=== PATIENT | female | born 1950 | race Caucasian/White ===

== ENCOUNTER → 2016-08-05 | Outpatient (CLI) | payer MEDICARE, OTHER ==
[~2016-08-05] MED LIST: AMLO5TAB2 PO; AMT10T; ASP81TEC; ASPI-586 PO; CLC600T; CTRZ10T; DPH25C; ESCI10TA55 PO; ESTROGCO.3; FAMO-119 PO; FAMO20TA13; METO-270 PO; METO-272 PO; MTP25TSR; MULT1TAB63; NF-VITD400; PRAM0.5T9 PO; PRD20T PO; PRD50T PO; [UNRECOGNIZED DRUG - OTHER]
--- OUTSIDE RECORDS SUMMARY | 2016-08-05 15:51 | XMS REPORT | Continuity of Care Document ---
Author Author [facility] Organization [facility] Address Unknown Phone Unavailable Care Team Providers Care Service Promoter Salesperson Name Role Phone WELLINGTON WU MD PCP Insurance Providers Payer Name Policy Number Subscriber Name Relationship [employer] Medicare [id number] Robin Ward 18 Self / Same As Patient Enter Insurance Name [id number] Robin Ward 16 Self / Same As Patient Advance Directives Directive Response Recorded Date/Time Advance Directives No 05/25/16 4:00am Organ Donor No 05/25/16 4:00am Resuscitation Status Full Code 05/25/16 4:00am Chief Complaint and Reason for Visit Chief Complaint Allergic Reaction Reason for Visit ANGIOEDEMA OF TONGUE OF UNKNOWN ETIOLOGY Problems Active Problems Medical Problem Onset Date Status Glossal swelling Unknown Acute Medications Current Home Medications Medication Dose Units Route Directions Days/Qty Instructions Start Date Metoprolol Succinate 25 Mg 25 Mg Oral Daily 04/29/16 Amlodipine Besylate 5 Mg 5 Mg Oral Daily 04/29/16 Escitalopram Oxalate 10 Mg 1 Tab Oral Daily 30 05/25/16 Aspirin 81 Mg 81 Mg Oral Daily 05/25/16 Prednisone 50 Mg 50 Mg Oral Daily 10 05/25/16 Past Home Medications Medication Directions Ordered Status Estrogens Conjugated 0.3 Mg Tab, 04/18/08 Discontinued [Maxzine] , 04/18/08 Discontinued Amitriptyline Hcl 10 Mg Tab, 04/18/08 Discontinued Amitriptyline Hcl 10 Mg Tab, 04/18/08 Discontinued Metoprolol Succinate (Metoprolol Er 25MG) 25 Mg Tab, 04/18/08 Discontinued Diphenhydramine Hcl 25 Mg Capsule, 04/18/08 Discontinued Aspirin 81 Mg Tabec, 04/18/08 Discontinued Calcium Carbonate 600 Mg Tab, 04/18/08 Discontinued Multivitamins 1 Ea Tablet, 04/18/08 Discontinued Cetirizine Hcl 10 Mg Tablet, 04/18/08 Discontinued Famotidine 20 Mg Tablet, 04/18/08 Discontinued Vitamin D 400 Iu Tab, 04/18/08 Discontinued Metoprolol Succinate 50 Mg Tab.er.24h, 50 Mg Oral Daily 10/03/15 Discontinued Pramipexole Di-Hcl 0.5 Mg Tablet, 0.5 Mg Oral Three Times A Day 10/03/15 Discontinued Prednisone 20 Mg Tab, 20 Mg Oral Daily 10/04/15 Discontinued Prednisone 20 Mg Tab, 20 Mg Oral Three Times A Day 03/22/16 Discontinued Prednisone 20 Mg Tab, 30 Mg Oral Twice A Day 04/29/16 Discontinued Famotidine 20 Mg Tablet, 20 Mg Oral Twice A Day 04/29/16 Discontinued Social History Social History Problem Response Recorded Date/Time Alcohol Use Denies Use 10/03/2015 10:38pm Recreational Drug Use No 10/03/2015 10:11pm Recent Foreign Travel No 05/25/2016 4:00am Recent Infectious Disease Exposure No 05/25/2016 4:00am Hospitalization with Isolation Denies 05/25/2016 4:00am Sexually Transmitted Disease No 05/25/2016 4:00am Smoking Status Never a Smoker 05/25/2016 4:00am Recent Hopitalizations No 05/25/2016 4:00am Sexually Transmitted Disease No 05/25/2016 4:00am Hospitalization with Isolation Denies 05/25/2016 4:00am Hx Sexually Transmitted Disorders No 01/12/2009 7:10pm Query Response Start Date Stop Date Smoking Status Never a Smoker Hospital Discharge Instructions No hospital discharge instructions. Plan of Care Discharge Date 05/25/16 7:11am Disposition 01 HOME, SELF-CARE Condition at Discharge Improved Instructions/Education Provided NO INSTRUCTIONS GIVEN Prescriptions See Medication Section Referrals WELLINGTON WU MD - Primary Care Physician Additional Instructions/Education Use your medications at home and add Prednisone 50 mg daily for 3 days. Close follow up with Dr. Wu Friday. Come back if any problems. All discharge instructions reviewed with patient and/or family. Voiced understanding. Functional Status No functional status results. Allergies, Adverse Reactions, Alerts No known allergies. Immunizations No immunization records. Vital Signs Acute Vital Signs Vital Response Date/Time Temperature (Fahrenheit) 97.0 degrees F (97.6 - 99.5) 05/25/2016 4:00am Temperature (Calculated Celsius) 36.71368 degrees C (36.4 - 37.5) 05/25/2016 4:00am Temperature Source Temporal 05/25/2016 4:00am Pulse Rate (adult) 59 bpm (60 - 90) 05/25/2016 5:40am Respiratory Rate 16 bpm (12 - 24) 05/25/2016 5:40am O2 Sat by Pulse Oximetry 96 % (88 - 100) 05/25/2016 5:40am Blood Pressure 150/82 mm Hg 05/25/2016 5:40am Blood Pressure Mean 104 mm Hg 05/25/2016 5:40am Pain Numeric Pain Scale 0-No Pain 05/25/2016 5:40am Height (Feet) 5 feet 05/25/2016 4:00am Height (Inches) 0 inches 05/25/2016 4:00am Height (Calculated Centimeters) 152.079373 cm 05/25/2016 4:00am Weight (Pounds) 125 pounds 05/25/2016 4:00am Weight (Calculated Kilograms) 56.629053 kilograms 05/25/2016 4:00am Capillary Refill Capillary Refill Less Than 3 Seconds 05/25/2016 5:40am Height 5 ft 0 in Weight 125 lb Body Mass Index 24.4 kg/m^2 Results No known relevant diagnostic tests, laboratory data and/or discharge summary. Procedures No known history of procedures. Encounters Encounter Location Arrival/Admit Date Discharge/Depart Date Attending Provider Departed Emergency Room [facility] 05/25/16 3:51am 05/25 7:11am ROBERT AMES MD Registered Clinic [facility] 05/23/16 8:23am LIBERTY FELICIANO Departed Emergency Room [facility] 04/29/16 8:47am 10/10 /16 12:11pm RADHA ADAMS DO Recent Diagnosis
--- NOTE | 2016-08-05 16:11 | Diagnostic Imaging Report ---
INDICATION: Cough for 2 months. COMPARISON STUDIES: Chest from 09/11/09. FINDINGS: Frontal and lateral views of the chest again demonstrate multiple surgical clips overlying the left side of the chest. The heart size and vascularity are normal. The lungs are clear. There are no pleural effusions. IMPRESSION: There are no acute findings. Dictated by: Dictated on workstation # [id number]
== END ==
LOC: RAD 15:47
PROVIDERS: ATTEND Nurse Practitioner Family
DX: R05 Cough (principal); R06.02 Shortness of breath
CPT/HCPCS: 71020

== ENCOUNTER → 2016-08-19 | Outpatient (CLI) | payer MEDICARE, OTHER ==
--- OUTSIDE RECORDS SUMMARY | 2016-08-19 09:28 | XMS REPORT | Continuity of Care Document ---
Author Author [facility] Organization [facility] Address Unknown Phone Unavailable Care Team Providers Care Strategic Client Executive Name Role Phone WELLINGTON WU MD PCP Insurance Providers Payer Name Policy Number Subscriber Name Relationship [employer] [id number] Robin Ward 16 Self / Same As Patient Enter Insurance Name [id number] Robin Ward 16 Self / Same As [...] - 99.5) 05/25/2016 4:00am Temperature (Calculated Celsius) 36.08678 degrees C (36.4 - 37.5) 05/25/2016 4:00am [...] 0 inches 05/25/2016 4:00am Height (Calculated Centimeters) 152.572424 cm 05/25/2016 4:00am Weight (Pounds) 125 pounds 05/25/2016 4:00am Weight (Calculated Kilograms) 56.247687 kilograms 05/25/2016 4:00am Capillary Refill Capillary Refill Less Than 3 Seconds 05/25/2016 5:40am Height 5 ft 0 in Weight 125 lb Body Mass Index 24.4 kg/m^2 Results No known relevant diagnostic tests, laboratory data and/or discharge summary. Procedures No known history of procedures. Encounters Encounter Location Arrival/Admit Date Discharge/Depart Date Attending Provider Departed Emergency Room [facility] 05/25/16 3:51am 05/25 7:11am ROBERT AMES MD Registered Clinic [facility] 05/23/16 8:23am LIBERTY FELICIANO Departed Emergency Room [facility] 04/29/16 8:47am 10/10 /16 12:11pm RADHA ADAMS DO Recent Diagnosis
--- NOTE | 2016-08-19 09:57 | Diagnostic Imaging Report ---
INDICATION: Right sided rib pain Three views of the right ribs do not show any displaced fractures. There are no effusions or pneumothoraces. IMPRESSION: Negative right ribs Dictated by: Dictated on workstation # [id number]
== END ==
LOC: RAD 09:24
PROVIDERS: ATTEND Nurse Practitioner Family
DX: R07.81 Pleurodynia (principal)
CPT/HCPCS: 71100

== ENCOUNTER → 2016-08-23 | Outpatient (CLI) | payer MEDICARE, OTHER ==
[~2016-08-23] MED LIST changes: +CATHETER FLUSH 10 ML SYR IV PRN; +IOHEXOL 350 MG/ML 100 ML (OMNIPAQUE 350) VIAL IV ONE; +NS 100 ML (IVPB) BAG IV ONE
--- OUTSIDE RECORDS SUMMARY | 2016-08-23 15:16 | XMS REPORT | Continuity of Care Document ---
Author Author [facility] Organization [facility] Address Unknown Phone Unavailable Care Team Providers Care Shear Scrapman Name Role Phone WELLINGTON WU MD PCP Insurance Providers Payer Name Policy Number Subscriber Name Relationship [employer] [id number] Robin Ward 16 Self / Same As Patient Enter Insurance Name [id number] Robin Ward 16 Self / Same As [...] - 99.5) 05/25/2016 4:00am Temperature (Calculated Celsius) 36.07436 degrees C (36.4 - 37.5) 05/25/2016 4:00am [...] 0 inches 05/25/2016 4:00am Height (Calculated Centimeters) 152.625479 cm 05/25/2016 4:00am Weight (Pounds) 125 pounds 05/25/2016 4:00am Weight (Calculated Kilograms) 56.200752 kilograms 05/25/2016 4:00am Capillary Refill Capillary Refill Less Than 3 Seconds 05/25/2016 5:40am Height 5 ft 0 in Weight 125 lb Body Mass Index 24.4 kg/m^2 Results No known relevant diagnostic tests, laboratory data and/or discharge summary. Procedures No known history of procedures. Encounters Encounter Location Arrival/Admit Date Discharge/Depart Date Attending Provider Departed Emergency Room [facility] 05/25/16 3:51am 05/25 7:11am ROBERT AMES MD Registered Clinic [facility] 05/23/16 8:23am LIBERTY FELICIANO Departed Emergency Room [facility] 04/29/16 8:47am 10/10 /16 12:11pm RADHA ADAMS DO Recent Diagnosis
--- NOTE | 2016-08-23 16:24 | Diagnostic Imaging Report ---
PROCEDURE: CT chest with contrast only. TECHNIQUE: Multiple contiguous axial images were obtained through the chest after administration of intravenous contrast. INDICATION: Right lower rib pain. No history of trauma. FINDINGS: The lungs are well aerated. There are no infiltrates or masses present. No pneumothorax or pleural effusion. No mediastinal or hilar adenopathy. The aorta is well opacified and appears normal with the aortic root measuring 3.4 cm. Pulmonary arteries opacify and appear normal. There are surgical clips along the anterior upper chest wall on the left anterior to the pectoralis muscle. There is no axillary adenopathy. Bone windows show no evidence of lytic or blastic bone lesions. No rib fractures demonstrated. IMPRESSION: 1. Surgical changes along the superior anterior left chest wall. 2. No parenchymal lesions. 3. No rib fractures or destructive bony lesions demonstrated. Dictated by: Dictated on workstation # [id number]
== END ==
LOC: RAD 15:12
PROVIDERS: ATTEND Nurse Practitioner Family
DX: R07.81 Pleurodynia (principal)
CPT/HCPCS: 71260

== ENCOUNTER → 2016-08-26 | Outpatient (CLI) | payer MEDICARE, OTHER ==
[~2016-08-26] MED LIST changes: -CATHETER FLUSH 10 ML SYR IV PRN; -IOHEXOL 350 MG/ML 100 ML (OMNIPAQUE 350) VIAL IV ONE; -NS 100 ML (IVPB) BAG IV ONE
--- OUTSIDE RECORDS SUMMARY | 2016-08-26 13:20 | XMS REPORT | Continuity of Care Document ---
Author Author [facility] Organization [facility] Address Unknown Phone Unavailable Care Team Providers Care Certified Pedorthotist Name Role Phone WELLINGTON WU MD PCP Insurance Providers Payer Name Policy Number Subscriber Name Relationship W[employer] Medicare [id number] Robin Ward 16 Self / Same As Patient Enter Insurance Name [id number] Robin Ward 16 Self / Same As [...] - 99.5) 05/25/2016 4:00am Temperature (Calculated Celsius) 36.14490 degrees C (36.4 - 37.5) 05/25/2016 4:00am [...] 0 inches 05/25/2016 4:00am Height (Calculated Centimeters) 152.957190 cm 05/25/2016 4:00am Weight (Pounds) 125 pounds 05/25/2016 4:00am Weight (Calculated Kilograms) 56.719878 kilograms 05/25/2016 4:00am Capillary Refill Capillary Refill Less Than 3 Seconds 05/25/2016 5:40am Height 5 ft 0 in Weight 125 lb Body Mass Index 24.4 kg/m^2 Results No known relevant diagnostic tests, laboratory data and/or discharge summary. Procedures No known history of procedures. Encounters Encounter Location Arrival/Admit Date Discharge/Depart Date Attending Provider Departed Emergency Room [facility] 05/25/16 3:51am 05/25 7:11am ROBERT AMES MD Registered Clinic [facility] 05/23/16 8:23am LIBERTY FELICIANO Departed Emergency Room [facility] 04/29/16 8:47am 10/10 /16 12:11pm RADHA ADAMS DO Recent Diagnosis
[2016-08-26 13:40] LABS: BASOPHILS # (AUTO) 0.1 10^3/uL (0.0-0.1); BASOPHILS % (AUTO) 1 % (0-10); EOSINOPHILS # (AUTO) 0.1 10^3/uL (0.0-0.3); EOSINOPHILS % (AUTO) 2 % (0-10); LYMPHOCYTES % (AUTO) 19 % (12-44); MEAN CORPUSCULAR HEMOGLOBIN 28 PG (25-34); MEAN CORPUSCULAR HGB CONC 33 G/DL (32-36); MEAN CORPUSCULAR VOLUME 87 FL (80-99); MEAN PLATELET VOLUME 10.8 FL (7.4-10.4); MONOCYTES # (AUTO) 0.3 X 10^3 (0.0-1.0); MONOCYTES % (AUTO) 6 % (0-12); NEUTROPHILS # (AUTO) 3.8 X 10^3 (1.8-7.8); NEUTROPHILS % (AUTO) 72 % (42-75); PLATELET COUNT 159 10^3/uL (130-400); RED BLOOD COUNT 4.54 10^6/uL (4.35-5.85); RED CELL DISTRIBUTION WIDTH 14.4 % (10.0-14.5); WHITE BLOOD COUNT 5.4 10^3/uL (4.3-11.0)
[2016-08-26 14:49] LABS: ALBUMIN 4.3 G/DL (3.2-4.5); BILIRUBIN,TOTAL 0.5 MG/DL (0.1-1.0); CALCIUM 9.9 MG/DL (8.5-10.1); CREATININE SERUM 1.32 MG/DL (0.60-1.30); POTASSIUM 3.5 MMOL/L (3.6-5.0)
== END ==
LOC: ONC 13:17
PROVIDERS: ATTEND Internal Medicine Hematology & Oncology
DX: M85.9 Disorder of bone density and structure, unspecified (principal); Z09 Encounter for follow-up examination after completed treatment for conditions other than malignant neoplasm; Z85.3 Personal history of malignant neoplasm of breast; I12.9 Hypertensive chronic kidney disease with stage 1 through stage 4 chronic kidney disease, or unspecified chronic kidney disease; N18.3 Chronic kidney disease, stage 3 (moderate); G35 Multiple sclerosis; G20 Parkinson's disease
CPT/HCPCS: 36415; 80053; 82306; 85025; 99213

== ENCOUNTER → 2016-08-27 | Outpatient (CLI) | payer MEDICARE, OTHER ==
--- OUTSIDE RECORDS SUMMARY | 2016-08-27 10:43 | XMS REPORT | Continuity of Care Document ---
Author Author [facility] Organization [facility] Address Unknown Phone Unavailable Care Team Providers Care Blocker Heated Metal Forms Name Role Phone WELLINGTON WU MD PCP Insurance Providers Payer Name Policy Number Subscriber Name Relationship [employer] [id number] Robin Ward 16 Self / Same As Patient Enter Insurance Name [id number] Robin Ward 16 Self / Same As [...] - 99.5) 05/25/2016 4:00am Temperature (Calculated Celsius) 36.96636 degrees C (36.4 - 37.5) 05/25/2016 4:00am [...] 0 inches 05/25/2016 4:00am Height (Calculated Centimeters) 152.621548 cm 05/25/2016 4:00am Weight (Pounds) 125 pounds 05/25/2016 4:00am Weight (Calculated Kilograms) 56.440624 kilograms 05/25/2016 4:00am Capillary Refill Capillary Refill Less Than 3 Seconds 05/25/2016 5:40am Height 5 ft 0 in Weight 125 lb Body Mass Index 24.4 kg/m^2 Results No known relevant diagnostic tests, laboratory data and/or discharge summary. Procedures No known history of procedures. Encounters Encounter Location Arrival/Admit Date Discharge/Depart Date Attending Provider Departed Emergency Room [facility] 05/25/16 3:51am 05/25 7:11am ROBERT AMES MD Registered Clinic [facility] 05/23/16 8:23am LIBERTY FELICIANO Departed Emergency Room [facility] 04/29/16 8:47am 10/10 /16 12:11pm RADHA ADAMS DO Recent Diagnosis
--- NOTE | 2016-08-27 15:41 | Diagnostic Imaging Report ---
EXAMINATION: Whole body bone scan. TECHNIQUE: After the intravenous administration of 27 mCi of Technetium 99m MDP, whole body delayed phase bone scan images were obtained with lateral views of the head and neck and the chest regions. INDICATION: History of breast cancer, has right lower rib pain. FINDINGS: There is a moderate focus of increased radiotracer uptake seen in the posterolateral aspect of the right 8th rib. No other focus of significant increased radiotracer uptake is seen. When correlated with the recent CT scan from 08/23/2016, no definitive correlating lesion is identified. No other significant focus of increased uptake is seen in the skeleton with minimal foci of increased uptake around the spine and joints, likely degenerative in nature. Urinary tract activity and excretion are seen. IMPRESSION: There is a moderate focus of increased uptake along the lateral aspect of the right 8th rib. No definite correlate is seen on the recent CT scan of the chest. This could be related to a stress or occult nondisplaced fracture rather than a solitary rib metastasis. A followup bone scan in 2-3 months to observe this lesion is recommended. Dictated by: Dictated on workstation # [id number]
== END ==
LOC: CARD 10:40
PROVIDERS: ATTEND Internal Medicine Hematology & Oncology
DX: R07.81 Pleurodynia (principal); Z85.3 Personal history of malignant neoplasm of breast
CPT/HCPCS: 76705; 78306

== ENCOUNTER → 2016-08-27 | Outpatient (CLI) | payer MEDICARE, OTHER ==
--- OUTSIDE RECORDS SUMMARY | 2016-08-27 06:50 | XMS REPORT | Continuity of Care Document ---
Author Author [facility] Organization [facility] Address Unknown Phone Unavailable Care Team Providers Care Camp Advisor Name Role Phone WELLINGTON WU MD PCP Insurance Providers Payer Name Policy Number Subscriber Name Relationship [employer] [id number] Robin Ward 16 Self / Same As Patient Enter Insurance Name [id number] Robin Ward 16 Self / Same As [...] 3 days. Close follow up with Dr. uW Friday. Come back if any problems. All discharge instructions reviewed with patient and/or family. Voiced understanding. Functional Status No functional status results. Allergies, Adverse Reactions, Alerts No known allergies. Immunizations No immunization records. Vital Signs Acute Vital Signs Vital Response Date/Time Temperature (Fahrenheit) 97.0 degrees F (97.6 - 99.5) 05/25/2016 4:00am Temperature (Calculated Celsius) 36.02297 degrees C (36.4 - 37.5) 05/25/2016 4:00am [...] 0 inches 05/25/2016 4:00am Height (Calculated Centimeters) 152.954549 cm 05/25/2016 4:00am Weight (Pounds) 125 pounds 05/25/2016 4:00am Weight (Calculated Kilograms) 56.061963 kilograms 05/25/2016 4:00am Capillary Refill Capillary Refill Less Than 3 Seconds 05/25/2016 5:40am Height 5 ft 0 in Weight 125 lb Body Mass Index 24.4 kg/m^2 Results No known relevant diagnostic tests, laboratory data and/or discharge summary. Procedures No known history of procedures. Encounters Encounter Location Arrival/Admit Date Discharge/Depart Date Attending Provider Departed Emergency Room [facility] 05/25/16 3:51am 05/25 7:11am ROBERT AMES MD Registered Clinic [facility] 05/23/16 8:23am LIBERTY FELICIANO Departed Emergency Room [facility] 04/29/16 8:47am 10/10 /16 12:11pm RADHA ADAMS DO Recent Diagnosis
--- NOTE | 2016-08-27 09:14 | Diagnostic Imaging Report ---
PROCEDURE: US Gallbladder. TECHNIQUE: Multiple real-time grayscale images were obtained over the right upper quadrant in various projections. INDICATION: Right upper quadrant pain. FINDINGS: The pancreas appears unremarkable. The liver demonstrates no focal mass. There is hepatopetal flow in the portal vein. There is no intrahepatic biliary dilatation. The CBD is 5 mm in caliber. No gallstone or gallbladder wall thickening is seen. The right kidney is 8.9 cm in length with no hydronephrosis or focal lesion. No fluid collection in the upper right abdomen is seen. The sonographic Laughlin sign is reportedly negative. IMPRESSION: Unremarkable exam. Dictated by: Dictated on workstation # [id number]
== END ==
LOC: RAD 06:46
PROVIDERS: ATTEND Nurse Practitioner Family
DX: R10.11 Right upper quadrant pain (principal)
CPT/HCPCS: 76705

== ENCOUNTER → 2016-12-23 | Outpatient (CLI) | payer MEDICARE, OTHER ==
--- NOTE | 2016-12-23 15:55 | Diagnostic Imaging Report ---
EXAMINATION: Whole body bone scan. TECHNIQUE: After the intravenous administration of 27 mCi of Technetium 99m MDP, whole body delayed phase bone scan images were obtained with lateral views of the head and neck and the chest regions. INDICATION: Breast cancer. COMPARISON: 08/27/2016. FINDINGS: The previously seen lesion along the lateral aspect of the right eighth rib is associated with [id number] increased uptake slightly less than 08/27/2016 exam. There is no other rib or axial skeleton suspicious lesion identified. Mild degenerative joint activity is seen in the shoulders, knees, and ankles. Kidney and urinary bladder activity is noted. IMPRESSION: There is slight decrease in intensity of uptake in the lateral right eighth rib with no new lesion seen. Etiology is favored to be posttraumatic with no definite evidence of metastasis. Dictated by: Dictated on workstation # [id number]
== END ==
LOC: CARD 11:14
PROVIDERS: ATTEND Internal Medicine Hematology & Oncology
DX: M85.80 Other specified disorders of bone density and structure, unspecified site (principal); Z85.3 Personal history of malignant neoplasm of breast
CPT/HCPCS: 78306

== ENCOUNTER 2016-12-25 13:21 | Outpatient (RCR) | payer MEDICARE, OTHER | END 2017-02-02 | disposition still patient (30) | LOC: ONC 13:21 | PROVIDERS: ATTEND Internal Medicine Hematology & Oncology | DX: C50.912 Malignant neoplasm of unspecified site of left female breast (principal); M85.88 Other specified disorders of bone density and structure, other site; N18.3 Chronic kidney disease, stage 3 (moderate) | CPT/HCPCS: 99213 ==

== ENCOUNTER → 2017-04-22 | Outpatient (CLI) | payer MEDICARE, OTHER | LOC: RAD 12:07 | PROVIDERS: ATTEND Family Medicine | DX: M25.562 Pain in left knee (principal) | CPT/HCPCS: 73562; 73590 ==

== ENCOUNTER → 2017-04-24 | Outpatient (CLI) | payer MEDICARE, OTHER ==
[2017-04-24 14:27] LABS: MEAN PLATELET VOLUME 10.7 FL (7.4-10.4); RED BLOOD COUNT 4.87 10^6/uL (4.35-5.85); RED CELL DISTRIBUTION WIDTH 13.6 % (10.0-14.5); WHITE BLOOD COUNT 5.2 10^3/uL (4.3-11.0)
[2017-04-24 14:49] LABS: CALCIUM 9.8 MG/DL (8.5-10.1); CREATININE SERUM 1.21 MG/DL (0.60-1.30); POTASSIUM 3.8 MMOL/L (3.6-5.0)
[2017-04-24 15:11] LABS: THYROID STIMULATING HORMONE 1.49 UIU/ML (0.35-4.94)
== END ==
LOC: LAB 14:07
PROVIDERS: ATTEND Physician Assistant Medical
DX: R00.1 Bradycardia, unspecified (principal)
CPT/HCPCS: 36415; 80048; 84436; 84443; 84480; 85027

== ENCOUNTER 2017-06-19 23:42 | Emergency (ER) | payer MEDICARE, OTHER ==
[~2017-06-19] VITALS: Ht 152.4 cm; Wt 56.7 kg
[~2017-06-19 23:42] MED LIST changes: +EPINEPHrine INJECTION 1 MG/ML AMP ONE; -METO-270 PO; -METO-272 PO; +METO-370 PO; +METO-387 PO
[2017-06-19] MEDS ORDERED: FAMOTIDINE 20MG/2ML IV (PEPCID) ONE (23:43)
--- OUTSIDE RECORDS SUMMARY | 2017-06-19 23:52 | XMS REPORT | Continuity of Care Document ---
Author Author [facility] Organization [facility] Address Unknown Phone Unavailable Allergies Active Description Code Type Severity Reaction Onset Reported/Identified Relationship to Patient Clinical Status Yes No Known Drug Allergies [id number] Drug Allergy Unknown N/ A 04/20/2008 Medications Problems Date Dx Coded Attending Type Code Diagnosis Diagnosed By 05/30/2013 ASHLIE BEAR Ot 174.9 MALIGN NEOPL BREAST NOS 05/30/2013 ASHLIE BEAR Ot 585.3 CHRONIC KIDNEY DISEASE, STAGE III (MODER 05/30/2013 ASHLIE BEAR Ot 733.90 BONE CARTILAGE DIS NOS 05/30/2013 ASHLIE BEAR Ot V15.3 HX OF IRRADIATION 05/30/2013 ASHLIE BEAR Ot V58.66 LONG-TERM (CURRENT) USE OF ASPIRIN 05/30/2013 ASHLIE BEAR Ot V58.69 OTH MED,LT,CURRENT USE 05/30/2013 ASHLIE BEAR Ot V86.0 ESTROGEN RECEPTOR POSITIVE STATUS [ER+] 05/30/2013 ASHLIE BEAR Ot V87.41 PERSONAL HISTORY OF ANTINEOPLASTIC CHEMO 08/31/2013 ROBERT PRYOR MD Ot 569.0 ANAL RECTAL POLYP 08/31/2013 ROBERT PRYOR MD Ot V76.51 SCREEN MAL NEOP-COLON 06/15/2014 LIBERTY FELICIANO HSPT TUTOR Ot 733.90 06/15/2014 LIBERTY FELICIANO HSPT TUTOR Ot V76.12 07/13/2014 YAW ACOSTA DOUBLE REAMER OPERATOR-C Ot 263.9 07/13/2014 YAW ACOSTA DOUBLE REAMER OPERATOR-C Ot 272.2 07/13/2014 YAW ACOSTA DOUBLE REAMER OPERATOR-C Ot 275.42 07/13/2014 YAW ACOSTA DOUBLE REAMER OPERATOR-C Ot 285.21 07/13/2014 YAW ACOSTA DOUBLE REAMER OPERATOR-C Ot 404.10 07/13/2014 YAW ACOSTA DOUBLE REAMER OPERATOR-C Ot 585.3 07/13/2014 YAW ACOSTA DOUBLE REAMER OPERATOR-C Ot 791.0 07/20/2014 Ot 272.2 07/20/2014 Ot 275.42 07/20/2014 Ot 285.21 07/20/2014 Ot 404.10 07/20/2014 Ot 585.3 07/20/2014 Ot 791.0 08/22/2014 CHEMA, AZEEMAN N Ot 174.9 08/22/2014 CHEMA, BOBAN N Ot 585.3 08/22/2014 CHEMA, BOBAN N Ot 733.90 08/22/2014 CHEMA, BOBAN N Ot V15.3 08/22/2014 CHEMA, BOBAN N Ot V58.66 08/22/2014 CHEMA, BOBAN N Ot V58.69 08/22/2014 CHEMA, BOBAN N Ot V86.0 08/22/2014 CHEMA, BOBAN N Ot V87.41 08/29/2014 CHEMA, BOBAN N Ot 174.9 08/29/2014 CHEMA, BOBAN N Ot 585.3 08/29/2014 CHEMA, BOBAN N Ot 733.90 08/29/2014 CHEMA, BOBAN N Ot V15.3 08/29/2014 CHEMA, BOBAN N Ot V58.66 08/29/2014 CHEMA, BOBAN N Ot V58.69 08/29/2014 CHEMA, BOBAN N Ot V86.0 08/29/2014 CHEMA, BOBAN N Ot V87.41 08/30/2014 CHEMA, BOBAN N Ot 174.9 08/30/2014 CHEMA, BOBAN N Ot 585.3 08/30/2014 CHEMA, BOBAN N Ot 733.90 08/30/2014 CHEMA, BOBAN N Ot V15.3 08/30/2014 CHEMA, BOBAN N Ot V58.66 08/30/2014 CHEMA, BOBAN N Ot V58.69 08/30/2014 CHEMA, BOBAN N Ot V86.0 08/30/2014 CHEMA, BOBAN N Ot V87.41 10/10/2014 YAW ACOSTA DOUBLE REAMER OPERATOR-C Ot 263.9 PROTEIN-ERLINDA MALNUTR NOS 10/10/2014 YAW ACOSTA DOUBLE REAMER OPERATOR-C Ot 272.2 MIXED HYPERLIPIDEMIA 10/10/2014 YAW ACOSTA DOUBLE REAMER OPERATOR-C Ot 275.42 HYPERCALCEMIA 10/10/2014 YAW ACOSTA DOUBLE REAMER OPERATOR-C Ot 285.21 ANEMIA IN CHRONIC KIDNEY DISEASE 10/10/2014 YAW ACOSTA 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 10/10/2014 YAW ACOSTA NP-C Ot 585.3 CHRONIC KIDNEY DISEASE, STAGE III (MODER 10/10/2014 YAW ACOSTA DOUBLE REAMER OPERATOR-C Ot 791.0 PROTEINURIA 10/13/2014 CHEMA, BOBAN N Ot 174.9 10/13/2014 CHEMA, BOBAN N Ot 585.3 10/13/2014 CHEMA, BOBAN N Ot 733.90 10/13/2014 CHEMA, BOBAN N Ot V15.3 10/13/2014 CHEMA, BOBAN N Ot V58.66 10/13/2014 CHEMA, BOBAN N Ot V58.69 10/13/2014 CHEMA BOBAN N Ot V86.0 10/13/2014 CHEMA, BOBAN N Ot V87.41 11/27/2014 CHEMA, BOBAN N Ot 174.9 MALIGN NEOPL BREAST NOS 11/27/2014 CHEMA BOBAN N Ot 585.3 CHRONIC KIDNEY DISEASE, STAGE III (MODER 11/27/2014 CHEMA, BOBAN N Ot 733.90 BONE CARTILAGE DIS NOS 11/27/2014 AZEEM BEARAN N Ot V15.3 HX OF IRRADIATION 11/27/2014 CHEMA BOBAN N Ot V58.66 LONG-TERM (CURRENT) USE OF ASPIRIN 11/27/2014 CHEMA BOBAN N Ot V58.69 OTH MED,LT,CURRENT USE 11/27/2014 CHEMA BOBAN N Ot V86.0 ESTROGEN RECEPTOR POSITIVE STATUS [ER+] 11/27/2014 CHEMA BOBBRITTNEY N Ot V87.41 PERSONAL HISTORY OF ANTINEOPLASTIC CHEMO 12/29/2014 YAW ACOSTA DOUBLE REAMER OPERATOR-C Ot 263.9 12/29/2014 YAW ACOSTA DOUBLE REAMER OPERATOR-C Ot 272.4 12/29/2014 YAW ACOSTA DOUBLE REAMER OPERATOR-C Ot 275.42 12/29/2014 YAW ACOSTA DOUBLE REAMER OPERATOR-C Ot 285.21 12/29/2014 NEW, YAW Pederson DOUBLE REAMER OPERATOR-C Ot 404.10 12/29/2014 NEW, YAW Pederson DOUBLE REAMER OPERATOR-C Ot 585.3 12/29/2014 NEW, YAW Pederson DOUBLE REAMER OPERATOR-C Ot 791.0 01/16/2015 NEW, YAW Pederson DOUBLE REAMER OPERATOR-C Ot 263.9 01/16/2015 NEW, YAW Pederson DOUBLE REAMER OPERATOR-C Ot 268.9 01/16/2015 NEW, YAW Pederson DOUBLE REAMER OPERATOR-C Ot 272.2 01/16/2015 NEW, YAW Pederson DOUBLE REAMER OPERATOR-C Ot 275.42 01/16/2015 NEW, YAW Pederson DOUBLE REAMER OPERATOR-C Ot 285.21 01/16/2015 NEW, YAW Pederson DOUBLE REAMER OPERATOR-C Ot 404.10 01/16/2015 NEW, YAW Pederson DOUBLE REAMER OPERATOR-C Ot 585.3 01/16/2015 NEW, YAW Pederson NP-C Ot 788.1 01/16/2015 NEW, YAW Pederson NP-C Ot 791.0 01/27/2015 DUNG PERALTA, WELLINGTON Feliciano Ot 401.9 01/27/2015 DUNG PERALTA, WELLINGTON Feliciano Ot V58.69 01/27/2015 DUNG PERALTA, WELLINGTON Feliciano Ot V72.62 01/27/2015 DUNG PERALTA, WELLINGTON Feliciano Ot V87.41 05/03/2015 DONNY RIVAS HSPT TUTOR Ot 287.5 06/19/2015 ASHLIE BEAR Ot C50.919 06/19/2015 ASHLIE BEAR Ot Z12.31 09/15/2015 Ot M54.2 09/20/2015 LIBERTY FELICIANO HSPT TUTOR Ot C50.912 10/04/2015 ARI PERALTA, NADINE Hamlin Ot T78.3XXA ANGIONEUROTIC EDEMA, INITIAL ENCOUNTER 10/04/2015 Ot 174.9 10/04/2015 Ot V10.3 10/04/2015 Ot V76.11 10/04/2015 Ot 396.3 10/04/2015 Ot 397.0 10/04/2015 Ot 746.4 10/04/2015 Ot 272.4 10/04/2015 Ot 585.3 10/04/2015 Ot 272.2 10/04/2015 Ot 275.42 10/04/2015 Ot 404.10 10/04/2015 Ot 585.3 10/04/2015 Ot 791.0 10/04/2015 Ot 174.9 10/04/2015 Ot 585.3 10/04/2015 Ot 733.90 10/04/2015 Ot V15.3 10/04/2015 Ot V58.66 10/04/2015 Ot V58.69 10/04/2015 Ot V86.0 10/04/2015 Ot V87.41 10/04/2015 Ot 272.2 10/04/2015 Ot 275.42 10/04/2015 Ot 404.10 10/04/2015 Ot 585.3 10/04/2015 Ot 791.0 10/04/2015 CUCO PERALTA, SANTY Norton Ot 272.0 10/04/2015 CUCO PERALTA, SANTY Norton Ot 287.5 10/04/2015 FELICIANO, LIBERTY S HSPT TUTOR Ot 174.9 10/04/2015 FELICIANO, BHUMIKAAH S HSPT TUTOR Ot 585.3 10/04/2015 FELICIANO BHUMIKAAH S HSPT TUTOR Ot 733.90 10/04/2015 FELICIANO BHUIMKAAH S HSPT TUTOR Ot V15.3 10/04/2015 FELICIANO BHUMIKAAH S HSPT TUTOR Ot V58.66 10/04/2015 FELICIANO BHUMIKAAH S HSPT TUTOR Ot V58.69 10/04/2015 FELICIANO BHUMIKAAH S HSPT TUTOR Ot V86.0 10/04/2015 FELICIANO BHUMIKAAH S HSPT TUTOR Ot V87.41 10/04/2015 FELICIANO, LIBERTY S HSPT TUTOR Ot 174.9 10/04/2015 FELICIANO, LIBERTY S HSPT TUTOR Ot 733.90 10/04/2015 NEW, YAW HartmanSaul DOUBLE REAMER OPERATOR-C Ot 272.2 10/04/2015 NEW, YAW HartmanSaul DOUBLE REAMER OPERATOR-C Ot 275.42 10/04/2015 NEW, YAW Pederson DOUBLE REAMER OPERATOR-C Ot 285.21 10/04/2015 NEW, YAW Pederson DOUBLE REAMER OPERATOR-C Ot 404.10 10/04/2015 NEW, YAW Pederson DOUBLE REAMER OPERATOR-C Ot 585.3 10/04/2015 NEW, YAW Pederson DOUBLE REAMER OPERATOR-C Ot 791.0 10/04/2015 ROYA PERALTA, ROBERT Hamlin Ot V72.84 10/04/2015 LIBERTY FELICIANO S HSPT TUTOR Ot 174.9 10/04/2015 LIBERTY FELICIANO HSPT TUTOR Ot 585.3 10/04/2015 LIBERTY FELICIANO HSPT TUTOR Ot 733.90 10/04/2015 LIBERTY FELICIANO HSPT TUTOR Ot V15.3 10/04/2015 LIBERTY FELICIANO HSPT TUTOR Ot V58.66 10/04/2015 LIBERTY FELICIANO HSPT TUTOR Ot V58.69 10/04/2015 LIBERTY FELICIANO HSPT TUTOR Ot V86.0 10/04/2015 LIBERTY FELICIANO HSPT TUTOR Ot V87.41 10/04/2015 LIBERTY FELICIANO HSPT TUTOR Ot 733.90 10/04/2015 LIBERTY FELICIANO HSPT TUTOR Ot V76.12 10/04/2015 YAW ACOSTA DOUBLE REAMER OPERATOR-C Ot 272.2 10/04/2015 YAW ACOSTA DOUBLE REAMER OPERATOR-C Ot 275.42 10/04/2015 YAW ACOSTA DOUBLE REAMER OPERATOR-C Ot 285.21 10/04/2015 YAW ACOSTA DOUBLE REAMER OPERATOR-C Ot 404.10 10/04/2015 YAW ACOSTA DOUBLE REAMER OPERATOR-C Ot 585.3 10/04/2015 YAW ACOSTA DOUBLE REAMER OPERATOR-C Ot 791.0 10/04/2015 CUCO PERALTA, SANTY M Ot 397.0 10/04/2015 CUCO PERALTA, SANTY M Ot 424.0 10/04/2015 CUCO PERALTA, SANTY M Ot 746.4 10/04/2015 CUCO PERALTA, SANTY M Ot 244.8 10/04/2015 CUCO PERALTA, SANTY M Ot 241.0 10/04/2015 CUCO PERALTA, SANTY M Ot 388.30 10/04/2015 CUCO PERALTA, SANTY M Ot 721.0 10/04/2015 Ot 272.2 10/04/2015 Ot 275.42 10/04/2015 Ot 285.21 10/04/2015 Ot 404.10 10/04/2015 Ot 585.3 10/04/2015 Ot 791.0 10/04/2015 ASHLIE BEAR Ot C50.919 10/04/2015 ASHLIE BEAR Ot Z12.31 10/04/2015 NEW, YAW G. DOUBLE REAMER OPERATOR-C Ot 263.9 10/04/2015 NEW, YAW Hartman. DOUBLE REAMER OPERATOR-C Ot 272.2 10/04/2015 NEW, YAW G. DOUBLE REAMER OPERATOR-C Ot 275.42 10/04/2015 NEW, YAW G. DOUBLE REAMER OPERATOR-C Ot 285.21 10/04/2015 NEW, YAW G. DOUBLE REAMER OPERATOR-C Ot 404.10 10/04/2015 NEW, YAW G. DOUBLE REAMER OPERATOR-C Ot 585.3 10/04/2015 NEW, YAW Hartman. DOUBLE REAMER OPERATOR-C Ot 791.0 10/04/2015 CHEMA, BOBAN N Ot 174.9 10/04/2015 CHEMA, BOBAN N Ot 585.3 10/04/2015 CHEMA, BOBAN N Ot 733.90 10/04/2015 CHEMA, BOBAN N Ot V15.3 10/04/2015 CHEMA, BOBAN N Ot V58.66 10/04/2015 CHEMA, BOBAN N Ot V58.69 10/04/2015 CHEMA, BOBAN N Ot V86.0 10/04/2015 CHEMA, BOBAN N Ot V87.41 10/04/2015 NEW, YAW Hartman. DOUBLE REAMER OPERATOR-C Ot 263.9 10/04/2015 NEW, YAW G. DOUBLE REAMER OPERATOR-C Ot 272.4 10/04/2015 NEW, YAW G. DOUBLE REAMER OPERATOR-C Ot 275.42 10/04/2015 NEW, YAW G. DOUBLE REAMER OPERATOR-C Ot 285.21 10/04/2015 NEW, YAW Devan. DOUBLE REAMER OPERATOR-C Ot 404.10 10/04/2015 NEW, YAW G. DOUBLE REAMER OPERATOR-C Ot 585.3 10/04/2015 NEW, YAW G. DOUBLE REAMER OPERATOR-C Ot 791.0 10/04/2015 NEW, YAW G. DOUBLE REAMER OPERATOR-C Ot 263.9 10/04/2015 NEW, YAW G. DOUBLE REAMER OPERATOR-C Ot 268.9 10/04/2015 NEW, YAW G. DOUBLE REAMER OPERATOR-C Ot 272.2 10/04/2015 NEW, YAW G. DOUBLE REAMER OPERATOR-C Ot 275.42 10/04/2015 NEW, YAW G. DOUBLE REAMER OPERATOR-C Ot 285.21 10/04/2015 NEW, YAW G. DOUBLE REAMER OPERATOR-C Ot 404.10 10/04/2015 NEW, YAW G. DOUBLE REAMER OPERATOR-C Ot 585.3 10/04/2015 NEW, YAWBraden Pederson NP-C Ot 788.1 10/04/2015 YAW ACOSTA DOUBLE REAMER OPERATOR-C Ot 791.0 10/04/2015 DUNG PERALTA, WELLINGTON Feliciano Ot 401.9 10/04/2015 DUNG PERALTA, WELLINGTON A Ot V58.69 10/04/2015 DUNG PERALTA, WELLINGTON A Ot V72.62 10/04/2015 DUNG PERALTA, WELLINGTON Feliciano Ot V87.41 10/04/2015 DONNY RIVAS HSPT TUTOR Ot 287.5 10/04/2015 BRADEN LIBERTY Astudillo HSPT TUTOR Ot C50.912 10/04/2015 Ot M54.2 10/04/2015 ARI PERALTA, NADINE Hamlin Ot T78.3XXA 02/23/2016 MICHELLE CINTRON R Ot I20.9 ANGINA PECTORIS, UNSPECIFIED 02/23/2016 MICHELLE CINTRON R Ot R53.82 CHRONIC FATIGUE, UNSPECIFIED 02/23/2016 MICHELLE CINTRON R Ot R55 SYNCOPE AND COLLAPSE 03/15/2016 MICHELLE CINTRON R Ot I20.9 ANGINA PECTORIS, UNSPECIFIED 03/15/2016 MICHELLE CINTRON R Ot R53.82 CHRONIC FATIGUE, UNSPECIFIED 03/15/2016 MICHELLE CINTRON R Ot R55 SYNCOPE AND COLLAPSE 03/20/2016 Ot V10.3 HX OF BREAST MALIGNANCY 03/20/2016 Ot V76.11 SCRN MAMMO-HIGH RISK PT, MALIGNANT NEOPL 03/20/2016 Ot 396.3 MITRAL/AORTIC KAMARI INSUFF 03/20/2016 Ot 397.0 TRICUSPID VALVE DISEASE 03/20/2016 Ot 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 03/20/2016 Ot 272.4 HYPERLIPIDEMIA NEC/NOS 03/20/2016 Ot 585.3 CHRONIC KIDNEY DISEASE, STAGE III (MODER 03/20/2016 Ot 272.2 MIXED HYPERLIPIDEMIA 03/20/2016 Ot 275.42 HYPERCALCEMIA 03/20/2016 Ot 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, BENIGN, 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 03/20/2016 Ot 585.3 CHRONIC KIDNEY DISEASE, STAGE III (MODER 03/20/2016 Ot 791.0 PROTEINURIA 03/20/2016 Ot 174.9 MALIGN NEOPL BREAST NOS 03/20/2016 Ot 585.3 CHRONIC KIDNEY DISEASE, STAGE III (MODER 03/20/2016 Ot 733.90 BONE CARTILAGE DIS NOS 03/20/2016 Ot V15.3 HX OF IRRADIATION 03/20/2016 Ot V58.66 LONG-TERM (CURRENT) USE OF ASPIRIN 03/20/2016 Ot V58.69 OTH MED,LT,CURRENT USE 03/20/2016 Ot V86.0 ESTROGEN RECEPTOR POSITIVE STATUS [ER+] 03/20/2016 Ot V87.41 PERSONAL HISTORY OF ANTINEOPLASTIC CHEMO 03/20/2016 Ot 272.2 MIXED HYPERLIPIDEMIA 03/20/2016 Ot 275.42 HYPERCALCEMIA 03/20/2016 Ot 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, BENIGN, 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 03/20/2016 Ot 585.3 CHRONIC KIDNEY DISEASE, STAGE III (MODER 03/20/2016 Ot 791.0 PROTEINURIA 03/20/2016 CUCO PERALTA, SANTY Norton Ot 272.0 PURE HYPERCHOLESTEROLEM 03/20/2016 CUCO PERALTA, SANTY Norton Ot 287.5 THROMBOCYTOPENIA NOS 03/20/2016 LIBERTY FELICIANO HSPT TUTOR Ot 174.9 MALIGN NEOPL BREAST NOS 03/20/2016 LIBERTY FELICIANO S HSPT TUTOR Ot 585.3 CHRONIC KIDNEY DISEASE, STAGE III ( MODER 03/20/2016 LIBERTY FELICIANO HSPT TUTOR Ot 733.90 BONE CARTILAGE DIS NOS 03/20/2016 LIBERTY FELICIANO HSPT TUTOR Ot V15.3 HX OF IRRADIATION 03/20/2016 LIBERTY FELICIANO S HSPT TUTOR Ot V58.66 LONG-TERM (CURRENT) USE OF ASPIRIN 03/20/2016 LIBERTY FELICIANO HSPT TUTOR Ot V58.69 OTH MED,LT,CURRENT USE 03/20/2016 LIBERTY FELICIANO HSPT TUTOR Ot V86.0 ESTROGEN RECEPTOR POSITIVE STATUS [ER+] 03/20/2016 LIBERTY FELICIANO HSPT TUTOR Ot V87.41 PERSONAL HISTORY OF ANTINEOPLASTIC CHEMO 03/20/2016 LIBERTY FELICIANO HSPT TUTOR Ot 174.9 MALIGN NEOPL BREAST NOS 03/20/2016 LIBERTY FELICIANO S HSPT TUTOR Ot 733.90 BONE CARTILAGE DIS NOS 03/20/2016 YAW ACOSTA DOUBLE REAMER OPERATOR-C Ot 272.2 MIXED HYPERLIPIDEMIA 03/20/2016 YAW ACOSTA DOUBLE REAMER OPERATOR-C Ot 275.42 HYPERCALCEMIA 03/20/2016 YAW ACOSTA NP-C Ot 285.21 ANEMIA IN CHRONIC KIDNEY DISEASE 03/20/2016 YAW ACOSTA 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 03/20/2016 YAW ACOSTA DOUBLE REAMER OPERATOR-C Ot 585.3 CHRONIC KIDNEY DISEASE, STAGE III (MODER 03/20/2016 YAW ACOSTA NP-C Ot 791.0 PROTEINURIA 03/20/2016 ROYA PERALTA, ROBERT Hamlin Ot V72.84 EXAM PRE-OPERATIVE NOS 03/20/2016 LIBERTY FELICIANO HSPT TUTOR Ot 174.9 MALIGN NEOPL BREAST NOS 03/20/2016 LIBERTY FELICIANO HSPT TUTOR Ot 585.3 CHRONIC KIDNEY DISEASE, STAGE III ( MODER 03/20/2016 LIBERTY FELICIANO HSPT TUTOR Ot 733.90 BONE CARTILAGE DIS NOS 03/20/2016 LIBERTY FELICIANO HSPT TUTOR Ot V15.3 HX OF IRRADIATION 03/20/2016 LIBERTY FELICIANO HSPT TUTOR Ot V58.66 LONG-TERM (CURRENT) USE OF ASPIRIN 03/20/2016 LIBERTY FELICIANO HSPT TUTOR Ot V58.69 OTH MED,LT,CURRENT USE 03/20/2016 LIBERTY FELICIANO HSPT TUTOR Ot V86.0 ESTROGEN RECEPTOR POSITIVE STATUS [ER+] 03/20/2016 LIBERTY FELICIANO HSPT TUTOR Ot V87.41 PERSONAL HISTORY OF ANTINEOPLASTIC CHEMO 03/20/2016 LIBERTY FELICIANO HSPT TUTOR Ot 733.90 BONE CARTILAGE DIS NOS 03/20/2016 LIBERTY FELICIANO HSPT TUTOR Ot V76.12 OTH SCREEN MAMMO-MALIGN NEOPLASM OF HUSSAIN 03/20/2016 YAW ACOSTA NP-C Ot 272.2 MIXED HYPERLIPIDEMIA 03/20/2016 YAW ACOSTA NP-C Ot 275.42 HYPERCALCEMIA 03/20/2016 YAW ACOSTA DOUBLE REAMER OPERATOR-C Ot 285.21 ANEMIA IN CHRONIC KIDNEY DISEASE 03/20/2016 YAW ACOSTA 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 03/20/2016 YAW ACOSTA DOUBLE REAMER OPERATOR-C Ot 585.3 CHRONIC KIDNEY DISEASE, STAGE III (MODER 03/20/2016 YAW ACOSTA DOUBLE REAMER OPERATOR-C Ot 791.0 PROTEINURIA 03/20/2016 CUCO PERALTA, SANTY Norton Ot 397.0 TRICUSPID VALVE DISEASE 03/20/2016 SANTY NORWOOD MD Ot 424.0 MITRAL VALVE DISORDER 03/20/2016 SANTY NORWOOD MD Ot 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 03/20/2016 SANTY NORWOOD MD Ot 244.8 ACQUIRED HYPOTHYROID NEC 03/20/2016 SANTY NORWOOD MD Ot 241.0 NONTOX UNINODULAR GOITER 03/20/2016 SANTY NORWOOD MD Ot 388.30 TINNITUS NOS 03/20/2016 SANTY NORWOOD MD Ot 721.0 CERVICAL SPONDYLOSIS 03/20/2016 Ot 272.2 MIXED HYPERLIPIDEMIA 03/20/2016 Ot 275.42 HYPERCALCEMIA 03/20/2016 Ot 285.21 ANEMIA IN CHRONIC KIDNEY DISEASE 03/20/2016 Ot 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, BENIGN, 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 03/20/2016 Ot 585.3 CHRONIC KIDNEY DISEASE, STAGE III (MODER 03/20/2016 Ot 791.0 PROTEINURIA 03/20/2016 ASHLIE BEAR Ot C50.919 MALIGNANT NEOPLASM OF UNSP SITE OF UNSPE 03/20/2016 ASHLIE BEAR Ot Z12.31 ENCNTR SCREEN MAMMOGRAM FOR MALIGNANT NE 03/20/2016 YAW ACOSTA DOUBLE REAMER OPERATOR-C Ot 263.9 PROTEIN-ERLINDA MALNUTR NOS 03/20/2016 YAW ACOSTA DOUBLE REAMER OPERATOR-C Ot 272.2 MIXED HYPERLIPIDEMIA 03/20/2016 YAW ACOSTA DOUBLE REAMER OPERATOR-C Ot 275.42 HYPERCALCEMIA 03/20/2016 YAW ACOSTA DOUBLE REAMER OPERATOR-C Ot 285.21 ANEMIA IN CHRONIC KIDNEY DISEASE 03/20/2016 YAW ACOSTA 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 03/20/2016 YAW ACOSTA DOUBLE REAMER OPERATOR-C Ot 585.3 CHRONIC KIDNEY DISEASE, STAGE III (MODER 03/20/2016 YAW ACOSTA DOUBLE REAMER OPERATOR-C Ot 791.0 PROTEINURIA 03/20/2016 ASHLIE BEAR Ot 174.9 MALIGN NEOPL BREAST NOS 03/20/2016 ASHLIE BEAR Ot 585.3 CHRONIC KIDNEY DISEASE, STAGE III (MODER 03/20/2016 ASHLIE BEAR Ot 733.90 BONE CARTILAGE DIS NOS 03/20/2016 ASHLIE BEAR Ot V15.3 HX OF IRRADIATION 03/20/2016 ASHLIE BEAR Ot V58.66 LONG-TERM (CURRENT) USE OF ASPIRIN 03/20/2016 ASHLIE BEAR Ot V58.69 OTH MED,LT,CURRENT USE 03/20/2016 ASHLIE BEAR Ot V86.0 ESTROGEN RECEPTOR POSITIVE STATUS [ER+] 03/20/2016 ASHLIE BEAR Ot V87.41 PERSONAL HISTORY OF ANTINEOPLASTIC CHEMO 03/20/2016 YAW ACOSTA DOUBLE REAMER OPERATOR-C Ot 263.9 PROTEIN-ERLINDA MALNUTR NOS 03/20/2016 DAVE YAW GSaul DOUBLE REAMER OPERATOR-C Ot 272.4 HYPERLIPIDEMIA NEC/NOS 03/20/2016 DAVE YAW GSaul DOUBLE REAMER OPERATOR-C Ot 275.42 HYPERCALCEMIA 03/20/2016 YAW ACOSTA GSaul DOUBLE REAMER OPERATOR-C Ot 285.21 ANEMIA IN CHRONIC KIDNEY DISEASE 03/20/2016 YAW ACOSTA G. 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 DOUBLE REAMER OPERATOR-C Ot 272.2 MIXED HYPERLIPIDEMIA 03/20/2016 NEW YAW G. DOUBLE REAMER OPERATOR-C Ot 275.42 HYPERCALCEMIA 03/20/2016 NEW YAW G. DOUBLE REAMER OPERATOR-C Ot 285.21 ANEMIA IN CHRONIC KIDNEY DISEASE 03/20/2016 DAVE YAW G. 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 03/20/2016 YAW ACOSTA GaSul DOUBLE REAMER OPERATOR-C Ot 585.3 CHRONIC KIDNEY DISEASE, STAGE III (MODER 03/20/2016 YAW ACOSTA Bg DOUBLE REAMER OPERATOR-C Ot 788.1 DYSURIA 03/20/2016 DAVE YAW HartmanSaul DOUBLE REAMER OPERATOR-C Ot 791.0 PROTEINURIA 03/20/2016 WELLINGTON RAZO MD Ot 401.9 HYPERTENSION NOS 03/20/2016 WELLINGTON RAZO MD Ot V58.69 OT MED,LT,CURRENT USE 03/20/2016 WELLINGTON RAZO MD Ot V72.62 LAB EXAM ORDERED PART OF A ROUTINE GE 03/20/2016 WELLINGTON RAZO MD Ot V87.41 PERSONAL HISTORY OF ANTINEOPLASTIC CHEMO 03/20/2016 DONNY RIVAS HSPT TUTOR Ot 287.5 THROMBOCYTOPENIA NOS 03/20/2016 LIBERTY FELICIAON HSPT TUTOR Ot C50.912 MALIGNANT NEOPLASM OF UNSPECIFIED SITE O 03/20/2016 Ot M54.2 CERVICALGIA 03/20/2016 MICHELLE CINTRON Ot I20.9 ANGINA PECTORIS, UNSPECIFIED 03/20/2016 MICHELLE CINTRON Ot R53.82 CHRONIC FATIGUE, UNSPECIFIED 03/20/2016 MICHELLE CINTRON Ot R55 SYNCOPE AND COLLAPSE 03/21/2016 MICHELLE CINTRON Ot I20.9 ANGINA PECTORIS, UNSPECIFIED 03/21/2016 MICHELLE CINTRON Ot R55 SYNCOPE AND COLLAPSE 03/22/2016 RADHA ADAMS DO Ot R22.0 LOCALIZED SWELLING, MASS AND LUMP, HEAD 03/22/2016 Ot V10.3 HX OF BREAST MALIGNANCY 03/22/2016 Ot V76.11 SCRN MAMMO-HIGH RISK PT, MALIGNANT NEOPL 03/22/2016 Ot 396.3 MITRAL/AORTIC KAMARI INSUFF 03/22/2016 Ot 397.0 TRICUSPID VALVE DISEASE 03/22/2016 Ot 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 03/22/2016 Ot 272.4 HYPERLIPIDEMIA NEC/NOS 03/22/2016 Ot 585.3 CHRONIC KIDNEY DISEASE, STAGE III (MODER 03/22/2016 Ot 272.2 MIXED HYPERLIPIDEMIA 03/22/2016 Ot 275.42 HYPERCALCEMIA 03/22/2016 Ot 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, BENIGN, 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 03/22/2016 Ot 585.3 CHRONIC KIDNEY DISEASE, STAGE III (MODER 03/22/2016 Ot 791.0 PROTEINURIA 03/22/2016 Ot 174.9 MALIGN NEOPL BREAST NOS 03/22/2016 Ot 585.3 CHRONIC KIDNEY DISEASE, STAGE III (MODER 03/22/2016 Ot 733.90 BONE CARTILAGE DIS NOS 03/22/2016 Ot V15.3 HX OF IRRADIATION 03/22/2016 Ot V58.66 LONG-TERM (CURRENT) USE OF ASPIRIN 03/22/2016 Ot V58.69 OTH MED,LT,CURRENT USE 03/22/2016 Ot V86.0 ESTROGEN RECEPTOR POSITIVE STATUS [ER+] 03/22/2016 Ot V87.41 PERSONAL HISTORY OF ANTINEOPLASTIC CHEMO 03/22/2016 Ot 272.2 MIXED HYPERLIPIDEMIA 03/22/2016 Ot 275.42 HYPERCALCEMIA 03/22/2016 Ot 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, BENIGN, W/O HRT FA 03/22/2016 Ot 585.3 CHRONIC KIDNEY DISEASE, STAGE III (MODER 03/22/2016 Ot 791.0 PROTEINURIA 03/22/2016 SANTY NORWOOD MD Ot 272.0 PURE HYPERCHOLESTEROLEM 03/22/2016 SANTY NORWOOD MD Ot 287.5 THROMBOCYTOPENIA NOS 03/22/2016 LIBERTY FELICIANO S HSPT TUTOR Ot 174.9 MALIGN NEOPL BREAST NOS 03/22/2016 LIBERTY FELICIANO HSPT TUTOR Ot 585.3 CHRONIC KIDNEY DISEASE, STAGE III ( MODER 03/22/2016 LIBERTY FELICIANO HSPT TUTOR Ot 733.90 BONE CARTILAGE DIS NOS 03/22/2016 LIBERTY FELICIANO HSPT TUTOR Ot V15.3 HX OF IRRADIATION 03/22/2016 LIBERTY FELICIANO HSPT TUTOR Ot V58.66 LONG-TERM (CURRENT) USE OF ASPIRIN 03/22/2016 LIBERTY FELICIANO HSPT TUTOR Ot V58.69 OT MED,LT,CURRENT USE 03/22/2016 LIBERTY FELICIANO HSPT TUTOR Ot V86.0 ESTROGEN RECEPTOR POSITIVE STATUS [ER+] 03/22/2016 LIBERTY FELICIANO HSPT TUTOR Ot V87.41 PERSONAL HISTORY OF ANTINEOPLASTIC CHEMO 03/22/2016 LIBERTY FELICIANO S HSPT TUTOR Ot 174.9 MALIGN NEOPL BREAST NOS 03/22/2016 LIBERTY FELICIANO S HSPT TUTOR Ot 733.90 BONE CARTILAGE DIS NOS 03/22/2016 YAW ACOSTA NP-C Ot 272.2 MIXED HYPERLIPIDEMIA 03/22/2016 YAW ACOSTA NP-C Ot 275.42 HYPERCALCEMIA 03/22/2016 YAW ACOSTA NP-C Ot 285.21 ANEMIA IN CHRONIC KIDNEY DISEASE 03/22/2016 YAW ACOSTA NP-C Ot 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, BENIGN, 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 03/22/2016 YAW ACOSTA DOUBLE REAMER OPERATOR-C Ot 585.3 CHRONIC KIDNEY DISEASE, STAGE III (MODER 03/22/2016 YAW ACOSTA NP-C Ot 791.0 PROTEINURIA 03/22/2016 ROYA PERALTA, ROBERT Hamlin Ot V72.84 EXAM PRE-OPERATIVE NOS 03/22/2016 LIBERTY FELICIANO HSPT TUTOR Ot 174.9 MALIGN NEOPL BREAST NOS 03/22/2016 LIBERTY FELICIANO HSPT TUTOR Ot 585.3 CHRONIC KIDNEY DISEASE, STAGE III ( MODER 03/22/2016 LIBERTY FELICIANO HSPT TUTOR Ot 733.90 BONE CARTILAGE DIS NOS 03/22/2016 LIBERTY FELICIANO HSPT TUTOR Ot V15.3 HX OF IRRADIATION 03/22/2016 LIBERTY FELICIANO HSPT TUTOR Ot V58.66 LONG-TERM (CURRENT) USE OF ASPIRIN 03/22/2016 LIBERTY FELICIANO HSPT TUTOR Ot V58.69 OTH MED,LT,CURRENT USE 03/22/2016 LIBERTY FELICIANO HSPT TUTOR Ot V86.0 ESTROGEN RECEPTOR POSITIVE STATUS [ER+] 03/22/2016 LIBERTY FELICIANO HSPT TUTOR Ot V87.41 PERSONAL HISTORY OF ANTINEOPLASTIC CHEMO 03/22/2016 LIBERTY FELICIANO HSPT TUTOR Ot 733.90 BONE CARTILAGE DIS NOS 03/22/2016 LIBERTY FELICIANO HSPT TUTOR Ot V76.12 OTH SCREEN MAMMO-MALIGN NEOPLASM OF [place]IN 03/22/2016 YAW ACOSTA NP-C Ot 272.2 MIXED HYPERLIPIDEMIA 03/22/2016 YAW ACOSTA NP-C Ot 275.42 HYPERCALCEMIA 03/22/2016 YAW ACOSTA DOUBLE REAMER OPERATOR-C Ot 285.21 ANEMIA IN CHRONIC KIDNEY DISEASE 03/22/2016 YAW ACOSTA NP-C Ot 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, BENIGN, 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 03/22/2016 YAW ACOSTA DOUBLE REAMER OPERATOR-C Ot 585.3 CHRONIC KIDNEY DISEASE, STAGE III (MODER 03/22/2016 YAW ACOSTA DOUBLE REAMER OPERATOR-C Ot 791.0 PROTEINURIA 03/22/2016 CUCO PERALTA, SANTY Norton Ot 397.0 TRICUSPID VALVE DISEASE 03/22/2016 CUCO PERALTA, SANTY Norton Ot 424.0 MITRAL VALVE DISORDER 03/22/2016 CUCO PERALTA, SANTY Norton Ot 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 03/22/2016 CUCO PERALTA, SANTY Norton Ot 244.8 ACQUIRED HYPOTHYROID NEC 03/22/2016 CUCO PERALTA, SANTY Norton Ot 241.0 NONTOX UNINODULAR GOITER 03/22/2016 CUOC PERALTA, SANTY Norton Ot 388.30 TINNITUS NOS 03/22/2016 CUCO PERALTA, SANTY Norton Ot 721.0 CERVICAL SPONDYLOSIS 03/22/2016 Ot 272.2 MIXED HYPERLIPIDEMIA 03/22/2016 Ot 275.42 HYPERCALCEMIA 03/22/2016 Ot 285.21 ANEMIA IN CHRONIC KIDNEY DISEASE 03/22/2016 Ot 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, BENIGN, 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 03/22/2016 Ot 585.3 CHRONIC KIDNEY DISEASE, STAGE III (MODER 03/22/2016 Ot 791.0 PROTEINURIA 03/22/2016 ASHLIE BEAR Ot C50.919 MALIGNANT [facility]LASM [facility] 03/22/2016 ASHLIE BEAR Ot Z12.31 ENCNTR SCREEN MAMMOGRAM FOR MALIGNANT NE 03/22/2016 YAW ACOSTA DOUBLE REAMER OPERATOR-C Ot 263.9 PROTEIN-ERLINDA MALNUTR NOS 03/22/2016 YAW ACOSTA DOUBLE REAMER OPERATOR-C Ot 272.2 MIXED HYPERLIPIDEMIA 03/22/2016 YAW ACOSTA DOUBLE REAMER OPERATOR-C Ot 275.42 HYPERCALCEMIA 03/22/2016 YAW ACOSTA DOUBLE REAMER OPERATOR-C Ot 285.21 ANEMIA IN CHRONIC KIDNEY DISEASE 03/22/2016 YAW ACOSTA 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 03/22/2016 YAW ACOSTA DOUBLE REAMER OPERATOR-C Ot 585.3 CHRONIC KIDNEY DISEASE, STAGE III (MODER 03/22/2016 YAW ACOSTA DOUBLE REAMER OPERATOR-C Ot 791.0 PROTEINURIA 03/22/2016 CHEMA, BOBAN N Ot 174.9 MALIGN NEOPL BREAST NOS 03/22/2016 ASHLIE BEAR Ot 585.3 CHRONIC KIDNEY DISEASE, STAGE III (MODER 03/22/2016 ASHLIE BEAR Ot 733.90 BONE CARTILAGE DIS NOS 03/22/2016 ASHLIE BEAR Ot V15.3 HX OF IRRADIATION 03/22/2016 ASHLIE BEAR Ot V58.66 LONG-TERM (CURRENT) USE OF ASPIRIN 03/22/2016 ASHLEI BEAR Ot V58.69 OTH MED,LT,CURRENT USE 03/22/2016 ASHLIE BEAR Ot V86.0 ESTROGEN RECEPTOR POSITIVE STATUS [ER+] 03/22/2016 ASHLIE BEAR Ot V87.41 PERSONAL HISTORY OF ANTINEOPLASTIC CHEMO 03/22/2016 YAW ACOSTA DOUBLE REAMER OPERATOR-C Ot 263.9 PROTEIN-ERLINDA MALNUTR NOS 03/22/2016 YAW ACOSTA DOUBLE REAMER OPERATOR-C Ot 272.4 HYPERLIPIDEMIA NEC/NOS 03/22/2016 YAW ACOSTA DOUBLE REAMER OPERATOR-C Ot 275.42 HYPERCALCEMIA 03/22/2016 YAW ACOSTA DOUBLE REAMER OPERATOR-C Ot 285.21 ANEMIA IN CHRONIC KIDNEY DISEASE 03/22/2016 YAW ACOSTA 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 03/22/2016 YAW ACOSTA DOUBLE REAMER OPERATOR-C Ot 585.3 CHRONIC KIDNEY DISEASE, STAGE III (MODER 03/22/2016 YAW ACOSTA NP-C Ot 791.0 PROTEINURIA 03/22/2016 YAW ACOSTA NP-C Ot 263.9 PROTEIN-ERLINDA MALNUTR NOS 03/22/2016 YAW ACOSTA DOUBLE REAMER OPERATOR-C Ot 268.9 VITAMIN D DEFICIENCY NOS 03/22/2016 YAW ACOSTA DOUBLE REAMER OPERATOR-C Ot 272.2 MIXED HYPERLIPIDEMIA 03/22/2016 YAW ACOSTA DOUBLE REAMER OPERATOR-C Ot 275.42 HYPERCALCEMIA 03/22/2016 YAW ACOSTA DOUBLE REAMER OPERATOR-C Ot 285.21 ANEMIA IN CHRONIC KIDNEY DISEASE 03/22/2016 YAW ACOSTA 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 03/22/2016 YAW ACOSTA DOUBLE REAMER OPERATOR-C Ot 585.3 CHRONIC KIDNEY DISEASE, STAGE III (MODER 03/22/2016 YAW ACOSTA NP-C Ot 788.1 DYSURIA 03/22/2016 YAW ACOSTA NP-C Ot 791.0 PROTEINURIA 03/22/2016 WELLINGTON RAZO MD Ot 401.9 HYPERTENSION NOS 03/22/2016 WELLINGTON RAZO MD Ot V58.69 OTH MED,LT,CURRENT USE 03/22/2016 WELLINGTON RAZO MD Ot V72.62 LAB EXAM ORDERED PART OF A ROUTINE GE 03/22/2016 WELLINGTON RAZO MD Ot V87.41 PERSONAL HISTORY OF ANTINEOPLASTIC CHEMO 03/22/2016 DONNY RIVAS HSPT TUTOR Ot 287.5 THROMBOCYTOPENIA NOS 03/22/2016 LIBERTY FELICIANO HSPT TUTOR Ot C50.912 MALIGNANT NEOPLASM OF UNSPECIFIED SITE O 03/22/2016 Ot M54.2 CERVICALGIA 03/22/2016 MICHELLE CINTRON Ot I20.9 ANGINA PECTORIS, UNSPECIFIED 03/22/2016 MICHELLE CINTRON Ot R53.82 CHRONIC FATIGUE, UNSPECIFIED 03/22/2016 MICHELLE CINTRON Ot R55 SYNCOPE AND COLLAPSE 03/22/2016 MICHELLE CINTRON Ot I20.9 ANGINA PECTORIS, UNSPECIFIED 03/22/2016 MICHELLE CINTRON Ot R55 SYNCOPE AND COLLAPSE 03/22/2016 MICHELLE CINTRON Ot I20.9 ANGINA PECTORIS, UNSPECIFIED 03/22/2016 MICHELLE CINTRON Ot R55 SYNCOPE AND COLLAPSE 03/26/2016 MICHELLE CINTRON Ot I20.9 ANGINA PECTORIS, UNSPECIFIED 03/26/2016 MICHELLE CINTRON Ot R55 SYNCOPE AND COLLAPSE 03/26/2016 RADHA ADAMS DO Ot R22.0 LOCALIZED SWELLING, MASS AND LUMP, HEAD 04/10/2016 MICHELLE CINTRON Ot I20.9 ANGINA PECTORIS, UNSPECIFIED 04/10/2016 MICHELLE CINTRON Ot R55 SYNCOPE AND COLLAPSE 04/29/2016 RADHA ADAMS DO Ot R22.0 LOCALIZED SWELLING, MASS AND LUMP, HEAD 04/30/2016 RADHA ADAMS DO Ot R22.0 LOCALIZED SWELLING, MASS AND LUMP, HEAD 05/05/2016 RADHA ADAMS DO Ot R22.0 LOCALIZED SWELLING, MASS AND LUMP, HEAD 05/23/2016 Ot V10.3 HX OF BREAST MALIGNANCY 05/23/2016 Ot V76.11 SCRN MAMMO-HIGH RISK PT, MALIGNANT NEOPL 05/23/2016 Ot 396.3 MITRAL/AORTIC KAMARI INSUFF 05/23/2016 Ot 397.0 TRICUSPID VALVE DISEASE 05/23/2016 Ot 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 05/23/2016 Ot 272.4 HYPERLIPIDEMIA NEC/NOS 05/23/2016 Ot 585.3 CHRONIC KIDNEY DISEASE, STAGE III (MODER 05/23/2016 Ot 272.2 MIXED HYPERLIPIDEMIA 05/23/2016 Ot 275.42 HYPERCALCEMIA 05/23/2016 Ot 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, BENIGN, 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 05/23/2016 Ot 585.3 CHRONIC KIDNEY DISEASE, STAGE III (MODER 05/23/2016 Ot 791.0 PROTEINURIA 05/23/2016 Ot 174.9 MALIGN NEOPL BREAST NOS 05/23/2016 Ot 585.3 CHRONIC KIDNEY DISEASE, STAGE III (MODER 05/23/2016 Ot 733.90 BONE CARTILAGE DIS NOS 05/23/2016 Ot V15.3 HX OF IRRADIATION 05/23/2016 Ot V58.66 LONG-TERM (CURRENT) USE OF ASPIRIN 05/23/2016 Ot V58.69 OTH MED,LT,CURRENT USE 05/23/2016 Ot V86.0 ESTROGEN RECEPTOR POSITIVE STATUS [ER+] 05/23/2016 Ot V87.41 PERSONAL HISTORY OF ANTINEOPLASTIC CHEMO 05/23/2016 Ot 272.2 MIXED HYPERLIPIDEMIA 05/23/2016 Ot 275.42 HYPERCALCEMIA 05/23/2016 Ot 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, BENIGN, 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 05/23/2016 Ot 585.3 CHRONIC KIDNEY DISEASE, STAGE III (MODER 05/23/2016 Ot 791.0 PROTEINURIA 05/23/2016 CUCO PERALTA, SANTY Norton Ot 272.0 PURE HYPERCHOLESTEROLEM 05/23/2016 SANTY NORWOOD MD Ot 287.5 THROMBOCYTOPENIA NOS 05/23/2016 LIBERTY FELICIANO HSPT TUTOR Ot 174.9 MALIGN NEOPL BREAST NOS 05/23/2016 LIBERTY FELICIANO HSPT TUTOR Ot 585.3 CHRONIC KIDNEY DISEASE, STAGE III ( MODER 05/23/2016 LIBERTY FELICIANO HSPT TUTOR Ot 733.90 BONE CARTILAGE DIS NOS 05/23/2016 LIBERTY FELICIANO HSPT TUTOR Ot V15.3 HX OF IRRADIATION 05/23/2016 LIBERTY FELICIANO HSPT TUTOR Ot V58.66 LONG-TERM (CURRENT) USE OF ASPIRIN 05/23/2016 LIBERTY FELICIANO Ot V58.69 OTH MED,LT,CURRENT USE 05/23/2016 LIBERTY FELICIANO HSPT TUTOR Ot V86.0 ESTROGEN RECEPTOR POSITIVE STATUS [ER+] 05/23/2016 LIBERTY FELICIANO HSPT TUTOR Ot V87.41 PERSONAL HISTORY OF ANTINEOPLASTIC CHEMO 05/23/2016 LIBERTY FELICIANO HSPT TUTOR Ot 174.9 MALIGN NEOPL BREAST NOS 05/23/2016 LIBERTY FELICIANO HSPT TUTOR Ot 733.90 BONE CARTILAGE DIS NOS 05/23/2016 YAW ACOSTA DOUBLE REAMER OPERATOR-C Ot 272.2 MIXED HYPERLIPIDEMIA 05/23/2016 YAW ACOSTA DOUBLE REAMER OPERATOR-C Ot 275.42 HYPERCALCEMIA 05/23/2016 YAW ACOSTA DOUBLE REAMER OPERATOR-C Ot 285.21 ANEMIA IN CHRONIC KIDNEY DISEASE 05/23/2016 YAW ACOSTA 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 05/23/2016 YAW ACOSTA DOUBLE REAMER OPERATOR-C Ot 585.3 CHRONIC KIDNEY DISEASE, STAGE III (MODER 05/23/2016 YAW ACOSTA DOUBLE REAMER OPERATOR-C Ot 791.0 PROTEINURIA 05/23/2016 ROYA PERALTA, ROBERT Hamlin Ot V72.84 EXAM PRE-OPERATIVE NOS 05/23/2016 LIBERTY FELICIANOP Ot 174.9 MALIGN NEOPL BREAST NOS 05/23/2016 LIBERTY FELICIANO HSPT TUTOR Ot 585.3 CHRONIC KIDNEY DISEASE, STAGE III ( MODER 05/23/2016 LIBERTY FELICIANO HSPT TUTOR Ot 733.90 BONE CARTILAGE DIS NOS 05/23/2016 LIBERTY FELICIANO Ot V15.3 HX OF IRRADIATION 05/23/2016 LIBERTY FELICIANO HSPT TUTOR Ot V58.66 LONG-TERM (CURRENT) USE OF ASPIRIN 05/23/2016 LIBERTY FELICIANO HSPT TUTOR Ot V58.69 OTH MED,LT,CURRENT USE 05/23/2016 LIBERTY FELICIANO [facility] Ot V86.0 ESTROGEN RECEPTOR POSITIVE STATUS [ER+] 05/23/2016 LIBERTY FELICIANO HSPT TUTOR Ot V87.41 PERSONAL HISTORY OF ANTINEOPLASTIC CHEMO 05/23/2016 LIBERTY FELICIANO HSPT TUTOR Ot 733.90 BONE CARTILAGE DIS NOS 05/23/2016 LIBERTY FELICIANO [facility] Ot V76.12 OTH SCREEN MAMMO-MALIGN NEOPLASM OF HUSSAIN 05/23/2016 YAW ACOSTA DOUBLE REAMER OPERATOR-C Ot 272.2 MIXED HYPERLIPIDEMIA 05/23/2016 YAW ACOSTA DOUBLE REAMER OPERATOR-C Ot 275.42 HYPERCALCEMIA 05/23/2016 YAW ACOSTA DOUBLE REAMER OPERATOR-C Ot 285.21 ANEMIA IN CHRONIC KIDNEY DISEASE 05/23/2016 YAW ACOSTA 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 05/23/2016 YAW ACOSTA DOUBLE REAMER OPERATOR-C Ot 585.3 CHRONIC KIDNEY DISEASE, STAGE III (MODER 05/23/2016 YAW ACOSTA DOUBLE REAMER OPERATOR-C Ot 791.0 PROTEINURIA 05/23/2016 SANTY NORWOOD MD Ot 397.0 TRICUSPID VALVE DISEASE 05/23/2016 SANTY NORWOOD MD Ot 424.0 MITRAL VALVE DISORDER 05/23/2016 SANTY NORWOOD MD Ot 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 05/23/2016 SANTY NORWOOD MD Ot 244.8 ACQUIRED HYPOTHYROID NEC 05/23/2016 SANTY NORWOOD MD Ot 241.0 NONTOX UNINODULAR GOITER 05/23/2016 SANTY NORWOOD MD Ot 388.30 TINNITUS NOS 05/23/2016 SANTY NORWOOD MD Ot 721.0 CERVICAL SPONDYLOSIS 05/23/2016 Ot 272.2 MIXED HYPERLIPIDEMIA 05/23/2016 Ot 275.42 HYPERCALCEMIA 05/23/2016 Ot 285.21 ANEMIA IN CHRONIC KIDNEY DISEASE 05/23/2016 Ot 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, BENIGN, 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 05/23/2016 Ot 585.3 CHRONIC KIDNEY DISEASE, STAGE III (MODER 05/23/2016 Ot 791.0 PROTEINURIA 05/23/2016 ASHLIE BEAR Ot C50.919 MALIGNANT NEOPLASM OF UNSP SITE OF UNSPE 05/23/2016 ASHLIE BEAR Ot Z12.31 ENCNTR SCREEN MAMMOGRAM FOR MALIGNANT NE 05/23/2016 YAW ACOSTA DOUBLE REAMER OPERATOR-C Ot 263.9 PROTEIN-ERLINDA MALNUTR NOS 05/23/2016 YAW ACOSTA DOUBLE REAMER OPERATOR-C Ot 272.2 MIXED HYPERLIPIDEMIA 05/23/2016 YAW ACOSTA DOUBLE REAMER OPERATOR-C Ot 275.42 HYPERCALCEMIA 05/23/2016 YAW ACOSTA DOUBLE REAMER OPERATOR-C Ot 285.21 ANEMIA IN CHRONIC KIDNEY DISEASE 05/23/2016 YAW ACOSTA 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 05/23/2016 YAW ACOSTA DOUBLE REAMER OPERATOR-C Ot 585.3 CHRONIC KIDNEY DISEASE, STAGE III (MODER 05/23/2016 YAW ACOSTA NP-C Ot 791.0 PROTEINURIA 05/23/2016 ASHLIE BEAR Ot 174.9 MALIGN NEOPL BREAST NOS 05/23/2016 ASHLIE BEAR Ot 585.3 CHRONIC KIDNEY DISEASE, STAGE III (MODER 05/23/2016 ASHLIE BEAR Ot 733.90 BONE CARTILAGE DIS NOS 05/23/2016 ASHLIE BEAR Ot V15.3 HX OF IRRADIATION 05/23/2016 ASHLIE BEAR Ot V58.66 LONG-TERM (CURRENT) USE OF ASPIRIN 05/23/2016 ASHLIE BEAR Ot V58.69 OTH MED,LT,CURRENT USE 05/23/2016 ASHLIE BEAR Ot V86.0 ESTROGEN RECEPTOR POSITIVE STATUS [ER+] 05/23/2016 ASHLIE BEAR Ot V87.41 PERSONAL HISTORY OF ANTINEOPLASTIC CHEMO 05/23/2016 YAW ACOSTA DOUBLE REAMER OPERATOR-C Ot 263.9 PROTEIN-ERLINDA MALNUTR NOS 05/23/2016 YAW ACOSTA DOUBLE REAMER OPERATOR-C Ot 272.4 HYPERLIPIDEMIA NEC/NOS 05/23/2016 YAW ACOSTA DOUBLE REAMER OPERATOR-C Ot 275.42 HYPERCALCEMIA 05/23/2016 YAW ACOSTA DOUBLE REAMER OPERATOR-C Ot 285.21 ANEMIA IN CHRONIC KIDNEY DISEASE 05/23/2016 YAW ACOSTA 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 05/23/2016 YAW ACOSTA DOUBLE REAMER OPERATOR-C Ot 585.3 CHRONIC KIDNEY DISEASE, STAGE III (MODER 05/23/2016 YAW ACOSTA DOUBLE REAMER OPERATOR-C Ot 791.0 PROTEINURIA 05/23/2016 YAW ACOSTA DOUBLE REAMER OPERATOR-C Ot 263.9 PROTEIN-ERLINDA MALNUTR NOS 05/23/2016 YAW ACOSTA DOUBLE REAMER OPERATOR-C Ot 268.9 VITAMIN D DEFICIENCY NOS 05/23/2016 DAVE YAW Pederson DOUBLE REAMER OPERATOR-C Ot 272.2 MIXED HYPERLIPIDEMIA 05/23/2016 NEW YAW Pederson DOUBLE REAMER OPERATOR-C Ot 275.42 HYPERCALCEMIA 05/23/2016 NEW YAW Pederson DOUBLE REAMER OPERATOR-C Ot 285.21 ANEMIA IN CHRONIC KIDNEY DISEASE 05/23/2016 DAVE YAW Pederson 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 05/23/2016 DAVE YAW Pederson DOUBLE REAMER OPERATOR-C Ot 585.3 CHRONIC KIDNEY DISEASE, STAGE III (MODER 05/23/2016 DAVE YAW Pederson DOUBLE REAMER OPERATOR-C Ot 788.1 DYSURIA 05/23/2016 DAVE YAW Pederson DOUBLE REAMER OPERATOR-C Ot 791.0 PROTEINURIA 05/23/2016 WELLINGTON RAZO MD Ot 401.9 HYPERTENSION NOS 05/23/2016 DUNG PERALTA, WELLINGTON Feliciano Ot V58.69 OTH MED,LT,CURRENT USE 05/23/2016 DUNG PERALTA, WELLINGTON Feliciano Ot V72.62 LAB EXAM ORDERED PART OF A ROUTINE GE 05/23/2016 WELLINGTON RAZO MD Ot V87.41 PERSONAL HISTORY OF ANTINEOPLASTIC CHEMO 05/23/2016 DONNY RIVAS HSPT TUTOR Ot 287.5 THROMBOCYTOPENIA NOS 05/23/2016 LIBERTY FELICIANO HSPT TUTOR Ot C50.912 MALIGNANT NEOPLASM OF UNSPECIFIED SITE O 05/23/2016 Ot M54.2 CERVICALGIA 05/23/2016 MICHELLE CINTRON Ot I20.9 ANGINA PECTORIS, UNSPECIFIED 05/23/2016 MICHELLE CINTRON Ot R53.82 CHRONIC FATIGUE, UNSPECIFIED 05/23/2016 MICHELLE CINTRON Ot R55 SYNCOPE AND COLLAPSE 05/23/2016 MICHELLE CINTRON Ot I20.9 ANGINA PECTORIS, UNSPECIFIED 05/23/2016 MICHELLE CINTRON Ot R55 SYNCOPE AND COLLAPSE 05/24/2016 Ot V10.3 HX OF BREAST MALIGNANCY 05/24/2016 Ot V76.11 SCRN MAMMO-HIGH RISK PT, MALIGNANT NEOPL 05/24/2016 Ot 396.3 MITRAL/AORTIC KAMARI INSUFF 05/24/2016 Ot 397.0 TRICUSPID VALVE DISEASE 05/24/2016 Ot 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 05/24/2016 Ot 272.4 HYPERLIPIDEMIA NEC/NOS 05/24/2016 Ot 585.3 CHRONIC KIDNEY DISEASE, STAGE III (MODER 05/24/2016 Ot 272.2 MIXED HYPERLIPIDEMIA 05/24/2016 Ot 275.42 HYPERCALCEMIA 05/24/2016 Ot 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, BENIGN, 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 05/24/2016 Ot 585.3 CHRONIC KIDNEY DISEASE, STAGE III (MODER 05/24/2016 Ot 791.0 PROTEINURIA 05/24/2016 Ot 174.9 MALIGN NEOPL BREAST NOS 05/24/2016 Ot 585.3 CHRONIC KIDNEY DISEASE, STAGE III (MODER 05/24/2016 Ot 733.90 BONE CARTILAGE DIS NOS 05/24/2016 Ot V15.3 HX OF IRRADIATION 05/24/2016 Ot V58.66 LONG-TERM (CURRENT) USE OF ASPIRIN 05/24/2016 Ot V58.69 OTH MED,LT,CURRENT USE 05/24/2016 Ot V86.0 ESTROGEN RECEPTOR POSITIVE STATUS [ER+] 05/24/2016 Ot V87.41 PERSONAL HISTORY OF ANTINEOPLASTIC CHEMO 05/24/2016 Ot 272.2 MIXED HYPERLIPIDEMIA 05/24/2016 Ot 275.42 HYPERCALCEMIA 05/24/2016 Ot 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, BENIGN, 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 05/24/2016 Ot 585.3 CHRONIC KIDNEY DISEASE, STAGE III (MODER 05/24/2016 Ot 791.0 PROTEINURIA 05/24/2016 SANTY NORWOOD MD Ot 272.0 PURE HYPERCHOLESTEROLEM 05/24/2016 SANTY NORWOOD MD Ot 287.5 THROMBOCYTOPENIA NOS 05/24/2016 LIBERTY FELICIANO HSPT TUTOR Ot 174.9 MALIGN NEOPL BREAST NOS 05/24/2016 LIBERTY FELICIANO HSPT TUTOR Ot 585.3 CHRONIC KIDNEY DISEASE, STAGE III ( MODER 05/24/2016 LIBERTY FELICIANO HSPT TUTOR Ot 733.90 BONE CARTILAGE DIS NOS 05/24/2016 LIBERTY FELICIANO HSPT TUTOR Ot V15.3 HX OF IRRADIATION 05/24/2016 LIBERTY FELICIANO HSPT TUTOR Ot V58.66 LONG-TERM (CURRENT) USE OF ASPIRIN 05/24/2016 LIBERTY FELICIANOP Ot V58.69 OTH MED,LT,CURRENT USE 05/24/2016 LIBERTY FELICIANO HSPT TUTOR Ot V86.0 ESTROGEN RECEPTOR POSITIVE STATUS [ER+] 05/24/2016 LIBERTY FELICIANO HSPT TUTOR Ot V87.41 PERSONAL HISTORY OF ANTINEOPLASTIC CHEMO 05/24/2016 LIBERTY FELICIANO HSPT TUTOR Ot 174.9 MALIGN NEOPL BREAST NOS 05/24/2016 LIBERTY FELICIANO HSPT TUTOR Ot 733.90 BONE CARTILAGE DIS NOS 05/24/2016 YAW ACOSTA DOUBLE REAMER OPERATOR-C Ot 272.2 MIXED HYPERLIPIDEMIA 05/24/2016 YAW ACOSTA DOUBLE REAMER OPERATOR-C Ot 275.42 HYPERCALCEMIA 05/24/2016 YAW ACOSTA DOUBLE REAMER OPERATOR-C Ot 285.21 ANEMIA IN CHRONIC KIDNEY DISEASE 05/24/2016 YAW ACOSTA 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 05/24/2016 YAW ACOSTA DOUBLE REAMER OPERATOR-C Ot 585.3 CHRONIC KIDNEY DISEASE, STAGE III (MODER 05/24/2016 YAW ACOSTA DOUBLE REAMER OPERATOR-C Ot 791.0 PROTEINURIA 05/24/2016 ROYA PERALTA, ROBERT Hamlin Ot V72.84 EXAM PRE-OPERATIVE NOS 05/24/2016 LIBERTY FELICIANO HSPT TUTOR Ot 174.9 MALIGN NEOPL BREAST NOS 05/24/2016 LIBERTY FELICIANO HSPT TUTOR Ot 585.3 CHRONIC KIDNEY DISEASE, STAGE III ( MODER 05/24/2016 LIBERTY FELICIANO HSPT TUTOR Ot 733.90 BONE CARTILAGE DIS NOS 05/24/2016 LIBERTY FELICIANO HSPT TUTOR Ot V15.3 HX OF IRRADIATION 05/24/2016 LIBERTY FELICIANO HSPT TUTOR Ot V58.66 LONG-TERM (CURRENT) USE OF ASPIRIN 05/24/2016 LIBERTY FELICIANO HSPT TUTOR Ot V58.69 OTH MED,LT,CURRENT USE 05/24/2016 LIBERTY FELICIANO HSPT TUTOR Ot V86.0 ESTROGEN RECEPTOR POSITIVE STATUS [ER+] 05/24/2016 LIBERTY FELICIANO HSPT TUTOR Ot V87.41 PERSONAL HISTORY OF ANTINEOPLASTIC CHEMO 05/24/2016 LIBERTY FELICIANO HSPT TUTOR Ot 733.90 BONE CARTILAGE DIS NOS 05/24/2016 LIBERTY FELICIANO HSPT TUTOR Ot V76.12 OTH SCREEN MAMMO-MALIGN NEOPLASM OF HUSSAIN 05/24/2016 YAW ACOSTA DOUBLE REAMER OPERATOR-C Ot 272.2 MIXED HYPERLIPIDEMIA 05/24/2016 YAW ACOSTA DOUBLE REAMER OPERATOR-C Ot 275.42 HYPERCALCEMIA 05/24/2016 YAW ACOSTA DOUBLE REAMER OPERATOR-C Ot 285.21 ANEMIA IN CHRONIC KIDNEY DISEASE 05/24/2016 YAW ACOSTA 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 05/24/2016 YAW ACOSTA DOUBLE REAMER OPERATOR-C Ot 585.3 CHRONIC KIDNEY DISEASE, STAGE III (MODER 05/24/2016 YAW ACSOTA NP-C Ot 791.0 PROTEINURIA 05/24/2016 CUCO PERALTA, SANTY Norton Ot 397.0 TRICUSPID VALVE DISEASE 05/24/2016 CUCO PERALTA, SANTY Norton Ot 424.0 MITRAL VALVE DISORDER 05/24/2016 CUCO PERALTA, SANTY Norton Ot 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 05/24/2016 CUCO PERALTA, SANTY Norton Ot 244.8 ACQUIRED HYPOTHYROID NEC 05/24/2016 CUCO PERALTA, SANTY Norton Ot 241.0 NONTOX UNINODULAR GOITER 05/24/2016 CUCO PERALTA, SANTY Norton Ot 388.30 TINNITUS NOS 05/24/2016 CUCO PERALTA, SANTY Norton Ot 721.0 CERVICAL SPONDYLOSIS 05/24/2016 Ot 272.2 MIXED HYPERLIPIDEMIA 05/24/2016 Ot 275.42 HYPERCALCEMIA 05/24/2016 Ot 285.21 ANEMIA IN CHRONIC KIDNEY DISEASE 05/24/2016 Ot 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, BENIGN, 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 05/24/2016 Ot 585.3 CHRONIC KIDNEY DISEASE, STAGE III (MODER 05/24/2016 Ot 791.0 PROTEINURIA 05/24/2016 ASHLIE BEAR Ot C50.919 MALIGNANT NEOPLASM OF UNSP SITE OF UNSPE 05/24/2016 ASHLIE BEAR Ot Z12.31 ENCNTR SCREEN MAMMOGRAM FOR MALIGNANT NE 05/24/2016 YAW ACOSTA DOUBLE REAMER OPERATOR-C Ot 263.9 PROTEIN-ERLINDA MALNUTR NOS 05/24/2016 YAW ACOSTA DOUBLE REAMER OPERATOR-C Ot 272.2 MIXED HYPERLIPIDEMIA 05/24/2016 YAW ACOSTA DOUBLE REAMER OPERATOR-C Ot 275.42 HYPERCALCEMIA 05/24/2016 YAW ACOSTA DOUBLE REAMER OPERATOR-C Ot 285.21 ANEMIA IN CHRONIC KIDNEY DISEASE 05/24/2016 YAW ACOSTA 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 05/24/2016 YAW ACOSTA DOUBLE REAMER OPERATOR-C Ot 585.3 CHRONIC KIDNEY DISEASE, STAGE III (MODER 05/24/2016 YAW ACOSTA NP-C Ot 791.0 PROTEINURIA 05/24/2016 ASHLIE BEAR Ot 174.9 MALIGN NEOPL BREAST NOS 05/24/2016 ASHLIE BEAR Ot 585.3 CHRONIC KIDNEY DISEASE, STAGE III (MODER 05/24/2016 ASHLIE BEAR Ot 733.90 BONE CARTILAGE DIS NOS 05/24/2016 ASHLIE BEAR Ot V15.3 HX OF IRRADIATION 05/24/2016 ASHLIE BEAR Ot V58.66 LONG-TERM (CURRENT) USE OF ASPIRIN 05/24/2016 ASHLIE BEAR Ot V58.69 OTH MED,LT,CURRENT USE 05/24/2016 ASHLIE BEAR Ot V86.0 ESTROGEN RECEPTOR POSITIVE STATUS [ER+] 05/24/2016 ASHLIE BEAR Ot V87.41 PERSONAL HISTORY OF ANTINEOPLASTIC CHEMO 05/24/2016 YAW ACOSTA DOUBLE REAMER OPERATOR-C Ot 263.9 PROTEIN-ERLINDA MALNUTR NOS 05/24/2016 YAW ACOSTA DOUBLE REAMER OPERATOR-C Ot 272.4 HYPERLIPIDEMIA NEC/NOS 05/24/2016 YAW ACOSTA DOUBLE REAMER OPERATOR-C Ot 275.42 HYPERCALCEMIA 05/24/2016 YAW ACOSTA DOUBLE REAMER OPERATOR-C Ot 285.21 ANEMIA IN CHRONIC KIDNEY DISEASE 05/24/2016 YAW ACOSTA 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 05/24/2016 YAW ACOSTA DOUBLE REAMER OPERATOR-C Ot 585.3 CHRONIC KIDNEY DISEASE, STAGE III (MODER 05/24/2016 NEW YAW Pederson DOUBLE REAMER OPERATOR-C Ot 791.0 PROTEINURIA 05/24/2016 DAVE YAW Pederson DOUBLE REAMER OPERATOR-C Ot 263.9 PROTEIN-ERLINDA MALNUTR NOS 05/24/2016 NEW YAW Pederson DOUBLE REAMER OPERATOR-C Ot 268.9 VITAMIN D DEFICIENCY NOS 05/24/2016 DAVE YAW Pederson DOUBLE REAMER OPERATOR-C Ot 272.2 MIXED HYPERLIPIDEMIA 05/24/2016 NEW YAW Pederson DOUBLE REAMER OPERATOR-C Ot 275.42 HYPERCALCEMIA 05/24/2016 NEW YAW Pederson DOUBLE REAMER OPERATOR-C Ot 285.21 ANEMIA IN CHRONIC KIDNEY DISEASE 05/24/2016 DAVE YAW Pederson 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 05/24/2016 DAVE YAW Pederson DOUBLE REAMER OPERATOR-C Ot 585.3 CHRONIC KIDNEY DISEASE, STAGE III (MODER 05/24/2016 DAVE YAW Pederson DOUBLE REAMER OPERATOR-C Ot 788.1 DYSURIA 05/24/2016 DAVE YAW Pederson DOUBLE REAMER OPERATOR-C Ot 791.0 PROTEINURIA 05/24/2016 WELLINGTON RAZO MD Ot 401.9 HYPERTENSION NOS 05/24/2016 WELLINGTON RAZO MD Ot V58.69 OTH MED,LT,CURRENT USE 05/24/2016 WELLINGTON RAZO MD Ot V72.62 LAB EXAM ORDERED PART OF A ROUTINE GE 05/24/2016 WELLINGTON RAZO MD Ot V87.41 PERSONAL HISTORY OF ANTINEOPLASTIC CHEMO 05/24/2016 DONNY RIVAS HSPT TUTOR Ot 287.5 THROMBOCYTOPENIA NOS 05/24/2016 LIBERTY FELICIANO HSPT TUTOR Ot C50.912 MALIGNANT NEOPLASM OF UNSPECIFIED SITE O 05/24/2016 Ot M54.2 CERVICALGIA 05/24/2016 LIBERTY FELICIANOP Ot M89.9 DISORDER OF BONE, UNSPECIFIED 05/24/2016 LIBERTY FELICIANOP Ot N64.9 DISORDER OF BREAST, UNSPECIFIED 05/24/2016 MICHELLE CINTRON Ot I20.9 ANGINA PECTORIS, UNSPECIFIED 05/24/2016 MICHELLE CINTRON Ot R53.82 CHRONIC FATIGUE, UNSPECIFIED 05/24/2016 LEE PA, MICHELLE R Ot R55 SYNCOPE AND COLLAPSE 05/24/2016 MICHELLE CINTRON R Ot I20.9 ANGINA PECTORIS, UNSPECIFIED 05/24/2016 MICHELLE CINTRON R Ot R55 SYNCOPE AND COLLAPSE 05/24/2016 LIBERTY FELICIANO Ot C50.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 OF UPPER-OUTER QUADRANT O 05/24/2016 LIBERTY FELICIANOP Ot M85.80 OTH DISRD OF BONE DENSITY AND STRUCTURE , 05/24/2016 LIBERTY FELICIANO Ot N64.4 MASTODYNIA 05/25/2016 ROBERT AMES MD Ot G20 PARKINSON'S DISEASE 05/25/2016 ROBERT AMES MD Ot G35 MULTIPLE SCLEROSIS 05/25/2016 ROBERT AMES MD Ot I10 ESSENTIAL (PRIMARY) HYPERTENSION 05/25/2016 ROBERT AMES MD Ot T78.3XXA ANGIONEUROTIC EDEMA, INITIAL ENCOUNTER 05/25/2016 ROBERT AMES MD Ot Z79.82 FEATURE WRITER (CURRENT) USE OF ASPIRIN 05/25/2016 ROBERT AMES MD Ot Z79.899 OTHER MCC (CURRENT) DRUG THERAPY 05/27/2016 ROBERT AMES MD Ot G20 PARKINSON'S DISEASE 05/27/2016 ROBERT AMES MD Ot G35 MULTIPLE SCLEROSIS 05/27/2016 ROBERT AMES MD Ot I10 ESSENTIAL (PRIMARY) HYPERTENSION 05/27/2016 ROBERT AMES MD Ot T78.3XXA ANGIONEUROTIC EDEMA, INITIAL ENCOUNTER 05/27/2016 ROBERT AMES MD Ot Z79.82 FEATURE WRITER (CURRENT) USE OF ASPIRIN 05/27/2016 ROBERT AMES MD Ot Z79.899 OTHER FEATURE WRITER (CURRENT) DRUG THERAPY 06/01/2016 ROBERT AMES MD Ot G20 PARKINSON'S DISEASE 06/01/2016 ROBERT AMES MD Ot G35 MULTIPLE SCLEROSIS 06/01/2016 ROBERT AMES MD Ot I10 ESSENTIAL (PRIMARY) HYPERTENSION 06/01/2016 ROBERT AMES MD Ot T78.3XXA ANGIONEUROTIC EDEMA, INITIAL ENCOUNTER 06/01/2016 ROBERT AMES MD Ot Z79.82 MCC (CURRENT) USE OF ASPIRIN 06/01/2016 ROBERT AMES MD Ot Z79.899 OTHER MCC (CURRENT) DRUG THERAPY 06/03/2016 LIBERTY FELICIANO HSPT TUTOR Ot C50.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 OF UPPER-OUTER QUADRANT O 06/03/2016 LIBERTY FELICIANO HSPT TUTOR Ot M85.80 OTH DISRD OF BONE DENSITY AND STRUCTURE , 06/03/2016 LIBERTY FELICIANO HSPT TUTOR Ot N64.4 MASTODYNIA 08/08/2016 MARK CHEN OINTMENT MILL TENDER Ot R05 COUGH 08/08/2016 MARK CHEN OINTMENT MILL TENDER Ot R06.02 SHORTNESS OF BREATH 08/20/2016 MARK CHEN OINTMENT MILL TENDER Ot R07.81 PLEURODYNIA 08/27/2016 MARK CHEN OINTMENT MILL TENDER Ot R05 COUGH 08/27/2016 MARK CHEN OINTMENT MILL TENDER Ot R06.02 SHORTNESS OF BREATH 08/28/2016 MARK CHEN OINTMENT MILL TENDER Ot R10.11 RIGHT UPPER QUADRANT PAIN 08/28/2016 ASHLIE BEAR N Ot G20 PARKINSON'S DISEASE 08/28/2016 ASHLIE BEAR N Ot G35 MULTIPLE SCLEROSIS 08/28/2016 ASHLIE BEAR N Ot I12.9 HYPERTENSIVE CHRONIC KIDNEY DISEASE W ST 08/28/2016 ASHLIE BEAR N Ot M85.9 DISORDER OF BONE DENSITY AND STRUCTURE, 08/28/2016 ASHLIE BEAR N Ot N18.3 CHRONIC KIDNEY DISEASE, STAGE 3 (MODERAT 08/28/2016 ASHLIE BEAR N Ot Z09 ENCNTR FOR F/U EXAM AFT TRTMT FOR COND O 08/28/2016 ASHLIE BEAR N Ot Z85.3 PERSONAL HISTORY OF MALIGNANT NEOPLASM O 09/11/2016 MARK CHEN OINTMENT MILL TENDER Ot R07.81 PLEURODYNIA 09/16/2016 MARK CHEN OINTMENT MILL TENDER Ot R07.81 PLEURODYNIA 09/17/2016 ASHLIE BEAR N Ot G20 PARKINSON'S DISEASE 09/17/2016 CHEMAASHLIE HUERTA N Ot G35 MULTIPLE SCLEROSIS 09/17/2016 CHEMAASHLIE HUERTA N Ot I12.9 HYPERTENSIVE CHRONIC KIDNEY DISEASE W ST 09/17/2016 ASHLIE BEAR N Ot M85.9 DISORDER OF BONE DENSITY AND STRUCTURE, 09/17/2016 ASHLIE BEAR N Ot N18.3 CHRONIC KIDNEY DISEASE, STAGE 3 (MODERAT 09/17/2016 ASHLIE BEAR N Ot Z09 ENCNTR FOR F/U EXAM AFT TRTMT FOR COND O 09/17/2016 ASHLIE BEAR N Ot Z85.3 PERSONAL HISTORY OF MALIGNANT NEOPLASM O 10/12/2016 MARK CHEN APRN Ot R10.11 RIGHT UPPER QUADRANT PAIN 10/19/2016 ASHLIE BEAR N Ot R07.81 PLEURODYNIA 10/19/2016 ASHLIE BEAR N Ot Z85.3 PERSONAL HISTORY OF MALIGNANT NEOPLASM O 10/23/2016 CHEMAASHLIE HUERTA N Ot R07.81 PLEURODYNIA 10/23/2016 CHEMAASHLIE HUERTA N Ot Z85.3 PERSONAL HISTORY OF MALIGNANT NEOPLASM O 10/23/2016 MARK CHEN APRN Ot R10.11 RIGHT UPPER QUADRANT PAIN 11/05/2016 ASHLIE BEAR N Ot C50.912 MALIGNANT NEOPLASM OF UNSPECIFIED SITE O 11/05/2016 CHEMAASHLIE HUERTA N Ot M85.88 OTH DISRD OF BONE DENSITY AND STRUCTURE, 11/05/2016 ASHLIE BEAR N Ot N18.3 CHRONIC KIDNEY DISEASE, STAGE 3 (MODERAT 12/11/2016 CHEMAASHLIE HUERTA N Ot C50.912 MALIGNANT NEOPLASM OF UNSPECIFIED SITE O 12/11/2016 CHEMAASHLIE HUERTA N Ot M85.88 OTH DISRD OF BONE DENSITY AND STRUCTURE, 12/11/2016 ASHLIE BEAR N Ot N18.3 CHRONIC KIDNEY DISEASE, STAGE 3 (MODERAT 12/24/2016 CHEMAASHLIE HUERTA N Ot M85.80 OTH DISRD OF BONE DENSITY AND STRUCTURE, 12/24/2016 ASHLIE BEAR N Ot Z85.3 PERSONAL HISTORY OF MALIGNANT NEOPLASM O 01/14/2017 CHEMAASHLIE HUERTA N Ot M85.80 OTH DISRD OF BONE DENSITY AND STRUCTURE, 01/14/2017 CHEMA BOBBRITTNEY N Ot Z85.3 PERSONAL HISTORY OF MALIGNANT NEOPLASM O 04/23/2017 WELLINGTON RAZO MD Ot M25.562 PAIN IN LEFT KNEE 04/30/2017 DHARA POWER PA-C Ot R00.1 BRADYCARDIA, UNSPECIFIED 05/15/2017 WELLINGTON RAZO MD Ot M25.562 PAIN IN LEFT KNEE 05/16/2017 DHARA POWER PA-C Ot R00.1 BRADYCARDIA, UNSPECIFIED 06/17/2017 CHEMAASHLIE HUERTA Saw Ot Z12.31 ENCNTR SCREEN MAMMOGRAM FOR MALIGNANT NE Procedures Results Test Result Range Automated blood complete blood count (hemogram) panel - 02/22/16 10:57 Blood leukocytes automated count (number/volume) 5.6 10*3/ uL 4.3-11.0 Blood erythrocytes automated count (number/volume) 4.91 10*6 /uL 4.35-5.85 Venous blood hemoglobin measurement (mass/volume) 14.3 g/dL 11.5-16.0 Blood hematocrit (volume fraction) 42 % 35-52 Automated erythrocyte mean corpuscular volume 86 [foz_us] 80-99 Automated erythrocyte mean corpuscular hemoglobin (mass per erythrocyte) 29 pg 25-34 Automated erythrocyte mean corpuscular hemoglobin concentration measurement ( mass/volume) 34 g/dL 32-36 Automated erythrocyte distribution width ratio 13.1 % 10.0-14.5 Automated blood platelet count (count/volume) 161 10*3/uL 130-400 Automated blood platelet mean volume measurement 11.5 [foz_ us] 7.4-10.4 Comprehensive metabolic panel - 02/22/16 10:57 Serum or plasma sodium measurement (moles/volume) 139 mmol/ L 135-145 Serum or plasma potassium measurement (moles/volume) 3.8 mmol/L 3.6-5.0 Serum or plasma chloride measurement (moles/volume) 104 mmol /L 98-107 Carbon dioxide 24 mmol/L 21-32 Serum or plasma anion gap determination (moles/volume) 11 mmol/L 5-14 Serum or plasma urea nitrogen measurement (mass/volume) 22 mg/dL 7-18 Serum or plasma creatinine measurement (mass/volume) 1.13 mg /dL 0.60-1.30 Serum or plasma urea nitrogen/creatinine mass ratio 19 NRG Serum or plasma creatinine measurement with calculation of estimated glomerular filtration rate 48 NRG Serum or plasma glucose measurement (mass/volume) 111 mg/dL 70-105 Serum or plasma calcium measurement (mass/volume) 9.8 mg/dL 8.5-10.1 Serum or plasma total bilirubin measurement (mass/volume) 0.8 mg/dL 0.1-1.0 Serum or plasma alkaline phosphatase measurement (enzymatic activity/volume) 68 U/L 40-136 Serum or plasma aspartate aminotransferase measurement (enzymatic activity/ volume) 17 U/L 5-34 Serum or plasma alanine aminotransferase measurement (enzymatic activity/volume ) 15 U/L 0-55 Serum or plasma protein measurement (mass/volume) 7.7 g/dL 6.4-8.2 Serum or plasma albumin measurement (mass/volume) 4.8 g/dL 3.2-4.5 Magnesium - 02/22/16 10:57 Magnesium 2.1 mg/dL 1.8-2.4 THYROID STIMULATING HORMONE - 02/22/16 10:57 THYROID STIMULATING HORMONE 1.15 u[iU]/mL 0.35-4.94 Serum or plasma thyroxine (T4) free measurement (mass/volume) - 02/22/16 10:57 Serum or plasma thyroxine (T4) free measurement (mass/volume) 1.60 ng/dL 0.70-1.48 Serum iron and total iron binding capacity panel - 02/22/16 10:57 Serum or plasma iron measurement (mass/volume) 125 % 35-180 Total iron binding capacity and transferrin saturation measurement 34 % 15-50 Iron binding capacity [mass/volume] in serum or plasma 365 % 280-380 UIBC (unsaturated iron binding capacity) 240 % 55-450 Serum or plasma ferritin measurement (mass/volume) 64 % 15-150 Free triiodothyronine (T3) measurement - 02/22/16 10:57 T3 free 3.1 pg/mL 2.4-4.5 Automated blood complete blood count (hemogram) panel - 04/24/17 14:20 Blood leukocytes automated count (number/volume) 5.2 10*3/ uL 4.3-11.0 Blood erythrocytes automated count (number/volume) 4.87 10*6 /uL 4.35-5.85 Venous blood hemoglobin measurement (mass/volume) 13.9 g/dL 11.5-16.0 Blood hematocrit (volume fraction) 43 % 35-52 Automated erythrocyte mean corpuscular volume 88 [foz_us] 80-99 Automated erythrocyte mean corpuscular hemoglobin (mass per erythrocyte) 29 pg 25-34 Automated erythrocyte mean corpuscular hemoglobin concentration measurement ( mass/volume) 33 g/dL 32-36 Automated erythrocyte distribution width ratio 13.6 % 10.0-14.5 Automated blood platelet count (count/volume) 175 10*3/uL 130-400 Automated blood platelet mean volume measurement 10.7 [foz_ us] 7.4-10.4 Whole blood basic metabolic panel - 04/24/17 14:20 Serum or plasma sodium measurement (moles/volume) 143 mmol/ L 135-145 Serum or plasma potassium measurement (moles/volume) 3.8 mmol/L 3.6-5.0 Serum or plasma chloride measurement (moles/volume) 105 mmol /L 98-107 Carbon dioxide 31 mmol/L 21-32 Serum or plasma anion gap determination (moles/volume) 7 mmol/L 5-14 Serum or plasma urea nitrogen measurement (mass/volume) 25 mg/dL 7-18 Serum or plasma creatinine measurement (mass/volume) 1.21 mg /dL 0.60-1.30 Serum or plasma urea nitrogen/creatinine mass ratio 21 NRG Serum or plasma creatinine measurement with calculation of estimated glomerular filtration rate 44 NRG Serum or plasma glucose measurement (mass/volume) 81 mg/dL 70-105 Serum or plasma calcium measurement (mass/volume) 9.8 mg/dL 8.5-10.1 THYROID STIMULATING HORMONE - 04/24/17 14:20 THYROID STIMULATING HORMONE 1.49 u[iU]/mL 0.35-4.94 Total triiodothyronine (T3) measurement - 04/24/17 14:20 Total triiodothyronine (T3) measurement 0.8 % 0.6-1.8 Thyroxine (T4) measurement - 04/24/17 14:20 T4 (thyroxine) 6.6 % 5.5-12.0 Encounters ACCT No. Visit Date/Time Discharge Status Pt. Type Provider Facility Loc./Unit Complaint [id number] 05/26/2017 10:00:00 2016 23:59:59 CLS Outpatient ASHLIE BEAR [facility] RAD SCREENING Z12.31 [id number] 04/24/2017 14:07:00 2016 23:59:59 CLS Outpatient DHARA POWER PA-C [facility] LAB FATIGUE,BRADYCARDIA [id number] 04/22/2017 12:07:00 2016 23:59:59 CLS Outpatient DUNG PERALTA, WELLINGTON Feliciano [facility] RAD L KNEE PAIN [id number] 02/03/2017 00:13:00 2016 23:59:59 CLS Preadmit AZEEM BEARBRITTNEY Spring [facility] ONC [id number] 12/25/2016 13:21:00 2016 00:01:00 DIS Outpatient ASHLIE BEAR [facility] ONC [id number] 12/23/2016 11:14:00 2016 23:59:59 CLS Outpatient ASHLIE BEAR [facility] CARD OSTEOPENIA,HX BREAST CA [id number] 08/27/2016 10:40:00 2016 23:59:59 CLS Outpatient ASHLIE BEAR [facility] CARD RIB PAIN, HX OF BREAST CA [id number] 08/27/2016 06:46:00 2016 23:59:59 CLS Outpatient MARK CHEN APRN [facility] RAD RUQ PAIN [id number] 08/26/2016 13:17:00 2016 23:59:59 CLS Outpatient ASHLIE BEAR [facility] ONC [id number] 08/23/2016 15:12:00 2016 23:59:59 CLS Outpatient MARK CHEN APRN [facility] RAD CHEST/RIB PAIN RT,PERSISTENT COUGH [id number] 08/19/2016 09:24:00 2016 23:59:59 CLS Outpatient MARK CHEN 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 MILL TENDER [facility] RAD RIGHT SIDE PAIN [id number] 08/05/2016 15:47:00 2016 23:59:59 CLS Outpatient MARK CHEN APRN [facility] RAD ONGOING COUGH,SHORTNESS OF BREATH [id number] 05/25/2016 03:51:00 2015 07:11:00 DIS Emergency KWAKU PERALTA, ROBERT Astudillo [facility] ER TONGUE SWOLLEN [id number] 05/23/2016 08:23:00 2015 23:59:59 CLS Outpatient LIBERTY FELICIANO [facility] RAD OSTEOPENIA,BREAST CA [id number] 04/29/2016 08:47:00 2015 12:11:00 DIS Emergency ANGIE CAMPBELL RADHA Yakelin [facility] ER TONGUE SWELLING [id number] 03/22/2016 02:03:00 2015 05:38:00 DIS Emergency RADHA ADAMS DO Yakelin [facility] ER TONGUE SWELLING [id number] 03/20/2016 11:48:00 2015 23:59:59 CLS Outpatient MICHELLE CINTRON [facility] CARD ANTINA,FATIGUE,PRE SYNCOPE [id number] 02/22/2016 10:54:00 2015 23:59:59 CLS Outpatient MICHELLE CINTRON [facility] LAB ANGINA, FATIGUE, PRESYNCOPE [id number] 10/03/2015 22:05:00 2015 01:18:00 DIS Emergency NADINE CHAPMAN MD [facility] ER TONGUE SWELLING [id number] 08/28/2015 14:16:00 2015 23:59:59 CLS Outpatient LIBERTY FELICIANO [facility] ONC [id number] 05/22/2015 10:25:00 2014 23:59:59 CLS Outpatient ASHLIE BEAR [facility] RAD SCREENING [id number] 04/10/2015 10:02:00 2014 23:59:59 CLS Outpatient DONNY RIVAS [facility] LAB LOW PLATELETS [id number] 01/05/2015 12:22:00 2014 23:59:59 CLS Outpatient WELLINGTON RAZO MD [facility] LAB HTN,ROUTINE EXAM,FEATURE WRITER MED USE, HX CHEMOTHERAP [id number] 12/27/2014 09:48:00 2014 23:59:59 CLS Outpatient YAW ACOSTA [facility] LAB VITAMIN D DEFICIENCY [id number] 12/07/2014 09:46:00 2014 23:59:59 CLS Outpatient YAW ACOSTA DOUBLE REAMER OPERATOR-C [facility] LAB ANEMIA,CKD,HYPERCALMEIA [id number] 11/28/2014 00:09:00 2014 23:59:59 CLS Preadmit ASHLIE BEAR [facility] ONC [id number] 08/29/2014 10:56:00 2014 00:01:00 DIS Outpatient ASHLIE BEAR [facility] ONC [id number] 10/11/2014 00:12:00 2014 23:59:59 CLS Preadmit YAW ACOSTA DOUBLE REAMER OPERATOR-C [facility] LAB ANEMIA,CKD,HYPERCALCEMIA,HYPERLPADEMA [id number] 07/12/2014 14:52:00 2014 00:01:00 DIS Outpatient YAW ACOSTA DOUBLE REAMER OPERATOR-C [facility] LAB ANEMIA,CKD,HYPERCALCEMIA,HYPERLPADEMA [id number] 05/19/2014 08:58:00 2013 23:59:59 CLS Outpatient LIBERTY FELICIANO HSPT TUTOR [facility] RAD SCREENING,OSTEOPORSIS [id number] 04/27/2014 14:10:00 2013 23:59:59 CLS Outpatient SANTY NORWOOD MD [facility] RAD SDFS [id number] 03/02/2014 12:54:00 2013 23:59:59 CLS Outpatient SANTY NORWOOD MD [facility] CARD BICUSPID AORTIC VALVE AORTIC ROOT DILATION [id number] 02/17/2014 09:47:00 2013 23:59:59 CLS Outpatient SANTY NORWOOD MD [facility] LAB HYPOTHYROIDISM [id number] 11/29/2013 09:48:00 2013 23:59:59 CLS Outpatient YAW ACOSTA DOUBLE REAMER OPERATOR-C [facility] LAB ANEMIA,CKD III,ANH HTN,HLP, HYPERCALCEMIA ,PROTENUR [id number] 08/31/2013 08:22:00 2013 12:15:00 DIS Outpatient ROBERT PRYOR MD [facility] SDC SCREENING [id number] 08/30/2013 10:24:00 2013 23:59:59 CLS Outpatient LIBERTY FELICIANO HSPT TUTOR [facility] ONC [id number] 08/26/2013 12:30:00 2013 23:59:59 CLS Outpatient ROBERT PRYOR MD [facility] PREOP SCREENING [id number] 06/07/2013 10:26:00 2012 23:59:59 CLS Outpatient YAW ACOSTA [facility] LAB ANEMIA,CHRONIC KIDNEY DISEASE, HYPERLIPIDEMIA, [id number] 03/01/2013 13:56:00 2012 00:01:00 DIS Outpatient ASHLIE BEAR [facility] ONC [id number] 05/14/2013 09:53:00 2012 23:59:59 CLS Outpatient LIBERTY FELICIANO HSPT TUTOR [facility] RAD SCREENING,OSTEOPENIA [id number] 03/01/2013 12:53:00 2012 23:59:59 CLS Outpatient LIBERTY FELICIANO HSPT TUTOR [facility] ONC [id number] 11/17/2012 11:15:00 2012 23:59:59 CLS Outpatient SANTY NORWOOD MD [facility] LAB LOW PLATELETS COUNT [id number] 06/19/2017 23:44:00 ACT Emergency BELLE CANTU MD [facility] ER TONGUE SWELLING,ALLERGIC RXN [id number] 08/22/2015 13:52:00 Document Registration [id number] 06/28/2014 09:54:00 Document Registration [id number] 10/19/2012 10:39:00 Document Registration [id number] 08/31/2012 09:58:00 Document Registration [id number] 06/16/2012 09:52:00 Document Registration [id number] 05/27/2012 00:00:00 Document Registration [id number] 05/15/2012 09:51:00 Document Registration [id number] 05/01/2012 09:56:00 Document Registration [id number] 04/23/2010 12:25:00 Document Registration
[2017-06-20] MEDS ORDERED: methylPREDNISolone 125 MG (Solu-MEDROL) VIAL IVP ONE
[2017-06-20] MEDS ORDERED: diphenhydrAMINE 50 MG/ML INJ (BENADRYL) IV ONE
--- NOTE | 2017-06-20 00:37 | ED EENT ---
History of Present Illness General Chief Complaint: Allergic Reaction Stated Complaint: TONGUE SWELLING,ALLERGIC RXN Nursing Triage Note: PATIENT C/O OF SWOLLEN TONGUE. STATES THAT THIS HAS HAPPENED MANY TIMES OVER THE COURSE OF 30 YRS AND THEY HAVE NEVER BEEN ABLE TO EST. THE CAUSE OF THE REACTION. Source: patient, spouse Exam Limitations: clinical condition History of Present Illness Time seen by provider: 23:56 Initial Comments Patient has ER by private conveyance with her with approximately 30 minute prior to arrival she started experiencing swelling of her tongue. She has a history of angioedema for the past 30 years elevated never isolated why this happens. She ate a protein shake for dinner tonight. At lunch she ate [place] food but had no seafood. She's had no changes in her medications or pets or other exposures. In the past she's had to be treated with medications in the ER. The patient is a history of Parkinson's and blood pressure and takes metoprolol 12.5 mg twice a day as well as amlodipine 5 mg. She's had no fevers, chills, nausea, shortness of breath, chest pain, abdominal pain, dysuria. She cannot talk at this time however she is clearly moving air, not panicking and answering questions and cooperative with commands. Allergies and Home Medications Allergies Coded Allergies: No Known Drug Allergies (Verified , 04/20/08) Home Medications Amlodipine Besylate 5 Mg Tablet, 5 MG PO DAILY, (Reported) Aspirin 81 Mg Tablet.dr, 81 MG PO DAILY, (Reported) Escitalopram Oxalate 10 Mg Tablet, 1 TAB PO DAILY, #30 (Reported) Metoprolol Succinate 25 Mg Tab.er.24h, 25 MG PO DAILY, (Reported) Prednisone 50 Mg Tab, 50 MG PO DAILY, #10 Prescribed by: ROBERT AMES MD on 05/25/16 0659 Review of Systems Constitutional: No chills, No diaphoresis, No fever, No malaise Eyes: Denies Blindness, Denies Blurred Vision Ears: Denies Dizziness, Denies Pain Nose: denies clots, denies congestion Mouth: denies clots, denies loose teeth, denies pain, swelling Throat: denies pain, denies swelling Respiratory: No cough, No short of breath Cardiovascular: No chest pain, No palpitations Gastrointestinal: No abdominal pain, No constipation Past Diinqaz-Jatvpt-Qnqnfz Hx Patient Social History Recent Foreign Travel: No Contact w/Someone Who Travel: No Recent Infectious Disease Expo: No Recent Hopitalizations: No Immunizations Up To Date Tetanus Booster (TDap): Unknown Date of Pneumonia Vaccine: May 01, 2009 Seasonal Allergies Seasonal Allergies: No Surgeries Surgeries: Breast, Lumpectomy Cardiovascular Cardiac Disorders: Hypertension, Irregular Heartbeat Neurological Neurological Disorders: Multiple Sclerosis, Parkinson's Disease 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 System Hx 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 Disorders: No Sexually Transmitted Disease: No 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: Menopausal Cancer Cancer: Breast Blood Transfusions Adverse Reaction to a Blood Tr: No Family Medical History Significant Family History: No Pertinent Family Hx Physical Exam Vital Signs Vital Sign - Last 12Hours 06/20/17 00:07 Temp 97.3 Pulse 65 Resp 22 B/P (MAP) 111/94 (100) O2 Delivery Room Air General Appearance: WD/WN, moderate distress Eyes: bilateral eye normal inspection, bilateral eye PERRL, bilateral eye EOMI Ears: bilateral ear auricle normal, bilateral ear canal normal Nose: normal inspection, No active bleeding Mouth/Throat: pharynx swelling, tongue swollen Neck: non-tender, supple Cardiovascular: normal peripheral pulses, regular rate, rhythm, no edema Respiratory: chest non-tender, lungs clear Gastrointestinal: non tender, soft Neurologic/Psychiatric: alert, oriented x 3 Progress/Results/Core Measures Results/Orders My Orders Orders - BELLE CANTU Epinephrine 1 Mg Injection (Adrenalin I (06/19/17 23:39) Epinephrine 1 Mg Injection (Adrenalin I (06/20/17 00:00) Diphenhydramine Injection (Benadryl Inje (06/20/17 00:00) Methylprednisolone Sod Succ (Solu-Medrol (06/20/17 00:00) Saline Lock/Iv-Start (06/19/17 23:48) Famotidine Injection (Pepcid Injection) (06/19/17 23:43) Epinephrine 1 Mg Injection (Adrenalin I (06/20/17 01:00) Diphenhydramine Injection (Benadryl Inje (06/20/17 01:00) Famotidine Injection (Pepcid Injection) (06/20/17 01:00) Medications Given in ED Current Medications Medications Dose Ordered Sig/Dane Route Start Time Stop Time Status Last Admin Dose Admin Diphenhydramine HCl 50 mg ONCE ONCE IV 06/20/17 00:00 06/20/17 00:46 DC 06/20/17 00:01 50 MG Epinephrine HCl 0.3 mg ONCE ONCE IM 06/20/17 00:00 06/20/17 00:46 DC 06/19/17 23:51 0.3 MG Famotidine 20 mg STK-MED ONCE .ROUTE 06/19/17 23:43 06/19/17 23:54 DC 06/20/17 00:01 20 MG Methylprednisolone Sodium Succinate 125 mg ONCE ONCE IVP 06/20/17 00:00 06/20/17 00:01 DC 06/20/17 00:00 125 MG Vital Signs/I&O Vital Sign - Last 12Hours 06/20/17 00:07 Temp 97.3 Pulse 65 Resp 22 B/P (MAP) 111/94 (100) O2 Delivery Room Air Blood Pressure Mean: 100 Progress Note #1: Time: 00:37 Progress Note We'll treat with epinephrine, Solu-Medrol, H2 antagonist, Benadryl. Gave a second dose of epinephrine and she was not making any improvement in 20 minutes. Progress Note #2: Time: 02:07 Progress Note Patient's symptoms have improved considerably since time of admission to the ER. She has not ever had any problems with difficulty breathing area she is able to talk now clearly. She has never in the last 30 years had to be intubated or had airway problems. She says she lives 1 mile from the ER and would really like to go home. She says she's never had to stay overnight for observation so after discussing risk benefits and alternatives to staying overnight in the hospital for observation for airway management we will allow her to go home and follow up with her primary care physician. Return precautions given. Departure Impression Impression: Primary Impression: Glossal swelling Additional Impression: Angioedema Qualified Codes: T78.3XXA - Angioneurotic edema, initial encounter Disposition: 01 HOME, SELF-CARE Condition: Improved Departure-Patient Inst. Decision time for Depature: 02:08 Referrals: WELLINGTON RAZO MD (PCP/Family) Primary Care Physician Patient Instructions: Anaphylaxis (DC) Add. Discharge Instructions: Follow-up through primary care physician as needed. If you begin to have difficulty breathing, increased swelling in your tongue you should return to the ER. Take Zyrtec, Kaitlin or Claritin daily for the next day or to decrease swelling in the tongue. Take 2 tablets of prednisone daily for the next 3 days. All discharge instructions reviewed with patient and/or family. Voiced understanding. Scripts Prednisone (Prednisone) 20 Mg Tab 40 MG PO DAILY for 3 Days, #6 TAB 0 Refills Prov: BELLE CANTU 06/20/17 Copy Copies To 1: WELLINGTON RAZO MD, TITUS J Jun 20, 2017 00:37
[2017-06-20] MEDS ORDERED: diphenhydrAMINE 50 MG/ML INJ (BENADRYL) IM ONE (01:00)
[2017-06-20] MEDS ORDERED: FAMOTIDINE 20MG/2ML IV (PEPCID) IVP ONE (01:00)
[2017-06-20] MEDS ORDERED: EPINEPHrine INJECTION 1 MG/ML AMP IM ONE ×2 (01:00)
[2017-06-20] MEDS ORDERED: PRD20T PO (02:10)
[2017-06-20 02:17] VITALS: BP 140/71
== END 2017-06-20 02:17 | disposition home or self-care (01) ==
LOC: EDUNIT# 23:42 → ER 23:44
DX: T78.3XXA Angioneurotic edema, initial encounter (principal); K14.8 Other diseases of tongue; I10 Essential (primary) hypertension; G20 Parkinson's disease; Z79.82 Long term (current) use of aspirin

== ENCOUNTER → 2017-09-02 | Outpatient (CLI) | payer MEDICARE, OTHER ==
[~2017-09-02] MED LIST changes: -EPINEPHrine INJECTION 1 MG/ML AMP ONE
[2017-09-02 14:39] LABS: BASOPHILS % (AUTO) 1 % (0-10); EOSINOPHILS # (AUTO) 0.1 10^3/uL (0.0-0.3); EOSINOPHILS % (AUTO) 2 % (0-10); HEMATOCRIT 41 % (35-52); HEMOGLOBIN 13.9 G/DL (11.5-16.0); LYMPHOCYTES # (AUTO) 0.9 X 10^3 (1.0-4.0); LYMPHOCYTES % (AUTO) 16 % (12-44); MEAN CORPUSCULAR HEMOGLOBIN 29 PG (25-34); MEAN CORPUSCULAR HGB CONC 34 G/DL (32-36); MEAN CORPUSCULAR VOLUME 87 FL (80-99); MEAN PLATELET VOLUME 11.2 FL (7.4-10.4); MONOCYTES # (AUTO) 0.4 X 10^3 (0.0-1.0); MONOCYTES % (AUTO) 7 % (0-12); NEUTROPHILS # (AUTO) 3.9 X 10^3 (1.8-7.8); NEUTROPHILS % (AUTO) 74 % (42-75); PLATELET COUNT 161 10^3/uL (130-400); RED BLOOD COUNT 4.74 10^6/uL (4.35-5.85); RED CELL DISTRIBUTION WIDTH 13.3 % (10.0-14.5); WHITE BLOOD COUNT 5.2 10^3/uL (4.3-11.0)
[2017-09-02 14:56] LABS: CALCIUM 9.9 MG/DL (8.5-10.1); CREATININE SERUM 1.19 MG/DL (0.60-1.30); POTASSIUM 3.2 MMOL/L (3.6-5.0)
[2017-09-02 14:57] LABS: ALBUMIN 4.5 GM/DL (3.2-4.5); BILIRUBIN,TOTAL 0.6 MG/DL (0.1-1.0); TOTAL PROTEIN 7.7 GM/DL (6.4-8.2)
== END ==
LOC: EDSTATUS 02-03 14:14 → ONC 14:16
PROVIDERS: ATTEND Internal Medicine Hematology & Oncology
DX: Z08 Encounter for follow-up examination after completed treatment for malignant neoplasm (principal); Z85.3 Personal history of malignant neoplasm of breast; M85.88 Other specified disorders of bone density and structure, other site; N18.3 Chronic kidney disease, stage 3 (moderate); I12.9 Hypertensive chronic kidney disease with stage 1 through stage 4 chronic kidney disease, or unspecified chronic kidney disease; G35 Multiple sclerosis; G20 Parkinson's disease; I45.6 Pre-excitation syndrome; R07.81 Pleurodynia; Z79.82 Long term (current) use of aspirin; Z79.899 Other long term (current) drug therapy; Z92.21 Personal history of antineoplastic chemotherapy; Z92.3 Personal history of irradiation
CPT/HCPCS: 36415; 80053; 85025; 99213

== ENCOUNTER 2017-10-20 21:45 | Emergency (ER) | payer MEDICARE, OTHER ==
[~2017-10-20] VITALS: Ht 152.4 cm; Wt 54.4 kg
[2017-10-20] MEDS ORDERED: diphenhydrAMINE 50 MG/ML INJ (BENADRYL) ONE (21:48)
[2017-10-20] MEDS ORDERED: methylPREDNISolone 125 MG (Solu-MEDROL) VIAL ONE (21:48)
[2017-10-20] MEDS ORDERED: FAMOTIDINE 20MG/2ML IV (PEPCID) ONE (21:48)
[2017-10-20] MEDS ORDERED: ONDANSETRON 4 MG/2 ML (SDV) Z0FRAN ONE (21:52)
[2017-10-20] MEDS ORDERED: EPINEPHrine INJECTION 1 MG/ML AMP ONE (21:52)
[2017-10-20] MEDS ORDERED: NS IV 1000 ML 1,000 ML IV SCH (21:54)
--- OUTSIDE RECORDS SUMMARY | 2017-10-20 21:56 | XMS REPORT | Continuity of Care Document ---
Author Author [facility] Organization [facility] Address Unknown Phone Unavailable Allergies Active Description Code Type Severity Reaction Onset Reported/Identified Relationship to Patient Clinical Status Yes No Known Drug Allergies [id number] Drug Allergy Unknown N/A 04/20/2008 Medications There is no data. Problems Date Dx Coded Attending Type Code [...] V76.51 SCREEN MAL NEOP-COLON 06/15/2014 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Ot 733.90 06/15/2014 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Ot V76.12 07/13/2014 YAW ACOSTA EDITOR & CO FOUNDER-C Ot 263.9 07/13/2014 YAW ACOSTA NP-C Ot 272.2 07/13/2014 YAW ACOSTA NP-C Ot 275.42 07/13/2014 YAW ACOSTA EDITOR & CO FOUNDER-C Ot 285.21 07/13/2014 YAW ACOSTA EDITOR & CO FOUNDER-C Ot 404.10 07/13/2014 YAW ACOSTA NP-C Ot 585.3 07/13/2014 YAW ACOSTA NP-C Ot 791.0 07/20/2014 Ot 272.2 07/20/2014 Ot 275.42 07/20/2014 Ot 285.21 07/20/2014 Ot 404.10 07/20/2014 Ot 585.3 07/20/2014 Ot 791.0 08/22/2014 CHEMA, ASHLIE N Ot 174.9 08/22/2014 CHEMA, BOBAN N [...] BOBAN N Ot V87.41 10/10/2014 YAW ACOSTA NP-C Ot 263.9 PROTEIN-ERLINDA MALNUTR NOS 10/10/2014 NEW, YAW G. 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 10/10/2014 YAW ACOSTA EDITOR [employer] CO FOUNDER-C Ot 585.3 CHRONIC KIDNEY DISEASE, STAGE III (MODER 10/10/2014 YAW ACOSTA EDITOR & CO FOUNDER-C Ot 791.0 PROTEINURIA 10/13/2014 AZEEM BEARAN N Ot 174.9 10/13/2014 CHEMA BOBBRITTNEY N Ot 585.3 10/13/2014 CHEMA BOBBRITTNEY N Ot 733.90 10/13/2014 ASHLIE BEAR N Ot V15.3 10/13/2014 ASHLIE BEAR N Ot V58.66 10/13/2014 ASHLIE BEAR N Ot V58.69 10/13/2014 ASHLIE BEAR N Ot V86.0 10/13/2014 CHEMA BOBBRITTNEY N Ot V87.41 11/27/2014 CHEMA BOBAN N Ot 174.9 MALIGN NEOPL BREAST NOS 11/27/2014 CHEMA BOBAN N Ot 585.3 CHRONIC KIDNEY DISEASE, STAGE III (MODER 11/27/2014 CHEMA BOBAN N Ot 733.90 BONE CARTILAGE DIS NOS 11/27/2014 ASHLIE BEAR N Ot V15.3 HX OF IRRADIATION 11/27/2014 ASHLIE BEAR N Ot V58.66 LONG-TERM (CURRENT) USE OF ASPIRIN 11/27/2014 CHEMA BOBAN N Ot V58.69 OTH MED,LT,CURRENT USE 11/27/2014 CHEMA BOBAN N Ot V86.0 ESTROGEN RECEPTOR POSITIVE STATUS [ER+] 11/27/2014 ASHLIE BEAR N Ot V87.41 PERSONAL HISTORY OF ANTINEOPLASTIC CHEMO 12/29/2014 YAW ACOSTA NP-C Ot 263.9 12/29/2014 YAW ACOSTA EDITOR [employer] CO FOUNDER-C Ot 272.4 12/29/2014 YAW ACOSTA EDITOR [employer] CO FOUNDER-C Ot 275.42 12/29/2014 YAW ACOSTA EDITOR [employer] CO FOUNDER-C Ot 285.21 12/29/2014 NEW, YAW Pederson EDITOR & CO FOUNDER-C Ot 404.10 12/29/2014 NEW, YAW Pederson EDITOR [employer] FOUNDER-C Ot 585.3 12/29/2014 NEW, YAW Pederson EDITOR [employer] CO FOUNDER-C Ot 791.0 01/16/2015 NEW, YAW Pederson EDITOR [employer] FOUNDER-C Ot 263.9 01/16/2015 NEW, YAW Pederson EDITOR [employer] CO FOUNDER-C Ot 268.9 01/16/2015 NEW, YAW Pederson EDITOR & CO FOUNDER-C Ot 272.2 01/16/2015 NEW, YAW Pederson EDITOR & CO FOUNDER-C Ot 275.42 01/16/2015 NEW, YAW Pederson EDITOR & CO FOUNDER-C Ot 285.21 01/16/2015 NEW, YAW Pederson EDITOR & [employer] FOUNDER-C Ot 404.10 01/16/2015 NEW, YAW Pederson EDITOR [employer] CO FOUNDER-C Ot 585.3 01/16/2015 NEW, YAW Pederson EDITOR [employer] CO FOUNDER-C Ot 788.1 01/16/2015 NEW, YAW Pederson EDITOR & CO FOUNDER-C Ot 791.0 01/27/2015 DUNG PERALTA, WELLINGTON Feliciano Ot 401.9 01/27/2015 DUNG PERALTA, WELLINGTON Feliciano Ot V58.69 01/27/2015 DUNG PERALTA, WELLINGTON Feliciano Ot V72.62 01/27/2015 DUNG PERALTA, WELLINGTON Feliciano Ot V87.41 05/03/2015 DONNY RIVAS CHEMISTRY PROFESSOR Ot 287.5 06/19/2015 ASHLIE BEAR Ot C50.919 06/19/2015 ASHLIE BEAR Ot Z12.31 09/15/2015 Ot M54.2 09/20/2015 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Ot C50.912 10/04/2015 ARI PERALTA, NADINE Hamlin [...] CUCO PERALTA, SANTY Norton Ot 287.5 10/04/2015 BRADEN LIBERTY S CHEMISTRY PROFESSOR Ot 174.9 10/04/2015 BRADEN BHUMIKAKRYSTAL S CHEMISTRY PROFESSOR Ot 585.3 10/04/2015 FELICIANO, BHUMIKAAH S CHEMISTRY PROFESSOR Ot 733.90 10/04/2015 FELICIANO BHUMIKAAH S CHEMISTRY PROFESSOR Ot V15.3 10/04/2015 FELICIANO HILAH S CHEMISTRY PROFESSOR Ot V58.66 10/04/2015 FELICIANO HILAH S CHEMISTRY PROFESSOR Ot V58.69 10/04/2015 FELICIANO, BHUMIKAAH S CHEMISTRY PROFESSOR Ot V86.0 10/04/2015 FELICIANO, BHUMIKAAH S CHEMISTRY PROFESSOR Ot V87.41 10/04/2015 FELICIANO, BHUMIKAAH S CHEMISTRY PROFESSOR Ot 174.9 10/04/2015 BRDAEN LIBERTY S CHEMISTRY PROFESSOR Ot 733.90 10/04/2015 YAW ACOSTA EDITOR [employer] CO FOUNDER-C Ot 272.2 10/04/2015 NEW, YAW Pederson EDITOR & CO FOUNDER-C Ot 275.42 10/04/2015 DAVE, YAW Pederson EDITOR & CO FOUNDER-C Ot 285.21 10/04/2015 YAW ACOSTA EDITOR [employer] CO FOUNDER-C Ot 404.10 10/04/2015 YAW ACOSTA EDITOR [employer] CO FOUNDER-C Ot 585.3 10/04/2015 YAW ACOSTA EDITOR & CO FOUNDER-C Ot 791.0 10/04/2015 ROYA PERALTA, ROBERT Hamlin Ot V72.84 10/04/2015 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Ot 174.9 10/04/2015 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Ot 585.3 10/04/2015 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Ot 733.90 10/04/2015 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Ot V15.3 10/04/2015 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Ot V58.66 10/04/2015 LIBERTY FELICIANO S CHEMISTRY PROFESSOR Ot V58.69 10/04/2015 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Ot V86.0 10/04/2015 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Ot V87.41 10/04/2015 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Ot 733.90 10/04/2015 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Ot V76.12 10/04/2015 YAW ACOSTA EDITOR [employer] CO FOUNDER-C Ot 272.2 10/04/2015 YAW ACOSTA EDITOR & CO FOUNDER-C Ot 275.42 10/04/2015 YAW ACOSTA EDITOR & CO FOUNDER-C Ot 285.21 10/04/2015 YAW ACOSTA EDITOR & CO FOUNDER-C Ot 404.10 10/04/2015 YAW ACOSTA NP-C Ot 585.3 10/04/2015 YAW ACOSTA EDITOR & CO FOUNDER-C Ot 791.0 10/04/2015 CUCO PERALTA, SANTY M [...] BEAR Ot Z12.31 10/04/2015 NEW, YAW G. EDITOR & CO FOUNDER-C Ot 263.9 10/04/2015 NEW, YAW Hartman. EDITOR & CO FOUNDER-C Ot 272.2 10/04/2015 NEW, YAW G. EDITOR & CO FOUNDER-C Ot 275.42 10/04/2015 NEW, YAW Hartman. EDITOR & CO FOUNDER-C Ot 285.21 10/04/2015 NEW, YAW Hartman. EDITOR & CO FOUNDER-C Ot 404.10 10/04/2015 NEW, YAW Hartman. EDITOR & CO FOUNDER-C Ot 585.3 10/04/2015 NEW, YAW Hartman. EDITOR & CO FOUNDER-C Ot 791.0 10/04/2015 CHEMA, BOBAN N Ot 174.9 10/04/2015 CHEMA, BOBAN N Ot 585.3 10/04/2015 CHEMA, BOBAN N Ot 733.90 10/04/2015 CHEMA, BOBAN N Ot V15.3 10/04/2015 CHEMA, BOBAN N Ot V58.66 10/04/2015 CHEMA, BOBAN N Ot V58.69 10/04/2015 CHEMA, BOBAN N Ot V86.0 10/04/2015 CHEMA, BOBAN N Ot V87.41 10/04/2015 NEW, YAW Hartman. EDITOR & CO FOUNDER-C Ot 263.9 10/04/2015 NEW, YAW Hartman. EDITOR & CO FOUNDER-C Ot 272.4 10/04/2015 NEW, YAW G. EDITOR & CO FOUNDER-C Ot 275.42 10/04/2015 NEW, YAW Hartman. EDITOR & CO FOUNDER-C Ot 285.21 10/04/2015 NEW, YAW G. EDITOR & CO FOUNDER-C Ot 404.10 10/04/2015 NEW, YAW G. EDITOR & CO FOUNDER-C Ot 585.3 10/04/2015 NEW, YAW G. EDITOR & CO FOUNDER-C Ot 791.0 10/04/2015 NEW, YAW Devan. EDITOR & CO FOUNDER-C Ot 263.9 10/04/2015 NEW, YAW G. EDITOR & CO FOUNDER-C Ot 268.9 10/04/2015 NEW, YAW G. EDITOR & CO FOUNDER-C Ot 272.2 10/04/2015 NEW, YAW G. EDITOR & CO FOUNDER-C Ot 275.42 10/04/2015 NEW, YAW Devan. EDITOR & CO FOUNDER-C Ot 285.21 10/04/2015 NEW, YAW G. EDITOR & CO FOUNDER-C Ot 404.10 10/04/2015 NEW, YAW G. EDITOR & CO FOUNDER-C Ot 585.3 10/04/2015 DAVE YAW G. EDITOR & CO FOUNDER-C Ot 788.1 10/04/2015 YAW ACOSTA EDITOR & CO FOUNDER-C Ot 791.0 10/04/2015 DUNG PERALTA, WELLINGTON Feliciano Ot 401.9 10/04/2015 DUNG PERALTA, WELLINGTON Feliciano Ot V58.69 10/04/2015 DUNG PERALTA, WELLINGTON A Ot V72.62 10/04/2015 DUNG PERALTA, WELLINGTON Feliciano Ot V87.41 10/04/2015 DONNY RIVAS CHEMISTRY PROFESSOR Ot 287.5 10/04/2015 BRADEN LIBERTY Wilda CHEMISTRY PROFESSOR Ot C50.912 10/04/2015 Ot M54.2 10/04/2015 ARI [...] OF BREAST MALIGNANCY 03/20/2016 Ot V76.11 SCRN MAMMO- HIGH RISK PT, MALIGNANT NEOPL 03/20/2016 Ot 396.3 MITRAL/ AORTIC KAMARI INSUFF 03/20/2016 Ot 397.0 TRICUSPID VALVE [...] HX OF IRRADIATION 03/20/2016 Ot V58.66 LONG-TERM ( CURRENT) USE OF ASPIRIN 03/20/2016 Ot V58.69 OTH MED,LT, CURRENT USE 03/20/2016 Ot V86.0 ESTROGEN RECEPTOR POSITIVE [...] Ot 287.5 THROMBOCYTOPENIA NOS 03/20/2016 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Ot 174.9 MALIGN NEOPL BREAST NOS 03/20/2016 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Ot 585.3 CHRONIC KIDNEY DISEASE, STAGE III (MODER 03/20/2016 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Ot 733.90 BONE CARTILAGE DIS NOS 03/20/2016 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Ot V15.3 HX OF IRRADIATION 03/20/2016 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Ot V58.66 LONG-TERM (CURRENT) USE OF ASPIRIN 03/20/2016 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Ot V58.69 OTH MED,LT,CURRENT USE 03/20/2016 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Ot V86.0 ESTROGEN RECEPTOR POSITIVE STATUS [ER+] 03/20/2016 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Ot V87.41 PERSONAL HISTORY OF ANTINEOPLASTIC CHEMO 03/20/2016 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Ot 174.9 MALIGN NEOPL BREAST NOS 03/20/2016 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Ot 733.90 BONE CARTILAGE DIS NOS 03/20/2016 YAW ACOSTA EDITOR & CO FOUNDER-C Ot 272.2 MIXED HYPERLIPIDEMIA 03/20/2016 YAW ACOSTA EDITOR & CO FOUNDER-C Ot 275.42 HYPERCALCEMIA 03/20/2016 YAW ACOSTA EDITOR & CO FOUNDER-C Ot 285.21 ANEMIA IN CHRONIC KIDNEY DISEASE 03/20/2016 YAW ACOSTA 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 03/20/2016 YAW ACOSTA EDITOR & CO FOUNDER-C Ot 585.3 CHRONIC KIDNEY DISEASE, STAGE III (MODER 03/20/2016 YAW ACOSTA EDITOR & CO FOUNDER-C Ot 791.0 PROTEINURIA 03/20/2016 ROYA PERALTA, ROBERT Hamlin Ot V72.84 EXAM PRE-OPERATIVE NOS 03/20/2016 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Ot 174.9 MALIGN NEOPL BREAST NOS 03/20/2016 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Ot 585.3 CHRONIC KIDNEY DISEASE, STAGE III (MODER 03/20/2016 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Ot 733.90 BONE CARTILAGE DIS NOS 03/20/2016 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Ot V15.3 HX OF IRRADIATION 03/20/2016 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Ot V58.66 LONG-TERM (CURRENT) USE OF ASPIRIN 03/20/2016 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Ot V58.69 OTH MED,LT,CURRENT USE 03/20/2016 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Ot V86.0 ESTROGEN RECEPTOR POSITIVE STATUS [ER+] 03/20/2016 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Ot V87.41 PERSONAL HISTORY OF ANTINEOPLASTIC CHEMO 03/20/2016 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Ot 733.90 BONE CARTILAGE DIS NOS 03/20/2016 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Ot V76.12 OTH SCREEN MAMMO-MALIGN NEOPLASM OF HUSSAIN 03/20/2016 YAW ACOSTA EDITOR & CO FOUNDER-C Ot 272.2 MIXED HYPERLIPIDEMIA 03/20/2016 YAW ACOSTA NP-C Ot 275.42 HYPERCALCEMIA 03/20/2016 YAW ACOSTA EDITOR & CO FOUNDER-C Ot 285.21 ANEMIA IN CHRONIC KIDNEY DISEASE 03/20/2016 YAW ACOSTA 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 03/20/2016 YAW ACOSTA EDITOR & CO FOUNDER-C Ot 585.3 CHRONIC KIDNEY DISEASE, STAGE III (MODER 03/20/2016 YAW ACOSTA EDITOR & CO FOUNDER-C Ot 791.0 PROTEINURIA 03/20/2016 CUCO PERALTA, SANTY Norton Ot 397.0 TRICUSPID VALVE DISEASE 03/20/2016 CUCO PERALTA, SANTY Norton Ot 424.0 MITRAL VALVE DISORDER 03/20/2016 CUCO PERALTA, SANTY Norton Ot 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 03/20/2016 CUCO PERALTA, SANTY Norton Ot 244.8 ACQUIRED HYPOTHYROID NEC 03/20/2016 CUCO PERALTA, SANTY Norton Ot 241.0 NONTOX UNINODULAR GOITER 03/20/2016 CUCO PERALTA, SANTY Norton Ot 388.30 TINNITUS NOS 03/20/2016 CUCO PERALTA, SANTY Norton Ot 721.0 CERVICAL SPONDYLOSIS 03/20/2016 Ot 272.2 [...] MAMMOGRAM FOR MALIGNANT NE 03/20/2016 YAW ACOSTA EDITOR & CO FOUNDER-C Ot 263.9 PROTEIN-ERLINDA MALNUTR NOS 03/20/2016 YAW ACOSTA EDITOR & CO FOUNDER-C Ot 272.2 MIXED HYPERLIPIDEMIA 03/20/2016 YAW ACOSTA EDITOR & CO FOUNDER-C Ot 275.42 HYPERCALCEMIA 03/20/2016 YAW ACOSTA EDITOR & CO FOUNDER-C Ot 285.21 ANEMIA IN CHRONIC KIDNEY DISEASE 03/20/2016 YAW ACOSTA 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 03/20/2016 YAW ACOSTA EDITOR & CO FOUNDER-C Ot 585.3 CHRONIC KIDNEY DISEASE, STAGE III (MODER 03/20/2016 YAW ACOSTA EDITOR & CO FOUNDER-C Ot 791.0 PROTEINURIA 03/20/2016 ASHLIE BEAR Ot 174.9 MALIGN NEOPL BREAST NOS 03/20/2016 ASHLIE BEAR Saw Ot 585.3 CHRONIC KIDNEY DISEASE, STAGE III (MODER 03/20/2016 ASHLIE BEAR Saw Ot 733.90 BONE CARTILAGE DIS NOS 03/20/2016 ASHLIE BEAR Ot V15.3 HX OF IRRADIATION 03/20/2016 ASHLIE BEAR Ot V58.66 LONG-TERM (CURRENT) USE OF ASPIRIN 03/20/2016 ASHLIE BEAR Saw Ot V58.69 OTH MED,LT,CURRENT USE 03/20/2016 ASHLIE BEAR Ot V86.0 ESTROGEN RECEPTOR POSITIVE STATUS [ER+] 03/20/2016 ASHLIE BEAR Saw Ot V87.41 PERSONAL HISTORY OF ANTINEOPLASTIC CHEMO 03/20/2016 YAW ACOSTA EDITOR & CO FOUNDER-C Ot 263.9 PROTEIN-ERLINDA MALNUTR NOS 03/20/2016 YAW ACOSTA EDITOR & CO FOUNDER-C Ot 272.4 HYPERLIPIDEMIA NEC/NOS 03/20/2016 YAW ACOSTA EDITOR & CO FOUNDER-C Ot 275.42 HYPERCALCEMIA 03/20/2016 YAW ACOSTA EDITOR & CO FOUNDER-C Ot 285.21 ANEMIA IN CHRONIC KIDNEY DISEASE 03/20/2016 YAW ACOSTA 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 EDITOR & CO FOUNDER-C Ot 275.42 HYPERCALCEMIA 03/20/2016 DAVE YAW G. EDITOR & CO FOUNDER-C Ot 285.21 ANEMIA IN CHRONIC KIDNEY DISEASE 03/20/2016 DAVE YAW G. 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 03/20/2016 YAW ACOSTA EDITOR & CO FOUNDER-C Ot 585.3 CHRONIC KIDNEY DISEASE, STAGE III (MODER 03/20/2016 YAW ACOSTA NP-C Ot 788.1 DYSURIA 03/20/2016 YAW ACOSTA EDITOR & CO FOUNDER-C Ot 791.0 PROTEINURIA 03/20/2016 WELLINGTON RAZO MD Ot 401.9 HYPERTENSION NOS 03/20/2016 WELLINGTON RAZO MD Ot V58.69 OTH MED,LT,CURRENT USE 03/20/2016 WELLINGTON RAZO MD Ot V72.62 LAB EXAM ORDERED PART OF A ROUTINE GE 03/20/2016 WELLINGTON RAZO MD Ot V87.41 PERSONAL HISTORY OF ANTINEOPLASTIC CHEMO 03/20/2016 DONNY RIVAS CHEMISTRY PROFESSOR Ot 287.5 THROMBOCYTOPENIA NOS 03/20/2016 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Ot C50.912 MALIGNANT NEOPLASM OF UNSPECIFIED SITE [...] OF BREAST MALIGNANCY 03/22/2016 Ot V76.11 SCRN MAMMO- HIGH RISK PT, MALIGNANT NEOPL 03/22/2016 Ot 396.3 MITRAL/ AORTIC KAMARI INSUFF 03/22/2016 Ot 397.0 TRICUSPID VALVE [...] HX OF IRRADIATION 03/22/2016 Ot V58.66 LONG-TERM ( CURRENT) USE OF ASPIRIN 03/22/2016 Ot V58.69 OTH MED,LT, CURRENT USE 03/22/2016 Ot V86.0 ESTROGEN RECEPTOR POSITIVE [...] 287.5 THROMBOCYTOPENIA NOS 03/22/2016 LIBERTY FELICIANO S CHEMISTRY PROFESSOR Ot 174.9 MALIGN NEOPL BREAST NOS 03/22/2016 LIBERTY FELICIANO S CHEMISTRY PROFESSOR Ot 585.3 CHRONIC KIDNEY DISEASE, STAGE III (MODER 03/22/2016 LIBERTY FELICIANO S CHEMISTRY PROFESSOR Ot 733.90 BONE CARTILAGE DIS NOS 03/22/2016 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Ot V15.3 HX OF IRRADIATION 03/22/2016 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Ot V58.66 LONG-TERM (CURRENT) USE OF ASPIRIN 03/22/2016 LIBERTY FELICIANO S CHEMISTRY PROFESSOR Ot V58.69 OTH MED,LT,CURRENT USE 03/22/2016 FELICIANOLIBERTY Astudillo S CHEMISTRY PROFESSOR Ot V86.0 ESTROGEN RECEPTOR POSITIVE STATUS [ER+] 03/22/2016 FELICIANOLIBERTY Astudillo CHEMISTRY PROFESSOR Ot V87.41 PERSONAL HISTORY OF ANTINEOPLASTIC CHEMO 03/22/2016 FELICIANOLIBERTY Astudillo S CHEMISTRY PROFESSOR Ot 174.9 MALIGN NEOPL BREAST NOS 03/22/2016 FELICIANOLIBERTY Astudillo S CHEMISTRY PROFESSOR Ot 733.90 BONE CARTILAGE DIS NOS 03/22/2016 YAW ACOSTA Ot 272.2 MIXED HYPERLIPIDEMIA 03/22/2016 YAW ACOSTA EDITOR [employer] CO FOUNDER-C Ot 275.42 HYPERCALCEMIA 03/22/2016 YAW ACOSTA EDITOR & CO FOUNDER-C Ot 285.21 ANEMIA IN CHRONIC KIDNEY DISEASE 03/22/2016 YAW ACOSTA 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 03/22/2016 YAW ACOSTA EDITOR & CO FOUNDER-C Ot 585.3 CHRONIC KIDNEY DISEASE, STAGE III (MODER 03/22/2016 YAW ACOSTA EDITOR & CO FOUNDER-C Ot 791.0 PROTEINURIA 03/22/2016 ROYA PERALTA, ROBERT Hamlin Ot V72.84 EXAM PRE-OPERATIVE NOS 03/22/2016 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Ot 174.9 MALIGN NEOPL BREAST NOS 03/22/2016 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Ot 585.3 CHRONIC KIDNEY DISEASE, STAGE III (MODER 03/22/2016 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Ot 733.90 BONE CARTILAGE DIS NOS 03/22/2016 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Ot V15.3 HX OF IRRADIATION 03/22/2016 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Ot V58.66 LONG-TERM (CURRENT) USE OF ASPIRIN 03/22/2016 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Ot V58.69 OTH MED,LT,CURRENT USE 03/22/2016 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Ot V86.0 ESTROGEN RECEPTOR POSITIVE STATUS [ER+] 03/22/2016 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Ot V87.41 PERSONAL HISTORY OF ANTINEOPLASTIC CHEMO 03/22/2016 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Ot 733.90 BONE CARTILAGE DIS NOS 03/22/2016 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Ot V76.12 OTH SCREEN MAMMO-MALIGN NEOPLASM OF HUSSAIN 03/22/2016 YAW ACOSTA NP-C Ot 272.2 MIXED HYPERLIPIDEMIA 03/22/2016 YAW ACOSTA EDITOR & CO FOUNDER-C Ot 275.42 HYPERCALCEMIA 03/22/2016 YAW ACOSTA EDITOR & CO FOUNDER-C Ot 285.21 ANEMIA IN CHRONIC KIDNEY DISEASE 03/22/2016 YAW ACOSTA 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 03/22/2016 YAW ACOSTA EDITOR & CO FOUNDER-C Ot 585.3 CHRONIC KIDNEY DISEASE, STAGE III (MODER 03/22/2016 YAW ACOSTA EDITOR & CO FOUNDER-C Ot 791.0 PROTEINURIA 03/22/2016 SANTY NORWOOD MD Ot 397.0 TRICUSPID VALVE DISEASE 03/22/2016 SANTY NORWOOD MD Ot 424.0 MITRAL VALVE DISORDER 03/22/2016 SANTY NORWOOD MD Ot 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 03/22/2016 CUCO PERALTA, SANTY Norton Ot 244.8 ACQUIRED HYPOTHYROID NEC 03/22/2016 CUCO PERALTA, SANTY Norton Ot 241.0 NONTOX UNINODULAR GOITER 03/22/2016 SANTY NORWOOD MD Ot 388.30 TINNITUS NOS 03/22/2016 SANTY NORWOOD MD Ot 721.0 CERVICAL SPONDYLOSIS 03/22/2016 Ot 272.2 MIXED HYPERLIPIDEMIA 03/22/2016 Ot 275.42 HYPERCALCEMIA 03/22/2016 Ot 285.21 ANEMIA IN CHRONIC KIDNEY DISEASE 03/22/2016 Ot 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, BENIGN, 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 03/22/2016 Ot 585.3 CHRONIC KIDNEY DISEASE, STAGE III (MODER 03/22/2016 Ot 791.0 PROTEINURIA 03/22/2016 ASHLIE BEAR Ot C50.919 MALIGNANT NEOPLASM OF [facility] SITE OF UNSPE 03/22/2016 ASHLIE BEAR Ot Z12.31 ENCNTR SCREEN MAMMOGRAM FOR MALIGNANT NE 03/22/2016 YAW ACOSTA EDITOR & CO FOUNDER-C Ot 263.9 PROTEIN-ERLINDA MALNUTR NOS 03/22/2016 YAW ACOSTA EDITOR & CO FOUNDER-C Ot 272.2 MIXED HYPERLIPIDEMIA 03/22/2016 YAW ACOSTA EDITOR & CO FOUNDER-C Ot 275.42 HYPERCALCEMIA 03/22/2016 YAW ACOSTA EDITOR & CO FOUNDER-C Ot 285.21 ANEMIA IN CHRONIC KIDNEY DISEASE 03/22/2016 YAW ACOSTA 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 03/22/2016 YAW ACOSTA EDITOR & CO FOUNDER-C Ot 585.3 CHRONIC KIDNEY DISEASE, STAGE III (MODER 03/22/2016 YAW ACOSTA EDITOR & CO FOUNDER-C Ot 791.0 PROTEINURIA 03/22/2016 ASHLIE BEAR Ot 174.9 MALIGN NEOPL BREAST NOS 03/22/2016 ASHLIE BEAR Ot 585.3 CHRONIC KIDNEY DISEASE, STAGE III (MODER 03/22/2016 ASHLIE BEAR Ot 733.90 BONE CARTILAGE DIS NOS 03/22/2016 ASHLIE BEAR Ot V15.3 HX OF IRRADIATION 03/22/2016 ASHLIE BEAR Ot V58.66 LONG-TERM (CURRENT) USE OF ASPIRIN 03/22/2016 ASHLIE BEAR Saw Ot V58.69 OTH MED,LT,CURRENT USE 03/22/2016 ASHLIE BEAR Ot V86.0 ESTROGEN RECEPTOR POSITIVE STATUS [ER+] 03/22/2016 ASHLIE BEAR Ot V87.41 PERSONAL HISTORY OF ANTINEOPLASTIC CHEMO 03/22/2016 YAW ACOSTA EDITOR & [employer] FOUNDER-C Ot 263.9 PROTEIN-ERLINDA MALNUTR NOS 03/22/2016 YAW ACOSTA EDITOR & [employer] FOUNDER-C Ot 272.4 HYPERLIPIDEMIA NEC/NOS 03/22/2016 YAW ACOSTA EDITOR & [employer] FOUNDER-C Ot 275.42 HYPERCALCEMIA 03/22/2016 YAW ACOSTA EDITOR & [employer] FOUNDER-C Ot 285.21 ANEMIA IN CHRONIC KIDNEY DISEASE 03/22/2016 YAW ACOSTA 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 03/22/2016 YAW ACOSTA EDIT[employer] FOUNDER-C Ot 585.3 CHRONIC KIDNEY DISEASE, STAGE III (MODER 03/22/2016 YAW ACOSTA EDITOR & [employer] FOUNDER-C Ot 791.0 PROTEINURIA 03/22/2016 YAW ACOSTA EDIT[employer] & [employer] FOUNDER-C Ot 263.9 PROTEIN-ERLINDA MALNUTR NOS 03/22/2016 YAW ACOSTA EDIT[employer] FOUNDER-C Ot 268.9 VITAMIN D DEFICIENCY NOS 03/22/2016 YAW ACOSTA EDIT[employer] FOUNDER[employer]C Ot 272.2 MIXED HYPERLIPIDEMIA 03/22/2016 YAW ACOSTA EDIT[employer] FOUNDER-C Ot 275.42 HYPERCALCEMIA 03/22/2016 YAW ACOSTA EDITOR & [employer] FOUNDER-C Ot 285.21 ANEMIA IN CHRONIC KIDNEY DISEASE 03/22/2016 YAW ACOSTA 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 03/22/2016 YAW ACOSTA EDIT[employer] FOUNDER-C Ot 585.3 CHRONIC KIDNEY DISEASE, STAGE III [...] HISTORY OF ANTINEOPLASTIC CHEMO 03/22/2016 DONNY RIVAS CHEMISTRY PROFESSOR Ot 287.5 THROMBOCYTOPENIA NOS 03/22/2016 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Ot C50.912 MALIGNANT NEOPLASM OF UNSPECIFIED SITE O 03/22/2016 Ot M54.2 CERVICALGIA 03/22/2016 MICHELLE CINTRON Ot I20.9 ANGINA PECTORIS, UNSPECIFIED 03/22/2016 MICHELLE CINTRON R Ot R53.82 CHRONIC FATIGUE, UNSPECIFIED 03/22/2016 MICHELLE CINTRON Ot R55 SYNCOPE AND COLLAPSE 03/22/2016 MICHELLE CINTRON Ot I20.9 ANGINA PECTORIS, UNSPECIFIED 03/22/2016 MICHELLE CINTRON R Ot R55 SYNCOPE AND COLLAPSE 03/22/2016 MICHELLE CINTRON Ot I20.9 ANGINA PECTORIS, UNSPECIFIED 03/22/2016 MICHELLE CINTRON Ot R55 SYNCOPE AND COLLAPSE 03/26/2016 MICHELLE CINTRON R Ot I20.9 ANGINA PECTORIS, UNSPECIFIED 03/26/2016 MICHELLE CINTRON R Ot R55 SYNCOPE AND COLLAPSE 03/26/2016 RADHA ADAMS DO Ot R22.0 LOCALIZED SWELLING, MASS AND LUMP, HEAD 04/10/2016 MICHELLE CINTRON Ot I20.9 ANGINA PECTORIS, UNSPECIFIED 04/10/2016 MICHELLE CINTRON R Ot R55 SYNCOPE AND COLLAPSE 04/29/2016 RDAHA ADAMS DO Ot R22.0 LOCALIZED SWELLING, MASS AND LUMP, HEAD 04/30/2016 RADHA ADAMS DO Ot R22.0 LOCALIZED SWELLING, MASS AND LUMP, HEAD 05/05/2016 RADHA ADAMS DO Ot R22.0 LOCALIZED SWELLING, MASS AND LUMP, HEAD 05/23/2016 Ot V10.3 HX OF BREAST MALIGNANCY 05/23/2016 Ot V76.11 SCRN MAMMO- HIGH RISK PT, MALIGNANT NEOPL 05/23/2016 Ot 396.3 MITRAL/ AORTIC KAMARI INSUFF 05/23/2016 Ot 397.0 TRICUSPID VALVE [...] HX OF IRRADIATION 05/23/2016 Ot V58.66 LONG-TERM ( CURRENT) USE OF ASPIRIN 05/23/2016 Ot V58.69 OTH MED,LT, CURRENT USE 05/23/2016 Ot V86.0 ESTROGEN RECEPTOR POSITIVE STATUS [ER+] 05/23/2016 Ot V87.41 PERSONAL HISTORY OF ANTINEOPLASTIC CHEMO 05/23/2016 Ot 272.2 MIXED HYPERLIPIDEMIA 05/23/2016 Ot 275.42 HYPERCALCEMIA 05/23/2016 Ot 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, BENIGN, 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 05/23/2016 Ot 585.3 CHRONIC KIDNEY DISEASE, STAGE III (MODER 05/23/2016 Ot 791.0 PROTEINURIA 05/23/2016 SANTY NORWOOD MD Ot 272.0 PURE HYPERCHOLESTEROLEM 05/23/2016 SANTY NORWOOD MD Ot 287.5 THROMBOCYTOPENIA NOS 05/23/2016 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Ot 174.9 MALIGN NEOPL BREAST NOS 05/23/2016 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Ot 585.3 CHRONIC KIDNEY DISEASE, STAGE III (MODER 05/23/2016 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Ot 733.90 BONE CARTILAGE DIS NOS 05/23/2016 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Ot V15.3 HX OF IRRADIATION 05/23/2016 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Ot V58.66 LONG-TERM (CURRENT) USE OF ASPIRIN 05/23/2016 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Ot V58.69 OTH MED,LT,CURRENT USE 05/23/2016 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Ot V86.0 ESTROGEN RECEPTOR POSITIVE STATUS [ER+] 05/23/2016 LIBERTY FELCIIANO CHEMISTRY PROFESSOR Ot V87.41 PERSONAL HISTORY OF ANTINEOPLASTIC CHEMO 05/23/2016 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Ot 174.9 MALIGN NEOPL BREAST NOS 05/23/2016 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Ot 733.90 BONE CARTILAGE DIS NOS 05/23/2016 YAW ACOSTA EDITOR [employer] FOUNDER-C Ot 272.2 MIXED HYPERLIPIDEMIA 05/23/2016 YAW ACOSTA EDIT[employer] FOUNDER-C Ot 275.42 HYPERCALCEMIA 05/23/2016 YAW ACOSTA EDITOR & CO FOUNDER-C Ot 285.21 ANEMIA IN CHRONIC KIDNEY DISEASE 05/23/2016 YAW ACOSTA 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 05/23/2016 YAW ACOSTA EDITOR [employer] CO FOUNDER-C Ot 585.3 CHRONIC KIDNEY DISEASE, STAGE III (MODER 05/23/2016 YAW ACOSTA EDITOR & CO FOUNDER-C Ot 791.0 PROTEINURIA 05/23/2016 ROYA PERALTA, ROBERT Hamlin Ot V72.84 EXAM PRE-OPERATIVE NOS 05/23/2016 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Ot 174.9 MALIGN NEOPL BREAST NOS 05/23/2016 LIBERTY FELIICANO CHEMISTRY PROFESSOR Ot 585.3 CHRONIC KIDNEY DISEASE, STAGE III (MODER 05/23/2016 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Ot 733.90 BONE CARTILAGE DIS NOS 05/23/2016 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Ot V15.3 HX OF IRRADIATION 05/23/2016 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Ot V58.66 LONG-TERM (CURRENT) USE OF ASPIRIN 05/23/2016 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Ot V58.69 OTH MED,LT,CURRENT USE 05/23/2016 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Ot V86.0 ESTROGEN RECEPTOR POSITIVE STATUS [ER+] 05/23/2016 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Ot V87.41 PERSONAL HISTORY OF ANTINEOPLASTIC CHEMO 05/23/2016 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Ot 733.90 BONE CARTILAGE DIS NOS 05/23/2016 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Ot V76.12 OTH SCREEN MAMMO-MALIGN NEOPLASM OF [place]USSAIN 05/23/2016 YAW ACOSTA EDITOR & CO FOUNDER-C Ot 272.2 MIXED HYPERLIPIDEMIA 05/23/2016 YAW ACOSTA EDITOR & CO FOUNDER-C Ot 275.42 HYPERCALCEMIA 05/23/2016 YAW ACOSTA EDITOR & CO FOUNDER-C Ot 285.21 ANEMIA IN CHRONIC KIDNEY DISEASE 05/23/2016 YAW ACOSTA 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 05/23/2016 YAW ACOSTA EDITOR & CO FOUNDER-C Ot 585.3 CHRONIC KIDNEY DISEASE, STAGE III (MODER 05/23/2016 YAW ACOSTA EDITOR & CO FOUNDER-C Ot 791.0 PROTEINURIA 05/23/2016 CUCO PERALTA, SANTY Norton Ot 397.0 TRICUSPID VALVE DISEASE 05/23/2016 SANTY NORWOOD MD Ot 424.0 MITRAL VALVE DISORDER 05/23/2016 SANTY NORWOOD MD Ot 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 05/23/2016 SANTY NORWOOD MD Ot 244.8 ACQUIRED HYPOTHYROID NEC 05/23/2016 SANTY NORWOOD MD Ot 241.0 NONTOX UNINODULAR GOITER 05/23/2016 CUCO PERALTA, SANTY Norton Ot 388.30 TINNITUS NOS 05/23/2016 SANTY NORWOOD MD Ot 721.0 CERVICAL SPONDYLOSIS 05/23/2016 Ot 272.2 MIXED HYPERLIPIDEMIA 05/23/2016 Ot 275.42 HYPERCALCEMIA 05/23/2016 Ot 285.21 ANEMIA IN CHRONIC KIDNEY DISEASE 05/23/2016 Ot 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, BENIGN, 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 05/23/2016 Ot 585.3 CHRONIC KIDNEY DISEASE, STAGE III (MODER 05/23/2016 Ot 791.0 PROTEINURIA 05/23/2016 ASHLIE BEAR Ot C50.919 MALIGNANT NEOPLASM OF [facility] SITE OF UNSPE 05/23/2016 ASHLIE BEAR Ot Z12.31 ENCNTR SCREEN MAMMOGRAM FOR MALIGNANT NE 05/23/2016 YAW ACOSTA EDITOR & CO FOUNDER-C Ot 263.9 PROTEIN-ERLINDA MALNUTR NOS 05/23/2016 YAW ACOSTA EDITOR & CO FOUNDER-C Ot 272.2 MIXED HYPERLIPIDEMIA 05/23/2016 YAW ACOSTA EDITOR & CO FOUNDER-C Ot 275.42 HYPERCALCEMIA 05/23/2016 YAW ACOSTA EDITOR & CO FOUNDER-C Ot 285.21 ANEMIA IN CHRONIC KIDNEY DISEASE 05/23/2016 YAW ACOSTA 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 EDITOR & CO FOUNDER-C Ot 585.3 CHRONIC KIDNEY DISEASE, STAGE III (MODER 05/23/2016 NEWYAW. EDITOR & CO FOUNDER-C Ot 791.0 PROTEINURIA 05/23/2016 NEW, YAW G. EDITOR & CO FOUNDER-C Ot 263.9 PROTEIN-ERLINDA MALNUTR NOS 05/23/2016 NEW, YAW G. EDITOR & CO FOUNDER-C Ot 268.9 VITAMIN D DEFICIENCY NOS 05/23/2016 NEW, YAW G. EDITOR & CO FOUNDER-C Ot 272.2 MIXED HYPERLIPIDEMIA 05/23/2016 NEW, YAW G. EDITOR & CO FOUNDER-C Ot 275.42 HYPERCALCEMIA 05/23/2016 NEW, YAW G. EDITOR & CO FOUNDER-C Ot 285.21 ANEMIA IN CHRONIC KIDNEY DISEASE 05/23/2016 NEW YAW G. 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 EDITOR & CO FOUNDER-C Ot 585.3 CHRONIC KIDNEY DISEASE, STAGE III (MODER 05/23/2016 DAVE YAW Hartman. EDITOR & CO FOUNDER-C Ot 788.1 DYSURIA 05/23/2016 NEWYAW. EDITOR & CO FOUNDER-C Ot 791.0 PROTEINURIA 05/23/2016 WELLINGTON RAZO MD Ot 401.9 HYPERTENSION NOS 05/23/2016 WELLINGTON RAZO MD Ot V58.69 OTH MED,LT,CURRENT USE 05/23/2016 WELLINGTON RAZO MD Ot V72.62 LAB EXAM ORDERED PART OF A ROUTINE GE 05/23/2016 WELLINGTON RAZO MD Ot V87.41 PERSONAL HISTORY OF ANTINEOPLASTIC CHEMO 05/23/2016 DONNY RIVAS CHEMISTRY PROFESSOR Ot 287.5 THROMBOCYTOPENIA NOS 05/23/2016 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Ot C50.912 MALIGNANT NEOPLASM OF UNSPECIFIED SITE O 05/23/2016 Ot M54.2 CERVICALGIA 05/23/2016 MICHELLE CINTRON Ot I20.9 ANGINA PECTORIS, UNSPECIFIED 05/23/2016 MICHELLE CINTRON Ot R53.82 CHRONIC FATIGUE, UNSPECIFIED 05/23/2016 MICHELLE CINTRON Ot R55 SYNCOPE AND COLLAPSE 05/23/2016 MICHELLE CINTRON Ot I20.9 ANGINA PECTORIS, UNSPECIFIED 05/23/2016 MICHELLE CINTRON Ot R55 SYNCOPE AND COLLAPSE 05/24/2016 Ot V10.3 HX OF BREAST MALIGNANCY 05/24/2016 Ot V76.11 SCRN MAMMO- HIGH RISK PT, MALIGNANT NEOPL 05/24/2016 Ot 396.3 MITRAL/ AORTIC KAMARI INSUFF 05/24/2016 Ot 397.0 TRICUSPID VALVE [...] HX OF IRRADIATION 05/24/2016 Ot V58.66 LONG-TERM ( CURRENT) USE OF ASPIRIN 05/24/2016 Ot V58.69 OTH MED,LT, CURRENT USE 05/24/2016 Ot V86.0 ESTROGEN RECEPTOR POSITIVE [...] Ot 287.5 THROMBOCYTOPENIA NOS 05/24/2016 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Ot 174.9 MALIGN NEOPL BREAST NOS 05/24/2016 LIBERTY FELICIANOP Ot 585.3 CHRONIC KIDNEY DISEASE, STAGE III (MODER 05/24/2016 FELICIANO, HILAH S CHEMISTRY PROFESSOR Ot 733.90 BONE CARTILAGE DIS NOS 05/24/2016 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Ot V15.3 HX OF IRRADIATION 05/24/2016 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Ot V58.66 LONG-TERM (CURRENT) USE OF ASPIRIN 05/24/2016 LIBERTY FELICIANO Ot V58.69 OTH MED,LT,CURRENT USE 05/24/2016 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Ot V86.0 ESTROGEN RECEPTOR POSITIVE STATUS [ER+] 05/24/2016 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Ot V87.41 PERSONAL HISTORY OF ANTINEOPLASTIC CHEMO 05/24/2016 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Ot 174.9 MALIGN NEOPL BREAST NOS 05/24/2016 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Ot 733.90 BONE CARTILAGE DIS NOS 05/24/2016 YAW ACOSTA EDITOR & CO FOUNDER-C Ot 272.2 MIXED HYPERLIPIDEMIA 05/24/2016 YAW ACOSTA EDITOR & CO FOUNDER-C Ot 275.42 HYPERCALCEMIA 05/24/2016 YAW ACOSTA EDITOR & CO FOUNDER-C Ot 285.21 ANEMIA IN CHRONIC KIDNEY DISEASE 05/24/2016 YAW ACOSTA 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 05/24/2016 YAW ACOSTA EDITOR & CO FOUNDER-C Ot 585.3 CHRONIC KIDNEY DISEASE, STAGE III (MODER 05/24/2016 YAW ACOSTA EDITOR & CO FOUNDER-C Ot 791.0 PROTEINURIA 05/24/2016 ROYA PERALTA, ROBERT Hamlin Ot V72.84 EXAM PRE-OPERATIVE NOS 05/24/2016 LIBERTY FELICIANOP Ot 174.9 MALIGN NEOPL BREAST NOS 05/24/2016 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Ot 585.3 CHRONIC KIDNEY DISEASE, STAGE III (MODER 05/24/2016 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Ot 733.90 BONE CARTILAGE DIS NOS 05/24/2016 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Ot V15.3 HX OF IRRADIATION 05/24/2016 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Ot V58.66 LONG-TERM (CURRENT) USE OF ASPIRIN 05/24/2016 LIBERTY FELICIANOP Ot V58.69 OTH MED,LT,CURRENT USE 05/24/2016 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Ot V86.0 ESTROGEN RECEPTOR POSITIVE STATUS [ER+] 05/24/[address] [facility] Ot V87.41 PERSONAL HISTORY OF ANTINEOPLASTIC CHEMO 05/24/[address] [facility] Ot 733.90 BONE CARTILAGE DIS NOS 05/24/[address] 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 05/24/2016 YAW ACOSTA NP-C Ot 585.3 CHRONIC KIDNEY DISEASE, STAGE III (MODER 05/24/2016 YAW ACOSTA NP-C Ot 791.0 PROTEINURIA 05/24/2016 SANTY NORWOOD MD Ot 397.0 TRICUSPID VALVE DISEASE 05/24/2016 SANTY NORWOOD MD Ot 424.0 MITRAL VALVE DISORDER 05/24/2016 SANTY NORWOOD MD Ot 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 05/24/2016 SANTY NORWOOD MD Ot 244.8 ACQUIRED HYPOTHYROID NEC 05/24/2016 SANTY NORWOOD MD Ot 241.0 NONTOX UNINODULAR GOITER 05/24/2016 SANTY NORWOOD MD Ot 388.30 TINNITUS NOS 05/24/2016 SANTY NORWOOD MD Ot 721.0 CERVICAL SPONDYLOSIS 05/24/2016 Ot 272.2 [...] MAMMOGRAM FOR MALIGNANT NE 05/24/2016 YAW ACOSTA EDITOR & CO FOUNDER-C Ot 263.9 PROTEIN-ERLINDA MALNUTR NOS 05/24/2016 YAW ACOSTA EDITOR & CO FOUNDER-C Ot 272.2 MIXED HYPERLIPIDEMIA 05/24/2016 YAW ACOSTA EDITOR & CO FOUNDER-C Ot 275.42 HYPERCALCEMIA 05/24/2016 YAW ACOSTA EDITOR & CO FOUNDER-C Ot 285.21 ANEMIA IN CHRONIC KIDNEY DISEASE 05/24/2016 YAW ACOSTA 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 05/24/2016 YAW ACOSTA EDITOR & CO FOUNDER-C Ot 585.3 CHRONIC KIDNEY DISEASE, STAGE III (MODER 05/24/2016 YAW ACOSTA EDITOR & CO FOUNDER-C Ot 791.0 PROTEINURIA 05/24/2016 ASHLIE BEAR Ot [...] HISTORY OF ANTINEOPLASTIC CHEMO 05/24/2016 YAW ACOSTA NP-C Ot 263.9 PROTEIN-ERLINDA MALNUTR NOS 05/24/2016 YAW ACOSTA EDITOR & CO FOUNDER-C Ot 272.4 HYPERLIPIDEMIA NEC/NOS 05/24/2016 YAW ACOSTA EDITOR & CO FOUNDER-C Ot 275.42 HYPERCALCEMIA 05/24/2016 YAW ACOSTA EDITOR & CO FOUNDER-C Ot 285.21 ANEMIA IN CHRONIC KIDNEY DISEASE 05/24/2016 YAW ACOSTA 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 05/24/2016 YAW ACOSTA EDITOR & CO FOUNDER-C Ot 585.3 CHRONIC KIDNEY DISEASE, STAGE III (MODER 05/24/2016 YAW ACOSTA EDITOR & CO FOUNDER-C Ot 791.0 PROTEINURIA 05/24/2016 YAW ACOSTA EDITOR & CO FOUNDER-C Ot 263.9 PROTEIN-ERLINDA MALNUTR NOS 05/24/2016 YAW ACOSTA EDITOR & CO FOUNDER-C Ot 268.9 VITAMIN D DEFICIENCY NOS 05/24/2016 DAVE YAW Pederson EDITOR & CO FOUNDER-C Ot 272.2 MIXED HYPERLIPIDEMIA 05/24/2016 DAVE YAW Pederson EDITOR & CO FOUNDER-C Ot 275.42 HYPERCALCEMIA 05/24/2016 DAVE YAW Pederson EDITOR & CO FOUNDER-C Ot 285.21 ANEMIA IN CHRONIC KIDNEY DISEASE 05/24/2016 DAVE YAW Pederson 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 05/24/2016 DAVE YAW Pederson EDITOR & CO FOUNDER-C Ot 585.3 CHRONIC KIDNEY DISEASE, STAGE III (MODER 05/24/2016 DAVE YAW Pederson EDITOR & CO FOUNDER-C Ot 788.1 DYSURIA 05/24/2016 DAVE YAW Pederson EDITOR & CO FOUNDER-C Ot 791.0 PROTEINURIA 05/24/2016 DUNG PERALTA, WELLINGTON Feliciano Ot 401.9 HYPERTENSION NOS 05/24/2016 DUNG PERALTA, WELLINGTON Feliciano Ot V58.69 OT MED,LT,CURRENT USE 05/24/2016 DUNG PERALTA, WELLINGTON Feliciano Ot V72.62 LAB EXAM ORDERED PART OF A ROUTINE GE 05/24/2016 DUNG PERALTA, WELLINGTON Feliciano Ot V87.41 PERSONAL HISTORY OF ANTINEOPLASTIC CHEMO 05/24/2016 DONNY RIVAS CHEMISTRY PROFESSOR Ot 287.5 THROMBOCYTOPENIA NOS 05/24/2016 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Ot C50.912 MALIGNANT NEOPLASM OF UNSPECIFIED SITE O 05/24/2016 Ot M54.2 CERVICALGIA 05/24/2016 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Ot M89.9 DISORDER OF BONE, UNSPECIFIED 05/24/2016 [...] OTH DISRD OF BONE DENSITY AND STRUCTURE, 05/24/2016 LIBERTY FELICIANO Ot N64.4 MASTODYNIA 05/25/2016 ROBERT AMES MD Ot G20 PARKINSON'S DISEASE 05/25/2016 ROBERT AMES MD Ot G35 MULTIPLE SCLEROSIS 05/25/2016 ROBERT AMES MD Ot I10 ESSENTIAL (PRIMARY) HYPERTENSION 05/25/2016 ROBERT AMES MD Ot T78.3XXA ANGIONEUROTIC EDEMA, INITIAL ENCOUNTER 05/25/2016 ROBERT AMES MD Ot Z79.82 FDC (CURRENT) USE OF ASPIRIN 05/25/2016 ROBERT AMES MD Ot Z79.899 OTHER [employer] UNIFIED COMMUNICATIONS ENGINEER (CURRENT) DRUG THERAPY 05/27/2016 ROBERT AMES MD Ot G20 PARKINSON'S DISEASE 05/27/2016 ROBERT AMES MD Ot G35 MULTIPLE SCLEROSIS 05/27/2016 ROBERT AMES MD Ot I10 ESSENTIAL (PRIMARY) HYPERTENSION 05/27/2016 ROBERT AMES MD Ot T78.3XXA ANGIONEUROTIC EDEMA, INITIAL ENCOUNTER 05/27/2016 ROBERT AMES MD Ot Z79.82 CISCO UNIFIED COMMUNICATIONS ENGINEER (CURRENT) USE OF ASPIRIN 05/27/2016 ROBERT AMES MD Ot Z79.899 OTHER [employer] UNIFIED COMMUNICATIONS ENGINEER (CURRENT) DRUG THERAPY 06/01/2016 ROBERT AMES MD Ot G20 PARKINSON'S DISEASE 06/01/2016 ROBERT AMES MD Ot G35 MULTIPLE SCLEROSIS 06/01/2016 ROBERT AMES MD Ot I10 ESSENTIAL (PRIMARY) HYPERTENSION 06/01/2016 ROBERT AMES MD Ot T78.3XXA ANGIONEUROTIC EDEMA, INITIAL ENCOUNTER 06/01/2016 ROBERT AMES MD Ot Z79.82 CISCO UNIFIED COMMUNICATIONS ENGINEER (CURRENT) USE OF ASPIRIN 06/01/2016 KWAKU PERALTA, ROBERT Astudillo Ot Z79.899 OTHER FDC (CURRENT) DRUG THERAPY 06/03/2016 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Ot C50.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 OF UPPER-OUTER QUADRANT O 06/03/2016 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Ot M85.80 OTH DISRD OF BONE DENSITY AND STRUCTURE, 06/03/2016 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Ot N64.4 MASTODYNIA 08/08/2016 MARK CHEN MERCHANDISE PLANNING MANAGER Ot R05 COUGH 08/08/2016 MARK CHEN MERCHANDISE PLANNING MANAGER Ot R06.02 SHORTNESS OF BREATH 08/20/2016 MARK CHEN MERCHANDISE PLANNING MANAGER Ot R07.81 PLEURODYNIA 08/27/2016 MARK CHEN MERCHANDISE PLANNING MANAGER Ot R05 COUGH 08/27/2016 MARK CHEN MERCHANDISE PLANNING MANAGER Ot R06.02 SHORTNESS OF BREATH 08/28/2016 MARK CHEN MERCHANDISE PLANNING MANAGER Ot R10.11 RIGHT UPPER QUADRANT PAIN 08/28/2016 ASHLIE BEAR N Ot G20 PARKINSON'S DISEASE 08/28/2016 AHSLIE BEAR N Ot G35 MULTIPLE SCLEROSIS 08/28/2016 [...] OF MALIGNANT NEOPLASM O 09/11/2016 MARK CHEN APRN Ot R07.81 PLEURODYNIA 09/16/2016 MARK CHEN APRN Ot R07.81 PLEURODYNIA 09/17/2016 ASHLIE BEAR N Ot G20 PARKINSON'S DISEASE 09/17/2016 ASHLIE BEAR N Ot G35 MULTIPLE SCLEROSIS 09/17/2016 ASHLIE BEAR N Ot I12.9 HYPERTENSIVE CHRONIC [...] OF MALIGNANT NEOPLASM O 10/12/2016 MARK CHEN MERCHANDISE PLANNING MANAGER Ot R10.11 RIGHT UPPER QUADRANT PAIN 10/19/2016 ASHLIE BEAR N Ot R07.81 PLEURODYNIA 10/19/2016 ASHLIE BEAR N Ot Z85.3 PERSONAL HISTORY OF MALIGNANT NEOPLASM O 10/23/2016 CHEMAASHLIE HUERTA N Ot R07.81 PLEURODYNIA 10/23/2016 ASHLIE BEAR N Ot Z85.3 PERSONAL HISTORY OF MALIGNANT NEOPLASM O 10/23/2016 MARK CHEN MERCHANDISE PLANNING MANAGER Ot R10.11 RIGHT UPPER QUADRANT PAIN 11/05/2016 ASHLIE BEAR N Ot C50.912 MALIGNANT NEOPLASM OF UNSPECIFIED SITE O 11/05/2016 ASHLIE BEAR N Ot M85.88 OTH DISRD OF BONE DENSITY AND STRUCTURE, 11/05/2016 ASHLIE BEAR N Ot N18.3 CHRONIC KIDNEY DISEASE, STAGE 3 (MODERAT 12/11/2016 CHEMAASHLIE HUERTA N Ot C50.912 MALIGNANT NEOPLASM OF UNSPECIFIED SITE O 12/11/2016 CHEMAASHLIE HUERTA N Ot M85.88 OTH DISRD OF BONE DENSITY AND STRUCTURE, 12/11/2016 ASHLIE BEAR N Ot N18.3 CHRONIC KIDNEY DISEASE, STAGE 3 (MODERAT 12/24/2016 ASHLIE BEAR N Ot M85.80 OTH DISRD OF BONE DENSITY AND STRUCTURE, 12/24/2016 ASHLIE BEAR N Ot Z85.3 PERSONAL HISTORY OF MALIGNANT NEOPLASM O 01/14/2017 CHEMAASHLIE HUERTA N Ot M85.80 OTH DISRD OF BONE DENSITY AND STRUCTURE, 01/14/2017 CHEMAASHLIE HUERTA N Ot Z85.3 PERSONAL HISTORY OF MALIGNANT NEOPLASM O 04/23/2017 WELLINGTON RAZO MD Ot M25.562 PAIN IN LEFT KNEE 04/30/2017 DHARA POWER PA-C Ot R00.1 BRADYCARDIA, UNSPECIFIED 05/15/2017 WELLINGTON RAZO MD Ot M25.562 PAIN IN LEFT KNEE 05/16/2017 DHARA POWER PA-C Ot R00.1 BRADYCARDIA, UNSPECIFIED 06/17/2017 ASHLIE BEAR Ot Z12.31 ENCNTR SCREEN MAMMOGRAM FOR MALIGNANT NE 06/20/2017 BELLE CANTU MD, Ot G20 PARKINSON'S DISEASE 06/20/2017 BELLE CANTU MD Ot I10 ESSENTIAL (PRIMARY) HYPERTENSION 06/20/2017 BELLE CANTU MD Ot K14.8 OTHER DISEASES OF TONGUE 06/20/2017 BELLE CANTU MD Ot T78.3XXA ANGIONEUROTIC EDEMA, INITIAL ENCOUNTER 06/20/2017 BELLE CANTU MD Ot Z79.82 [employer]IS[employer] UNIFIED COMMUNICATIONS ENGINEER (CURRENT) USE OF ASPIRIN 06/27/2017 BELLE CANTU MD Ot G20 PARKINSON'S DISEASE 06/27/2017 BELLE CANTU MD Ot I10 ESSENTIAL (PRIMARY) HYPERTENSION 06/27/2017 BELLE CANTU MD Ot K14.8 OTHER DISEASES OF TONGUE 06/27/2017 BELLE CANTU MD Ot T78.3XXA ANGIONEUROTIC EDEMA, INITIAL ENCOUNTER 06/27/2017 BELLE CANTU MD Ot Z79.82 FDC (CURRENT) USE OF ASPIRIN 09/02/2017 ASHLIE BEAR Ot C50.912 MALIGNANT NEOPLASM OF UNSPECIFIED SITE O 09/02/2017 ASHLIE BEAR Ot M85.88 OTH DISRD OF BONE DENSITY AND STRUCTURE, 09/02/2017 ASHLIE BEAR Ot N18.3 CHRONIC KIDNEY DISEASE, STAGE 3 (MODERAT 09/03/2017 LIBERTY FELICIANO Ot Z12.31 ENCNTR SCREEN MAMMOGRAM FOR MALIGNANT NE 09/03/2017 LIBERTY FELICIANO Ot Z12.31 ENCNTR SCREEN MAMMOGRAM FOR MALIGNANT NE 09/04/2017 ASHLIE BEAR Ot G20 PARKINSON'S DISEASE 09/04/2017 ASHLIE BEAR Ot G35 MULTIPLE SCLEROSIS 09/04/2017 ASHLIE BEAR Ot I12.9 HYPERTENSIVE CHRONIC KIDNEY DISEASE W ST 09/04/2017 ASHLIE BEAR Ot I45.6 PRE-EXCITATION SYNDROME 09/04/2017 ASHLIE BEAR Ot M85.88 OTH DISRD OF BONE DENSITY AND STRUCTURE, 09/04/2017 ASHLIE BEAR N Ot N18.3 CHRONIC KIDNEY DISEASE, STAGE 3 (MODERAT 09/04/2017 CHEAM, ASHLIE N Ot R07.81 PLEURODYNIA 09/04/2017 CHEMA ASHLIE N Ot Z08 ENCNTR FOR FOLLOW-UP EXAM AFTER TRTMT FO 09/04/2017 CHEMA ASHLIE N Ot Z79.82 CISCO UNIFIED COMMUNICATIONS ENGINEER (CURRENT) USE OF ASPIRIN 09/04/2017 CHEMAASHLIE N Ot Z79.899 OTHER [employer] UNIFIED COMMUNICATIONS ENGINEER (CURRENT) DRUG THERAPY 09/04/2017 CHEMAASHLIE N Ot Z85.3 PERSONAL HISTORY OF MALIGNANT NEOPLASM O 09/04/2017 CHEMAASHLIE N Ot Z92.21 PERSONAL HISTORY OF ANTINEOPLASTIC CHEMO 09/04/2017 CHEMAASHLIE N Ot Z92.3 PERSONAL HISTORY OF IRRADIATION 09/08/2017 ASHLIE BEAR N Ot G20 PARKINSON'S DISEASE 09/08/2017 ASHLIE BEAR N Ot G35 MULTIPLE SCLEROSIS 09/08/2017 ASHLIE BEAR N Ot I12.9 HYPERTENSIVE CHRONIC KIDNEY DISEASE W ST 09/08/2017 CHEMAASHLIE N Ot I45.6 PRE-EXCITATION SYNDROME 09/08/2017 CHEMAASHLIE N Ot M85.88 OT DISRD OF BONE DENSITY AND STRUCTURE, 09/08/2017 CHEMA AZEEMBRITTNEY N Ot N18.3 CHRONIC KIDNEY DISEASE, STAGE 3 (MODERAT 09/08/2017 CHEMA, ASHLIE N Ot R07.81 PLEURODYNIA 09/08/2017 CHEMAASHLIE N Ot Z08 ENCNTR FOR FOLLOW-UP EXAM AFTER TRTMT FO 09/08/2017 CHEMAASHLIE N Ot Z79.82 FDC (CURRENT) USE OF ASPIRIN 09/08/2017 CHEMAASHLIE N Ot Z79.899 OTHER FDC (CURRENT) DRUG THERAPY 09/08/2017 ASHLIE BEAR N Ot Z85.3 PERSONAL HISTORY OF MALIGNANT NEOPLASM O 09/08/2017 ASHLIE BEAR N Ot Z92.21 PERSONAL HISTORY OF ANTINEOPLASTIC CHEMO 09/08/2017 CHEMAASHLIE N Ot Z92.3 PERSONAL HISTORY OF IRRADIATION 09/23/2017 ASHLIE BEAR N Ot G20 PARKINSON'S DISEASE 09/23/2017 ASHLIE BEAR Ot G35 MULTIPLE SCLEROSIS 09/23/2017 ASHLIE BEAR Ot I12.9 HYPERTENSIVE CHRONIC KIDNEY DISEASE W ST 09/23/2017 ASHLIE BEAR Ot I45.6 PRE-EXCITATION SYNDROME 09/23/2017 ASHLIE BEAR Ot M85.88 OTH DISRD OF BONE DENSITY AND STRUCTURE, 09/23/2017 ASHLIE BEAR Ot N18.3 CHRONIC KIDNEY DISEASE, STAGE 3 (MODERAT 09/23/2017 ASHLIE BEAR Ot R07.81 PLEURODYNIA 09/23/2017 ASHLIE BEAR Ot Z08 ENCNTR FOR FOLLOW-UP EXAM AFTER TRTMT FO 09/23/2017 ASHLIE BEAR Ot Z79.82 FDC (CURRENT) USE OF ASPIRIN 09/23/2017 ASHLIE BEAR Saw Ot Z79.899 OTHER [employer] UNIFIED COMMUNICATIONS ENGINEER (CURRENT) DRUG THERAPY 09/23/2017 ASHLIE BEAR Saw Ot Z85.3 PERSONAL HISTORY OF MALIGNANT NEOPLASM O 09/23/2017 ASHLIE BEAR Ot Z92.21 PERSONAL HISTORY OF ANTINEOPLASTIC CHEMO 09/23/2017 ASHLIE BEAR Ot Z92.3 PERSONAL HISTORY OF IRRADIATION Procedures There is no data. Results Test Result Range Automated blood complete blood count (hemogram) panel - 02/22/16 10:57 Blood leukocytes automated count (number/volume) 5.6 10*3/uL 4.3-11.0 Blood erythrocytes automated count (number/volume) 4.91 10*6/uL 4.35-5.85 Venous blood hemoglobin measurement (mass/volume) 14.3 [...] Automated blood platelet mean volume measurement 11.5 [foz_[id number]] 7.4-10.4 Comprehensive metabolic panel - 02/22/16 10:57 Serum or plasma sodium measurement (moles/volume) 139 mmol/L 135-145 Serum or plasma potassium measurement (moles/volume) 3.8 mmol/L 3.6-5.0 Serum or plasma chloride measurement (moles/volume) 104 mmol/L 98-107 Carbon dioxide 24 mmol/L 21-32 Serum or plasma anion gap determination (moles/volume) 11 mmol/L 5-14 Serum or plasma urea nitrogen measurement (mass/volume) 22 mg/dL 7-18 Serum or plasma creatinine measurement (mass/volume) 1.13 mg/dL 0.60-1.30 Serum or plasma urea nitrogen/creatinine mass [...] or plasma iron measurement (mass/volume) 125 % 35- 180 Total iron binding capacity and transferrin saturation [...] 14:20 Blood leukocytes automated count (number/volume) 5.2 10*3/uL 4.3-11.0 Blood erythrocytes automated count (number/volume) 4.87 10*6/uL 4.35-5.85 Venous blood hemoglobin measurement (mass/volume) 13.9 [...] Automated blood platelet mean volume measurement 10.7 [foz_us] 7.4-10.4 Whole blood basic metabolic panel - 04/24/17 14:20 Serum or plasma sodium measurement (moles/volume) 143 mmol/L 135-145 Serum or plasma potassium measurement (moles/volume) 3.8 mmol/L 3.6-5.0 Serum or plasma chloride measurement (moles/volume) 105 mmol/L 98-107 Carbon dioxide 31 mmol/L 21-32 Serum or plasma anion gap determination (moles/volume) 7 mmol/L 5-14 Serum or plasma urea nitrogen measurement (mass/volume) 25 mg/dL 7-18 Serum or plasma creatinine measurement (mass/volume) 1.21 mg/dL 0.60-1.30 Serum or plasma urea nitrogen/creatinine mass [...] Status Pt. 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[facility] RAD SCREENING [id number] 09/02/2017 14:16:00 09/02/2017 23:59:59 CLS Outpatient ASHLIE BEAR [facility] ONC [id number] 06/19/2017 23:44:00 06/20/2017 02:17:00 DIS Emergency ALONDRA PERALTA, BELLE [place]and [facility] ER TONGUE SWELLING,ALLERGIC RXN [id number] 05/26/2017 10:00:00 05/26/2017 23:59:59 CLS Outpatient ASHLIE BEAR [facility] RAD SCREENING Z12.31 [id number] 04/24/2017 14:07:00 04/24/2017 23:59:59 CLS Outpatient DHARA POWER PA-C [facility] LAB FATIGUE, BRADYCARDIA [id number] 04/22/2017 12:07:00 04/22/2017 23:59:59 CLS Outpatient WELLINGTON RAZO MD [facility] RAD L KNEE PAIN [id number] 12/25/2016 13:21:00 02/02/2017 00:01:00 DIS Outpatient ASHLIE BEAR [facility] ONC [id number] 12/23/2016 11:14:00 12/23/2016 23:59:59 CLS Outpatient ASHLIE BEAR [facility] CARD OSTEOPENIA,HX BREAST [place] [id number] 08/27/2016 10:40:00 08/27/2016 23:59:59 CLS Outpatient CHEMA AZEEMBRITTNEY Saw [facility] CARD RIB PAIN, HX OF BREAST CA [id number] 08/27/2016 06:46:00 08/27/2016 23:59:59 CLS Outpatient MARK CHEN APRN [facility] RAD RUQ PAIN [id number] 08/26/2016 13:17:00 08/26/2016 23:59:59 CLS Outpatient CHEMA ASHLIE [place] [facility] ONC [id number] 08/23/2016 15:12:00 08/23/2016 23:59:59 CLS Outpatient MARK CHEN APRN [facility] RAD CHEST/RIB PAIN RT, PERSISTENT COUGH [id number] 08/19/2016 09:24:00 08/19/2016 23:59:59 CLS Outpatient MARK CHEN APRN [facility] RAD RIGHT SIDE PAIN [id number] 08/05/2016 15:47:00 08/05/2016 23:59:59 CLS Outpatient MARK CHEN APRN [facility] RAD ONGOING COUGH, SHORTNESS OF BREATH [id number] 05/25/2016 03:51:00 05/25/2016 07:11:00 DIS Emergency ROBERT AMES MD [facility] ER TONGUE SWOLLEN [id number] 05/23/2016 08:23:00 05/23/2016 23:59:59 CLS Outpatient LIBERTY FELICIANO [facility] RAD OSTEOPENIA,BREAST CA [id number] 04/29/2016 08:47:00 04/29/2016 12:11:00 DIS Emergency RADHA ADAMS DO [facility] ER TONGUE SWELLING [id number] 03/22/2016 02:03:00 03/22/2016 05:38:00 DIS Emergency RADHA ADAMS DO [facility] ER TONGUE SWELLING [id number] 03/20/2016 11:48:00 03/20/2016 23:59:59 CLS Outpatient MICHELLE CINTRON [facility] CARD ANTINA,FATIGUE,PRE SYNCOPE [id number] 02/22/2016 10:54:00 02/22/2016 23:59:59 CLS Outpatient MICHELLE CINTRON [facility] LAB ANGINA, FATIGUE, PRESYNCOPE [id number] 10/03/2015 22:05:00 10/04/2015 01:18:00 DIS Emergency ARI PERALTA, NADINE [place] [facility] ER TONGUE SWELLING [id number] 08/28/2015 14:16:00 08/28/2015 23:59:59 CLS Outpatient LIBERTY FELICIANOP [facility] ONC [id number] 05/22/2015 10:25:00 05/22/2015 23:59:59 CLS Outpatient ASHLIE BEAR [facility] RAD SCREENING [id number] 04/10/2015 10:02:00 04/10/2015 23:59:59 CLS Outpatient DONNY RIVAS [facility] LAB LOW PLATELETS [id number] 01/05/2015 12:22:00 01/05/2015 23:59:59 CLS Outpatient WELLINGTON RAZO MD [facility] LAB HTN,ROUTINE EXAM, FDC MED USE, HX CHEMOTHERAP [id number] 12/27/2014 09:48:00 12/27/2014 23:59:59 CLS Outpatient YAW ACOSTA [employer]ER[employer] [facility] LAB VITAMIN D DEFICIENCY [id number] 12/07/2014 09:46:00 12/07/2014 23:59:59 CLS Outpatient YAW ACOSTA [employer]OUNDER-C [facility] LAB ANEMIA,CKD,HYPERCALMEIA [id number] 11/28/2014 00:09:00 11/28/2014 23:59:59 CLS Preadmit ASHLIE BEAR [facility] ONC [id number] 08/29/2014 10:56:00 11/27/2014 00:01:00 DIS Outpatient ASHLIE BEAR [facility] ONC [id number] 10/11/2014 00:12:00 10/11/2014 23:59:59 CLS Preadmit YAW ACOSTA [employer]ER-C [facility] LAB ANEMIA,CKD,HYPERCALCEMIA, HYPERLPADEMA [id number] 07/12/2014 14:52:00 10/10/2014 00:01:00 DIS Outpatient YAW ACOSTA [employer]ER[employer]C [facility] LAB ANEMIA,CKD,HYPERCALCEMIA, HYPERLPADEMA [id number] 05/19/2014 08:58:00 05/19/2014 23:59:59 CLS Outpatient LIBERTY FELICIANO [facility] RAD SCREENING, OSTEOPORSIS [id number] 04/27/2014 14:10:00 04/27/2014 23:59:59 CLS Outpatient SANTY NORWOOD MD [facility] RAD SDFS [id number] 03/02/2014 12:54:00 03/02/2014 23:59:59 CLS Outpatient SANTY NORWOOD MD [facility] CARD BICUSPID AORTIC VALVE AORTIC ROOT DILATION [id number] 02/17/2014 09:47:00 02/17/2014 23:59:59 CLS Outpatient SANTY NORWOOD MD [facility] LAB HYPOTHYROIDISM [id number] 11/29/2013 09:48:00 11/29/2013 23:59:59 CLS Outpatient YAW ACOSTA [employer]OUNDER[employer]C [facility] LAB ANEMIA,CKD III,ANH HTN, HLP,HYPERCALCEMIA ,PROTENUR [id number] 08/31/2013 08:22:00 08/31/2013 12:15:00 DIS Outpatient ROBERT PRYOR MD [facility] SDC SCREENING [id number] 08/30/2013 10:24:00 08/30/2013 23:59:59 CLS Outpatient LIBERTY FELICIANO [facility] ONC [id number] 08/26/2013 12:30:00 08/26/2013 23:59:59 CLS Outpatient ROBERT PRYOR MD [facility] PREOP SCREENING [id number] 06/07/2013 10:26:00 06/07/2013 23:59:59 CLS Outpatient YAW ACOSTA NP-Sathya [facility] LAB ANEMIA,CHRONIC KIDNEY DISEASE,HYPERLIPIDEMIA, [id number] 03/01/2013 13:56:00 05/30/2013 00:01:00 DIS Outpatient ASHLIE BEAR [facility] ONC [id number] 05/14/2013 09:53:00 05/14/2013 23:59:59 CLS Outpatient 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[facility] RAD SCREENING,OSTEOPENIA [id number] 03/01/2013 12:53:00 03/01/2013 23:59:59 CLS Outpatient 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 [id number] 11/17/2012 11:15:00 11/17/2012 23:59:59 CLS Outpatient CUCO PERALTA, SANTY [place] [facility] LAB LOW PLATELETS COUNT [id number] 08/22/2015 13:52:00 Document Registration [id number] 06/28/2014 09:54:00 Document Registration [id number] 10/19/2012 10:39:00 Document Registration [id number] 08/31/2012 09:58:00 Document Registration [id number] 06/16/2012 09:52:00 Document Registration [id number] 05/27/2012 00:00:00 Document Registration [id number] 05/15/2012 09:51:00 Document Registration [id number] 05/01/2012 09:56:00 Document Registration [id number] 04/23/2010 12:25:00 Document Registration [id number] 04/10/2015 10:03:04 ACT Document Registration [id number] 04/22/2017 18:33:12 04/22/2017 23:59:59 CLS Outpatient
[2017-10-20] MEDS ORDERED: FAMOTIDINE 20MG/2ML IV (PEPCID) IVP ONE (22:00)
[2017-10-20] MEDS ORDERED: diphenhydrAMINE 50 MG/ML INJ (BENADRYL) IVP ONE (22:00)
[2017-10-20] MEDS ORDERED: methylPREDNISolone 125 MG (Solu-MEDROL) VIAL IVP ONE (22:00)
[2017-10-20] MEDS ORDERED: EPINEPHrine INJECTION 1 MG/ML AMP IM ONE (22:00)
[2017-10-20] MEDS ORDERED: RT-ALBUTEROL/IPRATROPIUM 3 ML (DUONEB) VIAL INH ONE (22:00)
--- NOTE | 2017-10-20 22:07 | ED Respiratory ---
General Chief Complaint: Allergic Reaction Stated Complaint: TONGUE SWELLING/SOB Source: patient, family Exam Limitations: clinical condition History of Present Illness Date Seen by Provider: Oct 20, 2017 Time Seen by Provider: 21:45 Initial Comments Patient presents to the ER by private conveyance with her and a chief complaint that her throat tongue and mouth or closing off. 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 They have not identified the source. They have not changing her medications soaps foods that they're aware of. She does history of Parkinson's but she does not take any Parkinsonian medicines. She follows with Dr. Fair, Neurology in [place] as well as Dr. Wu primary care. She says she is able to breathe through her nose and answer questions appropriately by shaking her head yes and no. She has nausea but has not vomited. She does not have shortness of breath. She's having no pain anywhere. She took Benadryl, Pepcid and Zyrtec prior to coming to the ER. Allergies and Home Medications Allergies Coded Allergies: No Known Drug Allergies (Verified , 04/20/08) Home Medications Amlodipine Besylate 5 Mg Tablet, 5 MG PO DAILY, (Reported) Aspirin 81 Mg Tablet.dr, 81 MG PO DAILY, (Reported) Escitalopram Oxalate 10 Mg Tablet, 1 TAB PO DAILY, (Reported) Metoprolol Succinate 25 Mg Tab.er.24h, 25 MG PO DAILY, (Reported) Prednisone 50 Mg Tab, 50 MG PO DAILY Prescribed by: ROBERT AMES MD on 05/25/16 0659 Prednisone 20 Mg Tab, 40 MG PO DAILY Prescribed by: BELLE CANTU on 06/20/17 0210 Patient Home Medication List Home Medication List Reviewed: Yes Constitutional: No chills, No dizziness, No fever, No malaise, No weakness EENTM: see HPI, No hearing loss, No ear pain Respiratory: No cough, No short of breath, No wheezing Cardiovascular: No chest pain, No palpitations Gastrointestinal: No abdominal pain, No constipation, No diarrhea Genitourinary: No discharge, No dysuria Past Jrdpvkb-Iybczo-Blbyuq Hx Patient Social History Alcohol Use: Denies Use Recreational Drug Use: No Smoking Status: Never a Smoker Recent Foreign Travel: No Contact w/Someone Who Travel: No Recent Hopitalizations: No Physical Abuse: No Sexual Abuse: No Mistreated: No Fear: No Immunizations Up To Date Tetanus Booster (TDap): Unknown Date of Pneumonia Vaccine: May 01, 2009 Date of Influenza Vaccine: Apr 20, 2017 Seasonal Allergies Seasonal Allergies: No Surgeries History of Surgeries: Yes (HYSTERECTOMY) Surgeries: Breast, Lumpectomy Respiratory History of Respiratory Disorde: No Cardiovascular History of Cardiac Disorders: Yes (WPW) Cardiac Disorders: Hypertension, Irregular Heartbeat Neurological History of Neurological Disord: Yes Neurological Disorders: Multiple Sclerosis, Parkinson's Disease 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 System Hx 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 Disorders: No Sexually 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 Disease: 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 Genitourinary History of Genitourinary Disor: No Gastrointestinal History of Gastrointestinal Di: No Musculoskeletal History of Musculoskeletal Dis: No Endocrine History of Endocrine Disorders: No Cancer History of Cancer: Yes Cancer: Breast Psychosocial History of Psychiatric Problem: No Suicide Risk Score: 0 Integumentary History of Skin or Integumenta: No Blood Transfusions History of Blood Disorders: No Adverse Reaction to a Blood Tr: No Family Medical History Significant Family History: No Pertinent Family Hx Physical Exam Vital Signs Vital Signs - First Documented 10/20/17 10/20/17 21:57 22:18 Temp 97.2 Pulse 56 Resp 13 B/P (MAP) 160/56 (90) Pulse Ox 100 O2 Delivery Room Air Capillary Refill : General Appearance: WD/WN, moderate distress Eyes: Bilateral Eye Normal Inspection, Bilateral Eye PERRL, Bilateral Eye EOMI HEENT: PERRL/EOMI, TMs normal, other (tongue swollen and oropharynx swollen so that she cannot open her mouth to be seen in. She is not able to pass more than just a whisper of air through her mouth and is breathing through her nose.) Neck: non-tender, supple, normal inspection Respiratory: chest non-tender, lungs clear, normal breath sounds, no respiratory distress, no accessory muscle use Cardiovascular: normal peripheral pulses, regular rate, rhythm, tachycardia Gastrointestinal: normal bowel sounds, non tender, soft Neurologic/Psychiatric: alert, oriented x 3, other (anxious) Progress/Results/Core Measures Suspected Sepsis SIRS Temperature: Pulse: Respiratory Rate: Laboratory Tests 10/20/17 22:13: White Blood Count 6.0 Blood Pressure / Mean: Laboratory Tests 10/20/17 22:13: Creatinine 1.06, Platelet Count 176, Total Bilirubin 0.3 Results/Orders Lab Results Laboratory Tests Test 10/20/17 22:13 Range/Units White Blood Count 6.0 4.3-11.0 10^3/uL Red Blood Count 4.59 4.35-5.85 10^6/uL Hemoglobin 13.4 11.5-16.0 G/DL Hematocrit 40 35-52 % Mean Corpuscular Volume 86 80-99 FL Mean Corpuscular Hemoglobin 29 25-34 PG Mean Corpuscular Hemoglobin Concent 34 32-36 G/DL Red Cell Distribution Width 13.5 10.0-14.5 % Platelet Count 176 130-400 10^3/uL Mean Platelet Volume 11.5 H 7.4-10.4 FL Neutrophils (%) (Auto) 44 42-75 % Lymphocytes (%) (Auto) 36 12-44 % Monocytes (%) (Auto) 15 H 0-12 % Eosinophils (%) (Auto) 4 0-10 % Basophils (%) (Auto) 2 0-10 % Neutrophils # (Auto) 2.6 1.8-7.8 X 10^3 Lymphocytes # (Auto) 2.2 1.0-4.0 X 10^3 Monocytes # (Auto) 0.9 0.0-1.0 X 10^3 Eosinophils # (Auto) 0.2 0.0-0.3 10^3/uL Basophils # (Auto) 0.1 0.0-0.1 10^3/uL Sodium Level 139 135-145 MMOL/L Potassium Level 3.6 3.6-5.0 MMOL/L Chloride Level 101 98-107 MMOL/L Carbon Dioxide Level 24 21-32 MMOL/L Anion Gap 14 5-14 MMOL/L Blood Urea Nitrogen 23 H 7-18 MG/DL Creatinine 1.06 0.60-1.30 MG/DL Estimat Glomerular Filtration Rate 51 BUN/Creatinine Ratio 22 Glucose Level 93 70-105 MG/DL Calcium Level 9.4 8.5-10.1 MG/DL Magnesium Level 3.1 H 1.8-2.4 MG/DL Total Bilirubin 0.3 0.1-1.0 MG/DL Aspartate Amino Transf (AST/SGOT) 37 H 5-34 U/L Alanine Aminotransferase (ALT/SGPT) 15 0-55 U/L Alkaline Phosphatase 81 40-136 U/L C-Reactive Protein High Sensitivity 0.31 0.00-0.50 MG/DL Total Protein 7.6 6.4-8.2 GM/DL Albumin 4.3 3.2-4.5 GM/DL My Orders Orders - BELLE CANTU Diphenhydramine Injection (Benadryl Inje (10/20/17 21:48) Methylprednisolone Sod Succ (Solu-Medrol (10/20/17 21:48) Famotidine Injection (Pepcid Injection) (10/20/17 21:48) Ondansetron Injection (Zofran Injectio (10/20/17 21:52) Epinephrine 1 Mg Injection (Adrenalin I (10/20/17 21:52) Epinephrine 1 Mg Injection (Adrenalin I (10/20/17 22:00) Diphenhydramine Injection (Benadryl Inje (10/20/17 22:00) Methylprednisolone Sod Succ (Solu-Medrol (10/20/17 22:00) Famotidine Injection (Pepcid Injection) (10/20/17 22:00) Cbc With Automated Diff (10/20/17 21:54) Comprehensive Metabolic Panel (10/20/17 21:54) Hs C Reactive Protein (10/20/17 21:54) Magnesium (10/20/17 21:54) Albuterol/Ipra Inhalation Soln (Duoneb I (10/20/17 22:00) Saline Lock/Iv-Start (10/20/17 21:54) Ns Iv 1000 Ml (Sodium Chloride 0.9%) (10/20/17 21:54) Svn Sm Volume Nebulizer Rt-Rfs (10/20/17 21:54) Medications Given in ED Current Medications Medications Dose Ordered Sig/Dane Route Start Time Stop Time Status Last Admin Dose Admin Albuterol/ Ipratropium 3 ml ONCE ONCE INH 10/20/17 22:00 10/20/17 22:01 DC 10/20/17 22:04 3 ML Diphenhydramine HCl 50 mg ONCE ONCE IVP 10/20/17 22:00 10/20/17 22:01 DC 10/20/17 21:50 50 MG Epinephrine HCl 0.5 mg ONCE ONCE IM 10/20/17 22:00 10/20/17 22:01 DC 10/20/17 21:58 0.5 MG Famotidine 20 mg ONCE ONCE IVP 10/20/17 22:00 10/20/17 22:01 DC 10/20/17 21:50 20 MG Methylprednisolone Sodium Succinate 125 mg ONCE ONCE IVP 10/20/17 22:00 10/20/17 22:01 DC 10/20/17 21:50 125 MG Ondansetron HCl 4 mg STK-MED ONCE .ROUTE 10/20/17 21:52 10/20/17 21:56 DC 10/20/17 21:52 4 MG Vital Signs/I&O Vital Sign - Last 12Hours 10/20/17 10/20/17 21:57 22:18 Temp 97.2 Pulse 56 Resp 13 B/P (MAP) 160/56 (90) Pulse Ox 100 97 O2 Delivery Room Air Capillary Refill : Progress Note #1: Time: 22:05 Progress Note We gave her another 50 mg of Benadryl IV as well as Pepcid 20 mg, Solu-Medrol 125 mg and epinephrine 0.5 mg IM right arm. We also put a cool mist humidifier and started an albuterol nebulizer. Her lung sounds are clear and she does not have a history of COPD or asthma. Her symptoms are improving. Gildardo has taken care of her nausea and she did not vomit. Suction is set up at the bedside and ready. Respiratory therapy is at the bedside. We will get some basic laboratory work and plan to observe her overnight if we can get her angioedema reversed. Progress Note #2: Time: 23:31 Progress Note Patient has significantly improved and is now able to talk although she still having some swelling in her tongue. She was offered an observation stay to help manage her airway and continue some overnight therapy but she would prefer to go home. We discussed the risks of this but they said they only live 1 mile from the hospital and they are quite experienced with this now. They have epinephrine pens at home. We will send the patient home on prednisone and Zyrtec for the next 5 days with breakthrough Benadryl as needed every 6 hours. She has an appointment with her doctor next week. Departure Impression Impression: Primary Impression: Angio-edema Qualified Codes: T78.3XXA - Angioneurotic edema, initial encounter Disposition: ADMITTED INPATIENT Condition: Improved Departure-Patient Inst. Decision time for Depature: 23:32 Referrals: WELLINGTON WU MD (PCP/Family) Primary Care Physician Patient Instructions: Anaphylaxis (DC) Add. Discharge Instructions: For the next 5 days take 40 mg of prednisone daily as well as use the Benadryl 25 mg every 6 hours as needed if you feel itching or swelling in your mouth. Take as Zyrtec 10 mg every day for the next 5 days. Keep your follow-up appointment with the primary care physician. Return to the ER immediately if you begin to have swelling that does not improve or you have difficulty breathing or other worrisome symptoms. All discharge instructions reviewed with patient and/or family. Voiced understanding. Scripts Prednisone (Prednisone) 20 Mg Tab 40 MG PO DAILY for 5 Days, #10 TAB 0 Refills Prov: BELLE CANTU 10/20/17 Copy Copies To 1: WELLINGTON WU MD, TITUS J Oct 20, 2017 22:07
[2017-10-20 22:20] LABS: BASOPHILS # (AUTO) 0.1 10^3/uL (0.0-0.1); BASOPHILS % (AUTO) 2 % (0-10); EOSINOPHILS # (AUTO) 0.2 10^3/uL (0.0-0.3); EOSINOPHILS % (AUTO) 4 % (0-10); HEMATOCRIT 40 % (35-52); HEMOGLOBIN 13.4 G/DL (11.5-16.0); LYMPHOCYTES # (AUTO) 2.2 X 10^3 (1.0-4.0); LYMPHOCYTES % (AUTO) 36 % (12-44); MEAN CORPUSCULAR HEMOGLOBIN 29 PG (25-34); MEAN CORPUSCULAR HGB CONC 34 G/DL (32-36); MEAN CORPUSCULAR VOLUME 86 FL (80-99); MEAN PLATELET VOLUME 11.5 FL (7.4-10.4); MONOCYTES # (AUTO) 0.9 X 10^3 (0.0-1.0); MONOCYTES % (AUTO) 15 % (0-12); NEUTROPHILS # (AUTO) 2.6 X 10^3 (1.8-7.8); NEUTROPHILS % (AUTO) 44 % (42-75); PLATELET COUNT 176 10^3/uL (130-400); RED BLOOD COUNT 4.59 10^6/uL (4.35-5.85); RED CELL DISTRIBUTION WIDTH 13.5 % (10.0-14.5)
[2017-10-20 22:48] LABS: ALBUMIN 4.3 GM/DL (3.2-4.5); BILIRUBIN,TOTAL 0.3 MG/DL (0.1-1.0); CALCIUM 9.4 MG/DL (8.5-10.1); CREATININE SERUM 1.06 MG/DL (0.60-1.30); MAGNESIUM 3.1 MG/DL (1.8-2.4); POTASSIUM 3.6 MMOL/L (3.6-5.0); TOTAL PROTEIN 7.6 GM/DL (6.4-8.2)
[2017-10-20] MEDS ORDERED: PRD20T PO (23:34)
[2017-10-20 23:45] VITALS: BP 118/62
== END 2017-10-20 23:45 | disposition other institution (70) ==
LOC: EDUNIT# 21:45 → ER 21:47
DX: T78.3XXA Angioneurotic edema, initial encounter (principal); I10 Essential (primary) hypertension; G20 Parkinson's disease; G35 Multiple sclerosis; Z79.82 Long term (current) use of aspirin; Z79.52 Long term (current) use of systemic steroids; Z90.710 Acquired absence of both cervix and uterus
CPT/HCPCS: 36415; 80053; 83735; 85025; 86141; 94640; 96361; 96372; 96374; 96375

== ENCOUNTER → 2018-02-10 | Outpatient (CLI) | payer MEDICARE, OTHER ==
--- NOTE | 2018-02-10 16:36 | Diagnostic Imaging Report ---
INDICATION: Right hip pain. Fall. FINDINGS: 2 views. The femoral head is in normal articulation with the acetabulum. Joint spaces are well-preserved. The articulating surfaces are smooth. There are no fractures. There are no soft tissue calcifications noted around the hip. IMPRESSION: Negative right hip with no acute findings. Report given to Dr. Wu at 4:36 p.m. 02/10/2018/cb Dictated by: Dictated on workstation # [id number]
== END ==
LOC: RAD 15:10
PROVIDERS: ATTEND Family Medicine
DX: M25.551 Pain in right hip (principal); W19.XXXA Unspecified fall, initial encounter
CPT/HCPCS: 73502

== ENCOUNTER → 2018-05-28 | Outpatient (CLI) | payer MEDICARE, OTHER ==
[~2018-05-28] MED LIST changes: -AMLO5TAB2 PO; +AMLO5TAB7 PO
--- NOTE | 2018-05-28 14:23 | Diagnostic Imaging Report ---
DEXA scan. Indication: Screening for osteoporosis. The bone mineral density of the hips and spine was measured. This study was compared to the prior exam of 05/23/2016. The T score for the spine is -0.7. On the prior exam the T score is -0.9. The T score for the left hip is -1.0 and for the right hip -1.2. On the prior exam the respective T scores were -0.9 and -1.2. Impression: There has been a slight decrease in the bone density of the right hip in the interval since the prior exam and there is now mild osteopenia. The T score for the spine and left hip have also decreased slightly but still fall within the range of normal. Dictated by: Dictated on workstation # [id number]
--- NOTE | 2018-05-28 16:59 | Diagnostic Imaging Report ---
Indication: Routine screening. Comparison is made with prior mammogram from 05/26/2017 and 05/23/2016 as well as 05/22/2015. 2-D and 3-D bilateral screening mammography was performed with CAD. Both breasts remain heterogeneously dense, limiting the sensitivity of mammography. Multiple surgical clips in the left axilla are seen. The parenchymal pattern is stable. No dominant mass or malignant-appearing microcalcifications are seen. Impression: BI-RADS category 2 No mammographic features suspicious for malignancy are identified. ACR BI-RADS Category 2: Benign findings. Result letter will be mailed to the patient. Note: At least 10% of breast cancer is not imaged by mammography. Dictated by: Dictated on workstation # [id number]
== END ==
LOC: RAD 09:16
PROVIDERS: ATTEND Nurse Practitioner Adult Health
DX: Z12.31 Encounter for screening mammogram for malignant neoplasm of breast (principal); Z13.820 Encounter for screening for osteoporosis; M85.88 Other specified disorders of bone density and structure, other site; C50.412 Malignant neoplasm of upper-outer quadrant of left female breast
CPT/HCPCS: 77067; 77080

== ENCOUNTER 2018-06-17 21:31 | Emergency (ER) | payer MEDICARE, OTHER ==
[~2018-06-17] VITALS: Ht 152.4 cm; Wt 54.4 kg
[2018-06-17] MEDS ORDERED: diphenhydrAMINE 50 MG/ML INJ (BENADRYL) ONE (21:33)
[2018-06-17] MEDS ORDERED: EPINEPHrine INJECTION 1 MG/ML AMP ONE (21:33)
[2018-06-17] MEDS ORDERED: methylPREDNISolone 125 MG (Solu-MEDROL) VIAL ONE (21:33)
[2018-06-17] MEDS ORDERED: FAMOTIDINE 20MG/2ML IV (PEPCID) ONE (21:34)
[2018-06-17] MEDS ORDERED: FAMOTIDINE 20MG/2ML IV (PEPCID) IVP ONE (21:45)
[2018-06-17] MEDS ORDERED: diphenhydrAMINE 50 MG/ML INJ (BENADRYL) IVP ONE (21:45)
[2018-06-17] MEDS ORDERED: methylPREDNISolone 125 MG (Solu-MEDROL) VIAL IVP ONE (21:45)
[2018-06-17] MEDS ORDERED: EPINEPHrine INJECTION 1 MG/ML AMP IM ONE (21:45)
--- NOTE | 2018-06-17 21:47 | ED EENT ---
History of Present Illness General Chief Complaint: Allergic Reaction Stated Complaint: ALLERGIC REACTION Source: patient Exam Limitations: no limitations History of Present Illness Date Seen by Provider: Jun 17, 2018 Time Seen by Provider: 21:45 Initial Comments To ER per private vehicle accompanied by her with reports of allergic reaction. She has tongue swelling. They state that she has had this too many times to count over the past several years. Typically they state that she receives epinephrine, Solu-Medrol, Benadryl, Pepcid and her symptoms begin to improve in about 30 minutes. She is typically able to be discharged home from the emergency room. She states that she did take 50 mg of Benadryl at home prior to arrival to ER. Timing/Duration: this morning Severity: moderate Location: mouth Prearrival Treatment: over the counter meds Modifying Factors: Worse With Coughing Associated Symptoms: No cough; facial pain/swelling; No nasal congestion/ drainage, No sore throat Allergies and Home Medications Allergies Coded Allergies: No Known Drug Allergies (Verified , 04/20/08) Home Medications Amlodipine Besylate 5 Mg Tablet, 5 MG PO DAILY, (Reported) Aspirin 81 Mg Tablet.dr, 81 MG PO DAILY, (Reported) Escitalopram Oxalate 10 Mg Tablet, 1 TAB PO DAILY, (Reported) Metoprolol Succinate 25 Mg Tab.er.24h, 25 MG PO DAILY, (Reported) Prednisone 50 Mg Tab, 50 MG PO DAILY Prescribed by: ROBERT AMES MD on 05/25/16 0659 Prednisone 20 Mg Tab, 40 MG PO DAILY Prescribed by: BELLE CANTU on 06/20/17 0210 Prednisone 20 Mg Tab, 40 MG PO DAILY Prescribed by: BELLE CANTU on 10/20/17 2334 Prednisone 20 Mg Tab, 40 MG PO DAILY Prescribed by: RITA RENTERIA on 06/17/18 2212 Patient Home Medication List Home Medication List Reviewed: Yes Review of Systems Review of Systems Constitutional: see HPI Eyes: No Symptoms Reported Ears: No Symptoms Reported Nose: no symptoms reported Mouth: see HPI Throat: no symptoms reported Respiratory: no symptoms reported Cardiovascular: no symptoms reported Musculoskeletal: no symptoms reported Past Soaennl-Edwzbh-Puqxnb Hx Patient Social History Recent Hopitalizations: No Immunizations Up To Date Tetanus Booster (TDap): Unknown Date of Pneumonia Vaccine: May 01, 2009 Date of Influenza Vaccine: Apr 20, 2017 Seasonal Allergies Seasonal Allergies: No Past Medical History Surgeries: Yes (HYSTERECTOMY) Breast, Lumpectomy Respiratory: No Cardiac: Yes (WPW) Hypertension, Irregular Heartbeat Neurological: Yes Multiple Sclerosis, Parkinson's Disease 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 0.0oz. 54.294665fx; 24.6 BMI Method:Stated General Appearance: WD/WN, no apparent distress Eyes: bilateral eye normal inspection, bilateral eye PERRL, bilateral eye EOMI Ears: bilateral ear auricle normal, bilateral ear canal normal, bilateral ear TM normal Mouth/Throat: other (mmarketed tongue swelling, she is able to breathe through her nose. There is no stridor. states that this is pretty typical for her reactions and patient nods her head yes, speech is impaired due to the size of her tongue. No rash, no wheezing, no accessory muscle use. They state that epinephrine and medications typically resolve this) Neck: non-tender, full range of motion Respiratory: no respiratory distress, no accessory muscle use Gastrointestinal: normal bowel sounds, non tender Neurologic/Psychiatric: alert, normal mood/affect, oriented x 3 Skin: normal color, warm/dry Progress/Results/Core Measures Results/Orders Lab Results Laboratory Tests Test 06/17/18 21:38 06/17/18 22:06 Range/Units White Blood Count 5.4 4.3-11.0 10^3/uL Red Blood Count 4.78 4.35-5.85 10^6/uL Hemoglobin 14.0 11.5-16.0 G/DL Hematocrit 41 35-52 % Mean Corpuscular Volume 86 80-99 FL Mean Corpuscular Hemoglobin 29 25-34 PG Mean Corpuscular Hemoglobin Concent 34 32-36 G/DL Red Cell Distribution Width 14.3 10.0-14.5 % Platelet Count 190 130-400 10^3/uL Mean Platelet Volume 11.1 H 7.4-10.4 FL Neutrophils (%) (Auto) 59 42-75 % Lymphocytes (%) (Auto) 27 12-44 % Monocytes (%) (Auto) 10 0-12 % Eosinophils (%) (Auto) 3 0-10 % Basophils (%) (Auto) 1 0-10 % Neutrophils # (Auto) 3.2 1.8-7.8 X 10^3 Lymphocytes # (Auto) 1.5 1.0-4.0 X 10^3 Monocytes # (Auto) 0.6 0.0-1.0 X 10^3 Eosinophils # (Auto) 0.2 0.0-0.3 10^3/uL Basophils # (Auto) 0.1 0.0-0.1 10^3/uL My Orders Orders - RITA RENTERIA APRN Iv Heplock-Insert (Order) (06/17/18 21:43) Cbc With Automated Diff (06/17/18 21:43) Basic Metabolic Panel (06/17/18 21:43) Epinephrine 1 Mg Injection (Adrenalin I (06/17/18 21:45) Methylprednisolone Sod Succ (Solu-Medrol (06/17/18 21:45) Diphenhydramine Injection (Benadryl Inje (06/17/18 21:45) Famotidine Injection (Pepcid Injection) (06/17/18 21:45) Medications Given in ED Current Medications Medications Dose Ordered Sig/Dane Route Start Time Stop Time Status Last Admin Dose Admin Diphenhydramine HCl 25 mg ONCE ONCE IVP 06/17/18 21:45 06/17/18 21:46 DC 06/17/18 21:39 25 MG Epinephrine HCl 0.3 mg ONCE ONCE IM 06/17/18 21:45 06/17/18 21:46 DC 06/17/18 21:40 0.3 MG Famotidine 20 mg ONCE ONCE IVP 06/17/18 21:45 06/17/18 21:46 DC 06/17/18 21:39 20 MG Methylprednisolone Sodium Succinate 125 mg ONCE ONCE IVP 06/17/18 21:45 06/17/18 21:46 DC 06/17/18 21:38 125 MG Vital Signs/I&O 11/28/18 21:33 Temp 98.0 Pulse 68 Resp 18 B/P (MAP) 150/97 (114) Pulse Ox 98 O2 Delivery Room Air Departure Communication (Admissions) 2222-she states she feels like it is starting to subside however she still appears very swollen around the tongue and sublingual space. She was given 0.3 mg of intramuscular epinephrine into the right deltoid by me on arrival in addition to Solu-Medrol 125 mg IV, Pepcid 20 mg IV, Benadryl 25 mg IV. Impression Primary Impression: Angioedema Qualified Codes: T78.3XXA - Angioneurotic edema, initial encounter Disposition: HOME, SELF-CARE Condition: Stable Departure-Patient Inst. Decision time for Depature: 21:47 Referrals: WELLINGTON RAZO MD (PCP/Family) Primary Care Physician Scripts Prednisone (Prednisone) 20 Mg Tab 40 MG PO DAILY, #10 TAB Prov: RITA RENTERIA APRN 06/17/18 RITA RENTERIA APRN Jun 17, 2018 21:47
[2018-06-17 21:50] LABS: BASOPHILS # (AUTO) 0.1 10^3/uL (0.0-0.1); BASOPHILS % (AUTO) 1 % (0-10); EOSINOPHILS # (AUTO) 0.2 10^3/uL (0.0-0.3); EOSINOPHILS % (AUTO) 3 % (0-10); HEMATOCRIT 41 % (35-52); LYMPHOCYTES # (AUTO) 1.5 X 10^3 (1.0-4.0); LYMPHOCYTES % (AUTO) 27 % (12-44); MEAN CORPUSCULAR HEMOGLOBIN 29 PG (25-34); MEAN CORPUSCULAR HGB CONC 34 G/DL (32-36); MEAN CORPUSCULAR VOLUME 86 FL (80-99); MEAN PLATELET VOLUME 11.1 FL (7.4-10.4); MONOCYTES # (AUTO) 0.6 X 10^3 (0.0-1.0); MONOCYTES % (AUTO) 10 % (0-12); NEUTROPHILS # (AUTO) 3.2 X 10^3 (1.8-7.8); NEUTROPHILS % (AUTO) 59 % (42-75); PLATELET COUNT 190 10^3/uL (130-400); RED BLOOD COUNT 4.78 10^6/uL (4.35-5.85); RED CELL DISTRIBUTION WIDTH 14.3 % (10.0-14.5); WHITE BLOOD COUNT 5.4 10^3/uL (4.3-11.0)
[2018-06-17 22:00] VITALS: BP 145/66
[2018-06-17] MEDS ORDERED: PRD20T PO (22:12)
[2018-06-17 22:30] VITALS: BP 134/59
[2018-06-17 23:00] VITALS: BP 111/57
[2018-06-17 23:30] VITALS: BP 130/64
[2018-06-18 00:06] VITALS: BP 130/76
[2018-06-18 00:17] LABS: CREATININE SERUM 1.06 MG/DL (0.60-1.30); POTASSIUM 2.6 MMOL/L (3.6-5.0)
== END 2018-06-18 00:06 | disposition home or self-care (01) ==
LOC: EDUNIT# 21:31 → ER 21:32
DX: T78.3XXA Angioneurotic edema, initial encounter (principal); I10 Essential (primary) hypertension; G20 Parkinson's disease; G35 Multiple sclerosis; Z79.82 Long term (current) use of aspirin; Z85.3 Personal history of malignant neoplasm of breast; Z79.52 Long term (current) use of systemic steroids; Z90.710 Acquired absence of both cervix and uterus
CPT/HCPCS: 36415; 80048; 85025

== ENCOUNTER → 2018-07-28 | Outpatient (CLI) | payer MEDICARE, OTHER ==
[2018-07-28 14:45] LABS: BASOPHILS # (AUTO) 0.1 10^3/uL (0.0-0.1); BASOPHILS % (AUTO) 1 % (0-10); EOSINOPHILS # (AUTO) 0.1 10^3/uL (0.0-0.3); EOSINOPHILS % (AUTO) 1 % (0-10); HEMATOCRIT 40 % (35-52); HEMOGLOBIN 13.3 G/DL (11.5-16.0); LYMPHOCYTES % (AUTO) 21 % (12-44); MEAN CORPUSCULAR HEMOGLOBIN 29 PG (25-34); MEAN CORPUSCULAR HGB CONC 33 G/DL (32-36); MEAN CORPUSCULAR VOLUME 86 FL (80-99); MEAN PLATELET VOLUME 11.1 FL (7.4-10.4); MONOCYTES # (AUTO) 0.5 X 10^3 (0.0-1.0); MONOCYTES % (AUTO) 9 % (0-12); NEUTROPHILS # (AUTO) 3.3 X 10^3 (1.8-7.8); NEUTROPHILS % (AUTO) 67 % (42-75); PLATELET COUNT 178 10^3/uL (130-400); RED BLOOD COUNT 4.64 10^6/uL (4.35-5.85); RED CELL DISTRIBUTION WIDTH 13.8 % (10.0-14.5); WHITE BLOOD COUNT 4.9 10^3/uL (4.3-11.0)
[2018-07-28 15:04] LABS: CALCIUM 9.6 MG/DL (8.5-10.1); CREATININE SERUM 1.08 MG/DL (0.60-1.30); POTASSIUM 3.1 MMOL/L (3.6-5.0)
[2018-07-28 15:05] LABS: ALBUMIN 4.5 GM/DL (3.2-4.5); BILIRUBIN,TOTAL 0.4 MG/DL (0.1-1.0); TOTAL PROTEIN 7.1 GM/DL (6.4-8.2)
== END ==
LOC: LAB 14:21
PROVIDERS: ATTEND Family Medicine
DX: I10 Essential (primary) hypertension (principal); E87.6 Hypokalemia
CPT/HCPCS: 36415; 80053; 85025

== ENCOUNTER 2018-09-02 17:17 | Emergency (ER) | payer MEDICARE, OTHER ==
[~2018-09-02] VITALS: Ht 152.4 cm; Wt 59.0 kg
[~2018-09-02 17:17] MED LIST changes: -AMLO5TAB7 PO; +AMLO5TAB9 PO
[2018-09-02] MEDS ORDERED: EPINEPHrine INJECTION 1 MG/ML AMP IM ONE (17:30)
[2018-09-02] MEDS ORDERED: diphenhydrAMINE 50 MG/ML INJ (BENADRYL) IVP ONE (17:30)
[2018-09-02] MEDS ORDERED: methylPREDNISolone 125 MG (Solu-MEDROL) VIAL IVP ONE (17:30)
[2018-09-02] MEDS ORDERED: FAMOTIDINE 20MG/2ML IV (PEPCID) IVP ONE (17:30)
--- NOTE | 2018-09-02 17:31 | ED EENT ---
History of Present Illness General Stated Complaint: MOUTH SWELLING, POSSIBLE ALLERGIC REACTION Source: patient Exam Limitations: no limitations History of Present Illness Date Seen by Provider: Sep 02, 2018 Time Seen by Provider: 17:28 Initial Comments To ER with reports of mouth swelling. She has a history of angioedema. She used her epinephrine pen on the way home from [place] about 20 minutes ago but states that she's never used it before and didn't keep it in her leg for the full 10 seconds as directed so she's not sure how much of it she actually got.. Timing/Duration: abrupt Severity: moderate Location: mouth Prearrival Treatment: no prearrival treatment Allergies and Home Medications Allergies Coded Allergies: No Known Drug Allergies (Verified , 04/20/08) Home Medications Amlodipine Besylate 5 Mg Tablet, 5 MG PO DAILY, (Reported) Aspirin 81 Mg Tablet.dr, 81 MG PO DAILY, (Reported) Epinephrine 0.3 Mg/0.3 Ml Auto.injct, 0.3 MG IJ PRN PRN for tongue swelling Prescribed by: RITA RENTERIA on 09/02/182025 Escitalopram Oxalate 10 Mg Tablet, 1 TAB PO DAILY, (Reported) Metoprolol Succinate 25 Mg Tab.er.24h, 25 MG PO DAILY, (Reported) Potassium Chloride 20 Meq Tablet.er, 40 MEQ PO DAILY Prescribed by: RITA RENTERIA on 09/02/181933 Prednisone 50 Mg Tab, 50 MG PO DAILY Prescribed by: ROBERT AMES MD on 05/25/16 0659 Prednisone 20 Mg Tab, 40 MG PO DAILY Prescribed by: BELLE CANTU on 06/20/17 0210 Prednisone 20 Mg Tab, 40 MG PO DAILY Prescribed by: BELLE CANTU on 10/20/17 2334 Prednisone 20 Mg Tab, 40 MG PO DAILY Prescribed by: RITA RENTERIA on 06/17/18 2212 Prednisone 20 Mg Tab, 40 MG PO DAILY Prescribed by: RITA RENTERIA on 09/02/181933 Patient Home Medication List Home Medication List Reviewed: Yes Review of Systems Review of Systems Constitutional: see HPI Eyes: No Symptoms Reported Ears: No Symptoms Reported Nose: no symptoms reported Mouth: see HPI, swelling Throat: no symptoms reported Respiratory: no symptoms reported Cardiovascular: no symptoms reported Musculoskeletal: no symptoms reported Past Jjfzuix-Kcnopk-Wvybrn Hx Patient Social History 2nd Hand Smoke Exposure: No Recent Foreign Travel: No Contact w/Someone Who Travel: No Recent Hopitalizations: No Immunizations Up To Date Tetanus Booster (TDap): Unknown Date of Pneumonia Vaccine: May 01, 2009 Date of Influenza Vaccine: Apr 20, 2017 Seasonal Allergies Seasonal Allergies: No Past Medical History Surgeries: Yes (HYSTERECTOMY) Breast, Lumpectomy Respiratory: No Cardiac: Yes (WPW) Hypertension, Irregular Heartbeat Neurological: Yes Multiple Sclerosis, Parkinson's Disease 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 0.0oz. [id number]; 24.6 BMI Method:Stated General Appearance: WD/WN, no apparent distress Eyes: bilateral eye normal inspection, bilateral eye PERRL, bilateral eye EOMI Ears: bilateral ear auricle normal, bilateral ear canal normal, bilateral ear TM normal Mouth/Throat: normal mouth inspection, pharynx normal, other (sublingual firmness to palpation; significant tongue .edema) Neck: non-tender, full range of motion Cardiovascular: regular rate, rhythm, no murmur Respiratory: no respiratory distress, no accessory muscle use Gastrointestinal: normal bowel sounds, non tender Neurologic/Psychiatric: alert, normal mood/affect, oriented x 3 Skin: normal color, warm/dry Progress/Results/Core Measures Results/Orders Lab Results Laboratory Tests Test 09/02/18 18:30 09/02/18 18:38 Range/Units White Blood Count 7.5 4.3-11.0 10^3/uL Red Blood Count 4.14 L 4.35-5.85 10^6/uL Hemoglobin 12.0 11.5-16.0 G/DL Hematocrit 36 35-52 % Mean Corpuscular Volume 87 80-99 FL Mean Corpuscular Hemoglobin 29 25-34 PG Mean Corpuscular Hemoglobin Concent 33 32-36 G/DL Red Cell Distribution Width 13.7 10.0-14.5 % Platelet Count 176 130-400 10^3/uL Mean Platelet Volume 10.9 H 7.4-10.4 FL Neutrophils (%) (Auto) 69 42-75 % Lymphocytes (%) (Auto) 23 12-44 % Monocytes (%) (Auto) 6 0-12 % Eosinophils (%) (Auto) 2 0-10 % Basophils (%) (Auto) 1 0-10 % Neutrophils # (Auto) 5.2 1.8-7.8 X 10^3 Lymphocytes # (Auto) 1.7 1.0-4.0 X 10^3 Monocytes # (Auto) 0.5 0.0-1.0 X 10^3 Eosinophils # (Auto) 0.1 0.0-0.3 10^3/uL Basophils # (Auto) 0.0 0.0-0.1 10^3/uL Sodium Level 139 135-145 MMOL/L Potassium Level 2.5 *L 3.6-5.0 MMOL/L Chloride Level 103 98-107 MMOL/L Carbon Dioxide Level 23 21-32 MMOL/L Anion Gap 13 5-14 MMOL/L Blood Urea Nitrogen 33 H 7-18 MG/DL Creatinine 1.12 0.60-1.30 MG/DL Estimat Glomerular Filtration Rate 48 BUN/Creatinine Ratio 29 Glucose Level 168 H 70-105 MG/DL Calcium Level 8.4 L 8.5-10.1 MG/DL Corrected Calcium 8.6 8.5-10.1 MG/DL Magnesium Level 2.0 1.8-2.4 MG/DL Total Bilirubin 0.3 0.1-1.0 MG/DL Aspartate Amino Transf (AST/SGOT) 17 5-34 U/L Alanine Aminotransferase (ALT/SGPT) 12 0-55 U/L Alkaline Phosphatase 55 40-136 U/L Troponin I < 0.028 <0.028 NG/ML B-Type Natriuretic Peptide 151.4 H <100.0 PG/ML Total Protein 5.8 L 6.4-8.2 GM/DL Albumin 3.7 3.2-4.5 GM/DL My Orders Orders - RITA RENTERIA APRN Iv Heplock-Insert (Order) (09/02/18 17:20) Epinephrine 1 Mg Injection (Adrenalin I (09/02/18 17:30) Methylprednisolone Sod Succ (Solu-Medrol (2/13/19 17:30) Famotidine Injection (Pepcid Injection) (09/02/18 17:30) Diphenhydramine Injection (Benadryl Inje (09/02/18 17:30) Ondansetron Injection (Zofran Injectio (09/02/18 17:50) Ekg Tracing (09/02/18 17:55) Ns Iv 1000 Ml (Sodium Chloride 0.9%) (09/02/18 17:51) Cbc With Automated Diff (09/02/18 18:10) Troponin I (09/02/18 18:10) Magnesium (09/02/18 18:10) Comprehensive Metabolic Panel (09/02/18 18:10) Iv Heplock-Insert (Order) (09/02/18 18:10) Chest 1 View, Ap/Pa Only (09/02/18 18:36) BNP (09/02/18 18:36) Ekg Tracing (09/02/18 18:36) Complement C4 Serum (09/02/18 18:38) C1 Esterase Inhibitor Qnt (09/02/18 18:38) C1 Esterase Inhibitor Function (09/02/18 18:38) Magnesium (09/02/18 19:19) Ns Iv 1000 Ml (Sodium Chloride 0.9%) (09/02/18 19:30) Potassium Cl 10meq/50ml Ivpb (Kcl 10 Meq (09/02/18 19:30) Medications Given in ED Current Medications Medications Dose Ordered Sig/Dane Route Start Time Stop Time Status Last Admin Dose Admin Diphenhydramine HCl 25 mg ONCE ONCE IVP 09/02/18 17:30 09/02/18 17:31 DC 09/02/18 17:33 25 MG Epinephrine HCl 0.3 mg ONCE ONCE IM 09/02/18 17:30 09/02/18 17:31 DC 09/02/18 17:51 0.3 MG Famotidine 20 mg ONCE ONCE IVP 09/02/18 17:30 09/02/18 17:31 DC 09/02/18 17:33 20 MG Methylprednisolone Sodium Succinate 125 mg ONCE ONCE IVP 09/02/18 17:30 09/02/18 17:31 DC 09/02/18 17:33 125 MG Ondansetron HCl 4 mg STK-MED ONCE .ROUTE 09/02/18 17:50 09/02/18 17:56 DC 09/02/18 17:50 4 MG Sodium Chloride 1,000 ml @ ud STK-MED ONCE .ROUTE 09/02/18 17:51 09/02/18 17:57 DC 09/02/18 17:50 1,000 MLS/HR Vital Signs/I&O 09/02/18 17:21 Temp 96.0 Pulse 73 Resp 18 B/P (MAP) 80/62 (68) Pulse Ox 96 Departure Communication (Admissions) 1812-patient developed chest pain and nausea shortly after administration of epinephrine. EKG was obtained showing diffuse ST segment depression. Symptoms of chest pain and nausea lasted for about 5 minutes before resolving back to baseline--completely gone. Discussed the case with Dr. Nelson, recommends admission for cardiology consultation. However the patient states that she will not stay, she is going to go home and go to [facility] for a chocolate milkshake. 1923-potassium returned at 2.5 which could be contributing to her hypotension . Her chest pain remains completely gone, nausea completely gone. She does not want to be admitted and will sign out, signing refusal of services form. EKG shows sinus rhythm with some ST depression. She does agree to stay to at least have 20 mEq of potassium infused IV over 1 hour I. In hindsight, this may not be ST depression as a function of ischemia but instead function of hypokalemia. 2027-I discussed with her the need to stay for cardiology evaluation with at the bedside. She insists that she does not need to stay, she is feeling much better. No chest pain no nausea, heart rate is sinus at 68 no ectopy. Blood pressure 99/64. She has received 20 mEq IV of potassium. She states she is ready to go home and will sign the refusal of services form for being admitted. She states that she follows with cardiology at [facility] cardiology and just saw them a month ago and was told everything is fine and she does not need to stay for cardiology evaluation tonight., she is not concerned with her symptoms at this time. Her tongue is much improved. Impression Primary Impression: Angioedema Qualified Codes: T78.3XXA - Angioneurotic edema, initial encounter Additional Impressions: Chest pain Qualified Codes: R07.9 - Chest pain, unspecified Hypokalemia Disposition: 01 HOME, SELF-CARE Condition: Stable Departure-Patient Inst. Decision time for Depature: 17:30 Referrals: WELLINGTON RAZO MD (PCP/Family) Primary Care Physician Patient Instructions: Angioedema, Hypokalemia Add. Discharge Instructions: 1. Return to ER for any concerns 2. Take steroids as directed 3. Take the potassium as directed. Call Dr. RAZO tomorrow to make an appointment to be seen. Scripts Epinephrine (Epipen) 0.3 Mg/0.3 Ml Auto.injct 0.3 MG IJ PRN PRN for tongue swelling, #1 EA Prov: RITA RENTERIA APRN 09/02/18 Epinephrine (Epipen) 0.3 Mg/0.3 Ml Auto.injct 0.3 MG IJ PRN PRN for tongue swelling, #1 EA Prov: RITA RENTERIA APRN 09/02/18 Prednisone (Prednisone) 20 Mg Tab 40 MG PO DAILY, #6 TAB Prov: RITA RENTERIA APRN 09/02/18 Potassium Chloride (Potassium Chloride) 20 Meq Tablet.er 40 MEQ PO DAILY, #10 TAB Prov: RITA RENTERIA APRN 09/02/18 Copy Copies To 1: WELLINGTON RAZO MD, PETER J APRN Sep 02, 2018 17:31
[2018-09-02] MEDS ORDERED: ONDANSETRON 4 MG/2 ML (SDV) Z0FRAN ONE (17:50)
[2018-09-02] MEDS ORDERED: NS IV 1000 ML 1,000 ML ONE (17:51)
[2018-09-02 18:36] LABS: BASOPHILS % (AUTO) 1 % (0-10); EOSINOPHILS # (AUTO) 0.1 10^3/uL (0.0-0.3); EOSINOPHILS % (AUTO) 2 % (0-10); HEMATOCRIT 36 % (35-52); LYMPHOCYTES # (AUTO) 1.7 X 10^3 (1.0-4.0); LYMPHOCYTES % (AUTO) 23 % (12-44); MEAN CORPUSCULAR HEMOGLOBIN 29 PG (25-34); MEAN CORPUSCULAR HGB CONC 33 G/DL (32-36); MEAN CORPUSCULAR VOLUME 87 FL (80-99); MEAN PLATELET VOLUME 10.9 FL (7.4-10.4); MONOCYTES # (AUTO) 0.5 X 10^3 (0.0-1.0); MONOCYTES % (AUTO) 6 % (0-12); NEUTROPHILS # (AUTO) 5.2 X 10^3 (1.8-7.8); NEUTROPHILS % (AUTO) 69 % (42-75); PLATELET COUNT 176 10^3/uL (130-400); RED CELL DISTRIBUTION WIDTH 13.7 % (10.0-14.5); WHITE BLOOD COUNT 7.5 10^3/uL (4.3-11.0)
[2018-09-02 18:56] LABS: ALANINE AMINOTRANSFERASE 12 U/L (0-55); ALBUMIN 3.7 GM/DL (3.2-4.5); ALKALINE PHOSPHATASE 55 U/L (40-136); BILIRUBIN,TOTAL 0.3 MG/DL (0.1-1.0); BUN/CREATININE RATIO 29; CALCIUM 8.4 MG/DL (8.5-10.1); CARBON DIOXIDE 23 MMOL/L (21-32); CHLORIDE 103 MMOL/L (98-107); CREATININE SERUM 1.12 MG/DL (0.60-1.30); GFR ESTIMATED 48; GLUCOSE 168 MG/DL (70-105); SODIUM 139 MMOL/L (135-145); TOTAL PROTEIN 5.8 GM/DL (6.4-8.2)
[2018-09-02 19:15] LABS: POTASSIUM 2.5 MMOL/L (3.6-5.0)
--- NOTE | 2018-09-02 19:15 | Diagnostic Imaging Report ---
EXAMINATION: Chest radiograph, portable AP view. DATE: September 02, 2018 at 1856 hours. INDICATION: 68-year-old female, allergic reaction of the mouth with swelling. COMPARISON: August 19, 2016. FINDINGS: There are surgical clips overlying the left chest. Heart size and mediastinal contours are unremarkable. There is no identified pneumothorax. There is no large pleural effusion. There is no identified focal airspace consolidation. IMPRESSION: No identified acute cardiopulmonary abnormality. Dictated by: Dictated on workstation # [id number]
[2018-09-02] MEDS ORDERED: NS IV 1000 ML 1,000 ML IV SCH (19:30)
[2018-09-02] MEDS ORDERED: PRD20T PO (19:34)
[2018-09-02] MEDS ORDERED: POTA-51 PO (19:34)
[2018-09-02] MEDS: POTASSIUM CL 10MEQ/50ML IVPB 50 ML IV SCH ×2 (19:35→20:08)
[2018-09-02] MEDS ORDERED: EPIN0.3P2 IJ ×2 (20:26→20:30)
[2018-09-02 20:40] VITALS: BP 102/60
== END 2018-09-02 20:40 | disposition home or self-care (01) ==
LOC: EDUNIT# 17:17 → ER 17:18
DX: T78.3XXA Angioneurotic edema, initial encounter (principal); R07.9 Chest pain, unspecified; E87.6 Hypokalemia; I10 Essential (primary) hypertension; G20 Parkinson's disease; G35 Multiple sclerosis; Z79.82 Long term (current) use of aspirin; Z79.52 Long term (current) use of systemic steroids; Z85.3 Personal history of malignant neoplasm of breast; Z90.710 Acquired absence of both cervix and uterus; Z98.890 Other specified postprocedural states
CPT/HCPCS: 36415; 71045; 80053; 83735; 83880; 84484; 85025; 86160; 86329; 88271; 93005

== ENCOUNTER → 2018-09-08 | Outpatient (CLI) | payer MEDICARE, OTHER | LOC: ONC 13:35 | PROVIDERS: ATTEND Internal Medicine Hematology & Oncology | DX: Z08 Encounter for follow-up examination after completed treatment for malignant neoplasm (principal); Z85.3 Personal history of malignant neoplasm of breast; M85.88 Other specified disorders of bone density and structure, other site; N18.3 Chronic kidney disease, stage 3 (moderate); I12.9 Hypertensive chronic kidney disease with stage 1 through stage 4 chronic kidney disease, or unspecified chronic kidney disease; G35 Multiple sclerosis; G20 Parkinson's disease; I45.6 Pre-excitation syndrome; R07.81 Pleurodynia; Z79.82 Long term (current) use of aspirin; Z79.899 Other long term (current) drug therapy; Z92.21 Personal history of antineoplastic chemotherapy; Z92.3 Personal history of irradiation | CPT/HCPCS: 99213 ==

== ENCOUNTER → 2019-05-31 | Outpatient (CLI) | payer MEDICARE, OTHER ==
[~2019-05-31] MED LIST changes: +EPIN0.3P2 IJ; +POTA-51 PO
--- NOTE | 2019-05-31 11:57 | Diagnostic Imaging Report ---
INDICATION: Routine screening. COMPARISON: Comparison is made with prior mammograms from 05/28/2018 and 05/26/2017. 2-D and 3-D bilateral screening mammography was performed. The current study was also evaluated with a Computer Aided Detection (CAD) system. 3-D tomosynthesis was also performed and reviewed. FINDINGS: Both breasts remain heterogeneously dense, limiting the sensitivity of mammography. Surgical clips in left axilla are again noted. Overall breast parenchyma pattern is stable. There are benign calcifications bilaterally. No mass or malignant-appearing microcalcifications are seen. IMPRESSION: No mammographic features suspicious for malignancy are identified. ACR BI-RADS Category 2: Benign findings. Result letter will be mailed to the patient. Note: At least 10% of breast cancer is not imaged by mammography. Dictated by: Dictated on workstation # [id number]
== END ==
LOC: RAD 10:10
PROVIDERS: ATTEND Internal Medicine Hematology & Oncology
DX: Z12.31 Encounter for screening mammogram for malignant neoplasm of breast (principal); C50.412 Malignant neoplasm of upper-outer quadrant of left female breast; Z98.890 Other specified postprocedural states
CPT/HCPCS: 77067

== ENCOUNTER → 2019-09-15 | Outpatient (CLI) | payer MEDICARE, OTHER ==
[~2019-09-15] MED LIST changes: -METO-370 PO; -METO-387 PO; +METO50TA7 PO; +MTP25TSR PO
[2019-09-15 10:21] LABS: BASOPHILS % (AUTO) 1 % (0-10); EOSINOPHILS # (AUTO) 0.2 10^3/uL (0.0-0.3); EOSINOPHILS % (AUTO) 4 % (0-10); HEMATOCRIT 40 % (35-52); HEMOGLOBIN 13.3 G/DL (11.5-16.0); LYMPHOCYTES # (AUTO) 1.2 X 10^3 (1.0-4.0); LYMPHOCYTES % (AUTO) 31 % (12-44); MEAN CORPUSCULAR HEMOGLOBIN 29 PG (25-34); MEAN CORPUSCULAR HGB CONC 33 G/DL (32-36); MEAN CORPUSCULAR VOLUME 86 FL (80-99); MONOCYTES # (AUTO) 0.4 X 10^3 (0.0-1.0); MONOCYTES % (AUTO) 10 % (0-12); NEUTROPHILS # (AUTO) 2.2 X 10^3 (1.8-7.8); NEUTROPHILS % (AUTO) 55 % (42-75); PLATELET COUNT 172 10^3/uL (130-400); RED CELL DISTRIBUTION WIDTH 13.8 % (10.0-14.5)
[2019-09-15 10:38] LABS: BILIRUBIN,TOTAL 0.5 MG/DL (0.1-1.0); CALCIUM 9.5 MG/DL (8.5-10.1); CREATININE SERUM 1.1 MG/DL (0.60-1.30); TOTAL PROTEIN 6.8 GM/DL (6.4-8.2)
== END ==
LOC: ONC 10:01
PROVIDERS: ATTEND Internal Medicine Hematology & Oncology
DX: C50.412 Malignant neoplasm of upper-outer quadrant of left female breast (principal); D84.1 Defects in the complement system; M85.89 Other specified disorders of bone density and structure, multiple sites; N18.3 Chronic kidney disease, stage 3 (moderate); Z98.890 Other specified postprocedural states; Z17.0 Estrogen receptor positive status [ER+]; Z92.21 Personal history of antineoplastic chemotherapy; Z86.19 Personal history of other infectious and parasitic diseases; Z86.61 Personal history of infections of the central nervous system
CPT/HCPCS: 80053; 85025; 99213

== ENCOUNTER 2019-11-04 09:02 | Emergency (ER) | payer MEDICARE, OTHER ==
[~2019-11-04] VITALS: Ht 152 cm; Wt 58.9 kg
[2019-11-04] MEDS ORDERED: diphenhydrAMINE 50 MG/ML INJ (BENADRYL) ONE (09:03)
[2019-11-04] MEDS ORDERED: methylPREDNISolone 125 MG (Solu-MEDROL) VIAL ONE (09:03)
[2019-11-04] MEDS ORDERED: diphenhydrAMINE 50 MG/ML INJ (BENADRYL) IV STA (09:12)
[2019-11-04] MEDS ORDERED: methylPREDNISolone 125 MG (Solu-MEDROL) VIAL IV STA (09:12)
[2019-11-04] MEDS ORDERED: EPINEPHrine INJECTION 1 MG/ML AMP IM ONE (09:15)
[2019-11-04 09:18] LABS: BASOPHILS # (AUTO) 0.1 10^3/uL (0.0-0.1); BASOPHILS % (AUTO) 1 % (0-10); EOSINOPHILS # (AUTO) 0.2 10^3/uL (0.0-0.3); EOSINOPHILS % (AUTO) 4 % (0-10); HEMATOCRIT 45 % (35-52); HEMOGLOBIN 14.6 G/DL (11.5-16.0); LYMPHOCYTES # (AUTO) 1.6 X 10^3 (1.0-4.0); LYMPHOCYTES % (AUTO) 31 % (12-44); MEAN CORPUSCULAR HEMOGLOBIN 29 PG (25-34); MEAN CORPUSCULAR HGB CONC 33 G/DL (32-36); MEAN CORPUSCULAR VOLUME 87 FL (80-99); MEAN PLATELET VOLUME 11.3 FL (7.4-10.4); MONOCYTES # (AUTO) 0.4 X 10^3 (0.0-1.0); MONOCYTES % (AUTO) 9 % (0-12); NEUTROPHILS # (AUTO) 2.8 X 10^3 (1.8-7.8); NEUTROPHILS % (AUTO) 55 % (42-75); PLATELET COUNT 178 10^3/uL (130-400)
[2019-11-04 09:22] LABS: ALBUMIN 4.4 GM/DL (3.2-4.5); POTASSIUM 3.2 MMOL/L (3.6-5.0)
[2019-11-04 09:24] LABS: CALCIUM 9.8 MG/DL (8.5-10.1)
--- NOTE | 2019-11-04 09:24 | ED General ---
General Chief Complaint: Allergic Reaction Stated Complaint: TONGUE SWELLING Source of Information: Patient Exam Limitations: No Limitations (NADINE CHAPMAN MD) History of Present Illness Date Seen by Provider: Nov 04, 2019 Time Seen by Provider: 09:05 Initial Comments Here with report of tongue swelling that started sometime overnight. About an hour ago she took 2 Benadryl and Pepcid. She does have history of angioedema with unknown precipitating factors. She's been seen multiple times for this in the past. She does not want to stay ever and that continues today. Typically, we have given Benadryl, Solu-Medrol plus or minus epinephrine. She has had chest pain with epinephrine in the past and has Phmwr-Hidjidthk-Cozrh syndrome. She has tolerated 0.2 mg IM dosing of epinephrine in the past better than the 0.3 mg IM dosing. Denies nausea or vomiting. Denies abdominal pain or rash. Symptoms seem to be centered around the tongue. Denies fever or chills. Timing/Duration: 1-3 Hours Severity: Moderate Associated Systoms: No Chest Pain, No Cough, No Fever/Chills, No Nausea/Vomiting, No Shortness of Air, No Weakness (NADINE CHAPMAN MD) Allergies and Home Medications Allergies Coded Allergies: No Known Drug Allergies (Verified , 04/20/08) Home Medications Amlodipine Besylate 5 Mg Tablet, 5 MG PO DAILY, (Reported) Aspirin 81 Mg Tablet.dr, 81 MG PO DAILY, (Reported) Epinephrine 0.3 Mg/0.3 Ml Auto.injct, 0.3 MG IJ PRN PRN for tongue swelling Prescribed by: RITA RENTERIA on 09/02/182025 Epinephrine 0.3 Mg/0.3 Ml Auto.injct, 0.3 MG IJ PRN PRN for tongue swelling Prescribed by: RITA RENTERIA on 09/02/182029 Escitalopram Oxalate 10 Mg Tablet, 1 TAB PO DAILY, (Reported) Metoprolol Succinate 25 Mg Tab.er.24h, 25 MG PO DAILY, (Reported) Potassium Chloride 20 Meq Tablet.er, 40 MEQ PO DAILY Prescribed by: RITA RENTERIA on 09/02/181933 Prednisone 50 Mg Tab, 50 MG PO DAILY Prescribed by: ROBERT AMES MD on 05/25/16 0659 Prednisone 20 Mg Tab, 40 MG PO DAILY Prescribed by: BELLE CANTU on 06/20/17 0210 Prednisone 20 Mg Tab, 40 MG PO DAILY Prescribed by: BELLE CANTU on 10/20/17 2334 Prednisone 20 Mg Tab, 40 MG PO DAILY Prescribed by: RITA RENTERIA on 06/17/18 2212 Prednisone 20 Mg Tab, 40 MG PO DAILY Prescribed by: RITA RENTERIA on 09/02/18 1934 Prednisone 20 Mg Tab, 40 MG PO DAILY Prescribed by: NADINE CHAPMAN on 11/04/19 1106 Patient Home Medication List Home Medication List Reviewed: Yes (NADINE CHAPMAN MD) Review of Systems Review of Systems Constitutional: see HPI; No chills, No fever EENTM: see HPI; No nose congestion, No throat pain Respiratory: no symptoms reported Cardiovascular: No chest pain, No edema Gastrointestinal: No abdominal pain, No nausea, No vomiting Genitourinary: no symptoms reported Musculoskeletal: no symptoms reported Skin: no symptoms reported Psychiatric/Neurological: Tremors (chronic tremors); Denies Weakness Immunological/Allergic: see HPI (NADINE CHAPMAN MD) All Other Systems Reviewed Negative Unless Noted: Yes (NADINE CHAPMAN MD) Past Mmslwlu-Szcowz-Rmhtnr Hx Past Med/Social Hx: Reviewed Nursing Past Med/Soc Hx (NADINE CHAPMAN MD) Patient Social History Alcohol Use: Denies Use Recreational Drug Use: No Smoking Status: Never a Smoker 2nd Hand Smoke Exposure: No Recent Hopitalizations: No (NADINE CHAPMAN MD) Immunizations Up To Date Tetanus Booster (TDap): Unknown Date of Pneumonia Vaccine: May 01, 2009 Date of Influenza Vaccine: Apr 20, 2017 (NADINE CHAPMAN MD) Seasonal Allergies Seasonal Allergies: No (NADINE CHAPMAN MD) Past Medical History Surgeries: Yes (HYSTERECTOMY) Breast, Lumpectomy Respiratory: No Cardiac: Yes (WPW) Hypertension, Irregular Heartbeat Neurological: Yes Multiple Sclerosis, Parkinson's Disease 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 Sexually Transmitted Disease: No Genitourinary: No Gastrointestinal: No Musculoskeletal: No Endocrine: No HEENT: No Cancer: Yes Breast Psychosocial: No Integumentary: No Blood Disorders: No Adverse Reaction/Blood Tranf: No (NADINE CHAPMAN MD) Family Medical History Reviewed Nursing Family Hx (NADINE CHAPMAN MD) No Pertinent Family Hx (NADINE CHAPMAN MD) Physical Exam Vital Signs Vital Signs - First Documented 11/04/19 09:02 Temp 36.8 Pulse 90 Resp 16 B/P (MAP) 147/90 (109) Pulse Ox 97 O2 Delivery Room Air (RITA RENTERIA APRN) Vital Signs Capillary Refill : (NADINE CHAPMAN MD) Height, Weight, BMI Height: 5'0" Weight: 130lbs. 0.0oz. 58.285366ql; 24.6 BMI Method:Stated General Appearance: No Apparent Distress, WD/WN HEENT: PERRL/EOMI, Pharynx Normal, Other (rather significant tongue swelling with left-sided greater than right-sided currently) Neck: Non Tender, Supple Respiratory: Lungs Clear, Normal Breath Sounds Cardiovascular: Regular Rate, Rhythm, No Murmur Gastrointestinal: Non Tender, Soft Extremity: Normal Range of Motion, Non Tender Neurologic/Psychiatric: Alert, Oriented x3 Skin: Normal Color, Warm/Dry (NADINE CHAPMAN MD) Progress/Results/Core Measures Suspected Sepsis SIRS Temperature: Pulse: Respiratory Rate: Laboratory Tests 11/04/19 09:05: White Blood Count 5.0 Blood Pressure / Mean: Laboratory Tests 11/04/19 09:05: Creatinine 1.10, Platelet Count 178, Total Bilirubin 0.4 (NADINE CHAPMAN MD) Results/Orders Lab Results Laboratory Tests Test 11/04/19 09:05 Range/Units White Blood Count 5.0 4.3-11.0 10^3/uL Red Blood Count 5.11 4.35-5.85 10^6/uL Hemoglobin 14.6 11.5-16.0 G/DL Hematocrit 45 35-52 % Mean Corpuscular Volume 87 80-99 FL Mean Corpuscular Hemoglobin 29 25-34 PG Mean Corpuscular Hemoglobin Concent 33 32-36 G/DL Red Cell Distribution Width 14.0 10.0-14.5 % Platelet Count 178 130-400 10^3/uL Mean Platelet Volume 11.3 H 7.4-10.4 FL Neutrophils (%) (Auto) 55 42-75 % Lymphocytes (%) (Auto) 31 12-44 % Monocytes (%) (Auto) 9 0-12 % Eosinophils (%) (Auto) 4 0-10 % Basophils (%) (Auto) 1 0-10 % Neutrophils # (Auto) 2.8 1.8-7.8 X 10^3 Lymphocytes # (Auto) 1.6 1.0-4.0 X 10^3 Monocytes # (Auto) 0.4 0.0-1.0 X 10^3 Eosinophils # (Auto) 0.2 0.0-0.3 10^3/uL Basophils # (Auto) 0.1 0.0-0.1 10^3/uL Sodium Level 140 135-145 MMOL/L Potassium Level 3.2 L 3.6-5.0 MMOL/L Chloride Level 100 98-107 MMOL/L Carbon Dioxide Level 28 21-32 MMOL/L Anion Gap 12 5-14 MMOL/L Blood Urea Nitrogen 32 H 7-18 MG/DL Creatinine 1.10 0.60-1.30 MG/DL Estimat Glomerular Filtration Rate 49 BUN/Creatinine Ratio 29 Glucose Level 102 70-105 MG/DL Calcium Level 9.8 8.5-10.1 MG/DL Corrected Calcium 9.5 8.5-10.1 MG/DL Total Bilirubin 0.4 0.1-1.0 MG/DL Aspartate Amino Transf (AST/SGOT) 20 5-34 U/L Alanine Aminotransferase (ALT/SGPT) 17 0-55 U/L Alkaline Phosphatase 69 40-136 U/L Total Protein 7.9 6.4-8.2 GM/DL Albumin 4.4 3.2-4.5 GM/DL (RITA RENTERIA APRN) Medications Given in ED Current Medications Medications Dose Ordered Sig/Dane Route Start Time Stop Time Status Last Admin Dose Admin Epinephrine HCl 0.2 mg ONCE ONCE IM 11/04/19 09:15 11/04/19 09:16 DC 11/04/19 09:19 0.2 MG (RITA RENTERIA APRN) Vital Signs/I&O 11/04/19 09:02 Temp 36.8 Pulse 90 Resp 16 B/P (MAP) 147/90 (109) Pulse Ox 97 O2 Delivery Room Air (RITA RENTERIA APRN) Vital Signs/I&O Capillary Refill : (NADINE CHAPMAN MD) Progress Note : Progress Note Seen and evaluated. IV, labs, Solu-Medrol 125 mg IV and Benadryl 25 mg IV. Barrington rodriguez has already had Benadryl and Pepcid home. We did discuss epinephrine. I've reviewed the chart. 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 There is risk for epinephrine and this was discussed with the patient. She does historically do better when epinephrine was given. Her tongue swelling is rather pronounced today. Given that, we did decide to go ahead and do epinephrine after discussion with the patient. We will give 0.2 mg IM today as that has worked well in the past and this will decrease the cardiac risk. She is on the monitor and we will continue to monitor both ECG and pulse oximetry. Patient agrees with plan. I did inform her that I would like to watch her for at least a couple hours for which she agrees. She states once the swelling goes away it usually resolves completely without return in the immediate time frame. Monitor patient. 1103: Patient is doing a little better. We will continue to watch her and she is in agreement. She is able to phonate better now and is not having problems with swallowing but still has swollen tongue although less than previous. Monitor patient. (NADINE CHAPMAN MD) Departure Communication (Admissions) 1133-medically feels better states she would like to go home, still quite a bit of swelling and difficulty with speech. She's been through this several times however she would like to go on home. I did encourage her to stay but she elected to go on home. Return for any worsening. (RITA RENTERIA APRN) Impression Primary Impression: Angioedema Qualified Codes: T78.3XXA - Angioneurotic edema, initial encounter Disposition: HOME, SELF-CARE Condition: Improved Departure-Patient Inst. Referrals: WELLINGTON RAZO MD (PCP/Family) Primary Care Physician Patient Instructions: Angioedema Add. Discharge Instructions: All discharge instructions reviewed with patient and/or family. Voiced understanding. Take medications as directed. Follow up with your DrSaul in a few days for recheck. Continue Benadryl/diphenhydramine 25 mg every 6 hours as needed for itching or swelling. Continue to take Pepcid or the generic famotidine 20 mg daily for the next 4 days and then as needed. Take other medications as directed. Return for return of swelling, abdominal pain, nausea, vomiting, breathing problems, weakness or other concerns as needed. Scripts Prednisone (Prednisone) 20 Mg Tab 40 MG PO DAILY, #10 TAB 0 Refills Prov: NADINE CHAPMAN MD 11/04/19 NADINE CHAPMAN MD Nov 04, 2019 09:24 RITA RENTERIA APRN Nov 04, 2019 11:34
--- OUTSIDE RECORDS SUMMARY | 2019-11-04 09:24 | XMS REPORT | CCD ---
Author Author Robin Wu Organization Anabel Wu MD, [facility] Address [address] [place] [address] Phone Care Team Providers Care Pocket Cutter Name Role Phone PP Unavailable CCM Unavailable Summary Purpose Interface Exchange Insurance Providers Payer name Policy type / Coverage type Covered green party ID Effective Begin Date Effective End Date WPS Medicare Part B Medicare Part B [id number] 2018 Unknown [facility] [employer] INSUR Medicare Part B [id number] 2018 Unknown Family history Sister Diagnosis Age At Onset lung cancer Unknown Arthritis Unknown Alcoholism Unknown Hyperlipidemia Unknown Mother Diagnosis Age At Onset Coronary Artery Disease Unknown Alzheimer's Disease Unknown Stroke Unknown Heart Attack Unknown Arthritis Unknown Hypertension Unknown Sister Diagnosis Age At Onset lung cancer Unknown Grandmother Diagnosis Age At Onset Stroke Unknown Father Diagnosis Age At Onset Arthritis Unknown Heart Attack Unknown Coronary Artery Disease Unknown Hyperlipidemia Unknown kidney disease Unknown Hypertension Unknown Brother Diagnosis Age At Onset Heart Attack Unknown Hypertension Unknown Hyperlipidemia Unknown Social History Social History Element Codes Description Effective Dates Marital status Unknown M evelyn Mendoza 01/05/2015 Number of children Unknown 2 01/05/2015 Employment Unknown Curre ntly unemployed house 01/05/[address]: 377701200 Never smoker 01/05/[address]: 616944266 Never drinks alcohol 01/05/2015 Allergies, Adverse Reactions, Alerts Substance Reaction Codes Entered Date Inactivated Date Status * NO KNOWN DRUG ALVARO RGIES Unknown 01/05/2015 No Inactive Date Active Past Medical History Illness Codes Condition Status Onset Date Resolved Date Encounter for genera l adult medical examination with abnormal findings ICD-9: V70.0 ICD-10: Z00.01 Active 10/29/2016 Unknown Essential (primary) hypertension ICD-9: 401.1 ICD-10: I10 Active 10/24/2016 Unknown 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 ICD-9: 277.6 ICD-10: D84.1 Active 08/06/2018 Unknown Pain in right hip ICD-9: 719.45 ICD-10: M25.551 Active 02/10/2018 Unknown Encounter for screen ing mammogram for malignant neoplasm of breast ICD-9: V76.10 ICD-10: Z12.31 Active 05/29/2018 Unknown Gastro-esophageal re flux disease without esophagitis ICD-9: 530.81 ICD-10: K21.9 Active 11/28/2015 Unknown Other problems relat ed to lifestyle ICD-9: V69.8 ICD-10: Z72.89 Active 11/27/2017 Unknown Parkinson's disease ICD- 9: 332.0 ICD-10: G20 Active 08/04/2016 Unknown Personal history of other specified conditions ICD-9: V13.89 ICD-10: Z87.898 Active 10/11/2015 Unknown Vitamin D deficiency , unspecified ICD-9: 268.9 ICD-10: E55.9 Active 11/27/2017 Unknown Acute laryngopharyng itis ICD-9: 465.0 ICD-10: J06.0 Active 11/04/2017 Unknown Pain in left foot ICD-9: 729.5 ICD-10: M79.672 Active 04/22/2017 Unknown Pain in left knee ICD-9: 719.46 ICD-10: M25.562 Active 04/22/2017 Unknown Pain in left lower leg ICD-9: 729.5 ICD-10: M79.662 Active 04/22/2017 Unknown Pain in right foot ICD- 9: 729.5 ICD-10: M79.671 Active 04/22/2017 Unknown Cervicalgia ICD-9: 723.1 ICD-10: M54.2 Active 10/24/2016 Unknown Cough ICD-9: 786.2 ICD-10: R05 Active 08/04/2016 Unknown Pleurodynia ICD-9: 786.50 ICD-10: R07.81 Active 08/19/2016 Unknown Essential (primary) hypertension ICD-9: 401.9 ICD-10: I10 Active 08/04/2016 Unknown Other benign neoplas m of skin of right upper limb, including shoulder ICD-9: 216.6 ICD-10: D23.61 Active 05/07/2016 Unknown Encounter for immuni zation ICD-9: V04.81 ICD-10: Z23 Active 04/28/2016 Unknown Other hyperlipidemia ICD-9: 272.4 ICD-10: E78.4 Active 01/04/2015 Unknown Thyrotoxicosis, unsp ecified without thyrotoxic crisis or storm ICD-9: 242.90 ICD-10: E05.90 Active 07/30/2015 Unknown Multiple sclerosis Unknown Active 05/03/2015 Unknown Hyperlipidemia Unknown Active 01/05/2015 Unknow n Hypertension Unknown Active 01/05/2015 Unknow n ESSENTIAL HYPERTENSION ICD-9: 401.9 Active 01/04/2015 Unknown Flatulence, eructati on and gas pain ICD-9: 787.3 Active 12/19 Unknown HYPERLIPIDEMIA ICD-9: 272.4 Active 01/04/2015 Unknown Tremor observed on e xamination ICD-9: 781.0 Active 12/19 Unknown Problems Condition Codes Effectiv e Dates Condition Status Encounter for genera l adult medical examination with abnormal findings ICD-9: V70.0 ICD-10: Z00.01 10/29/2016 Active Essential (primary) hypertension ICD-9: 401.1 ICD-10: I10 10/24/2016 Active 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 ICD-9: 277.6 ICD-10: D84.1 08/06/2018 Active Pain in right hip ICD-9: 719.45 ICD-10: M25.551 02/10/2018 Active Encounter for screen ing mammogram for malignant neoplasm of breast ICD-9: V76.10 ICD-10: Z12.31 05/29/2018 Active Gastro-esophageal re flux disease without esophagitis ICD-9: 530.81 ICD-10: K21.9 11/28/2015 Active Other problems relat ed to lifestyle ICD-9: V69.8 ICD-10: Z72.89 11/27/2017 Active Parkinson's disease ICD- 9: 332.0 ICD-10: G20 08/04/2016 Active Personal history of other specified conditions ICD-9: V13.89 ICD-10: Z87.898 10/11/2015 Active Vitamin D deficiency , unspecified ICD-9: 268.9 ICD-10: E55.9 11/27/2017 Active Acute laryngopharyng itis ICD-9: 465.0 ICD-10: J06.0 11/04/2017 Active Pain in left foot ICD-9: 729.5 ICD-10: M79.672 04/22/2017 Active Pain in left knee ICD-9: 719.46 ICD-10: M25.562 04/22/2017 Active Pain in left lower leg ICD-9: 729.5 ICD-10: M79.662 04/22/2017 Active Pain in right foot ICD- 9: 729.5 ICD-10: M79.671 04/22/2017 Active Cervicalgia ICD-9: 723.1 ICD-10: M54.2 10/24/2016 Active Cough ICD-9: 786.2 ICD-10: R05 08/04/2016 Active Pleurodynia ICD-9: 786.50 ICD-10: R07.81 08/19/2016 Active Essential (primary) hypertension ICD-9: 401.9 ICD-10: I10 08/04/2016 Active Other benign neoplas m of skin of right upper limb, including shoulder ICD-9: 216.6 ICD-10: D23.61 05/07/2016 Active Encounter for immuni zation ICD-9: V04.81 ICD-10: Z23 04/28/2016 Active Other hyperlipidemia ICD-9: 272.4 ICD-10: E78.4 01/04/2015 Active Thyrotoxicosis, unsp ecified without thyrotoxic crisis or storm ICD-9: 242.90 ICD-10: E05.90 07/30/2015 Active Multiple sclerosis Unknown 05/03/2015 Active Hyperlipidemia Unknown 01/05/2015 Active Hypertension Unknown 01/05/2015 Active ESSENTIAL HYPERTENSION ICD-9: 401.9 01/04/2015 Active Flatulence, eructati on and gas pain ICD-9: 787.3 01/04/2015 Active HYPERLIPIDEMIA ICD-9: 272.4 01/04/2015 Active Tremor observed on e xamination ICD-9: 781.0 01/04/2015 Active Medications Medication Codes Instruc tions Start Date Stop Date Sta tus Fill Instructions hydrochlorothiazide 25 mg tablet RxNorm: 761429 1 Tablet(s) PO daily Dr Gomez 12/01/2018 08/27/2019 Ac tive Norvasc 10 mg tablet RxNorm: 812025 1 Tablet(s) PO daily 11/18/2018 11/12/2019 Active Norvasc 10 mg tablet RxNorm: 248597 TAKE 1 TABLET BY MOUTH ONCE DAILY. JC NT NEEDS TO MAKE APPOINTMENT. 09/18/2018 11/17/2018 Inactive venlafaxine ER 75 mg capsule,extended release 24 hr RxNorm: 744751 1 Tablet(s) PO daily Dr Fair 08/06/2018 No Stop Date Active Toprol XL 25 mg tabl et,extended release RxNorm: 314295 1/2 Tablet(s) PO TAKE ONE HALF TABLET BY MOUTH ONCE DAILY 08/06/2018 No Stop Date Active Toprol XL 25 mg tabl et,extended release RxNorm: 449346 Tablet(s) PO TAKE ONE TABLET BY MOUTH ONCE DAILY 05/12/2018 08/05/2018 Inactive Voltaren 1 % topical gel RxNorm: 428541 APPLY TWO GRAMS TOPIC ALLY 4 TIMES DAILY 03/25/2018 No Stop Date Active prednisone 20 mg tablet RxNorm: 497085 2 Tablet(s) PO PRN as needed allergic re action 11/27/2017 11/02/2018 Inactive amoxicillin 500 mg c apsule RxNorm: 135112 1 Capsule(s) PO TID 11/04/2017 11/10/2017 Inactive Ciprodex 0.3 %-0.1 % ear drops,suspension RxNorm: 239127 4 Drop(s) OTIC BID 11/04/2017 11/10/2017 In active Voltaren 1 % topical gel RxNorm: 743316 APPLY TWO GRAMS TOPIC ALLY 4 TIMES DAILY 10/16/2017 03/24/2018 In active Voltaren 1 % topical gel RxNorm: 912425 APPLY TWO GRAMS TOPIC ALLY 4 TIMES DAILY 08/21/2017 10/15/2017 In active Norvasc 10 mg tablet RxNorm: 588003 TAKE ONE TABLET BY MOUTH ONCE DAILY 07/28/2017 11/26/2017 In active Toprol XL 50 mg tabl et,extended release RxNorm: 005850 TAKE ONE TABLET BY [facility] ONCE DAILY 07/15/2017 05/11/2018 Inactive Voltaren 1 % topical gel RxNorm: 156103 2 Gram(s) TOP QID 04/22/2017 06/20/2017 Inactive ok t o dispense generic Toprol XL 50 mg tabl et,extended release RxNorm: 384837 TAKE ONE TABLET BY [facility] ONCE DAILY 02/03/2017 05/03/2017 Inactive naproxen 500 mg tablet RxNorm: 297805 1 Tablet(s) PO BID as needed 08/23/2016 09/01/2016 Inactive naproxen 500 mg tablet RxNorm: 182834 1 Tablet(s) PO BID as needed 08/23/2016 08/22/2016 Inactive acyclovir 800 mg tablet RxNorm: 242043 1 Tablet(s) PO TID 08/19/2016 08/28/2016 Inactive acyclovir 800 mg tablet RxNorm: 297182 1 Tablet(s) PO TID 08/19/2016 08/18/2016 Inactive tramadol 50 mg tablet RxNorm: 857379 1-2 Tablet(s) PO QID as needed 08/19/2016 10/21/2016 In active Pepcid 20 mg tablet RxNorm: 014120 1 Tablet(s) PO BID 08/12/2016 10/20/2016 Inactive INCREASE TO BID amoxicillin 500 mg c apsule RxNorm: 625027 1 Capsule(s) PO TID 08/12/2016 08/21/2016 Inactive amoxicillin 500 mg c apsule RxNorm: 360869 1 Capsule(s) PO TID 08/12/2016 08/11/2016 Inactive Norvasc 10 mg tablet RxNorm: 001725 TAKE ONE TABLET BY MOUTH ONCE DAILY 08/05/2016 10/20/2016 In active amlodipine 5 mg tablet RxNorm: 837918 1 Tablet(s) PO daily 08/05/2016 11/02/2018 Inactive prednisone 20 mg tablet RxNorm: 972533 2 Tablet(s) PO daily 08/05/2016 08/09/2016 Inactive Toprol XL 50 mg tabl et,extended release RxNorm: 257057 TAKE ONE TABLET BY [facility] ONCE DAILY 07/26/2016 01/21/2017 Inactive Lexapro 10 mg tablet RxNorm: 621354 1 Tablet(s) PO daily 02/28/2016 11/26/2017 Inactive amlodipine 5 mg tablet RxNorm: 918305 1 Tablet(s) PO daily 11/29/2015 06/25/2016 Inactive Pepcid 20 mg tablet RxNorm: 943211 1 Tablet(s) PO QPM 11/29/2015 06/25/2016 Inactive prednisone 20 mg tablet RxNorm: 769258 3 Tablet(s) PO daily use if needed for s ymptoms of angioedema 10/12/2015 10/16/2015 Inactive Norvasc 10 mg tablet RxNorm: 722817 1 Tablet(s) PO daily 10/12/2015 11/28/2015 Inactive pramipexole 0.5 mg t ablet RxNorm: 897367 1 Tablet(s) PO TID 10/12/2015 02/27/2016 Inactive EpiPen 0.3 mg/0.3 mL injection, auto-injector RxNorm: 948610 Milliliter(s) IM UD a s needed 10/04/2015 No Stop Date Active 1 epipen pramipexole 0.5 mg t ablet RxNorm: 865804 3 Tablet(s) PO TID 08/02/2015 10/11/2015 Inactive Norvasc 10 mg tablet RxNorm: 669860 1/2 Tablet(s) PO daily 08/02/2015 10/11/2015 Inactive Toprol XL 50 mg tabl et,extended release RxNorm: 471254 1 Tablet(s) PO daily 07/18/2015 07/11/2016 In active Norvasc 10 mg tablet RxNorm: 631919 1 Tablet(s) PO daily 07/05/2015 08/01/2015 Inactive Aspirin Low Dose 81 mg tablet,delayed release RxNorm: 463606 1 Tablet(s) PO QPM No Start Date Active Benadryl 25 mg capsule RxNorm: 7275140 1 -2 Capsule(s) PO QHS No Start Date Active trazodone 50 mg tablet RxNorm: 811809 1 Tablet(s) PO daily No Start Date Active Calcium RxNorm: oral No Start Date Active Vitamin D3 2,000 uni t tablet RxNorm: 233040 1 Tablet(s) PO daily No Start Date Active venlafaxine ER 37.5 mg tablet,extended release 24 hr RxNorm: 483114 1 Tablet(s) PO daily Dr Fair No Start Date 08/05/2018 Inactive pravastatin 20 mg ta blet RxNorm: 607957 1/2 Tablet(s) PO QHS No Start Date 08/01/2015 Inactive Desean Aspirin oral RxNorm: 042632 oral No Start Date 10/12/2015 Inactive pramipexole 0.125 mg tablet RxNorm: 864186 3 Tablet(s) PO TID No Start Date 08/01/2015 Inactive Norvasc 10 mg tablet RxNorm: 081252 1/2 Tablet(s) PO daily No Start Date 07/04/2015 Inactive Toprol XL 50 mg tabl et,extended release RxNorm: 528307 1 Tablet(s) PO daily No Start Date 07/17/2015 Inactive Benadryl Allergy oral RxNorm: 168379 oral No Start Date 10/12/2015 Inactive Calcium + D oral RxNorm: 244483 oral No Start Date 10/12/2015 Inactive amitriptyline 10 mg tablet RxNorm: 341000 1 Tablet(s) PO daily No Start Date 10/11/2015 Inactive hydrochlorothiazide 25 mg tablet RxNorm: 593124 1 Tablet(s) PO daily Dr Gomez No Start Date 11/30/2018 Inactive EpiPen 0.3 mg/0.3 mL injection, auto-injector RxNorm: 951291 Milliliter(s) IM UD a s needed No Start Date 10/03/2015 Inactive 1 epipen Vitamin D2 oral RxNorm: 4018 oral No Start Date 10/12/2015 Inactive Vitamin A Day oral RxNorm: 21192 oral No Start Date 08/05/2018 Inactive Medication Administered No Medication Administered data Immunizations Vaccine Codes Date Status Influenza CVX: 141 04/29 completed Influenza CVX: 141 05/03 completed Assessments Condition Codes Effectiv e Dates Encounter for general adult medical exam ination with abnormal findings ICD-10: Z00.01 ICD-9: V70.0 11/25/2018 Essential (primary) hypertension ICD -10: I10 ICD-9: 401.1 11/18/2018 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 ICD-9: 277.6 08/06/2018 Pain in right hip ICD-10: M25.551 ICD-9: 719.45 08/06/2018 Encounter for screening mammogram for ma lignant neoplasm of breast ICD-10: Z12.31 ICD-9: V76.10 05/29/2018 Parkinson's disease ICD-10: G20 ICD-9: 332.0 11/27/2017 Other problems related to lifestyle ICD-10: Z72.89 ICD-9: V69.8 11/27/2017 Gastro-esophageal reflux disease without esophagitis ICD-10: K21.9 ICD-9: 530.81 11/27/2017 Vitamin D deficiency, unspecified IC D-10: E55.9 ICD-9: 268.9 11/27/2017 Personal history of other specified conditions ICD-10: Z87.898 ICD-9: V13.89 11/27/2017 Acute laryngopharyngitis ICD-10: J06 .0 ICD-9: 465.0 11/04/2017 Pain in left knee ICD-10: M25.562 ICD-9: 719.46 04/22/2017 Pain in right foot ICD-10: M79.671 ICD-9: 729.5 04/22/2017 Pain in left lower leg ICD-10: M79.6 62 ICD-9: 729.5 04/22/2017 Pain in left foot ICD-10: M79.672 ICD-9: 729.5 04/22/2017 Cervicalgia ICD-10: M54.2 ICD-9: 723.1 10/24/2016 Cough ICD-10: R05 ICD-9: 786.2 08/19/2016 Pleurodynia ICD-10: R07.81 ICD-9: 786.50 08/19/2016 Essential (primary) hypertension ICD -10: I10 ICD-9: 401.9 08/05/2016 Other benign neoplasm of skin of right u pper limb, including shoulder ICD-10: D23.61 ICD-9: 216.6 05/08/2016 Encounter for immunization ICD-10: Z 23 ICD-9: V04.81 04/29/2016 Other hyperlipidemia ICD-10: E78.4 ICD-9: 272.4 08/02/2015 Thyrotoxicosis, unspecified without thyr otoxic crisis or storm ICD-10: E05.90 ICD-9: 242.90 07/31/2015 Flatulence, eructation and gas pain ICD-9: 787.3 01/05/2015 HYPERLIPIDEMIA ICD-9: 272.4 01/05/2015 Tremor observed on examination ICD-9: 781. 0 01/05/2015 ESSENTIAL HYPERTENSION ICD-9: 401.9 01/05/2015 Reason For Visit Reason For Visit Effective Dates Notes Annual Medicare Wellness Exam 11/25/2018 medication follow up 11/18/2018 hip pain 08/06/2018 hip pain 02/10/2018 lower leg pain 11/27/2017 Annual Medicare Wellness Exam 11/04/2017 lower leg pain 04/22/2017 Annual Medicare Wellness Exam 10/29/2016 hypertension 10/24/2016 cough 08/19/2016 cough 08/05/2016 skin lesion 05/08/2016 skin lesion 04/29/2016 hypertension 02/28/2016 hypertension 11/29/2015 angioedema 10/12/2015 hypertension 08/02/2015 hypertension 05/03/2015 hypertension 01/05/2015 Results Observation Observation Code Item Item Code Result Date Hcv Antibody [id number] HEPA TITIS C ANTIBODY NEGATIVE 11/28/2017 Vitamin D 25 Oh [id number] VITAMIN D, 25 HYDROXY 67.68 ng/mL 11/27/2017 Tsh Ord6 TSH (3rd IS) 1.02 uIU/mL 11/27/2017 Comp Metabolic Apa553 NA 137 mEq/L 08/05/2016 Comp Metabolic Ziq864 K 3.8 mEq/L 08/05/2016 Comp Metabolic Sve073 CL 103 mEq/L 08/05/2016 Comp Metabolic Vvg677 CO2 27.0 mEq/L 08/05/2016 Comp Metabolic Ess268 AN ION GAP 11 08/05/2016 Comp Metabolic Sxy828 GL UCOSE 90 mg/dL 08/05/2016 Comp Metabolic Yey073 Cr eat 1.0 mg/dL 08/05/2016 Comp Metabolic Ydr449 eG FR 59 ml/min/1.73m2 08/05 Comp Metabolic Vet565 BUN 24 mg/dL 08/05/2016 Comp Metabolic Rgx466 B/ C Ratio 24.2 Ratio 08/05/2016 Comp Metabolic Sfx214 CA LCIUM 9.5 mg/dL 08/05/2016 Comp Metabolic Hku595 AL K PHOS 76 U/L 08/05/2016 Comp Metabolic Dwn432 T(SGOT) 16 U/L 08/05/2016 Comp Metabolic Hrx804 AL T(SGPT) 14 U/L 08/05/2016 Comp Metabolic Tyb096 BI LI T 0.3 mg/dL 08/05/2016 Comp Metabolic Rat191 AL BUMIN 4.4 g/dL 08/05/2016 Comp Metabolic Zum323 TP RO 6.9 g/dL 08/05/2016 Comp Metabolic Zfr712 GL OB 2.5 g/dL 08/05/2016 Comp Metabolic Gnl819 A/ G Ratio 1.8 Ratio 08/05/2016 Comp Metabolic Don550 Os mo 277 mOsmo 08/05/2016 Cbc With Differential Ord2 WBC 6.72 K/ul 08/05/2016 Cbc With Differential Ord2 RBC 4.55 M/ul 08/05/2016 Cbc With Differential Ord2 HGB 13.0 g/dl 08/05/2016 Cbc With Differential Ord2 HCT 40.0 % 08/05/2016 Cbc With Differential Ord2 Neut% 72.4 % 08/05/2016 Cbc With Differential Ord2 MCV 87.9 fl 08/05/2016 Cbc With Differential Ord2 Lymph% 17.1 % 08/05/2016 Cbc With Differential Ord2 MCH 28.6 pg 08/05/2016 Cbc With Differential Ord2 Mcintosh% 8.3 % 08/05/2016 Cbc With Differential Ord2 MCHC 32.5 pg 08/05/2016 Cbc With Differential Ord2 Eos% 1.8 % 08/05/2016 Cbc With Differential Ord2 PLT 191 K/ul 08/05/2016 Cbc With Differential Ord2 Baso% 0.4 % 08/05/2016 Cbc With Differential Ord2 RDW 13.9 % 08/05/2016 Cbc With Differential Ord2 Neut ABS# 4.86 K/ul 08/05/2016 Cbc With Differential Ord2 Lymph ABS# 1.15 K/ul 08/05/2016 Cbc With Differential Ord2 Mcintosh ABS# 0.6 K/ul 08/05/2016 Cbc With Differential Ord2 Eos ABS# 0.1 K/ul 08/05/2016 Cbc With Differential Ord2 Baso ABS# 0.0 K/ul 08/05/2016 Lipid Ord30 CHOL 159 mg/dL 08/02/2015 Lipid Ord30 HDL 60.0 mg/dl 08/02/2015 Lipid Ord30 TRIG 57 mg/dL 08/02/2015 Lipid Ord30 LDL 88 mg/dL 08/02/2015 Lipid Ord30 C/HDL 2.7 Ratio 08/02/2015 Free T4 Pty064 FREE T4 1.25 ng/dL 07/31/2015 Tsh Ord6 hTSH II 1.91 uIU/mL 07/31/2015 Free T3 Koi661 Free T3 2.96 pg/ml 07/31/2015 Total T3 Ord42 TT3 1.2 ng/ml 05/04/2015 Free T3 Baz810 Free T3 2.71 pg/ml 05/04/2015 Tsh Ord6 hTSH II 1.23 uIU/mL 05/03/2015 Free T4 Bmo018 FREE T4 1.55 ng/dL 05/03/2015 Review of Systems System Result Effective Dates Constitutional No recent illness 11/25/2018 Constitutional No chills 11/25/2018 Constitutional No diaphoresis 11/25/2018 Constitutional No fever 11/25/2018 Eyes No eye erythema 02/2019 Ears/Nose/Throat/Neck No nasal discharge 11/25/2018 Cardiovascular No chest pain/pressure 11/25/2018 Cardiovascular No dyspnea 11/25/2018 Respiratory No cough 02/2019 Respiratory No dyspnea 0 11/25/2018 Neurologic No alteration of consciousness 11/25/2018 Neurologic No mental status change 11/25/2018 Constitutional No recent illness 11/18/2018 Constitutional No chills 11/18/2018 Constitutional No diaphoresis 11/18/2018 Constitutional No fever 11/18/2018 Eyes No eye erythema 07/2018 Ears/Nose/Throat/Neck No nasal discharge 11/18/2018 Cardiovascular No chest pain/pressure 11/18/2018 Cardiovascular No dyspnea 11/18/2018 Respiratory No chest congestion 11/18/2018 Respiratory No cough 07/2018 Gastrointestinal No abdominal pain 11/18/2018 Neurologic No alteration of consciousness 11/18/2018 Neurologic No mental status change 11/18/2018 Constitutional No recent illness 08/06/2018 Constitutional No chills 08/06/2018 Constitutional No fatigue 08/06/2018 Constitutional No fever 08/06/2018 Constitutional No insomnia 08/06/2018 Constitutional No malaise 08/06/2018 Eyes No vision change Ears/Nose/Throat/Neck No dental pain 08/06/2018 Ears/Nose/Throat/Neck No dizziness 08/06/2018 Ears/Nose/Throat/Neck No dysphagia 08/06/2018 Ears/Nose/Throat/Neck No headache 08/06/2018 Ears/Nose/Throat/Neck No hearing loss 08/06/2018 Ears/Nose/Throat/Neck No nasal allergies 08/06/2018 Ears/Nose/Throat/Neck No sore throat 08/06/2018 Ears/Nose/Throat/Neck No postnasal drip 08/06/2018 Ears/Nose/Throat/Neck No sinus congestion 08/06/2018 Cardiovascular No chest pain/pressure 08/06/2018 Cardiovascular No dyspnea 08/06/2018 Cardiovascular No edema 08/06/2018 Cardiovascular No exercise intolerance 08/06/2018 Cardiovascular No fatigue 08/06/2018 Cardiovascular No near-syncope/dizziness 08/06/2018 Respiratory No chest tightness 08/06/2018 Respiratory No cough Respiratory No dyspnea 0 08/06/2018 Respiratory No pedal edema 08/06/2018 Gastrointestinal No abdominal pain 08/06/2018 Gastrointestinal No constipation 08/06/2018 Gastrointestinal No diarrhea 08/06/2018 Gastrointestinal No gastroesophageal reflu x 08/06/2018 Gastrointestinal No nausea 08/06/2018 Gastrointestinal No vomiting 08/06/2018 Genitourinary/Nephrology No dysuria 08/06/2018 Genitourinary/Nephrology No nocturia 08/06/2018 Genitourinary/Nephrology No urinary incontinence 08/06/2018 Musculoskeletal stiffness 08/06/2018 Musculoskeletal No swelling 08/06/2018 Musculoskeletal No muscle weakness 08/06/2018 Musculoskeletal No myalgias 08/06/2018 Dermatologic No rash Dermatologic No sores Neurologic No dizziness 08/06/2018 Neurologic No headache 0 08/06/2018 Neurologic No neck pain 08/06/2018 Neurologic No syncope Psychiatric No anxiety 0 08/06/2018 Psychiatric No depression 08/06/2018 Musculoskeletal arthralgia(s) 08/06/2018 Musculoskeletal joint complaint 08/06/2018 Allergy/Immunology urticaria 08/06/2018 Constitutional No recent illness 02/10/2018 Constitutional No fatigue 02/10/2018 Cardiovascular No fatigue 02/10/2018 Cardiovascular No hypertension 02/10/2018 Respiratory No cough Respiratory No chest tightness 02/10/2018 Psychiatric No anxiety 0 02/10/2018 Musculoskeletal stiffness 02/10/2018 Musculoskeletal arthralgia(s) 02/10/2018 Constitutional No recent illness 11/27/2017 Constitutional No chills 11/27/2017 Constitutional fatigue 0 11/27/2017 Constitutional No fever 11/27/2017 Constitutional No insomnia 11/27/2017 Constitutional No malaise 11/27/2017 Eyes No blindness 2017 Eyes No vision change Ears/Nose/Throat/Neck No dental pain 11/27/2017 Ears/Nose/Throat/Neck No dizziness 11/27/2017 Ears/Nose/Throat/Neck No dysphagia 11/27/2017 Ears/Nose/Throat/Neck No headache 11/27/2017 Ears/Nose/Throat/Neck No hearing loss 11/27/2017 Ears/Nose/Throat/Neck No nasal allergies 11/27/2017 Ears/Nose/Throat/Neck No sore throat 11/27/2017 Ears/Nose/Throat/Neck No postnasal drip 11/27/2017 Ears/Nose/Throat/Neck No sinus congestion 11/27/2017 Cardiovascular No chest pain/pressure 11/27/2017 Cardiovascular No dyspnea 11/27/2017 Cardiovascular No edema 11/27/2017 Cardiovascular No exercise intolerance 11/27/2017 Cardiovascular No fatigue 11/27/2017 Cardiovascular No near-syncope/dizziness 11/27/2017 Respiratory No chest tightness 11/27/2017 Respiratory No cough 04/2018 Respiratory No dyspnea 0 11/27/2017 Respiratory No pedal edema 11/27/2017 Gastrointestinal abdominal pain 11/27/2017 Gastrointestinal constipation 11/27/2017 Gastrointestinal No diarrhea 11/27/2017 Gastrointestinal gas and bloating 11/27/2017 Gastrointestinal No gastroesophageal reflu x 11/27/2017 Gastrointestinal No nausea 11/27/2017 Gastrointestinal No vomiting 11/27/2017 Genitourinary/Nephrology No dysuria 11/27/2017 Genitourinary/Nephrology No nocturia 11/27/2017 Genitourinary/Nephrology No urinary incontinence 11/27/2017 Musculoskeletal stiffness 11/27/2017 Musculoskeletal No swelling 11/27/2017 Musculoskeletal bone pain 11/27/2017 Musculoskeletal No muscle weakness 11/27/2017 Musculoskeletal No myalgias 11/27/2017 Dermatologic No rash 04/2018 Dermatologic No sores Dermatologic No scar 04/2018 Neurologic No dizziness 11/27/2017 Neurologic dyskinesia or tremor 11/27/2017 Neurologic No headache 0 11/27/2017 Neurologic No neck pain 11/27/2017 Neurologic No syncope Psychiatric No anxiety 0 11/27/2017 Psychiatric No depression 11/27/2017 Constitutional No recent illness 11/04/2017 Constitutional No chills 11/04/2017 Constitutional No diaphoresis 11/04/2017 Constitutional No fever 11/04/2017 Eyes No eye erythema Cardiovascular No chest pain/pressure 11/04/2017 Cardiovascular No dyspnea 11/04/2017 Respiratory No cough Respiratory No dyspnea 0 11/04/2017 Neurologic No alteration of consciousness 11/04/2017 Neurologic No mental status change 11/04/2017 Ears/Nose/Throat/Neck nasal allergies 11/04/2017 Ears/Nose/Throat/Neck nasal discharge 11/04/2017 Ears/Nose/Throat/Neck otalgia 11/04/2017 Ears/Nose/Throat/Neck postnasal drip 11/04/2017 Constitutional No recent illness 04/22/2017 Constitutional No chills 04/22/2017 Constitutional fatigue 1 Constitutional No fever 04/22/2017 Constitutional No insomnia 04/22/2017 Constitutional No malaise 04/22/2017 Eyes No blindness 2016 Eyes No vision change Ears/Nose/Throat/Neck No dental pain 04/22/2017 Ears/Nose/Throat/Neck No dizziness 04/22/2017 Ears/Nose/Throat/Neck No dysphagia 04/22/2017 Ears/Nose/Throat/Neck No headache 04/22/2017 Ears/Nose/Throat/Neck No hearing loss 04/22/2017 Ears/Nose/Throat/Neck No nasal allergies 04/22/2017 Ears/Nose/Throat/Neck No sore throat 04/22/2017 Ears/Nose/Throat/Neck No postnasal drip 04/22/2017 Ears/Nose/Throat/Neck No sinus congestion 04/22/2017 Cardiovascular No chest pain/pressure 04/22/2017 Cardiovascular No dyspnea 04/22/2017 Cardiovascular No edema 04/22/2017 Cardiovascular No exercise intolerance 04/22/2017 Cardiovascular No fatigue 04/22/2017 Cardiovascular No near-syncope/dizziness 04/22/2017 Respiratory No chest tightness 04/22/2017 Respiratory No cough 09/2016 Respiratory No dyspnea 1 Respiratory No pedal edema 04/22/2017 Gastrointestinal abdominal pain 04/22/2017 Gastrointestinal constipation 04/22/2017 Gastrointestinal No diarrhea 04/22/2017 Gastrointestinal gas and bloating 04/22/2017 Gastrointestinal No gastroesophageal reflu x 04/22/2017 Gastrointestinal No nausea 04/22/2017 Gastrointestinal No vomiting 04/22/2017 Genitourinary/Nephrology No dysuria 04/22/2017 Genitourinary/Nephrology No nocturia 04/22/2017 Genitourinary/Nephrology No urinary incontinence 04/22/2017 Musculoskeletal stiffness 04/22/2017 Musculoskeletal No swelling 04/22/2017 Musculoskeletal bone pain 04/22/2017 Musculoskeletal No muscle weakness 04/22/2017 Musculoskeletal No myalgias 04/22/2017 Dermatologic No rash 09/2016 Dermatologic No sores Dermatologic No scar 09/2016 Neurologic No dizziness 04/22/2017 Neurologic dyskinesia or tremor 04/22/2017 Neurologic No headache 1 Neurologic No neck pain 04/22/2017 Neurologic No syncope Psychiatric No anxiety 1 Psychiatric No depression 04/22/2017 Constitutional No chills 10/29/2016 Constitutional No diaphoresis 10/29/2016 Constitutional No fever 10/29/2016 Eyes No eye erythema 05/2017 Ears/Nose/Throat/Neck No nasal allergies 10/29/2016 Ears/Nose/Throat/Neck No nasal discharge 10/29/2016 Cardiovascular No chest pain/pressure 10/29/2016 Cardiovascular No dyspnea 10/29/2016 Respiratory No cough 05/2017 Respiratory No dyspnea 0 10/29/2016 Neurologic No alteration of consciousness 10/29/2016 Neurologic No mental status change 10/29/2016 Constitutional No recent illness 10/24/2016 Constitutional No chills 10/24/2016 Constitutional fatigue 0 10/24/2016 Constitutional No fever 10/24/2016 Constitutional No insomnia 10/24/2016 Constitutional No malaise 10/24/2016 Eyes No blindness 2016 Eyes No vision change Ears/Nose/Throat/Neck No dental pain 10/24/2016 Ears/Nose/Throat/Neck No dizziness 10/24/2016 Ears/Nose/Throat/Neck No dysphagia 10/24/2016 Ears/Nose/Throat/Neck No headache 10/24/2016 Ears/Nose/Throat/Neck No hearing loss 10/24/2016 Ears/Nose/Throat/Neck No nasal allergies 10/24/2016 Ears/Nose/Throat/Neck No sore throat 10/24/2016 Ears/Nose/Throat/Neck No postnasal drip 10/24/2016 Ears/Nose/Throat/Neck No sinus congestion 10/24/2016 Cardiovascular No chest pain/pressure 10/24/2016 Cardiovascular No dyspnea 10/24/2016 Cardiovascular No edema 10/24/2016 Cardiovascular No exercise intolerance 10/24/2016 Cardiovascular No fatigue 10/24/2016 Cardiovascular No near-syncope/dizziness 10/24/2016 Respiratory No chest tightness 10/24/2016 Respiratory No cough 12/2016 Respiratory No dyspnea 0 10/24/2016 Respiratory No pedal edema 10/24/2016 Gastrointestinal abdominal pain 10/24/2016 Gastrointestinal constipation 10/24/2016 Gastrointestinal No diarrhea 10/24/2016 Gastrointestinal gas and bloating 10/24/2016 Gastrointestinal No gastroesophageal reflu x 10/24/2016 Gastrointestinal No nausea 10/24/2016 Gastrointestinal No vomiting 10/24/2016 Genitourinary/Nephrology No dysuria 10/24/2016 Genitourinary/Nephrology No nocturia 10/24/2016 Genitourinary/Nephrology No urinary incontinence 10/24/2016 Musculoskeletal stiffness 10/24/2016 Musculoskeletal No swelling 10/24/2016 Musculoskeletal No muscle weakness 10/24/2016 Musculoskeletal No myalgias 10/24/2016 Dermatologic No rash 12/2016 Dermatologic No sores Dermatologic No scar 12/2016 Neurologic No dizziness 10/24/2016 Neurologic dyskinesia or tremor 10/24/2016 Neurologic No headache 0 10/24/2016 Neurologic No neck pain 10/24/2016 Neurologic No syncope Psychiatric No anxiety 0 10/24/2016 Psychiatric No depression 10/24/2016 Musculoskeletal bone pain 10/24/2016 Constitutional No recent illness 08/19/2016 Constitutional No fever 08/19/2016 Eyes No eye erythema Ears/Nose/Throat/Neck nasal allergies 08/19/2016 Cardiovascular No chest pain/pressure 08/19/2016 Respiratory cough 2016 Respiratory dyspnea on exertion 08/19/2016 Respiratory No dyspnea 0 08/19/2016 Neurologic No alteration of consciousness 08/19/2016 Neurologic No mental status change 08/19/2016 Gastrointestinal No vomiting 08/19/2016 Gastrointestinal No nausea 08/19/2016 Gastrointestinal No diarrhea 08/19/2016 Gastrointestinal No constipation 08/19/2016 Dermatologic No rash Constitutional No recent illness 08/05/2016 Constitutional No fever 08/05/2016 Eyes No eye erythema Ears/Nose/Throat/Neck nasal allergies 08/05/2016 Cardiovascular No chest pain/pressure 08/05/2016 Respiratory cough 2016 Respiratory dyspnea on exertion 08/05/2016 Respiratory No dyspnea 0 08/05/2016 Gastrointestinal No abdominal pain 08/05/2016 Neurologic No alteration of consciousness 08/05/2016 Neurologic No mental status change 08/05/2016 Constitutional recent illness 04/29/2016 Dermatologic No rash 04/2016 Dermatologic mole change 04/29/2016 Constitutional No recent illness 02/28/2016 Constitutional No chills 02/28/2016 Constitutional fatigue 0 02/28/2016 Constitutional No fever 02/28/2016 Constitutional No insomnia 02/28/2016 Constitutional No malaise 02/28/2016 Eyes No blindness 2015 Eyes No vision change Ears/Nose/Throat/Neck No dental pain 02/28/2016 Ears/Nose/Throat/Neck No dizziness 02/28/2016 Ears/Nose/Throat/Neck No dysphagia 02/28/2016 Ears/Nose/Throat/Neck No headache 02/28/2016 Ears/Nose/Throat/Neck No hearing loss 02/28/2016 Ears/Nose/Throat/Neck No nasal allergies 02/28/2016 Ears/Nose/Throat/Neck No sore throat 02/28/2016 Ears/Nose/Throat/Neck No postnasal drip 02/28/2016 Ears/Nose/Throat/Neck No sinus congestion 02/28/2016 Cardiovascular No chest pain/pressure 02/28/2016 Cardiovascular No dyspnea 02/28/2016 Cardiovascular No edema 02/28/2016 Cardiovascular No exercise intolerance 02/28/2016 Cardiovascular No fatigue 02/28/2016 Cardiovascular No near-syncope/dizziness 02/28/2016 Respiratory No chest tightness 02/28/2016 Respiratory No cough 04/2016 Respiratory No dyspnea 0 02/28/2016 Respiratory No pedal edema 02/28/2016 Gastrointestinal abdominal pain 02/28/2016 Gastrointestinal constipation 02/28/2016 Gastrointestinal No diarrhea 02/28/2016 Gastrointestinal gas and bloating 02/28/2016 Gastrointestinal No gastroesophageal reflu x 02/28/2016 Gastrointestinal No nausea 02/28/2016 Gastrointestinal No vomiting 02/28/2016 Genitourinary/Nephrology No dysuria 02/28/2016 Genitourinary/Nephrology No nocturia 02/28/2016 Genitourinary/Nephrology No urinary incontinence 02/28/2016 Musculoskeletal No stiffness 02/28/2016 Musculoskeletal No swelling 02/28/2016 Musculoskeletal No muscle weakness 02/28/2016 Musculoskeletal No myalgias 02/28/2016 Dermatologic No rash 04/2016 Dermatologic No sores Dermatologic No scar 04/2016 Neurologic No dizziness 02/28/2016 Neurologic dyskinesia or tremor 02/28/2016 Neurologic No headache 0 02/28/2016 Neurologic No neck pain 02/28/2016 Neurologic No syncope Psychiatric No anxiety 0 02/28/2016 Psychiatric No depression 02/28/2016 Constitutional No recent illness 11/29/2015 Constitutional No chills 11/29/2015 Constitutional fatigue 0 11/29/2015 Constitutional No fever 11/29/2015 Constitutional No insomnia 11/29/2015 Constitutional No malaise 11/29/2015 Eyes No blindness 2015 Eyes No vision change Ears/Nose/Throat/Neck No dental pain 11/29/2015 Ears/Nose/Throat/Neck No dizziness 11/29/2015 Ears/Nose/Throat/Neck No dysphagia 11/29/2015 Ears/Nose/Throat/Neck No headache 11/29/2015 Ears/Nose/Throat/Neck No hearing loss 11/29/2015 Ears/Nose/Throat/Neck No nasal allergies 11/29/2015 Ears/Nose/Throat/Neck No sore throat 11/29/2015 Ears/Nose/Throat/Neck No postnasal drip 11/29/2015 Ears/Nose/Throat/Neck No sinus congestion 11/29/2015 Cardiovascular No chest pain/pressure 11/29/2015 Cardiovascular No dyspnea 11/29/2015 Cardiovascular No edema 11/29/2015 Cardiovascular No exercise intolerance 11/29/2015 Cardiovascular No fatigue 11/29/2015 Cardiovascular No near-syncope/dizziness 11/29/2015 Respiratory No chest tightness 11/29/2015 Respiratory No cough 05/2016 Respiratory No dyspnea 0 11/29/2015 Respiratory No pedal edema 11/29/2015 Gastrointestinal abdominal pain 11/29/2015 Gastrointestinal constipation 11/29/2015 Gastrointestinal No diarrhea 11/29/2015 Gastrointestinal gas and bloating 11/29/2015 Gastrointestinal No gastroesophageal reflu x 11/29/2015 Gastrointestinal No nausea 11/29/2015 Gastrointestinal No vomiting 11/29/2015 Genitourinary/Nephrology No dysuria 11/29/2015 Genitourinary/Nephrology No nocturia 11/29/2015 Genitourinary/Nephrology No urinary incontinence 11/29/2015 Musculoskeletal No stiffness 11/29/2015 Musculoskeletal No swelling 11/29/2015 Musculoskeletal No muscle weakness 11/29/2015 Musculoskeletal No myalgias 11/29/2015 Dermatologic No rash 05/2016 Dermatologic No sores Dermatologic No scar 05/2016 Neurologic No dizziness 11/29/2015 Neurologic dyskinesia or tremor 11/29/2015 Neurologic No headache 0 11/29/2015 Neurologic No neck pain 11/29/2015 Neurologic No syncope Psychiatric No anxiety 0 11/29/2015 Psychiatric No depression 11/29/2015 Constitutional No recent illness 10/12/2015 Constitutional No chills 10/12/2015 Constitutional fatigue 0 10/12/2015 Constitutional No fever 10/12/2015 Constitutional No insomnia 10/12/2015 Constitutional No malaise 10/12/2015 Eyes No blindness 2015 Eyes No vision change Ears/Nose/Throat/Neck No dental pain 10/12/2015 Ears/Nose/Throat/Neck No dizziness 10/12/2015 Ears/Nose/Throat/Neck No dysphagia 10/12/2015 Ears/Nose/Throat/Neck No headache 10/12/2015 Ears/Nose/Throat/Neck No hearing loss 10/12/2015 Ears/Nose/Throat/Neck No nasal allergies 10/12/2015 Ears/Nose/Throat/Neck No sore throat 10/12/2015 Ears/Nose/Throat/Neck No postnasal drip 10/12/2015 Ears/Nose/Throat/Neck No sinus congestion 10/12/2015 Cardiovascular No chest pain/pressure 10/12/2015 Cardiovascular No dyspnea 10/12/2015 Cardiovascular No edema 10/12/2015 Cardiovascular No exercise intolerance 10/12/2015 Cardiovascular No fatigue 10/12/2015 Cardiovascular No near-syncope/dizziness 10/12/2015 Respiratory No chest tightness 10/12/2015 Respiratory No cough Respiratory No dyspnea 0 10/12/2015 Respiratory No pedal edema 10/12/2015 Gastrointestinal abdominal pain 10/12/2015 Gastrointestinal constipation 10/12/2015 Gastrointestinal No diarrhea 10/12/2015 Gastrointestinal gas and bloating 10/12/2015 Gastrointestinal No gastroesophageal reflu x 10/12/2015 Gastrointestinal No nausea 10/12/2015 Gastrointestinal No vomiting 10/12/2015 Genitourinary/Nephrology No dysuria 10/12/2015 Genitourinary/Nephrology No nocturia 10/12/2015 Genitourinary/Nephrology No urinary incontinence 10/12/2015 Musculoskeletal No stiffness 10/12/2015 Musculoskeletal No swelling 10/12/2015 Musculoskeletal No muscle weakness 10/12/2015 Musculoskeletal No myalgias 10/12/2015 Dermatologic No rash Dermatologic No sores Dermatologic No scar Neurologic No dizziness 10/12/2015 Neurologic dyskinesia or tremor 10/12/2015 Neurologic No headache 0 10/12/2015 Neurologic No neck pain 10/12/2015 Neurologic No syncope Psychiatric No anxiety 0 10/12/2015 Psychiatric No depression 10/12/2015 Constitutional No recent illness 08/02/2015 Constitutional No chills 08/02/2015 Constitutional fatigue 0 08/02/2015 Constitutional No fever 08/02/2015 Constitutional No insomnia 08/02/2015 Constitutional No malaise 08/02/2015 Eyes No blindness 2015 Eyes No vision change Ears/Nose/Throat/Neck No dental pain 08/02/2015 Ears/Nose/Throat/Neck No dizziness 08/02/2015 Ears/Nose/Throat/Neck No dysphagia 08/02/2015 Ears/Nose/Throat/Neck No headache 08/02/2015 Ears/Nose/Throat/Neck No hearing loss 08/02/2015 Ears/Nose/Throat/Neck No nasal allergies 08/02/2015 Ears/Nose/Throat/Neck No sore throat 08/02/2015 Ears/Nose/Throat/Neck No postnasal drip 08/02/2015 Ears/Nose/Throat/Neck No sinus congestion 08/02/2015 Cardiovascular No chest pain/pressure 08/02/2015 Cardiovascular No dyspnea 08/02/2015 Cardiovascular No edema 08/02/2015 Cardiovascular No exercise intolerance 08/02/2015 Cardiovascular No fatigue 08/02/2015 Cardiovascular No near-syncope/dizziness 08/02/2015 Respiratory No chest tightness 08/02/2015 Respiratory No cough Respiratory No dyspnea 0 08/02/2015 Respiratory No pedal edema 08/02/2015 Gastrointestinal abdominal pain 08/02/2015 Gastrointestinal constipation 08/02/2015 Gastrointestinal No diarrhea 08/02/2015 Gastrointestinal gas and bloating 08/02/2015 Gastrointestinal No gastroesophageal reflu x 08/02/2015 Gastrointestinal No nausea 08/02/2015 Gastrointestinal No vomiting 08/02/2015 Genitourinary/Nephrology No dysuria 08/02/2015 Genitourinary/Nephrology No nocturia 08/02/2015 Genitourinary/Nephrology No urinary incontinence 08/02/2015 Musculoskeletal No stiffness 08/02/2015 Musculoskeletal No swelling 08/02/2015 Musculoskeletal No muscle weakness 08/02/2015 Musculoskeletal No myalgias 08/02/2015 Dermatologic No rash Dermatologic No sores Dermatologic No scar Neurologic No dizziness 08/02/2015 Neurologic dyskinesia or tremor 08/02/2015 Neurologic No headache 0 08/02/2015 Neurologic No neck pain 08/02/2015 Neurologic No syncope Psychiatric No anxiety 0 08/02/2015 Psychiatric No depression 08/02/2015 Constitutional No recent illness 05/03/2015 Constitutional No chills 05/03/2015 Constitutional fatigue 1 Constitutional No fever 05/03/2015 Constitutional No insomnia 05/03/2015 Constitutional No malaise 05/03/2015 Eyes No blindness 2014 Eyes No vision change Ears/Nose/Throat/Neck No dental pain 05/03/2015 Ears/Nose/Throat/Neck No dizziness 05/03/2015 Ears/Nose/Throat/Neck No dysphagia 05/03/2015 Ears/Nose/Throat/Neck No headache 05/03/2015 Ears/Nose/Throat/Neck No hearing loss 05/03/2015 Ears/Nose/Throat/Neck No nasal allergies 05/03/2015 Ears/Nose/Throat/Neck No sore throat 05/03/2015 Ears/Nose/Throat/Neck No postnasal drip 05/03/2015 Ears/Nose/Throat/Neck No sinus congestion 05/03/2015 Cardiovascular No chest pain/pressure 05/03/2015 Cardiovascular No dyspnea 05/03/2015 Cardiovascular No edema 05/03/2015 Cardiovascular No exercise intolerance 05/03/2015 Cardiovascular No fatigue 05/03/2015 Cardiovascular No near-syncope/dizziness 05/03/2015 Respiratory No chest tightness 05/03/2015 Respiratory No cough Respiratory No dyspnea 1 Respiratory No pedal edema 05/03/2015 Gastrointestinal abdominal pain 05/03/2015 Gastrointestinal constipation 05/03/2015 Gastrointestinal No diarrhea 05/03/2015 Gastrointestinal gas and bloating 05/03/2015 Gastrointestinal No gastroesophageal reflu x 05/03/2015 Gastrointestinal No nausea 05/03/2015 Gastrointestinal No vomiting 05/03/2015 Genitourinary/Nephrology No dysuria 05/03/2015 Genitourinary/Nephrology No nocturia 05/03/2015 Genitourinary/Nephrology No urinary incontinence 05/03/2015 Musculoskeletal No stiffness 05/03/2015 Musculoskeletal No swelling 05/03/2015 Musculoskeletal No muscle weakness 05/03/2015 Musculoskeletal No myalgias 05/03/2015 Dermatologic No rash Dermatologic No sores Dermatologic No scar Neurologic No dizziness 05/03/2015 Neurologic dyskinesia or tremor 05/03/2015 Neurologic No headache 1 Neurologic No neck pain 05/03/2015 Neurologic No syncope Psychiatric No anxiety 1 Psychiatric No depression 05/03/2015 Constitutional No recent illness 01/05/2015 Constitutional No chills 01/05/2015 Constitutional fatigue 0 01/05/2015 Constitutional No fever 01/05/2015 Constitutional No insomnia 01/05/2015 Constitutional No malaise 01/05/2015 Eyes No blindness 2014 Eyes No vision change Ears/Nose/Throat/Neck No dental pain 01/05/2015 Ears/Nose/Throat/Neck No dizziness 01/05/2015 Ears/Nose/Throat/Neck No dysphagia 01/05/2015 Ears/Nose/Throat/Neck No headache 01/05/2015 Ears/Nose/Throat/Neck No hearing loss 01/05/2015 Ears/Nose/Throat/Neck No nasal allergies 01/05/2015 Ears/Nose/Throat/Neck No sore throat 01/05/2015 Ears/Nose/Throat/Neck No postnasal drip 01/05/2015 Ears/Nose/Throat/Neck No sinus congestion 01/05/2015 Cardiovascular No chest pain/pressure 01/05/2015 Cardiovascular No dyspnea 01/05/2015 Cardiovascular No edema 01/05/2015 Cardiovascular No exercise intolerance 01/05/2015 Cardiovascular No fatigue 01/05/2015 Cardiovascular No near-syncope/dizziness 01/05/2015 Respiratory No chest tightness 01/05/2015 Respiratory No cough Respiratory No dyspnea 0 01/05/2015 Respiratory No pedal edema 01/05/2015 Gastrointestinal abdominal pain 01/05/2015 Gastrointestinal constipation 01/05/2015 Gastrointestinal No diarrhea 01/05/2015 Gastrointestinal No gastroesophageal reflu x 01/05/2015 Gastrointestinal No nausea 01/05/2015 Gastrointestinal No vomiting 01/05/2015 Genitourinary/Nephrology No dysuria 01/05/2015 Genitourinary/Nephrology No nocturia 01/05/2015 Genitourinary/Nephrology No urinary incontinence 01/05/2015 Musculoskeletal No stiffness 01/05/2015 Musculoskeletal No swelling 01/05/2015 Musculoskeletal No muscle weakness 01/05/2015 Musculoskeletal No myalgias 01/05/2015 Dermatologic No rash Dermatologic No sores Dermatologic No scar Neurologic No dizziness 01/05/2015 Neurologic No headache 0 01/05/2015 Neurologic No neck pain 01/05/2015 Neurologic No syncope Psychiatric No anxiety 0 01/05/2015 Psychiatric No depression 01/05/2015 Gastrointestinal gas and bloating 01/05/2015 Neurologic dyskinesia or tremor 01/05/2015 Physical Exam Exam Name System Name It em Name Status Result Effective Dates Notes Full Exam - General 1994 Constitutional general appearance Overall: well developed 11/25/2018 None Full Exam - General 1994 Constitutional general appearance Overall: in no acute distress 11/25/2018 None Full Exam - General 1994 Constitutional general appearance Overall: well nourished 11/25/2018 None Full Exam - General 1994 Eyes conjunctiva/eyelids Overall: conjunctiva clear 11/25/2018 None Full Exam - General 1994 Eyes conjunctiva/eyelids Overall: eyelids normal 11/25/2018 None Full Exam - General 1994 Ears/Nose/Throat lips/teeth/gingiva Overall: benign lips 11/25/2018 None Full Exam - General 1994 Respiratory respiratory effort/rhythm Overall: no retractions 11/25/2018 None Full Exam - General 1994 Respiratory respiratory effort/rhythm Overall: normal rate 11/25/2018 None Full Exam - General 1994 Musculoskeletal head and neck Overall: head atraumatic 11/25/2018 None Full Exam - General 1994 Neurologic cranial nerves Overall: crainial nerves 2 - 12 grossly intact 11/25/2018 None Full Exam - General 1994 Psychiatric orientation/consciousness Overall: oriented to person, place and time 11/25/2018 None Full Exam - General 1994 Psychiatric mood and affect Overall: normal mood and affect 11/25/2018 None Full Exam - General 1994 Psychiatric appearance Overall: well-groomed, good eye contact 11/25/2018 None Full Exam - General 1994 Constitutional general appearance Overall: well developed 11/18/2018 None Full Exam - General 1994 Constitutional general appearance Overall: in no acute distress 11/18/2018 None Full Exam - General 1994 Constitutional general appearance Overall: well nourished 11/18/2018 None Full Exam - General 1994 Eyes conjunctiva/eyelids Overall: conjunctiva clear 11/18/2018 None Full Exam - General 1994 Eyes conjunctiva/eyelids Overall: cornea clear 11/18/2018 None Full Exam - General 1994 Eyes conjunctiva/eyelids Overall: eyelids normal 11/18/2018 None Full Exam - General 1994 Ears/Nose/Throat lips/teeth/gingiva Overall: benign lips 11/18/2018 None Full Exam - General 1994 Ears/Nose/Throat oral cavity/pharynx/larynx Overall: oral mucosa clear 11/18/2018 None Full Exam - General 1994 Ears/Nose/Throat oral cavity/pharynx/larynx Overall: oropharyngeal mucosa clear 11/18/2018 None Full Exam - General 1994 Respiratory auscultation Overall: breath sounds clear bilaterally 11/18/2018 None Full Exam - General 1994 Respiratory respiratory effort/rhythm Overall: no retractions 11/18/2018 None Full Exam - General 1994 Respiratory respiratory effort/rhythm Overall: normal rate 11/18/2018 None Full Exam - General 1994 Cardiovascular auscultation of heart Overall: regular rate 11/18/2018 None Full Exam - General 1994 Cardiovascular auscultation of heart Overall: normal heart sounds 11/18/2018 None Full Exam - General 1994 Musculoskeletal head and neck Overall: head atraumatic 11/18/2018 None Full Exam - General 1994 Neurologic cranial nerves Overall: crainial nerves 2 - 12 grossly intact 11/18/2018 None Full Exam - General 1994 Psychiatric orientation/consciousness Overall: oriented to person, place and time 11/18/2018 None Full Exam - General 1994 Psychiatric mood and affect Overall: normal mood and affect 11/18/2018 None Full Exam - General 1994 Psychiatric appearance Overall: well-groomed, good eye contact 11/18/2018 None Full Exam - General 1994 Constitutional general appearance Development: well developed 08/06/2018 None Full Exam - General 1994 Constitutional general appearance Development: appears stated age 0108/06/2018 None Full Exam - General 1994 Constitutional general appearance Hygiene/Attention to Grooming: good hygiene 08/06/2018 None Full Exam - General 1994 Eyes conjunctiva/eyelids Overall: conjunctiva clear 08/06/2018 None Full Exam - General 1994 Eyes conjunctiva/eyelids Overall: cornea clear 08/06/2018 None Full Exam - General 1994 Eyes conjunctiva/eyelids Overall: eyelids normal 08/06/2018 None Full Exam - General 1994 Eyes pupils and irises Overall: pupils equal, round, reactive to light and accomodation 08/06/2018 None Full Exam - General 1994 Ears/Nose/Throat otoscopic exam Overall: external auditory canals clear 08/06/2018 None Full Exam - General 1994 Ears/Nose/Throat otoscopic exam Overall: tympanic membranes clear 08/06/2018 None Full Exam - General 1994 Ears/Nose/Throat lips/teeth/gingiva Overall: benign lips 08/06/2018 None Full Exam - General 1994 Ears/Nose/Throat lips/teeth/gingiva Overall: normal dentition 08/06/2018 None Full Exam - General 1994 Ears/Nose/Throat oral cavity/pharynx/larynx Overall: oral mucosa clear 08/06/2018 None Full Exam - General 1994 Ears/Nose/Throat oral cavity/pharynx/larynx Overall: oropharyngeal mucosa clear 08/06/2018 None Full Exam - General 1994 Ears/Nose/Throat oral cavity/pharynx/larynx Overall: hypopharynx benign 08/06/2018 None Full Exam - General 1994 Ears/Nose/Throat oral cavity/pharynx/larynx Overall: no masses 08/06/2018 None Full Exam - General 1994 Respiratory auscultation Overall: breath sounds clear bilaterally 08/06/2018 None Full Exam - General 1994 Respiratory respiratory effort/rhythm Overall: no retractions 08/06/2018 None Full Exam - General 1994 Respiratory respiratory effort/rhythm Overall: normal rate 08/06/2018 None Full Exam - General 1994 Cardiovascular extremities Overall: no clubbing 08/06/2018 None Full Exam - General 1994 Cardiovascular auscultation of heart Overall: regular rate 08/06/2018 None Full Exam - General 1994 Cardiovascular auscultation of heart Overall: normal heart sounds 08/06/2018 None Full Exam - General 1994 Musculoskeletal spine, ribs and pelvis Overall: good posture 08/06/2018 None Full Exam - General 1994 Musculoskeletal head and neck Overall: head atraumatic 08/06/2018 None Full Exam - General 1994 Musculoskeletal head and neck Overall: cervical spine benign 08/06/2018 None Full Exam - General 1994 Integument inspection of skin Overall: few scattered moles, no gross abnormalities 08/06/2018 None Full Exam - General 1994 Neurologic cranial nerves Overall: crainial nerves 2 - 12 grossly intact 08/06/2018 None Full Exam - General 1994 Psychiatric orientation/consciousness Overall: oriented to person, place and time 08/06/2018 None Full Exam - General 1994 Psychiatric mood and affect Overall: normal mood and affect 08/06/2018 None Full Exam - General 1994 Constitutional general appearance Overall: well nourished 02/10/2018 None Full Exam - General 1994 Constitutional general appearance Overall: well developed 02/10/2018 None Full Exam - General 1994 Constitutional general appearance Overall: in no acute distress 02/10/2018 None Full Exam - General 1994 Respiratory auscultation Overall: breath sounds clear bilaterally 02/10/2018 None Full Exam - General 1994 Respiratory respiratory effort/rhythm Overall: normal rate 02/10/2018 None Full Exam - General 1994 Respiratory respiratory effort/rhythm Overall: no retractions 02/10/2018 None Full Exam - General 1994 Cardiovascular auscultation of heart Overall: regular rate 02/10/2018 None Full Exam - General 1994 Cardiovascular auscultation of heart Overall: normal heart sounds 02/10/2018 None Full Exam - General 1994 Cardiovascular auscultation of heart Overall: no murmurs 02/10/2018 None Full Exam - General 1994 Psychiatric orientation/consciousness Overall: oriented to person, place and time 02/10/2018 None Full Exam - General 1994 Psychiatric mood and affect Mood: happy 02/10/2018 None Full Exam - General 1994 Psychiatric mood and affect Overall: normal mood and affect 02/10/2018 None Full Exam - General 1994 Musculoskeletal lower extremity Inspection - thigh: swelling 02/10/2018 None Full Exam - General 1994 Musculoskeletal lower extremity Palpation - thigh: tenderness 02/10/2018 anterior thigh and lateral thigh - pain with internal and external rotation, tender to touch Full Exam - General 1994 Constitutional general appearance Development: well developed 11/27/2017 None Full Exam - General 1994 Constitutional general appearance Development: appears stated age 0511/27/2017 None Full Exam - General 1994 Constitutional general appearance Hygiene/Attention to Grooming: good hygiene 11/27/2017 None Full Exam - General 1994 Eyes conjunctiva/eyelids Overall: conjunctiva clear 11/27/2017 None Full Exam - General 1994 Eyes conjunctiva/eyelids Overall: cornea clear 11/27/2017 None Full Exam - General 1994 Eyes conjunctiva/eyelids Overall: eyelids normal 11/27/2017 None Full Exam - General 1994 Eyes pupils and irises Overall: pupils equal, round, reactive to light and accomodation 11/27/2017 None Full Exam - General 1994 Ears/Nose/Throat otoscopic exam Overall: external auditory canals clear 11/27/2017 None Full Exam - General 1994 Ears/Nose/Throat otoscopic exam Overall: tympanic membranes clear 11/27/2017 None Full Exam - General 1994 Ears/Nose/Throat lips/teeth/gingiva Overall: benign lips 11/27/2017 None Full Exam - General 1994 Ears/Nose/Throat lips/teeth/gingiva Overall: normal dentition 11/27/2017 None Full Exam - General 1994 Ears/Nose/Throat oral cavity/pharynx/larynx Overall: oral mucosa clear 11/27/2017 None Full Exam - General 1994 Ears/Nose/Throat oral cavity/pharynx/larynx Overall: oropharyngeal mucosa clear 11/27/2017 None Full Exam - General 1994 Ears/Nose/Throat oral cavity/pharynx/larynx Overall: hypopharynx benign 11/27/2017 None Full Exam - General 1994 Ears/Nose/Throat oral cavity/pharynx/larynx Overall: no masses 11/27/2017 None Full Exam - General 1994 Respiratory auscultation Overall: breath sounds clear bilaterally 11/27/2017 None Full Exam - General 1994 Respiratory respiratory effort/rhythm Overall: no retractions 11/27/2017 None Full Exam - General 1994 Respiratory respiratory effort/rhythm Overall: normal rate 11/27/2017 None Full Exam - General 1994 Cardiovascular extremities Overall: no clubbing 11/27/2017 None Full Exam - General 1994 Cardiovascular auscultation of heart Overall: regular rate 11/27/2017 None Full Exam - General 1994 Cardiovascular auscultation of heart Overall: normal heart sounds 11/27/2017 None Full Exam - General 1994 Abdomen abdominal exam Overall: no tenderness 11/27/2017 None Full Exam - General 1994 Abdomen abdominal exam Overall: normal bowel sounds 11/27/2017 None Full Exam - General 1994 Lymphatic neck nodes Overall: anterior cervical chain benign 11/27/2017 None Full Exam - General 1994 Lymphatic neck nodes Overall: posterior cervical chain benign 11/27/2017 None Full Exam - General 1994 Musculoskeletal spine, ribs and pelvis Overall: spine benign 11/27/2017 None Full Exam - General 1994 Musculoskeletal spine, ribs and pelvis Overall: sacroiliac joint benign 11/27/2017 None Full Exam - General 1994 Musculoskeletal spine, ribs and pelvis Overall: good posture 11/27/2017 None Full Exam - General 1994 Musculoskeletal head and neck Overall: head atraumatic 11/27/2017 None Full Exam - General 1994 Musculoskeletal head and neck Overall: cervical spine benign 11/27/2017 None Full Exam - General 1994 Integument inspection of skin Overall: few scattered moles, no gross abnormalities 11/27/2017 None Full Exam - General 1994 Neurologic deep tendon reflexes Overall: deep tendon reflexes intact 11/27/2017 None Full Exam - General 1994 Neurologic coordination Tremors: resting 11/27/2017 noted tremors of hands, a nd head Full Exam - General 1994 Neurologic cranial nerves Overall: crainial nerves 2 - 12 grossly intact 11/27/2017 None Full Exam - General 1994 Psychiatric orientation/consciousness Overall: oriented to person, place and time 11/27/2017 None Full Exam - General 1994 Psychiatric mood and affect Overall: normal mood and affect 11/27/2017 None Full Exam - General 1994 Constitutional general appearance Overall: well developed 11/04/2017 None Full Exam - General 1994 Constitutional general appearance Overall: in no acute distress 11/04/2017 None Full Exam - General 1994 Constitutional general appearance Overall: well nourished 11/04/2017 None Full Exam - General 1994 Eyes conjunctiva/eyelids Overall: conjunctiva clear 11/04/2017 None Full Exam - General 1994 Eyes conjunctiva/eyelids Overall: eyelids normal 11/04/2017 None Full Exam - General 1994 Ears/Nose/Throat lips/teeth/gingiva Overall: benign lips 11/04/2017 None Full Exam - General 1994 Respiratory respiratory effort/rhythm Overall: no retractions 11/04/2017 None Full Exam - General 1994 Respiratory respiratory effort/rhythm Overall: normal rate 11/04/2017 None Full Exam - General 1994 Musculoskeletal head and neck Overall: head atraumatic 11/04/2017 None Full Exam - General 1994 Neurologic cranial nerves Overall: crainial nerves 2 - 12 grossly intact 11/04/2017 None Full Exam - General 1994 Psychiatric orientation/consciousness Overall: oriented to person, place and time 11/04/2017 None Full Exam - General 1994 Psychiatric mood and affect Overall: normal mood and affect 11/04/2017 None Full Exam - General 1994 Psychiatric appearance Overall: well-groomed, good eye contact 11/04/2017 None Full Exam - General 1994 Ears/Nose/Throat otoscopic exam External auditory canal: partial cerumen occlusion 11/04/2017 None Full Exam - General 1994 Ears/Nose/Throat otoscopic exam Tympanic membrane: air-fluid level 11/04/2017 None Full Exam - General 1994 Ears/Nose/Throat oral cavity/pharynx/larynx Posterior Pharynx: clear post nasal drainage 11/04/2017 None Full Exam - General 1994 Ears/Nose/Throat oral cavity/pharynx/larynx Oropharynx: erythema 11/04/2017 None Full Exam - General 1994 Constitutional general appearance Development: well developed 04/22/2017 None Full Exam - General 1994 Constitutional general appearance Development: appears stated age 1004/22/2017 None Full Exam - General 1994 Constitutional general appearance Hygiene/Attention to Grooming: good hygiene 04/22/2017 None Full Exam - General 1994 Eyes conjunctiva/eyelids Overall: conjunctiva clear 04/22/2017 None Full Exam - General 1994 Eyes conjunctiva/eyelids Overall: cornea clear 04/22/2017 None Full Exam - General 1994 Eyes conjunctiva/eyelids Overall: eyelids normal 04/22/2017 None Full Exam - General 1994 Eyes pupils and irises Overall: pupils equal, round, reactive to light and accomodation 04/22/2017 None Full Exam - General 1994 Ears/Nose/Throat otoscopic exam Overall: external auditory canals clear 04/22/2017 None Full Exam - General 1994 Ears/Nose/Throat otoscopic exam Overall: tympanic membranes clear 04/22/2017 None Full Exam - General 1994 Ears/Nose/Throat lips/teeth/gingiva Overall: benign lips 04/22/2017 None Full Exam - General 1994 Ears/Nose/Throat lips/teeth/gingiva Overall: normal dentition 04/22/2017 None Full Exam - General 1994 Ears/Nose/Throat oral cavity/pharynx/larynx Overall: oral mucosa clear 04/22/2017 None Full Exam - General 1994 Ears/Nose/Throat oral cavity/pharynx/larynx Overall: oropharyngeal mucosa clear 04/22/2017 None Full Exam - General 1994 Ears/Nose/Throat oral cavity/pharynx/larynx Overall: hypopharynx benign 04/22/2017 None Full Exam - General 1994 Ears/Nose/Throat oral cavity/pharynx/larynx Overall: no masses 04/22/2017 None Full Exam - General 1994 Respiratory auscultation Overall: breath sounds clear bilaterally 04/22/2017 None Full Exam - General 1994 Respiratory respiratory effort/rhythm Overall: no retractions 04/22/2017 None Full Exam - General 1994 Respiratory respiratory effort/rhythm Overall: normal rate 04/22/2017 None Full Exam - General 1994 Cardiovascular extremities Overall: no clubbing 04/22/2017 None Full Exam - General 1994 Cardiovascular auscultation of heart Overall: regular rate 04/22/2017 None Full Exam - General 1994 Cardiovascular auscultation of heart Overall: normal heart sounds 04/22/2017 None Full Exam - General 1994 Abdomen abdominal exam Overall: no tenderness 04/22/2017 None Full Exam - General 1994 Abdomen abdominal exam Overall: normal bowel sounds 04/22/2017 None Full Exam - General 1994 Lymphatic neck nodes Overall: anterior cervical chain benign 04/22/2017 None Full Exam - General 1994 Lymphatic neck nodes Overall: posterior cervical chain benign 04/22/2017 None Full Exam - General 1994 Musculoskeletal spine, ribs and pelvis Overall: spine benign 04/22/2017 None Full Exam - General 1994 Musculoskeletal spine, ribs and pelvis Overall: sacroiliac joint benign 04/22/2017 None Full Exam - General 1994 Musculoskeletal spine, ribs and pelvis Overall: good posture 04/22/2017 None Full Exam - General 1994 Musculoskeletal head and neck Overall: head atraumatic 04/22/2017 None Full Exam - General 1994 Musculoskeletal head and neck Overall: cervical spine benign 04/22/2017 None Full Exam - General 1994 Psychiatric orientation/consciousness Overall: oriented to person, place and time 04/22/2017 None Full Exam - General 1994 Psychiatric mood and affect Overall: normal mood and affect 04/22/2017 None Full Exam - General 1994 Musculoskeletal lower extremity Inspection - knee: swelling 04/22/2017 None Full Exam - General 1994 Musculoskeletal lower extremity Palpation - knee: small effusion 04/22/2017 bruising/abrasion over lateral left knee Full Exam - General 1994 Musculoskeletal lower extremity ROM - knee: pain with flexion 04/22/2017 over fibular head Full Exam - General 1994 Musculoskeletal lower extremity Inspection - foot: high arches 04/22/2017 None Full Exam - General 1994 Musculoskeletal lower extremity Palpation - foot: tender 04/22/2017 at heels bilateral and la teral part of left foot Full Exam - General 1994 Constitutional general appearance Overall: well developed 10/29/2016 None Full Exam - General 1994 Constitutional general appearance Overall: in no acute distress 10/29/2016 None Full Exam - General 1994 Constitutional general appearance Overall: well nourished 10/29/2016 None Full Exam - General 1994 Eyes conjunctiva/eyelids Overall: conjunctiva clear 10/29/2016 None Full Exam - General 1994 Eyes conjunctiva/eyelids Overall: eyelids normal 10/29/2016 None Full Exam - General 1994 Eyes pupils and irises Overall: pupils equal, round, reactive to light and accomodation 10/29/2016 None Full Exam - General 1994 Ears/Nose/Throat lips/teeth/gingiva Overall: benign lips 10/29/2016 None Full Exam - General 1994 Ears/Nose/Throat oral cavity/pharynx/larynx Overall: oral mucosa clear 10/29/2016 None Full Exam - General 1994 Respiratory auscultation Overall: breath sounds clear bilaterally 10/29/2016 None Full Exam - General 1994 Respiratory respiratory effort/rhythm Overall: no retractions 10/29/2016 None Full Exam - General 1994 Respiratory respiratory effort/rhythm Overall: normal rate 10/29/2016 None Full Exam - General 1994 Cardiovascular extremities Overall: no clubbing 10/29/2016 None Full Exam - General 1994 Cardiovascular auscultation of heart Overall: regular rate 10/29/2016 None Full Exam - General 1994 Cardiovascular auscultation of heart Overall: normal heart sounds 10/29/2016 None Full Exam - General 1994 Musculoskeletal head and neck Overall: head atraumatic 10/29/2016 None Full Exam - General 1994 Psychiatric orientation/consciousness Overall: oriented to person, place and time 10/29/2016 None Full Exam - General 1994 Psychiatric mood and affect Overall: normal mood and affect 10/29/2016 None Full Exam - General 1994 Psychiatric appearance Overall: well-groomed, good eye contact 10/29/2016 None Full Exam - General 1994 Constitutional general appearance Development: well developed 10/24/2016 None Full Exam - General 1994 Constitutional general appearance Development: appears stated age 0410/24/2016 None Full Exam - General 1994 Constitutional general appearance Hygiene/Attention to Grooming: good hygiene 10/24/2016 None Full Exam - General 1994 Eyes conjunctiva/eyelids Overall: conjunctiva clear 10/24/2016 None Full Exam - General 1994 Eyes conjunctiva/eyelids Overall: cornea clear 10/24/2016 None Full Exam - General 1994 Eyes conjunctiva/eyelids Overall: eyelids normal 10/24/2016 None Full Exam - General 1994 Eyes pupils and irises Overall: pupils equal, round, reactive to light and accomodation 10/24/2016 None Full Exam - General 1994 Ears/Nose/Throat otoscopic exam Overall: external auditory canals clear 10/24/2016 None Full Exam - General 1994 Ears/Nose/Throat otoscopic exam Overall: tympanic membranes clear 10/24/2016 None Full Exam - General 1994 Ears/Nose/Throat lips/teeth/gingiva Overall: benign lips 10/24/2016 None Full Exam - General 1994 Ears/Nose/Throat lips/teeth/gingiva Overall: normal dentition 10/24/2016 None Full Exam - General 1994 Ears/Nose/Throat oral cavity/pharynx/larynx Overall: oral mucosa clear 10/24/2016 None Full Exam - General 1994 Ears/Nose/Throat oral cavity/pharynx/larynx Overall: oropharyngeal mucosa clear 10/24/2016 None Full Exam - General 1994 Ears/Nose/Throat oral cavity/pharynx/larynx Overall: hypopharynx benign 10/24/2016 None Full Exam - General 1994 Ears/Nose/Throat oral cavity/pharynx/larynx Overall: no masses 10/24/2016 None Full Exam - General 1994 Respiratory auscultation Overall: breath sounds clear bilaterally 10/24/2016 None Full Exam - General 1994 Respiratory respiratory effort/rhythm Overall: no retractions 10/24/2016 None Full Exam - General 1994 Respiratory respiratory effort/rhythm Overall: normal rate 10/24/2016 None Full Exam - General 1994 Cardiovascular extremities Overall: no clubbing 10/24/2016 None Full Exam - General 1994 Cardiovascular auscultation of heart Overall: regular rate 10/24/2016 None Full Exam - General 1994 Cardiovascular auscultation of heart Overall: normal heart sounds 10/24/2016 None Full Exam - General 1994 Abdomen abdominal exam Overall: no tenderness 10/24/2016 None Full Exam - General 1994 Abdomen abdominal exam Overall: normal bowel sounds 10/24/2016 None Full Exam - General 1994 Lymphatic neck nodes Overall: anterior cervical chain benign 10/24/2016 None Full Exam - General 1994 Lymphatic neck nodes Overall: posterior cervical chain benign 10/24/2016 None Full Exam - General 1994 Musculoskeletal spine, ribs and pelvis Overall: spine benign 10/24/2016 None Full Exam - General 1994 Musculoskeletal spine, ribs and pelvis Overall: sacroiliac joint benign 10/24/2016 None Full Exam - General 1994 Musculoskeletal spine, ribs and pelvis Overall: good posture 10/24/2016 None Full Exam - General 1994 Musculoskeletal head and neck Overall: head atraumatic 10/24/2016 None Full Exam - General 1994 Musculoskeletal head and neck Overall: cervical spine benign 10/24/2016 None Full Exam - General 1994 Integument inspection of skin Overall: few scattered moles, no gross abnormalities 10/24/2016 None Full Exam - General 1994 Neurologic deep tendon reflexes Overall: deep tendon reflexes intact 10/24/2016 None Full Exam - General 1994 Neurologic coordination Tremors: resting 10/24/2016 noted tremors of hands, a nd head Full Exam - General 1994 Neurologic cranial nerves Overall: crainial nerves 2 - 12 grossly intact 10/24/2016 None Full Exam - General 1994 Psychiatric orientation/consciousness Overall: oriented to person, place and time 10/24/2016 None Full Exam - General 1994 Psychiatric mood and affect Overall: normal mood and affect 10/24/2016 None Full Exam - General 1994 Constitutional general appearance Overall: well developed 08/19/2016 None Full Exam - General 1994 Constitutional general appearance Overall: in no acute distress 08/19/2016 None Full Exam - General 1994 Constitutional general appearance Overall: well nourished 08/19/2016 None Full Exam - General 1994 Eyes conjunctiva/eyelids Overall: conjunctiva clear 08/19/2016 None Full Exam - General 1994 Eyes conjunctiva/eyelids Overall: eyelids normal 08/19/2016 None Full Exam - General 1994 Ears/Nose/Throat lips/teeth/gingiva Overall: benign lips 08/19/2016 None Full Exam - General 1994 Ears/Nose/Throat oral cavity/pharynx/larynx Overall: oral mucosa clear 08/19/2016 None Full Exam - General 1994 Respiratory auscultation Overall: breath sounds clear bilaterally 08/19/2016 None Full Exam - General 1994 Respiratory auscultation Diffuse: diminished 08/19/2016 None Full Exam - General 1994 Respiratory respiratory effort/rhythm Overall: no retractions 08/19/2016 None Full Exam - General 1994 Respiratory respiratory effort/rhythm Overall: normal rate 08/19/2016 None Full Exam - General 1994 Cardiovascular auscultation of heart Overall: regular rate 08/19/2016 None Full Exam - General 1994 Cardiovascular auscultation of heart Overall: normal heart sounds 08/19/2016 None Full Exam - General 1994 Lymphatic neck nodes Overall: anterior cervical chain benign 08/19/2016 None Full Exam - General 1994 Lymphatic neck nodes Overall: posterior cervical chain benign 08/19/2016 None Full Exam - General 1994 Neurologic cranial nerves Overall: crainial nerves 2 - 12 grossly intact 08/19/2016 None Full Exam - General 1994 Psychiatric orientation/consciousness Overall: oriented to person, place and time 08/19/2016 None Full Exam - General 1994 Psychiatric mood and affect Overall: normal mood and affect 08/19/2016 None Full Exam - General 1994 Psychiatric appearance Overall: well-groomed, good eye contact 08/19/2016 None Full Exam - General 1994 Integument inspection of skin Overall: no rash, lesions 08/19/2016 None Full Exam - General 1994 Constitutional general appearance Overall: well developed 08/05/2016 None Full Exam - General 1994 Constitutional general appearance Overall: in no acute distress 08/05/2016 None Full Exam - General 1994 Constitutional general appearance Overall: well nourished 08/05/2016 None Full Exam - General 1994 Eyes conjunctiva/eyelids Overall: conjunctiva clear 08/05/2016 None Full Exam - General 1994 Eyes conjunctiva/eyelids Overall: eyelids normal 08/05/2016 None Full Exam - General 1994 Ears/Nose/Throat otoscopic exam Overall: external auditory canals clear 08/05/2016 None Full Exam - General 1994 Ears/Nose/Throat otoscopic exam Overall: tympanic membranes clear 08/05/2016 None Full Exam - General 1994 Ears/Nose/Throat lips/teeth/gingiva Overall: benign lips 08/05/2016 None Full Exam - General 1994 Ears/Nose/Throat oral cavity/pharynx/larynx Overall: oral mucosa clear 08/05/2016 None Full Exam - General 1994 Ears/Nose/Throat oral cavity/pharynx/larynx Overall: oropharyngeal mucosa clear 08/05/2016 None Full Exam - General 1994 Ears/Nose/Throat oral cavity/pharynx/larynx Overall: no masses 08/05/2016 None Full Exam - General 1994 Respiratory auscultation Overall: breath sounds clear bilaterally 08/05/2016 None Full Exam - General 1994 Respiratory auscultation Diffuse: diminished 08/05/2016 None Full Exam - General 1994 Respiratory respiratory effort/rhythm Overall: no retractions 08/05/2016 None Full Exam - General 1994 Respiratory respiratory effort/rhythm Overall: normal rate 08/05/2016 None Full Exam - General 1994 Cardiovascular auscultation of heart Overall: regular rate 08/05/2016 None Full Exam - General 1994 Cardiovascular auscultation of heart Overall: normal heart sounds 08/05/2016 None Full Exam - General 1994 Lymphatic neck nodes Overall: anterior cervical chain benign 08/05/2016 None Full Exam - General 1994 Lymphatic neck nodes Overall: posterior cervical chain benign 08/05/2016 None Full Exam - General 1994 Neurologic cranial nerves Overall: crainial nerves 2 - 12 grossly intact 08/05/2016 None Full Exam - General 1994 Psychiatric orientation/consciousness Overall: oriented to person, place and time 08/05/2016 None Full Exam - General 1994 Psychiatric mood and affect Overall: normal mood and affect 08/05/2016 None Full Exam - General 1994 Psychiatric appearance Overall: well-groomed, good eye contact 08/05/2016 None Full Exam - General 1994 Respiratory auscultation Overall: breath sounds clear bilaterally 04/29/2016 None Full Exam - General 1994 Respiratory respiratory effort/rhythm Overall: normal rate 04/29/2016 None Full Exam - General 1994 Respiratory respiratory effort/rhythm Overall: no retractions 04/29/2016 None Full Exam - General 1994 Constitutional general appearance Overall: well nourished 04/29/2016 None Full Exam - General 1994 Constitutional general appearance Overall: well developed 04/29/2016 None Full Exam - General 1994 Constitutional general appearance Overall: in no acute distress 04/29/2016 None Full Exam - General 1994 Cardiovascular auscultation of heart Overall: regular rate 04/29/2016 None Full Exam - General 1994 Cardiovascular auscultation of heart Overall: normal heart sounds 04/29/2016 None Full Exam - General 1994 Cardiovascular auscultation of heart Overall: no murmurs 04/29/2016 None Full Exam - General 1994 Cardiovascular extremities Overall: no clubbing 04/29/2016 None Full Exam - General 1994 Psychiatric orientation/consciousness Overall: oriented to person, place and time 04/29/2016 None Full Exam - General 1994 Psychiatric mood and affect Mood: happy 04/29/2016 None Full Exam - General 1994 Psychiatric mood and affect Overall: normal mood and affect 04/29/2016 None Full Exam - General 1994 Integument inspection of skin Dermatitis: mole 04/29/2016 thickened skin on right u pper arm Full Exam - General 1994 Constitutional general appearance Development: well developed 02/28/2016 None Full Exam - General 1994 Constitutional general appearance Development: appears stated age 0802/28/2016 None Full Exam - General 1994 Constitutional general appearance Hygiene/Attention to Grooming: good hygiene 02/28/2016 None Full Exam - General 1994 Eyes conjunctiva/eyelids Overall: conjunctiva clear 02/28/2016 None Full Exam - General 1994 Eyes conjunctiva/eyelids Overall: cornea clear 02/28/2016 None Full Exam - General 1994 Eyes conjunctiva/eyelids Overall: eyelids normal 02/28/2016 None Full Exam - General 1994 Eyes pupils and irises Overall: pupils equal, round, reactive to light and accomodation 02/28/2016 None Full Exam - General 1994 Ears/Nose/Throat otoscopic exam Overall: external auditory canals clear 02/28/2016 None Full Exam - General 1994 Ears/Nose/Throat otoscopic exam Overall: tympanic membranes clear 02/28/2016 None Full Exam - General 1994 Ears/Nose/Throat lips/teeth/gingiva Overall: benign lips 02/28/2016 None Full Exam - General 1994 Ears/Nose/Throat lips/teeth/gingiva Overall: normal dentition 02/28/2016 None Full Exam - General 1994 Ears/Nose/Throat oral cavity/pharynx/larynx Overall: oral mucosa clear 02/28/2016 None Full Exam - General 1994 Ears/Nose/Throat oral cavity/pharynx/larynx Overall: oropharyngeal mucosa clear 02/28/2016 None Full Exam - General 1994 Ears/Nose/Throat oral cavity/pharynx/larynx Overall: hypopharynx benign 02/28/2016 None Full Exam - General 1994 Ears/Nose/Throat oral cavity/pharynx/larynx Overall: no masses 02/28/2016 None Full Exam - General 1994 Respiratory auscultation Overall: breath sounds clear bilaterally 02/28/2016 None Full Exam - General 1994 Respiratory respiratory effort/rhythm Overall: no retractions 02/28/2016 None Full Exam - General 1994 Respiratory respiratory effort/rhythm Overall: normal rate 02/28/2016 None Full Exam - General 1994 Cardiovascular extremities Overall: no clubbing 02/28/2016 None Full Exam - General 1994 Cardiovascular auscultation of heart Overall: regular rate 02/28/2016 None Full Exam - General 1994 Cardiovascular auscultation of heart Overall: normal heart sounds 02/28/2016 None Full Exam - General 1994 Abdomen abdominal exam Overall: no tenderness 02/28/2016 None Full Exam - General 1994 Abdomen abdominal exam Overall: normal bowel sounds 02/28/2016 None Full Exam - General 1994 Lymphatic neck nodes Overall: anterior cervical chain benign 02/28/2016 None Full Exam - General 1994 Lymphatic neck nodes Overall: posterior cervical chain benign 02/28/2016 None Full Exam - General 1994 Musculoskeletal spine, ribs and pelvis Overall: spine benign 02/28/2016 None Full Exam - General 1994 Musculoskeletal spine, ribs and pelvis Overall: sacroiliac joint benign 02/28/2016 None Full Exam - General 1994 Musculoskeletal spine, ribs and pelvis Overall: good posture 02/28/2016 None Full Exam - General 1994 Musculoskeletal head and neck Overall: head atraumatic 02/28/2016 None Full Exam - General 1994 Musculoskeletal head and neck Overall: cervical spine benign 02/28/2016 None Full Exam - General 1994 Integument inspection of skin Overall: few scattered moles, no gross abnormalities 02/28/2016 None Full Exam - General 1994 Neurologic deep tendon reflexes Overall: deep tendon reflexes intact 02/28/2016 None Full Exam - General 1994 Neurologic coordination Tremors: resting 02/28/2016 noted tremors of hands, a nd head Full Exam - General 1994 Neurologic cranial nerves Overall: crainial nerves 2 - 12 grossly intact 02/28/2016 None Full Exam - General 1994 Psychiatric orientation/consciousness Overall: oriented to person, place and time 02/28/2016 None Full Exam - General 1994 Psychiatric mood and affect Overall: normal mood and affect 02/28/2016 None Full Exam - General 1994 Constitutional general appearance Development: well developed 11/29/2015 None Full Exam - General 1994 Constitutional general appearance Development: appears stated age 0511/29/2015 None Full Exam - General 1994 Constitutional general appearance Hygiene/Attention to Grooming: good hygiene 11/29/2015 None Full Exam - General 1994 Eyes conjunctiva/eyelids Overall: conjunctiva clear 11/29/2015 None Full Exam - General 1994 Eyes conjunctiva/eyelids Overall: cornea clear 11/29/2015 None Full Exam - General 1994 Eyes conjunctiva/eyelids Overall: eyelids normal 11/29/2015 None Full Exam - General 1994 Eyes pupils and irises Overall: pupils equal, round, reactive to light and accomodation 11/29/2015 None Full Exam - General 1994 Ears/Nose/Throat otoscopic exam Overall: external auditory canals clear 11/29/2015 None Full Exam - General 1994 Ears/Nose/Throat otoscopic exam Overall: tympanic membranes clear 11/29/2015 None Full Exam - General 1994 Ears/Nose/Throat lips/teeth/gingiva Overall: benign lips 11/29/2015 None Full Exam - General 1994 Ears/Nose/Throat lips/teeth/gingiva Overall: normal dentition 11/29/2015 None Full Exam - General 1994 Ears/Nose/Throat oral cavity/pharynx/larynx Overall: oral mucosa clear 11/29/2015 None Full Exam - General 1994 Ears/Nose/Throat oral cavity/pharynx/larynx Overall: oropharyngeal mucosa clear 11/29/2015 None Full Exam - General 1994 Ears/Nose/Throat oral cavity/pharynx/larynx Overall: hypopharynx benign 11/29/2015 None Full Exam - General 1994 Ears/Nose/Throat oral cavity/pharynx/larynx Overall: no masses 11/29/2015 None Full Exam - General 1994 Respiratory auscultation Overall: breath sounds clear bilaterally 11/29/2015 None Full Exam - General 1994 Respiratory respiratory effort/rhythm Overall: no retractions 11/29/2015 None Full Exam - General 1994 Respiratory respiratory effort/rhythm Overall: normal rate 11/29/2015 None Full Exam - General 1994 Cardiovascular extremities Overall: no clubbing 11/29/2015 None Full Exam - General 1994 Cardiovascular auscultation of heart Overall: regular rate 11/29/2015 None Full Exam - General 1994 Cardiovascular auscultation of heart Overall: normal heart sounds 11/29/2015 None Full Exam - General 1994 Abdomen abdominal exam Overall: no tenderness 11/29/2015 None Full Exam - General 1994 Abdomen abdominal exam Overall: normal bowel sounds 11/29/2015 None Full Exam - General 1994 Lymphatic neck nodes Overall: anterior cervical chain benign 11/29/2015 None Full Exam - General 1994 Lymphatic neck nodes Overall: posterior cervical chain benign 11/29/2015 None Full Exam - General 1994 Musculoskeletal spine, ribs and pelvis Overall: spine benign 11/29/2015 None Full Exam - General 1994 Musculoskeletal spine, ribs and pelvis Overall: sacroiliac joint benign 11/29/2015 None Full Exam - General 1994 Musculoskeletal spine, ribs and pelvis Overall: good posture 11/29/2015 None Full Exam - General 1994 Musculoskeletal head and neck Overall: head atraumatic 11/29/2015 None Full Exam - General 1994 Musculoskeletal head and neck Overall: cervical spine benign 11/29/2015 None Full Exam - General 1994 Integument inspection of skin Overall: few scattered moles, no gross abnormalities 11/29/2015 None Full Exam - General 1994 Neurologic deep tendon reflexes Overall: deep tendon reflexes intact 11/29/2015 None Full Exam - General 1994 Neurologic coordination Tremors: resting 11/29/2015 noted tremors of hands, a nd head Full Exam - General 1994 Neurologic cranial nerves Overall: crainial nerves 2 - 12 grossly intact 11/29/2015 None Full Exam - General 1994 Psychiatric orientation/consciousness Overall: oriented to person, place and time 11/29/2015 None Full Exam - General 1994 Psychiatric mood and affect Overall: normal mood and affect 11/29/2015 None Full Exam - General 1994 Constitutional general appearance Development: well developed 10/12/2015 None Full Exam - General 1994 Constitutional general appearance Development: appears stated age 0310/12/2015 None Full Exam - General 1994 Constitutional general appearance Hygiene/Attention to Grooming: good hygiene 10/12/2015 None Full Exam - General 1994 Eyes conjunctiva/eyelids Overall: conjunctiva clear 10/12/2015 None Full Exam - General 1994 Eyes conjunctiva/eyelids Overall: cornea clear 10/12/2015 None Full Exam - General 1994 Eyes conjunctiva/eyelids Overall: eyelids normal 10/12/2015 None Full Exam - General 1994 Eyes pupils and irises Overall: pupils equal, round, reactive to light and accomodation 10/12/2015 None Full Exam - General 1994 Ears/Nose/Throat otoscopic exam Overall: external auditory canals clear 10/12/2015 None Full Exam - General 1994 Ears/Nose/Throat otoscopic exam Overall: tympanic membranes clear 10/12/2015 None Full Exam - General 1994 Ears/Nose/Throat lips/teeth/gingiva Overall: benign lips 10/12/2015 None Full Exam - General 1994 Ears/Nose/Throat lips/teeth/gingiva Overall: normal dentition 10/12/2015 None Full Exam - General 1994 Ears/Nose/Throat oral cavity/pharynx/larynx Overall: oral mucosa clear 10/12/2015 None Full Exam - General 1994 Ears/Nose/Throat oral cavity/pharynx/larynx Overall: oropharyngeal mucosa clear 10/12/2015 None Full Exam - General 1994 Ears/Nose/Throat oral cavity/pharynx/larynx Overall: hypopharynx benign 10/12/2015 None Full Exam - General 1994 Ears/Nose/Throat oral cavity/pharynx/larynx Overall: no masses 10/12/2015 None Full Exam - General 1994 Respiratory auscultation Overall: breath sounds clear bilaterally 10/12/2015 None Full Exam - General 1994 Respiratory respiratory effort/rhythm Overall: no retractions 10/12/2015 None Full Exam - General 1994 Respiratory respiratory effort/rhythm Overall: normal rate 10/12/2015 None Full Exam - General 1994 Cardiovascular extremities Overall: no clubbing 10/12/2015 None Full Exam - General 1994 Cardiovascular auscultation of heart Overall: regular rate 10/12/2015 None Full Exam - General 1994 Cardiovascular auscultation of heart Overall: normal heart sounds 10/12/2015 None Full Exam - General 1994 Abdomen abdominal exam Overall: no tenderness 10/12/2015 None Full Exam - General 1994 Abdomen abdominal exam Overall: normal bowel sounds 10/12/2015 None Full Exam - General 1994 Lymphatic neck nodes Overall: anterior cervical chain benign 10/12/2015 None Full Exam - General 1994 Lymphatic neck nodes Overall: posterior cervical chain benign 10/12/2015 None Full Exam - General 1994 Musculoskeletal spine, ribs and pelvis Overall: spine benign 10/12/2015 None Full Exam - General 1994 Musculoskeletal spine, ribs and pelvis Overall: sacroiliac joint benign 10/12/2015 None Full Exam - General 1994 Musculoskeletal spine, ribs and pelvis Overall: good posture 10/12/2015 None Full Exam - General 1994 Musculoskeletal head and neck Overall: head atraumatic 10/12/2015 None Full Exam - General 1994 Musculoskeletal head and neck Overall: cervical spine benign 10/12/2015 None Full Exam - General 1994 Integument inspection of skin Overall: few scattered moles, no gross abnormalities 10/12/2015 None Full Exam - General 1994 Neurologic deep tendon reflexes Overall: deep tendon reflexes intact 10/12/2015 None Full Exam - General 1994 Neurologic coordination Tremors: resting 10/12/2015 noted tremors of hands, a nd head Full Exam - General 1994 Neurologic cranial nerves Overall: crainial nerves 2 - 12 grossly intact 10/12/2015 None Full Exam - General 1994 Psychiatric orientation/consciousness Overall: oriented to person, place and time 10/12/2015 None Full Exam - General 1994 Psychiatric mood and affect Overall: normal mood and affect 10/12/2015 None Full Exam - General 1994 Constitutional general appearance Development: well developed 08/02/2015 None Full Exam - General 1994 Constitutional general appearance Development: appears stated age 0108/02/2015 None Full Exam - General 1994 Constitutional general appearance Hygiene/Attention to Grooming: good hygiene 08/02/2015 None Full Exam - General 1994 Eyes conjunctiva/eyelids Overall: conjunctiva clear 08/02/2015 None Full Exam - General 1994 Eyes conjunctiva/eyelids Overall: cornea clear 08/02/2015 None Full Exam - General 1994 Eyes conjunctiva/eyelids Overall: eyelids normal 08/02/2015 None Full Exam - General 1994 Eyes pupils and irises Overall: pupils equal, round, reactive to light and accomodation 08/02/2015 None Full Exam - General 1994 Ears/Nose/Throat otoscopic exam Overall: external auditory canals clear 08/02/2015 None Full Exam - General 1994 Ears/Nose/Throat otoscopic exam Overall: tympanic membranes clear 08/02/2015 None Full Exam - General 1994 Ears/Nose/Throat lips/teeth/gingiva Overall: benign lips 08/02/2015 None Full Exam - General 1994 Ears/Nose/Throat lips/teeth/gingiva Overall: normal dentition 08/02/2015 None Full Exam - General 1994 Ears/Nose/Throat oral cavity/pharynx/larynx Overall: oral mucosa clear 08/02/2015 None Full Exam - General 1994 Ears/Nose/Throat oral cavity/pharynx/larynx Overall: oropharyngeal mucosa clear 08/02/2015 None Full Exam - General 1994 Ears/Nose/Throat oral cavity/pharynx/larynx Overall: hypopharynx benign 08/02/2015 None Full Exam - General 1994 Ears/Nose/Throat oral cavity/pharynx/larynx Overall: no masses 08/02/2015 None Full Exam - General 1994 Respiratory auscultation Overall: breath sounds clear bilaterally 08/02/2015 None Full Exam - General 1994 Respiratory respiratory effort/rhythm Overall: no retractions 08/02/2015 None Full Exam - General 1994 Respiratory respiratory effort/rhythm Overall: normal rate 08/02/2015 None Full Exam - General 1994 Cardiovascular extremities Overall: no clubbing 08/02/2015 None Full Exam - General 1994 Cardiovascular auscultation of heart Overall: regular rate 08/02/2015 None Full Exam - General 1994 Cardiovascular auscultation of heart Overall: normal heart sounds 08/02/2015 None Full Exam - General 1994 Abdomen abdominal exam Overall: no tenderness 08/02/2015 None Full Exam - General 1994 Abdomen abdominal exam Overall: normal bowel sounds 08/02/2015 None Full Exam - General 1994 Lymphatic neck nodes Overall: anterior cervical chain benign 08/02/2015 None Full Exam - General 1994 Lymphatic neck nodes Overall: posterior cervical chain benign 08/02/2015 None Full Exam - General 1994 Musculoskeletal spine, ribs and pelvis Overall: spine benign 08/02/2015 None Full Exam - General 1994 Musculoskeletal spine, ribs and pelvis Overall: sacroiliac joint benign 08/02/2015 None Full Exam - General 1994 Musculoskeletal spine, ribs and pelvis Overall: good posture 08/02/2015 None Full Exam - General 1994 Musculoskeletal head and neck Overall: head atraumatic 08/02/2015 None Full Exam - General 1994 Musculoskeletal head and neck Overall: cervical spine benign 08/02/2015 None Full Exam - General 1994 Integument inspection of skin Overall: few scattered moles, no gross abnormalities 08/02/2015 None Full Exam - General 1994 Neurologic deep tendon reflexes Overall: deep tendon reflexes intact 08/02/2015 None Full Exam - General 1994 Neurologic coordination Tremors: resting 08/02/2015 noted tremors of hands, a nd head Full Exam - General 1994 Neurologic cranial nerves Overall: crainial nerves 2 - 12 grossly intact 08/02/2015 None Full Exam - General 1994 Psychiatric orientation/consciousness Overall: oriented to person, place and time 08/02/2015 None Full Exam - General 1994 Psychiatric mood and affect Overall: normal mood and affect 08/02/2015 None Full Exam - General 1994 Constitutional general appearance Development: well developed 05/03/2015 None Full Exam - General 1994 Constitutional general appearance Development: appears stated age 1005/03/2015 None Full Exam - General 1994 Constitutional general appearance Hygiene/Attention to Grooming: good hygiene 05/03/2015 None Full Exam - General 1994 Eyes conjunctiva/eyelids Overall: conjunctiva clear 05/03/2015 None Full Exam - General 1994 Eyes conjunctiva/eyelids Overall: cornea clear 05/03/2015 None Full Exam - General 1994 Eyes conjunctiva/eyelids Overall: eyelids normal 05/03/2015 None Full Exam - General 1994 Eyes pupils and irises Overall: pupils equal, round, reactive to light and accomodation 05/03/2015 None Full Exam - General 1994 Ears/Nose/Throat otoscopic exam Overall: external auditory canals clear 05/03/2015 None Full Exam - General 1994 Ears/Nose/Throat otoscopic exam Overall: tympanic membranes clear 05/03/2015 None Full Exam - General 1994 Ears/Nose/Throat lips/teeth/gingiva Overall: benign lips 05/03/2015 None Full Exam - General 1994 Ears/Nose/Throat lips/teeth/gingiva Overall: normal dentition 05/03/2015 None Full Exam - General 1994 Ears/Nose/Throat oral cavity/pharynx/larynx Overall: oral mucosa clear 05/03/2015 None Full Exam - General 1994 Ears/Nose/Throat oral cavity/pharynx/larynx Overall: oropharyngeal mucosa clear 05/03/2015 None Full Exam - General 1994 Ears/Nose/Throat oral cavity/pharynx/larynx Overall: hypopharynx benign 05/03/2015 None Full Exam - General 1994 Ears/Nose/Throat oral cavity/pharynx/larynx Overall: no masses 05/03/2015 None Full Exam - General 1994 Respiratory auscultation Overall: breath sounds clear bilaterally 05/03/2015 None Full Exam - General 1994 Respiratory respiratory effort/rhythm Overall: no retractions 05/03/2015 None Full Exam - General 1994 Respiratory respiratory effort/rhythm Overall: normal rate 05/03/2015 None Full Exam - General 1994 Cardiovascular extremities Overall: no clubbing 05/03/2015 None Full Exam - General 1994 Cardiovascular auscultation of heart Overall: regular rate 05/03/2015 None Full Exam - General 1994 Cardiovascular auscultation of heart Overall: normal heart sounds 05/03/2015 None Full Exam - General 1994 Abdomen abdominal exam Overall: no tenderness 05/03/2015 None Full Exam - General 1994 Abdomen abdominal exam Overall: normal bowel sounds 05/03/2015 None Full Exam - General 1994 Lymphatic neck nodes Overall: anterior cervical chain benign 05/03/2015 None Full Exam - General 1994 Lymphatic neck nodes Overall: posterior cervical chain benign 05/03/2015 None Full Exam - General 1994 Musculoskeletal spine, ribs and pelvis Overall: spine benign 05/03/2015 None Full Exam - General 1994 Musculoskeletal spine, ribs and pelvis Overall: sacroiliac joint benign 05/03/2015 None Full Exam - General 1994 Musculoskeletal spine, ribs and pelvis Overall: good posture 05/03/2015 None Full Exam - General 1994 Musculoskeletal head and neck Overall: head atraumatic 05/03/2015 None Full Exam - General 1994 Musculoskeletal head and neck Overall: cervical spine benign 05/03/2015 None Full Exam - General 1994 Integument inspection of skin Overall: few scattered moles, no gross abnormalities 05/03/2015 None Full Exam - General 1994 Neurologic deep tendon reflexes Overall: deep tendon reflexes intact 05/03/2015 None Full Exam - General 1994 Neurologic coordination Tremors: resting 05/03/2015 noted tremors of hands, a nd head Full Exam - General 1994 Neurologic cranial nerves Overall: crainial nerves 2 - 12 grossly intact 05/03/2015 None Full Exam - General 1994 Psychiatric orientation/consciousness Overall: oriented to person, place and time 05/03/2015 None Full Exam - General 1994 Psychiatric mood and affect Overall: normal mood and affect 05/03/2015 None Full Exam - General 1994 Constitutional general appearance Development: well developed 01/05/2015 None Full Exam - General 1994 Constitutional general appearance Development: appears stated age 0601/05/2015 None Full Exam - General 1994 Constitutional general appearance Hygiene/Attention to Grooming: good hygiene 01/05/2015 None Full Exam - General 1994 Eyes conjunctiva/eyelids Overall: conjunctiva clear 01/05/2015 None Full Exam - General 1994 Eyes conjunctiva/eyelids Overall: cornea clear 01/05/2015 None Full Exam - General 1994 Eyes conjunctiva/eyelids Overall: eyelids normal 01/05/2015 None Full Exam - General 1994 Eyes pupils and irises Overall: pupils equal, round, reactive to light and accomodation 01/05/2015 None Full Exam - General 1994 Ears/Nose/Throat otoscopic exam Overall: external auditory canals clear 01/05/2015 None Full Exam - General 1994 Ears/Nose/Throat otoscopic exam Overall: tympanic membranes clear 01/05/2015 None Full Exam - General 1994 Ears/Nose/Throat lips/teeth/gingiva Overall: benign lips 01/05/2015 None Full Exam - General 1994 Ears/Nose/Throat lips/teeth/gingiva Overall: normal dentition 01/05/2015 None Full Exam - General 1994 Ears/Nose/Throat oral cavity/pharynx/larynx Overall: oral mucosa clear 01/05/2015 None Full Exam - General 1994 Ears/Nose/Throat oral cavity/pharynx/larynx Overall: oropharyngeal mucosa clear 01/05/2015 None Full Exam - General 1994 Ears/Nose/Throat oral cavity/pharynx/larynx Overall: hypopharynx benign 01/05/2015 None Full Exam - General 1994 Ears/Nose/Throat oral cavity/pharynx/larynx Overall: no masses 01/05/2015 None Full Exam - General 1994 Respiratory auscultation Overall: breath sounds clear bilaterally 01/05/2015 None Full Exam - General 1994 Respiratory respiratory effort/rhythm Overall: no retractions 01/05/2015 None Full Exam - General 1994 Respiratory respiratory effort/rhythm Overall: normal rate 01/05/2015 None Full Exam - General 1994 Cardiovascular extremities Overall: no clubbing 01/05/2015 None Full Exam - General 1994 Cardiovascular auscultation of heart Overall: regular rate 01/05/2015 None Full Exam - General 1994 Cardiovascular auscultation of heart Overall: normal heart sounds 01/05/2015 None Full Exam - General 1994 Abdomen abdominal exam Overall: no tenderness 01/05/2015 None Full Exam - General 1994 Abdomen abdominal exam Overall: normal bowel sounds 01/05/2015 None Full Exam - General 1994 Lymphatic neck nodes Overall: anterior cervical chain benign 01/05/2015 None Full Exam - General 1994 Lymphatic neck nodes Overall: posterior cervical chain benign 01/05/2015 None Full Exam - General 1994 Musculoskeletal spine, ribs and pelvis Overall: spine benign 01/05/2015 None Full Exam - General 1994 Musculoskeletal spine, ribs and pelvis Overall: sacroiliac joint benign 01/05/2015 None Full Exam - General 1994 Musculoskeletal spine, ribs and pelvis Overall: good posture 01/05/2015 None Full Exam - General 1994 Musculoskeletal head and neck Overall: head atraumatic 01/05/2015 None Full Exam - General 1994 Musculoskeletal head and neck Overall: cervical spine benign 01/05/2015 None Full Exam - General 1994 Integument inspection of skin Overall: few scattered moles, no gross abnormalities 01/05/2015 None Full Exam - General 1994 Neurologic deep tendon reflexes Overall: deep tendon reflexes intact 01/05/2015 None Full Exam - General 1994 Neurologic cranial nerves Overall: crainial nerves 2 - 12 grossly intact 01/05/2015 None Full Exam - General 1994 Psychiatric orientation/consciousness Overall: oriented to person, place and time 01/05/2015 None Full Exam - General 1994 Psychiatric mood and affect Overall: normal mood and affect 01/05/2015 None Full Exam - General 1994 Neurologic coordination Tremors: resting 01/05/2015 noted tremors of hands, a nd head Procedures Procedure Codes Date PPPS, SUBSEQ VISIT CPT- 4: G0439 11/25/2018 PPPS, SUBSEQ VISIT CPT- 4: G0439 11/04/2017 PPPS, SUBSEQ VISIT CPT- 4: G0439 10/29/2016 ADMIN INFLUENZA VIRU S VAC CPT-4: G0008 04/29/2016 BIOPSY SKIN LESION CPT- 4: 76659 04/29/2016 FLU VACC 4 KAM[facility]I 3 YRS [address]US IM SNOMED CT: 72874419 CPT-4: 66254 04/29/2016 ADMIN INFLUENZA VIRU S VAC CPT-4: G0008 05/03/2015 FLU VACC 4 KAM[facility]I [address] Y[address]US IM SNOM[address] CT: 84955039 CPT-4: 99723 05/03/2015 Vital Signs Date Vital 11/25/2018 Blood Pressure 1: 118/70 Code: 8480-6 BMI: 24.8 Code: 84542-7 Heart Rate 1: 66 bpm Height: 5' SpO2: 98% Weight: 127 lbs 11/18/2018 Blood Pressure 1: 120/72 Code: 8480-6 BMI: 24.8 Code: 46697-5 Heart Rate 1: 71 bpm Height: 5' SpO2: 97% Weight: 127 lbs 08/06/2018 Blood Pressure 1: 132/76 Code: 8480-6 BMI: 25.8 Code: 76063-2 Heart Rate 1: 66 bpm Height: 5' SpO2: 96% Weight: 132 lbs 02/10/2018 Blood Pressure 1: 118/70 Code: 8480-6 BMI: 25.4 Code: 09102-7 Heart Rate 1: 58 bpm Height: 5' SpO2: 97% Weight: 130 lbs 11/27/2017 Blood Pressure 1: 122/70 Code: 8480-6 BMI: 25.4 Code: 76440-7 Heart Rate 1: 56 bpm Height: 5' SpO2: 98% Weight: 130 lbs 11/04/2017 Blood Pressure 1: 13 Code: 8480-6 BMI: 25.4 Code: 18504-2 Heart Rate 1: 58 bpm Height: 5' SpO2: 97% Waist Measure (cm): 71 cm Weight: 130 lbs 04/22/2017 Blood Pressure 1: 142/70 Code: 8480-6 BMI: 25.2 Code: 97743-4 Heart Rate 1: 54 bpm Height: 5' SpO2: 98% Weight: 129 lbs 10/29/2016 Blood Pressure 1: 140/70 Code: 8480-6 BMI: 26.2 Code: 07172-4 Heart Rate 1: 56 bpm Height: 5' SpO2: 98% Weight: 134 lbs 10/24/2016 Blood Pressure 1: 158/78 Code: 8480-6 BMI: 26.2 Code: 70891-3 Heart Rate 1: 51 bpm Height: 5' SpO2: 97% Weight: 134 lbs 08/19/2016 Blood Pressure 1: 136/68 Code: 8480-6 BMI: 25.4 Code: 97287-2 Heart Rate 1: 64 bpm Height: 5' SpO2: 99% Temperature: 36.9 (C ) / 98.5 (F) Weight: 130 lbs 08/05/2016 Blood Pressure 1: 138/82 Code: 8480-6 BMI: 25.4 Code: 60014-5 Heart Rate 1: 58 bpm Height: 5' SpO2: 98% Temperature: 36.7 (C ) / 98.0 (F) Weight: 130 lbs 05/08/2016 Blood Pressure 1: 136/74 Code: 8480-6 BMI: 25.0 Code: 64739-4 Heart Rate 1: 56 bpm Height: 5' SpO2: 97% Weight: 128 lbs 04/29/2016 Blood Pressure 1: 134/74 Code: 8480-6 BMI: 25.0 Code: 04579-6 Heart Rate 1: 61 bpm Height: 5' SpO2: 96% Weight: 128 lbs 02/28/2016 Blood Pressure 1: 118/74 Code: 8480-6 BMI: 24.6 Code: 23017-8 Heart Rate 1: 57 bpm Height: 5' SpO2: 96% Weight: 126 lbs 11/29/2015 Blood Pressure 1: 132/76 Code: 8480-6 BMI: 25.2 Code: 55100-7 Heart Rate 1: 55 bpm Height: 5' SpO2: 98% Weight: 129 lbs 10/12/2015 Blood Pressure 1: 130/78 Code: 8480-6 BMI: 25.2 Code: 48181-2 Heart Rate 1: 54 bpm Height: 5' SpO2: 97% Weight: 129 lbs 08/02/2015 BMI: 25.2 Code: 97182-9 Heart Rate 1: 87 bpm Height: 5' SpO2: 92% Weight: 129 lbs 05/03/2015 Blood Pressure 1: 130/64 Code: 8480-6 BMI: 24.4 Code: 79674-9 Heart Rate 1: 57 bpm Height: 5' SpO2: 94% Weight: 125 lbs 01/05/2015 Blood Pressure 1: 148/78 Code: 8480-6 BMI: 24.2 Code: 57007-5 Heart Rate 1: 51 bpm Height: 5' SpO2: 96% Weight: 124 lbs Functional Status No Functional Status data History of Present Illness Symptom Name Status Resu lt Effective Date Notes Alcohol Use does not d rink any alcohol 11/25/2018 None Depression (last 6 months) some of the time 11/25/2018 None Depression or Hopelessness almost never 11/25/2018 None Describe Your Health v jamari good 11/25/2018 None Handling Stress usuall y tamra effectively 11/25/2018 None Exercise Habits exerci ses 3 days per week 11/25/2018 None Exercise Habits exerci ses 30 minutes per day 11/25/2018 None Interaction with Friends yes 11/25/2018 None Interests & Pleasure m ost of the time 11/25/2018 None Life Satisfaction sati sfied 11/25/2018 None Motor Vehicle Safety a lways fastens seat belt: y 11/25/2018 None Motor Vehicle Safety d maggie after drinking: n 11/25/2018 None Motor Vehicle Safety r ides with someone who has been drinking: n 11/25/2018 None Smoking and Tobacco Use non smoker 11/25/2018 None Sun Exposure protects skin when outdoors: n 11/25/2018 None Social & Emotional Support always 11/25/2018 None Stress some of the time 11/25/2018 None Aspirin Use yes 11/25/2018 None Blood Glucose (self reported) don't know 11/25/2018 None Blood Pressure (self reported) borderline (120/80 - 139/89) 11/25/2018 None Cholesterol (self reported) desireable (below 200) 11/25/2018 None Hemaglobin A-1C (self reported) don't know 11/25/2018 None Hours of Sleep 8 11/25/2018 None Nutrition servings of fried food / high fat foods per day: 0 11/25/2018 None Nutrition servings of high fiber / whole grain per day: 2 11/25/2018 None Nutrition servings of vegetables / fruit per day: 2 11/25/2018 None Additional Comments me dication use 11/18/2018 None Location oral intake 11/18/2018 None Location on the right 08/06/2018 None Quality dull ache 08/06/2018 when resting Quality sharp pain 08/06/2018 when walking or stairs Quality intermittent 08/06/2018 None Onset and Resolution o ngoing 08/06/2018 None Onset of Symptom 2 wee ks ago 08/06/2018 None Pertinent Findings Den ies decreased range of motion 08/06/2018 None Pertinent Findings Den ies limping 08/06/2018 None Pertinent Findings Den ies numbness 08/06/2018 None Pertinent Findings Den ies pain at rest 08/06/2018 None Pertinent Findings ck n with movement 08/06/2018 None Quality intermittent 08/06/2018 None _ Other: _ 08/06/2018 allergic reaction Pertinent Findings Den ies pain 08/06/2018 None hip pain Location on the right 02/10/2018 None hip pain Quality intermi ttent 02/10/2018 None hip pain Quality dull ac he 02/10/2018 when resting hip pain Quality sharp p ain 02/10/2018 when walking or stairs hip pain Onset and Resolution ongoing 02/10/2018 None hip pain Onset of Symptom 2 weeks ago 02/10/2018 None hip pain Mechanism of injury direct trauma 02/10/2018 fall to right side hip pain Pertinent Findings decreased range of motion 02/10/2018 None hip pain Pertinent Findings limping 02/10/2018 None hip pain Pertinent Findings Denies numbness 02/10/2018 None hip pain Pertinent Findings pain at rest 02/10/2018 None hip pain Pertinent Findings pain with movement 02/10/2018 None lower leg pain Location on the left 11/27/2017 None lower leg pain Quality a jm pain 11/27/2017 None lower leg pain Quality c onstant 11/27/2017 None lower leg pain Onset and Resolution sudden in onset 11/27/2017 None lower leg pain Onset of Symptom 1 weeks ago 11/27/2017 None lower leg pain Frequency of Episodes daily 11/27/2017 None foot pain Location on th e left 11/27/2017 None foot pain Location on th e right 11/27/2017 None foot pain Quality dull p ain 11/27/2017 None foot pain Quality worsen ing 11/27/2017 None foot pain Quality aching 11/27/2017 None foot pain Quality stabbi ng 11/27/2017 None foot pain Onset and Resolution gradual in onset 11/27/2017 None foot pain Onset of Symptom 4 months ago 11/27/2017 None foot pain Frequency of Episodes daily 11/27/2017 None hypertension Quality int ermittent 11/27/2017 None hypertension Onset and Resolution ongoing 11/27/2017 None hypertension Onset of Symptom during adulthood 11/27/2017 None hypertension Blood Pressure Values patient checking blood pressure at home - did not bring in readings 11/27/2017 None hypertension Alleviating Factors medication 11/27/2017 None hypertension Exacerbating Factors stress 11/27/2017 None hypertension Pertinent Findings Denies dizziness 11/27/2017 None hypertension Pertinent Findings Denies dyspnea 11/27/2017 None hypertension Pertinent Findings Denies edema 11/27/2017 None foot pain Quality acute 11/27/2017 None foot pain Quality interm ittent 11/27/2017 None foot pain Onset and Resolution ongoing 11/27/2017 None foot pain Alleviating Factors non weight bearing 11/27/2017 None hypertension Pertinent Findings Denies decreased energy 11/27/2017 None hypertension Pertinent Findings Denies anxiety 11/27/2017 None Annual Medicare Wellness Exam Alcohol Use does not drink any alcohol 11/04/2017 None Annual Medicare Wellness Exam Aspirin Use yes 11/04/2017 None Annual Medicare Wellness Exam Blood Glucose (self reported) don't know 11/04/2017 No ne Annual Medicare Wellness Exam Blood Pressure (self reported) borderline (120/80 - 139/89) 018 None Annual Medicare Wellness Exam Choles terol (self reported) desireable (below 200) 11/04/2017 None Annual Medicare Wellness Exam Depres devan (last 6 months) some of the time 11/04/2017 None Annual Medicare Wellness Exam Depres devan or Hopelessness almost never 11/04/2017 None Annual Medicare Wellness Exam Descri be Your Health very good 11/04/2017 Non e Annual Medicare Wellness Exam Exerci se Habits exercises 3 days per week 11/04/2017 None Annual Medicare Wellness Exam Exerci se Habits exercises 90 minutes per day 11/04/2017 None Annual Medicare Wellness Exam Handjoel ng Stress usually tamra effectively 11/04/2017 None Annual Medicare Wellness Exam Hemagl obin A-1C (self reported) don't know 11/04/2017 No ne Annual Medicare Wellness Exam Hours of Sleep 8 11/04/2017 None Annual Medicare Wellness Exam Intera ction with Friends yes 11/04/2017 None Annual Medicare Wellness Exam Intere sts & Pleasure almost all of the time 11/04/2017 None Annual Medicare Wellness Exam Life S atisfaction very satisfied 11/04/2017 None Annual Medicare Wellness Exam Motor Vehicle Safety always fastens seat belt: y 11/05/19 18 None Annual Medicare Wellness Exam Motor Vehicle Safety drives after drinking: n 11/04/2017 None Annual Medicare Wellness Exam Motor Vehicle Safety rides with someone who has been drinking: n 11/04/2017 None Annual Medicare Wellness Exam Nutrition servings of fried food / high fat foods per day: 0 11/04/2017 None Annual Medicare Wellness Exam Nutrition servings of high fiber / whole grain per day: 2 11/04/2017 None Annual Medicare Wellness Exam Nutrition servings of vegetables / fruit per day: 2 11/04/2017 None Annual Medicare Wellness Exam Smokin g and Tobacco Use non smoker 11/04/2017 No ne Annual Medicare Wellness Exam Social & Emotional Support always 11/04/2017 None Annual Medicare Wellness Exam Stress almost never 11/04/2017 None Annual Medicare Wellness Exam Sun Exposure protects skin when outdoors: y 11/04/2017 None lower leg pain Location on the left 04/22/2017 None lower leg pain Quality c onstant 04/22/2017 None lower leg pain Quality a jm pain 04/22/2017 None lower leg pain Onset and Resolution sudden in onset 04/22/2017 None lower leg pain Onset of Symptom 1 weeks ago 04/22/2017 None lower leg pain Frequency of Episodes daily 04/22/2017 None lower leg pain Sports Participation cycling 04/22/2017 None foot pain Location on th e left 04/22/2017 None foot pain Location on th e right 04/22/2017 None foot pain Quality dull p ain 04/22/2017 None foot pain Quality stabbi ng 04/22/2017 None foot pain Quality aching 04/22/2017 None foot pain Quality worsen ing 04/22/2017 None foot pain Onset and Resolution gradual in onset 04/22/2017 None foot pain Onset of Symptom 4 months ago 04/22/2017 None foot pain Frequency of Episodes daily 04/22/2017 None Annual Medicare Wellness Exam Alcohol Use does not drink any alcohol 10/29/2016 None Annual Medicare Wellness Exam Aspirin Use yes 10/29/2016 81 Annual Medicare Wellness Exam Blood Glucose (self reported) don't know 10/29/2016 No ne Annual Medicare Wellness Exam Blood Pressure (self reported) borderline (120/80 - 139/89) 017 None Annual Medicare Wellness Exam Choles terol (self reported) desireable (below 200) 10/29/2016 None Annual Medicare Wellness Exam Depres devan (last 6 months) some of the time 10/29/2016 None Annual Medicare Wellness Exam Depres devan or Hopelessness almost never 10/29/2016 None Annual Medicare Wellness Exam Descri be Your Health good 10/29/2016 None Annual Medicare Wellness Exam Exerci se Habits exercises 5 days per week 10/29/2016 None Annual Medicare Wellness Exam Handli ng Stress usually tamra effectively 10/29/2016 None Annual Medicare Wellness Exam Hemagl obin A-1C (self reported) don't know 10/29/2016 No ne Annual Medicare Wellness Exam Hours of Sleep 6-7 10/29/2016 None Annual Medicare Wellness Exam Intera ction with Friends yes 10/29/2016 None Annual Medicare Wellness Exam Intere sts & Pleasure daily 10/29/2016 None Annual Medicare Wellness Exam Life S atisfaction satisfied 10/29/2016 Non e Annual Medicare Wellness Exam Motor Vehicle Safety always fastens seat belt: y 10/30/19 17 None Annual Medicare Wellness Exam Nutrition servings of vegetables / fruit per day: 2 10/29/2016 None Annual Medicare Wellness Exam Smokin g and Tobacco Use non smoker 10/29/2016 No ne Annual Medicare Wellness Exam Social & Emotional Support usually 10/29/2016 None Annual Medicare Wellness Exam Stress almost never 10/29/2016 None Annual Medicare Wellness Exam Sun Exposure protects skin when outdoors: y 10/29/2016 None hypertension Onset of Symptom during adulthood 10/24/2016 None hypertension Pertinent Findings Denies dizziness 10/24/2016 None hypertension Pertinent Findings Denies dyspnea 10/24/2016 None hypertension Pertinent Findings Denies edema 10/24/2016 None neck pain Location on soledad th sides 10/24/2016 None neck pain Quality interm ittent 10/24/2016 None hypertension Onset and Resolution ongoing 10/24/2016 None hypertension Blood Pressure Values patient checking blood pressure at home - did not bring in readings 10/24/2016 None hypertension Alleviating Factors medication 10/24/2016 None hypertension Exacerbating Factors stress 10/24/2016 None hypertension Quality int ermittent 10/24/2016 None foot pain Location on th e left 10/24/2016 None foot pain Location on th e right 10/24/2016 None foot pain Quality acute 10/24/2016 None foot pain Quality interm ittent 10/24/2016 None foot pain Onset of Symptom 2 months ago 10/24/2016 None foot pain Onset and Resolution ongoing 10/24/2016 None foot pain Mechanism of injury unknown 10/24/2016 None foot pain Alleviating Factors non weight bearing 10/24/2016 None neck pain Onset of Symptom 2-3 months ago 10/24/2016 None neck pain Frequency of Episodes on and off 10/24/2016 None neck pain Triggers posit ion change 10/24/2016 None neck pain Mechanism of injury unknown 10/24/2016 None cough Location in the tracey ng 08/19/2016 None cough Onset and Resolution ongoing 08/19/2016 None cough Onset of Symptom months ago 08/19/2016 None cough Pertinent Findings Denies dyspnea 08/19/2016 None cough Pertinent Findings Denies fever 08/19/2016 None abdominal pain Location in the RUQ 08/19/2016 ribs abdominal pain Quality a cute 08/19/2016 None abdominal pain Quality w orsening 08/19/2016 None abdominal pain Onset and Resolution ongoing 08/19/2016 None abdominal pain Onset of Symptom months ago 08/19/2016 None abdominal pain Pertinent Findings Denies dyspnea 08/19/2016 None abdominal pain Pertinent Findings Denies fever 08/19/2016 None cough Location in the tracey ng 08/05/2016 None cough Onset and Resolution ongoing 08/05/2016 None cough Onset of Symptom months ago 08/05/2016 None cough Pertinent Findings Denies chest discomfort 08/05/2016 None cough Pertinent Findings Denies fever 08/05/2016 None cough Pertinent Findings hoarseness 08/05/2016 None skin lesion Location rig ht arm 05/08/2016 None skin lesion Onset and Resolution resolved 05/08/2016 -removed on 04/29 skin lesion Location rig ht arm 04/29/2016 None skin lesion Quality rais ed 04/29/2016 None hypertension Onset of Symptom during adulthood 02/28/2016 None hypertension Blood Pressure Values pt checking blood pressure - see scanned document 02/28/2016 None hypertension Pertinent Findings Denies dizziness 02/28/2016 None hypertension Pertinent Findings Denies dyspnea 02/28/2016 None hypertension Pertinent Findings Denies edema 02/28/2016 None hypothyroid Onset and Resolution ongoing 02/28/2016 None hypothyroid Pertinent Findings Denies brittle nails 02/28/2016 None hypothyroid Pertinent Findings Denies dry skin 02/28/2016 None hypertension Onset of Symptom during adulthood 11/29/2015 None hypertension Blood Pressure Values pt checking blood pressure - see scanned document 11/29/2015 None hypertension Pertinent Findings Denies dizziness 11/29/2015 None hypertension Pertinent Findings Denies dyspnea 11/29/2015 None hypertension Pertinent Findings Denies edema 11/29/2015 None hypothyroid Onset and Resolution ongoing 11/29/2015 None hypothyroid Pertinent Findings Denies brittle nails 11/29/2015 None hypothyroid Pertinent Findings Denies dry skin 11/29/2015 None angioedema Location in t he perioral area 10/12/2015 None angioedema Quality acute 10/12/2015 None angioedema Onset and Resolution sudden in onset 10/12/2015 None angioedema Onset of Symptom 9 days ago 10/12/2015 None angioedema Onset and Resolution resolved 10/12/2015 None hypertension Onset of Symptom during adulthood 08/02/2015 None hypertension Pertinent Findings Denies dizziness 08/02/2015 None hypertension Pertinent Findings Denies dyspnea 08/02/2015 None hypertension Pertinent Findings Denies edema 08/02/2015 None hypertension Blood Pressure Values pt checking blood pressure - see scanned document 08/02/2015 None hypothyroid Onset and Resolution ongoing 08/02/2015 None hypothyroid Pertinent Findings Denies brittle nails 08/02/2015 None hypothyroid Pertinent Findings Denies dry skin 08/02/2015 None hypertension Onset of Symptom during adulthood 05/03/2015 None hypertension Blood Pressure Values patient checking blood pressure at home - did not bring in readings 05/03/2015 None hypertension Pertinent Findings Denies dizziness 05/03/2015 None hypertension Pertinent Findings Denies dyspnea 05/03/2015 None hypertension Pertinent Findings Denies edema 05/03/2015 None swelling Location-Extremities on the left ankle 05/03/2015 None swelling Location-Extremities on the right ankle 05/03/2015 None swelling Onset of Symptom 1 week ago 05/03/2015 None swelling Pertinent Findings Denies dizziness 05/03/2015 None swelling Pertinent Findings Denies muscle pain 05/03/2015 None swelling Pertinent Findings Denies tenderness 05/03/2015 None constipation Onset of Symptom 1 years ago 01/05/2015 None constipation Alleviating Factors medication 01/05/2015 None constipation Pertinent Findings bloating 01/05/2015 None gas and bloating Onset of Symptom 1 years ago 01/05/2015 None gas and bloating Triggers meals 01/05/2015 None gas and bloating Exacerbating Factors meals 01/05/2015 None gas and bloating Pertinent Findings flatulence 01/05/2015 None gas and bloating Pertinent Findings Denies gastroenteritis 01/05/2015 None gas and bloating Pertinent Findings heartburn 01/05/2015 None gas and bloating Pertinent Findings Denies nausea 01/05/2015 None gas and bloating Pertinent Findings Denies lightheadedness 01/05/2015 None gas and bloating Pertinent Findings Denies weight loss 01/05/2015 None Advance Directives No Advance Directive data Encounters Encounter Performer Loca tion Codes Date 03060 EST. PATIENT, LEVEL III Diagnosis: Essential (primary) hypertension[ICD10: I10] Jessie Wu MD, [facility] CPT-4: 90838 11/18/2018 ([id number]) 54967 EST. 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 P ATIENT, LEVEL III Diagnosis: Pain in right hip[ICD10: M25.551] Anabel Wu MD, [facility] CPT-4: 28662 02/10/2018 ([id number]) 22471 EST. P ATIENT, LEVEL IV Diagnosis: Personal history of other specified conditions[ICD10: Z87.898] Diagnosis: Vitamin D deficiency, unspecified[ICD10: E55.9] Diagnosis: Other problems related to lifestyle[ICD10: Z72.89] Diagnosis: Essential (primary) hypertension[ICD10: I10] Diagnosis: Parkinson's disease[ICD10: G20] Diagnosis: Gastro-esophageal reflux disease without esophagitis[ICD10: K21.9] Anabel Wu MD, [facility] CPT-4: 65037 11/27/2017 ([id number]) 99270 EST. P ATIENT, LEVEL III Diagnosis: Pain in left knee[ICD10: M25.562] Diagnosis: Pain in left lower leg[ICD10: M79.662] Diagnosis: Pain in right foot[ICD10: M79.671] Diagnosis: Pain in left foot[ICD10: M79.672] Anabel Wu MD, [facility] CPT-4: 22125 04/22/2017 ([id number]) 12152 EST. P ATIENT, LEVEL IV Diagnosis: Essential (primary) hypertension[ICD10: I10] Diagnosis: Cervicalgia[ICD10: M54.2] Diagnosis: Gastro-esophageal reflux disease without esophagitis[ICD10: K21.9] Anabel Wu MD, [facility] CPT-4: 93370 10/24/2016 [id number] EST. PATIENT, LEVEL IV Diagnosis: Pleurodynia[ICD10: R07.81] Diagnosis: Cough[ICD10: R05] Jessie Wu MD, [facility] CPT-4: 56686 08/19/2016 [id number] EST. PATIENT, LEVEL III Diagnosis: Cough[ICD10: R05] Diagnosis: Parkinson's disease[ICD10: G20] Diagnosis: Essential (primary) hypertension[ICD10: I10] [facility] CPT-4: 88767 08/05/2016 ([id number]) Miscellaneou s no charge Diagnosis: Other benign neoplasm of skin of right upper limb, including shoulder[ICD10: D23.61] Anabel Wu MD, [facility] CPT-4: 30234 05/08/2016 ([id number]) 33461 EST. P ATIENT, LEVEL IV Diagnosis: Essential (primary) hypertension[ICD10: I10] Diagnosis: Parkinson's disease[ICD10: G20] Anabel Wu MD, [facility] CPT-4: 36144 02/28/2016 ([id number]) 43625 EST. P ATIENT, LEVEL III Diagnosis: Essential (primary) hypertension[ICD10: I10] Diagnosis: Gastro-esophageal reflux disease without esophagitis[ICD10: K21.9] Anabel Wu MD, [facility] CPT-4: 83190 11/29/2015 ([id number]) 33574 EST. P ATIENT, LEVEL IV Diagnosis: Essential (primary) hypertension[ICD10: I10] Diagnosis: Parkinson's disease[ICD10: G20] Diagnosis: Personal history of other specified conditions[ICD10: Z87.898] Anabel Wu MD, [facility] CPT-4: 84667 10/12/2015 ([id number]) 73040 EST. P ATIENT, LEVEL III Diagnosis: Essential (primary) hypertension[ICD10: I10] Diagnosis: Other hyperlipidemia[ICD10: E78.4] Anabel Wu MD, [facility] CPT- 4: 12606 08/02/2015 ([id number]) 35092 EST. P ATIENT, LEVEL IV Diagnosis: Thyrotoxicosis, unspecified without thyrotoxic crisis or storm[ICD10: E05.90] Diagnosis: Encounter for immunization[ICD10: Z23] Anabel Wu MD, [facility] CPT-4: 56385 05/03/2015 ([id number]) OFFICE VISI T, [facility] - LEVEL 4 Diagnosis: ESSENTIAL HYPERTENSION[ICD9: 401.9] Diagnosis: HYPERLIPIDEMIA[ICD9: 272.4] Diagnosis: Flatulence, eructation and gas pain[ICD9: 787.3] Diagnosis: Tremor observed on examination[ICD9: 781.0] Anabel Wu MD, [facility] CPT-4: 21208 01/05/2015 Plan of Care Planned Activity Notes C odes Status Date Visit Plan: Medicare Exam - today w e discussed the patients past history, immunizations, preventative exams/evaluations - colonoscopy, fecal occult blood testing, routine labs for renal function, glucose, cholesterol, osteoporosis evaluations, cardiovascular testing and cancer screenings. We have also discussed mental health and the signs/symptoms of depression. The patient was advised of home safety evaluations and the need to make sure that as the aging process continues, we need to be aware of different ways to make the home a safer place to reside. The patient has also been counseled that exercise is necessary - and of utmost importance as we age to help decrease fall risk and to maintain independece in the home. Today we discussed the need for the patient to create paperwork for Advanced directives as well as for the patient to provide this office with a copy of her DOPA paperwork for health care surrogate. 11/25/2018 Patient Education: Patient Medication Summary Completed 11/25/2018 Visit Plan: Hypertension - well con trolled - continue with current medications, continue with no added salt diet. Pt has been encouraged to exercise daily. The pt has been advised to call the office if there are any acute concerns about change in blood pressure readings at home. 11/18/2018 Appointment: Jessie Dominguez WPtel: [phone] [facility] (30 min) Complex 11/18/2018 Patient Education: Patient Medication Summary Completed 11/18/2018 Visit Plan: Hypertension - well con trolled - continue with current medications, continue with no added salt diet. Pt has been encouraged to exercise daily. The pt has been advised to call the office if there are any acute concerns about change in blood pressure readings at home. Right hip pain - discussed treatment with pt - continue with stretching, if symptoms do not improve - then consider voltaren gel. Hx of Hereditary Angioedema - pt has not had any specific testing - we discussed sending her to Dr. Ahuja - she is not interested in that at this moment. She is to use the Prednisone that she has at home for emergency situation in case she has recurrent angioedema symptoms or giant hives. She states that she usually uses Benadryl, Pepcid, and I have recommended that she needs to have Prednisone 20mg that she takes as well when she has symptoms of urticaria. 08/06/2018 Appointment: Anabel Wu WPtel: [phone] [facility] (15 min) Moderate 08/06/2018 Patient Education: Patient Medication Summary Completed 08/06/2018 Patient Education: Patient Medication Summary Completed 05/29/2018 Appointment: Anabel Wu WPtel: [phone] [facility] [place] (15 min) Moderate 05/26/2018 Visit Plan: Right hip pain - xray t chris was negative for fracture - recommended patient to have appt with Dr. Armenta. Pt to use lidocaine patches on the hip until the pt can be seen by Dr. Armenta. Referral made today. Pt may need further imaging - however an injection may help prior to imaging. 02/10/2018 Appointment: Anabel Wu WPtel: [facility] (15 min) Moderate 02/10/2018 Patient Education: Patient Medication Summary Completed 02/10/2018 Care Plan: X-RAY EXAM OF HIP LOINC : 77534-8 Pending 02/10/2018 Care Plan: Referral Order SNOMED-CT : [id number] Pending 02/10/2018 Visit Plan: Hypertension - well con trolled - continue with current medications, continue with no added salt diet. Pt has been encouraged to exercise daily. The pt has been advised to call the office if there are any acute concerns about change in blood pressure readings at home. Esophageal Reflux - the patient has been counseled against excessive intake of caffeine, spicy foods, peppermint, and cinnamon - all of which can exacerbate esophageal reflux. The patient is to take medications as prescribed and call the office if the symptoms are not improving. Hx of allergic reactions - unknown triggers - advised pt as follows: if you start to have an allergic reaction - take two prednisone - 2 zantac ( or two pepcid) and 2 benadry and one (thalia/claritin or zyrtec) - this helps to decrease the swelling Parkinson's disease - continue with current management. Check hepatitis c antibodies. 11/27/2017 Appointment: Anabel Wu WPtel: [address] [place], [place] [id number] [place] (15 min) Moderate 11/27/2017 Patient Education: Patient Medication Summary Completed 11/27/2017 Care Plan: Hepatitis C Antibody With Ref era For Hcv Antibody Verificat Pending 11/27/2017 Visit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
[2019-11-04 09:25] LABS: TOTAL PROTEIN 7.9 GM/DL (6.4-8.2)
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
[2019-11-04 09:27] LABS: BILIRUBIN,TOTAL 0.4 MG/DL (0.1-1.0)
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
[2019-11-04 09:28] LABS: CREATININE SERUM 1.1 MG/DL (0.60-1.30)
--- OUTSIDE RECORDS SUMMARY | 2019-11-04 09:28 | XMS REPORT | CCD ---
Author Author Robin Wu Organization Anabel Wu MD, [facility] Address [address] [place] [address] Phone Care Team Providers Care Feed Manager Name Role Phone PP Unavailable CCM Unavailable Summary Purpose Interface Exchange Insurance Providers Payer name Policy type / Coverage type Covered alliance party ID Effective Begin Date Effective End Date WPS Medicare Part B Medicare Part B [id number] Unknown Unknown [facility] [place] [facility] [employer] Medicare Part B [id number] Unknown Unknown Family history Sister Diagnosis Age At [...] unemployed house 01/05/[address]: 479765214 Never smoker 01/05/[address]: 776622840 Never drinks alcohol 01/05/2015 Allergies, Adverse Reactions, Alerts Allergies, Adverse Reactions, Alerts data not found Past Medical History Illness Codes Condition Status Onset Date Resolved Date Encounter for genera l adult medical examination with abnormal findings ICD-9: V70.0 ICD-10: Z00.01 Active 10/29/2016 Unknown Cervicalgia ICD-9: 723.1 ICD-10: M54.2 Active 10/24/2016 Unknown Essential (primary) hypertension ICD-9: 401.1 ICD-10: I10 Active 10/24/2016 Unknown Gastro-esophageal re flux disease without esophagitis ICD-9: 530.81 ICD-10: K21.9 Active 11/28/2015 Unknown Cough ICD-9: 786.2 ICD-10: R05 Active 08/04/2016 Unknown Pleurodynia ICD-9: 786.50 ICD-10: R07.81 Active 08/19/2016 Unknown Essential (primary) hypertension ICD-9: 401.9 ICD-10: I10 Active 08/04/2016 Unknown Parkinson's disease ICD- 9: 332.0 ICD-10: G20 Active 08/04/2016 Unknown Other benign neoplas m of skin of right upper limb, including shoulder ICD-9: 216.6 ICD-10: D23.61 Active 05/07/2016 Unknown Encounter for immuni zation ICD-9: V04.81 ICD-10: Z23 Active 04/28/2016 Unknown Personal history of other specified conditions ICD-9: V13.89 ICD-10: Z87.898 Active 10/11/2015 Unknown Other hyperlipidemia ICD-9: 272.4 ICD-10: E78.4 [...] findings ICD-9: V70.0 ICD-10: Z00.01 10/29/2016 Active Cervicalgia ICD-9: 723.1 ICD-10: M54.2 10/24/2016 Active Essential (primary) hypertension ICD-9: 401.1 ICD-10: I10 10/24/2016 Active Gastro-esophageal re flux disease without esophagitis ICD-9: 530.81 ICD-10: K21.9 11/28/2015 Active Cough ICD-9: 786.2 ICD-10: R05 08/04/2016 Active Pleurodynia ICD-9: 786.50 ICD-10: R07.81 08/19/2016 Active Essential (primary) hypertension ICD-9: 401.9 ICD-10: I10 08/04/2016 Active Parkinson's disease ICD- 9: 332.0 ICD-10: G20 08/04/2016 Active Other benign neoplas m of skin of right upper limb, including shoulder ICD-9: 216.6 ICD-10: D23.61 05/07/2016 Active Encounter for immuni zation ICD-9: V04.81 ICD-10: Z23 04/28/2016 Active Personal history of other specified conditions ICD-9: V13.89 ICD-10: Z87.898 10/11/2015 Active Other hyperlipidemia ICD-9: 272.4 ICD-10: E78.4 [...] Date Stop Date Sta tus Fill Instructions Toprol XL 50 mg tabl et,extended release RxNorm: 043574 TAKE ONE TABLET BY [facility] ONCE DAILY 02/03/2017 05/03/2017 Active naproxen 500 mg tablet RxNorm: 370611 1 Tablet(s) PO BID as needed 08/23/2016 09/01/2016 Inactive naproxen 500 mg tablet RxNorm: 656267 1 Tablet(s) PO BID as needed 08/23/2016 08/22/2016 Inactive acyclovir 800 mg tablet RxNorm: 090500 1 Tablet(s) PO TID 08/19/2016 08/28/2016 Inactive acyclovir 800 mg tablet RxNorm: 165850 1 Tablet(s) PO TID 08/19/2016 08/18/2016 Inactive tramadol 50 mg tablet RxNorm: 144910 1-2 Tablet(s) PO QID as needed 08/19/2016 10/21/2016 In active Pepcid 20 mg tablet RxNorm: 105240 1 Tablet(s) PO BID 08/12/2016 10/20/2016 Inactive INCREASE TO BID amoxicillin 500 mg c apsule RxNorm: 836255 1 Capsule(s) PO TID 08/12/2016 08/21/2016 Inactive amoxicillin 500 mg c apsule RxNorm: 841273 1 Capsule(s) PO TID 08/12/2016 08/11/2016 Inactive amlodipine 5 mg tablet RxNorm: 838931 1 Tablet(s) PO daily 08/05/2016 03/02/2017 Active Norvasc 10 mg tablet RxNorm: 143259 TAKE ONE TABLET BY MOUTH ONCE DAILY 08/05/2016 10/20/2016 In active prednisone 20 mg tablet RxNorm: 045842 2 Tablet(s) PO daily 08/05/2016 08/09/2016 Inactive Toprol XL 50 mg tabl et,extended release RxNorm: 687468 TAKE ONE TABLET BY [facility] ONCE DAILY 07/26/2016 01/21/2017 Inactive Lexapro 10 mg tablet RxNorm: 827921 1 Tablet(s) PO daily 02/28/2016 09/24/2016 Inactive amlodipine 5 mg tablet RxNorm: 961006 1 Tablet(s) PO daily 11/29/2015 06/25/2016 Inactive Pepcid 20 mg tablet RxNorm: 194640 1 Tablet(s) PO QPM 11/29/2015 06/25/2016 Inactive prednisone 20 mg tablet RxNorm: 178191 3 Tablet(s) PO daily use if needed for s ymptoms of angioedema 10/12/2015 10/16/2015 Inactive Norvasc 10 mg tablet RxNorm: 202403 1 Tablet(s) PO daily 10/12/2015 11/28/2015 Inactive pramipexole 0.5 mg t ablet RxNorm: 291940 1 Tablet(s) PO TID 10/12/2015 02/27/2016 Inactive EpiPen 0.3 mg/0.3 mL injection, auto-injector RxNorm: 802940 Milliliter(s) IM UD a s needed 10/04/2015 No Stop Date Active 1 epipen pramipexole 0.5 mg t ablet RxNorm: 560116 3 Tablet(s) PO TID 08/02/2015 10/11/2015 Inactive Norvasc 10 mg tablet RxNorm: 218617 1/2 Tablet(s) PO daily 08/02/2015 10/11/2015 Inactive Toprol XL 50 mg tabl et,extended release RxNorm: 067277 1 Tablet(s) PO daily 07/18/2015 07/11/2016 In active Norvasc 10 mg tablet RxNorm: 322624 1 Tablet(s) PO daily 07/05/2015 08/01/2015 Inactive Aspirin Low Dose 81 mg tablet,delayed release RxNorm: 886151 1 Tablet(s) PO QPM No Start Date Active Benadryl 25 mg capsule RxNorm: 0474643 1 -2 Capsule(s) PO QHS No Start Date Active Vitamin D3 2,000 uni t tablet RxNorm: 214079 1 Tablet(s) PO daily No Start Date Active pravastatin 20 mg ta blet RxNorm: 985013 1/2 Tablet(s) PO QHS No Start Date 08/01/2015 Inactive Desean Aspirin oral RxNorm: 708252 oral No Start Date 10/12/2015 Inactive pramipexole 0.125 mg tablet RxNorm: 245387 3 Tablet(s) PO TID No Start Date 08/01/2015 Inactive Norvasc 10 mg tablet RxNorm: 080849 1/2 Tablet(s) PO daily No Start Date 07/04/2015 Inactive Toprol XL 50 mg tabl et,extended release RxNorm: 313380 1 Tablet(s) PO daily No Start Date 07/17/2015 Inactive Benadryl Allergy oral RxNorm: 556702 oral No Start Date 10/12/2015 Inactive Calcium + D oral RxNorm: 777267 oral No Start Date 10/12/2015 Inactive amitriptyline 10 mg tablet RxNorm: 364711 1 Tablet(s) PO daily No Start Date 10/11/2015 Inactive EpiPen 0.3 mg/0.3 mL injection, auto-injector RxNorm: 293070 Milliliter(s) IM UD a s needed No Start Date 10/03/2015 Inactive 1 epipen Vitamin D2 oral RxNorm: 4018 oral No Start Date 10/12/2015 Inactive Medication Administered No Medication Administered data Immunizations Vaccine Codes Date Status Influenza CVX: 141 04/29 completed Influenza CVX: 141 05/03 completed Assessments Condition Codes Effectiv e Dates Encounter for general adult medical exam ination with abnormal findings ICD-10: Z00.01 ICD-9: V70.0 10/29/2016 Gastro-esophageal reflux disease without esophagitis ICD-10: K21.9 ICD-9: 530.81 10/24/2016 Cervicalgia ICD-10: M54.2 ICD-9: 723.1 10/24/2016 Essential (primary) hypertension ICD -10: I10 ICD-9: 401.1 10/24/2016 Cough ICD-10: R05 ICD-9: 786.2 08/19/2016 Pleurodynia ICD-10: R07.81 ICD-9: 786.50 08/19/2016 Parkinson's disease ICD-10: G20 ICD-9: 332.0 08/05/2016 Essential (primary) hypertension ICD -10: I10 ICD-9: 401.9 08/05/2016 Other benign neoplasm of skin of right u pper limb, including shoulder ICD-10: D23.61 ICD-9: 216.6 05/08/2016 Encounter for immunization ICD-10: Z 23 ICD-9: V04.81 04/29/2016 Personal history of other specified conditions ICD-10: Z87.898 ICD-9: V13.89 10/12/2015 Other hyperlipidemia ICD-10: E78.4 ICD-9: 272.4 08/02/2015 Thyrotoxicosis, unspecified without thyr otoxic crisis or storm ICD-10: E05.90 ICD-9: 242.90 07/31/2015 Flatulence, eructation and gas pain ICD-9: 787.3 01/05/2015 HYPERLIPIDEMIA ICD-9: 272.4 01/05/2015 Tremor observed on examination ICD-9: 781. 0 01/05/2015 ESSENTIAL HYPERTENSION ICD-9: 401.9 01/05/2015 Reason For Visit Reason For Visit Effective Dates Notes Annual Medicare Wellness Exam 10/29/2016 hypertension 10/24/2016 cough 08/19/2016 cough 08/05/2016 skin lesion 05/08/2016 skin lesion 04/29/2016 hypertension 02/28/2016 hypertension 11/29/2015 angioedema 10/12/2015 hypertension 08/02/2015 hypertension 05/03/2015 hypertension 01/05/2015 Results Observation Observation Code Item Item Code Result Date Comp Metabolic Dlg936 NA 137 mEq/L 08/05/2016 Comp Metabolic Fqe885 K 3.8 mEq/L 08/05/2016 Comp Metabolic Wwy792 CL 103 mEq/L 08/05/2016 Comp Metabolic Zfn767 CO2 27.0 mEq/L 08/05/2016 Comp Metabolic Hkr785 AN ION GAP 11 08/05/2016 Comp Metabolic Kbz852 GL UCOSE 90 mg/dL 08/05/2016 Comp Metabolic Xso791 Cr eat 1.0 mg/dL 08/05/2016 Comp Metabolic Flt716 eG FR 59 ml/min/1.73m2 08/05 Comp Metabolic Uzt181 BUN 24 mg/dL 08/05/2016 Comp Metabolic Cri693 B/ C Ratio 24.2 Ratio 08/05/2016 Comp Metabolic Rzc799 CA LCIUM 9.5 mg/dL 08/05/2016 Comp Metabolic Pbk115 AL K PHOS 76 U/L 08/05/2016 Comp Metabolic Fea237 T(SGOT) 16 U/L 08/05/2016 Comp Metabolic Jpr669 AL T(SGPT) 14 U/L 08/05/2016 Comp Metabolic Mii511 BI LI T 0.3 mg/dL 08/05/2016 Comp Metabolic Klw841 AL BUMIN 4.4 g/dL 08/05/2016 Comp Metabolic Clm344 TP RO 6.9 g/dL 08/05/2016 Comp Metabolic Yyi457 GL OB 2.5 g/dL 08/05/2016 Comp Metabolic Ycr165 A/ G Ratio 1.8 Ratio 08/05/2016 Comp Metabolic Fdr147 Os mo 277 mOsmo 08/05/2016 Cbc With [...] 28.6 pg 08/05/2016 Cbc With Differential Ord2 Patrick% 8.3 % 08/05/2016 Cbc With Differential Ord2 MCHC 32.5 pg 08/05/2016 Cbc With Differential Ord2 Eos% 1.8 % 08/05/2016 Cbc With Differential Ord2 PLT 191 K/ul 08/05/2016 Cbc With Differential Ord2 Baso% 0.4 % 08/05/2016 Cbc With Differential Ord2 Neut ABS# 4.86 K/ul 08/05/2016 Cbc With Differential Ord2 RDW 13.9 % 08/05/2016 Cbc With Differential Ord2 Lymph ABS# 1.15 K/ul 08/05/2016 Cbc With Differential Ord2 Patrick ABS# 0.6 K/ul 08/05/2016 Cbc With Differential Ord2 Eos ABS# 0.1 K/ul 08/05/2016 Cbc With Differential Ord2 Baso ABS# 0.0 K/ul 08/05/2016 Lipid Ord30 CHOL 159 mg/dL 08/02/2015 Lipid Ord30 HDL 60.0 mg/dl 08/02/2015 Lipid Ord30 TRIG 57 mg/dL 08/02/2015 Lipid Ord30 LDL 88 mg/dL 08/02/2015 Lipid Ord30 C/HDL 2.7 Ratio 08/02/2015 Free T4 Pwl410 FREE T4 1.25 ng/dL 07/31/2015 Tsh Ord6 hTSH II 1.91 uIU/mL 07/31/2015 Free T3 Nsd932 Free T3 2.96 pg/ml 07/31/2015 Total T3 Ord42 TT3 1.2 ng/ml 05/04/2015 Free T3 Ree735 Free T3 2.71 pg/ml 05/04/2015 Tsh Ord6 hTSH II 1.23 uIU/mL 05/03/2015 Free T4 Jyw033 FREE T4 1.55 ng/dL 05/03/2015 Review of Systems System Result Effective Dates Constitutional No chills 10/29/2016 Constitutional No diaphoresis [...] Procedures Procedure Codes Date PPPS, SUBSEQ VISIT CPT-4: Y3229Hzvtyrs 10/29/2016 ADMIN INFLUENZA VIRU S VAC CPT-4: G1518Adhrcxj 04/29/2016 BIOPSY SKIN LESION CPT-4: 70225Joxssdj 04/29/2016 FLU VACC 4 KAMARI [address] Y[address] PLUS IM SNOMED CT: 89531204 CPT-4: 92891Pacwzoo 04/29/2016 ADMIN INFLUENZA VIRU S VAC CPT-4: I7003Riqcwkm 05/03/2015 FLU VACC 4 KAMARI 3 YRS PLUS IM SNOMED CT: 41959304 CPT-4: 46944Aeefhbu 05/03/2015 Vital Signs Date Vital 10/29/2016 Blood Pressure 1: 140/70 Code: 8480-6 BMI: 26.2 Code: 27207-9 Heart Rate 1: 56 bpm Height: 5' SpO2: 98% Weight: 134 lbs 10/24/2016 Blood Pressure 1: 158/78 Code: 8480-6 BMI: 26.2 Code: 83016-8 Heart Rate 1: 51 bpm Height: 5' SpO2: 97% Weight: 134 lbs 08/19/2016 Blood Pressure 1: 136/68 Code: 8480-6 BMI: 25.4 Code: 67614-8 Heart Rate 1: 64 bpm Height: 5' SpO2: 99% Temperature: 36.9 (C ) / 98.5 (F) Weight: 130 lbs 08/05/2016 Blood Pressure 1: 138/82 Code: 8480-6 BMI: 25.4 Code: 35191-9 Heart Rate 1: 58 bpm Height: 5' SpO2: 98% Temperature: 36.7 (C ) / 98.0 (F) Weight: 130 lbs 05/08/2016 Blood Pressure 1: 136/74 Code: 8480-6 BMI: 25.0 Code: 00558-4 Heart Rate 1: 56 bpm Height: 5' SpO2: 97% Weight: 128 lbs 04/29/2016 Blood Pressure 1: 134/74 Code: 8480-6 BMI: 25.0 Code: 09894-1 Heart Rate 1: 61 bpm Height: 5' SpO2: 96% Weight: 128 lbs 02/28/2016 Blood Pressure 1: 118/74 Code: 8480-6 BMI: 24.6 Code: 94163-9 Heart Rate 1: 57 bpm Height: 5' SpO2: 96% Weight: 126 lbs 11/29/2015 Blood Pressure 1: 132/76 Code: 8480-6 BMI: 25.2 Code: 36522-2 Heart Rate 1: 55 bpm Height: 5' SpO2: 98% Weight: 129 lbs 10/12/2015 Blood Pressure 1: 130/78 Code: 8480-6 BMI: 25.2 Code: 25305-1 Heart Rate 1: 54 bpm Height: 5' SpO2: 97% Weight: 129 lbs 08/02/2015 BMI: 25.2 Code: 39364-5 Heart Rate 1: 87 bpm Height: 5' SpO2: 92% Weight: 129 lbs 05/03/2015 Blood Pressure 1: 130/64 Code: 8480-6 BMI: 24.4 Code: 87820-2 Heart Rate 1: 57 bpm Height: 5' SpO2: 94% Weight: 125 lbs 01/05/2015 Blood Pressure 1: 148/78 Code: 8480-6 BMI: 24.2 Code: 94473-1 Heart Rate 1: 51 bpm Height: 5' SpO2: 96% Weight: 124 lbs Functional Status No Functional Status data History of Present Illness Symptom Name Status Resu lt Effective Date Notes Annual Medicare Wellness Exam Alcohol Use does [...] Encounters Encounter Performer Loca tion Codes Date ([id number]) 90227 EST. P ATIENT, LEVEL IV Diagnosis: Essential (primary) hypertension[ICD10: I10] Diagnosis: Cervicalgia[ICD10: M54.2] Diagnosis: Gastro-esophageal reflux disease without esophagitis[ICD10: K21.9] Anabel Wu MD, [facility] CPT-4: 89035 10/24/2016 58360 EST. PATIENT, LEVEL IV Diagnosis: Pleurodynia[ICD10: R07.81] Diagnosis: Cough[ICD10: R05] [facility] CPT-4: 46917 08/19/2016 95528 EST. PATIENT, LEVEL III Diagnosis: Cough[ICD10: R05] Diagnosis: Parkinson's disease[ICD10: G20] Diagnosis: Essential (primary) hypertension[ICD10: I10] Jessie Wu MD, [facility] CPT-4: 23409 08/05/2016 ([id number]) Miscellaneou s no charge Diagnosis: Other benign neoplasm of skin of right upper limb, including shoulder[ICD10: D23.61] [facility] CPT-4: 80152 05/08/2016 ([id number]) 81366 EST. P ATIENT, LEVEL IV Diagnosis: Essential (primary) hypertension[ICD10: I10] Diagnosis: Parkinson's disease[ICD10: G20] Anabel Wu MD, [facility] CPT-4: 35803 02/28/2016 ([id number]) 29934 EST. P ATIENT, LEVEL III Diagnosis: Essential (primary) hypertension[ICD10: I10] Diagnosis: Gastro-esophageal reflux disease without esophagitis[ICD10: K21.9] [facility] CPT-4: 11305 11/29/2015 ([id number]) 05078 EST. P ATIENT, LEVEL IV Diagnosis: Essential (primary) hypertension[ICD10: I10] Diagnosis: Parkinson's disease[ICD10: G20] Diagnosis: Personal history of other specified conditions[ICD10: Z87.898] [facility] CPT-4: 62447 10/12/2015 ([id number]) 74884 EST. P ATIENT, LEVEL III Diagnosis: Essential (primary) hypertension[ICD10: I10] Diagnosis: Other hyperlipidemia[ICD10: E78.4] Anabel Wu MD, [facility] CPT- 4: 44909 08/02/2015 ([id number]) 13121 EST. P ATIENT, LEVEL IV Diagnosis: Thyrotoxicosis, unspecified without thyrotoxic crisis or storm[ICD10: E05.90] Diagnosis: Encounter for immunization[ICD10: Z23] Anabel Wu MD, [facility] CPT-4: 70680 05/03/2015 ([id number]) OFFICE VISI T [facility] - LEVEL 4 Diagnosis: ESSENTIAL HYPERTENSION[ICD9: 401.9] Diagnosis: HYPERLIPIDEMIA[ICD9: 272.4] Diagnosis: Flatulence, eructation and gas pain[ICD9: 787.3] Diagnosis: Tremor observed on examination[ICD9: 781.0] Anabel Wu MD, [facility] CPT-4: 99481 01/05/2015 Plan of Care Planned Activity Notes C odes Status Date Visit Plan: Medicare Exam - today we dis cussed the patients past history, immunizations, preventative exams/evaluations [...] risk and to maintain independece in the home.Today we discussed the need for the patient to create paperwork for Advanced directives as well as for the patient to provide this office with a copy of her DOPA paperwork for health care surrogate. 2016 Appointment: Jessie Dominguez [facility]el[facility] [phone] [facility] [place] [facility] - Annual Wellness Visit 10/29/2016 Patient Education: Patient Medication Summary Completed 10/29/2016 Visit Plan: Hypertension - well controll ed - continue with current medications, continue with no added salt diet. Pt has been encouraged to exercise daily.The pt has been advised to call the office if there are any acute concerns about change in blood pressure readings at home.Esophageal Reflux - the patient has been counseled against excessive intake of caffeine, spicy foods, peppermint, and cinnamon - all of which can exacerbate esophageal reflux.The patient is to take medications as prescribed and call the office if the symptoms are not improving.Neck pain - referral to Physical therapy 10/24/2016 Appointment: Anabel Wu WPtel: [phone] [facility] (15 min) Moderate 10/24/2016 Patient Education: Patient Medication Summary Completed 10/24/2016 Patient Education: .Cervicalgia Neck Pain Completed 10/24/2016 Visit Plan: Ongoing cough, right rib ck n - tender to touch over right lower ribs, no rash present at this time - will send RX, will check x-ray. Pt is to notify clinic if symptoms do not improve, if they worsen, or with any questions or concerns. 08/19/2016 Appointment: Jessie Dominguez WPtel: [facility] (30 min) Complex 08/19/2016 Patient Education: Patient Medication Summary Completed 08/19/2016 Visit Plan: Cough - ongoing - will order CXR, labs - will send RX - pt is to notify clinic if symptoms do not improve, if they worsen, or with any questions or concerns. 08/05/2016 Appointment: Jessie Dominguez WPtel: [facility] [place] (30 min) Complex 08/05/2016 Patient Education: Patient Medication Summary Completed 08/05/2016 Appointment: Nurse Visit 05/10/2016 Patient Education: Patient Medication Summary Completed 05/10/2016 Visit Plan: sutures removed 05/08/2016 [facility]: [facility] [phone] [facility] [place] (15 min) Moderate 05/08/2016 Patient Education: Patient Medication Summary Completed 05/08/2016 Visit Plan: Skin lesion - biopsy of lesion. 04/29/2016 Appointment: [facility] [phone] [facility] removing spot on arm Surgical Procedure 04/29/2016 Patient Education: Patient Medication Summary Completed 04/29/2016 Visit Plan: Hypertension - well controll ed - continue with current medications, continue with no added salt diet. Pt has been encouraged to exercise daily.The pt has been advised to call the office if there are any acute concerns about change in blood pressure readings at home.Parkinson's disease - symptoms stable - pt feels like she has improved with the "rock [employer] boxing" class she has been taking from her daughter. 02/28/2016 Patient Education: Patient Medication Summary Completed 02/28/2016 Patient Education: Hypertension Completed 02/28/2016 Visit Plan: Hypertension - well controll ed - continue with current medications, continue with no added salt diet. Pt has been encouraged to exercise daily.The pt has been advised to call the office if there are any acute concerns about change in blood pressure readings at home.Esophageal Reflux - the patient has been counseled against excessive intake of caffeine, spicy foods, peppermint, and cinnamon - all of which can exacerbate esophageal reflux.The patient is to take medications as prescribed and call the office if the symptoms are not improving. 11/29/2015 Appointment: [facility] [phone] [facility] (15 min) Moderate 11/29/2015 Patient Education: Patient Medication Summary Completed 11/29/2015 Patient Education: Hypertension Completed 11/29/2015 Visit Plan: Hypertension - well controll ed - continue with current medications, continue with no added salt diet. Pt has been encouraged to exercise daily.The pt has been advised to call the office if there are any acute concerns about change in blood pressure readings at home.Angioedema - rx for prednisone - pt to have this medication with her on her trip to [place]. 10/12/2015 Patient Education: Patient Medication Summary Completed 10/12/2015 Patient Education: Hypertension Completed 10/12/2015 Visit Plan: Hypertension - well controll ed - continue with current medications, continue with no added salt diet. Pt has been encouraged to exercise daily.The pt has been advised to call the office if there are any acute concerns about change in blood pressure readings at home.Hyperlipidemia - pt has been counseled about appropriate [...] and to assure normal liver response to medications.we will add cholesterol panel on to the blood in lab 2015 Appointment: Jazmin [facility]abel [facility]el[facility] [phone] [facility] [place] (15 min) Moderate 08/02/2015 Patient Education: Patient Medication Summary Completed 08/02/2015 Patient Education: Patient Medication Summary Completed 08/02/2015 Patient Education: Hypertension Completed 08/02/2015 Patient Education: Patient Medication Summary Completed 07/31/2015 Visit Plan: Elevated thyroid labs - chec k T3, T4, may need to consider further studies.Hypertension - well controlled - continue with current medications, continue with no added salt diet. Pt has been encouraged to exercise daily.The pt has been advised to call the office if there are any acute concerns about change in blood pressure readings at home.Pt reports that she was diagnosed with Multiple sclerosis - by the Neurologist that we referred her to in [place]. 2014 Appointment: Anabel [facility]el[facility] [phone] [facility] [place] (15 min) Moderate 05/03/2015 Patient Education: Patient Medication Summary Completed 05/03/2015 Visit Plan: Hypertension - well controll ed - continue with current medications, continue with no added salt diet. Pt has been encouraged to exercise daily.The pt has been advised to call the office if there are any acute concerns about change in blood pressure readings at home.Hyperlipidemia - pt has been counseled about appropriate [...] and to assure normal liver response to medications.Gas and bloating - discussed dietary changes - recommended monitoring symptoms, perhaps consider use of beano.Tremor - discussed essential tremor, diagnosis of tremors and the various potential underlying causes of t remor and restless leg symptoms. Pt would like to discuss with her , see if he has noticed any night-time restlessness and potentially be referred to specialist for evaluation. 01/05/2015 Appointment: Anabel [facility]el[facility] [phone] [facility] [place] ([place] New Patient 01/05/2015 Patient Education: Patient Medication Summary Completed 01/05/2015 Patient Education: Hypertension Completed 01/05/2015 Instructions Comment . Medicare Exam - to day we [...] Skin lesion - biop sy of lesion. clarintin over the c ounter 10mg one pill daily keep the benadryl, pepcid, zantac with you for prn use RX for prednisone will be sent to the pharmacy for you to picking tech today - to keep with you and [...] medication with her on her trip to [place]. . sutures removed . Hypertension - wel [...] like she has improved with the "rock [employer] boxing" class she has been taking [...] on to the blood in lab . Hypertension - wel l controlled - [...] Neurologist that we referred her to in [place]. . Cough - ongoing - will order [...]
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
--- OUTSIDE RECORDS SUMMARY | 2019-11-04 09:36 | XMS REPORT | Continuity of Care Document ---
Author Organization Unknown Address Unknown Phone Unavailable Allergies Active Description Code Type Severity Reaction Onset Reported/Identified Relationship to Patient Clinical Status Yes No Known Drug Allergies [id number] Drug Allergy Unknown N/A 04/20/2008 Medications There [...] ANTINEOPLASTIC CHEMO 08/31/2013 ROBERT PRYOR MD Ot 569. 0 ANAL RECTAL POLYP 08/31/2013 ROBERT PRYOR MD Ot V76. 51 SCREEN MAL NEOP-COLON 06/15/2014 LIBERTY FELICIANO SPICE MILLER Ot 733.90 06/15/2014 LIBERTY FELICIANO SPICE MILLER Ot V76.12 07/13/2014 YAW ACOSTA DIETITIAN HELPER-C Ot 263.9 07/13/2014 YAW ACOSTA DIETITIAN HELPER-C Ot 272.2 07/13/2014 YAW ACOSTA DIETITIAN HELPER-C Ot 275.4 2 07/13/2014 YAW ACOSTA DIETITIAN HELPER-C Ot 285.2 1 07/13/2014 YAW ACOSTA DIETITIAN HELPER-C Ot 404.1 0 07/13/2014 YAW ACOSTA DIETITIAN HELPER-C Ot 585.3 07/13/2014 YAW ACOSTA DIETITIAN HELPER-C Ot 791.0 07/20/2014 Ot 272.2 07/20/2014 Ot 275.42 07/20/2014 Ot 285.21 07/20/2014 Ot 404.10 07/20/2014 Ot 585.3 07/20/2014 Ot 791.0 08/22/2014 CHEMA, ASHLIE N Ot 174.9 08/22/2014 CHEMA, ASHLIE N Ot 585.3 08/22/2014 CHEMA, BOBAN N Ot 733.90 08/22/2014 CHEMA, BOBAN N Ot V15.3 08/22/2014 CHEMA, BOBAN N Ot V58.66 08/22/2014 CHEMA, BOBAN N Ot V58.69 08/22/2014 CHEMA, BOBBRITTNEY N Ot V86.0 08/22/2014 CHEMA, BOBBRITTNEY N Ot V87.41 08/29/2014 CHEMA, BOBAN N Ot 174.9 08/29/2014 CHEMA, BOBBRITTNEY N Ot 585.3 08/29/2014 CHEMA, BOBAN N Ot 733.90 08/29/2014 CHEMA, BOBAN N Ot V15.3 08/29/2014 CHEMA, BOBAN N Ot V58.66 08/29/2014 CHEMA, BOBAN N Ot V58.69 08/29/2014 CHEMA, BOBAN N Ot V86.0 08/29/2014 CHEMA, BOBAN N Ot V87.41 08/30/2014 CHEMA, BOBAN N Ot 174.9 08/30/2014 CHEMA, BOBBRITTNEY N Ot 585.3 08/30/2014 CHEMA, BOBAN N Ot 733.90 08/30/2014 CHEMA, BOBAN N Ot V15.3 08/30/2014 CHEMA, BOBAN N Ot V58.66 08/30/2014 CHEMA, BOBAN N Ot V58.69 08/30/2014 CHEMA, BOBAN N Ot V86.0 08/30/2014 CHEMA, BOBAN N Ot V87.41 10/10/2014 YAW ACOSTA DIETITIAN HELPER-C Ot 263.9 PROTEIN-ERLINDA MALNUTR NOS 10/10/2014 YAW ACOSTA DIETITIAN HELPER-C Ot 272.2 MIXED HYPERLIPIDEMIA 10/10/2014 YAW ACOSTA DIETITIAN HELPER-C Ot 275.4 2 HYPERCALCEMIA 10/10/2014 YAW ACOSTA DIETITIAN HELPER-C Ot 285.2 1 ANEMIA IN CHRONIC KIDNEY DISEASE 10/10/2014 YAW ACOSTA DIETITIAN HELPER-C Ot 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, BENIGN, 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 10/10/2014 YAW ACOSTA DIETITIAN HELPER-C Ot 585.3 CHRONIC KIDNEY DISEASE, STAGE III (MODER 10/10/2014 YAW ACOSTA DIETITIAN HELPER-C Ot 791.0 PROTEINURIA 10/13/2014 CHEMA BOBAN N Ot 174.9 10/13/2014 CHEMA, BOBAN N Ot 585.3 10/13/2014 CHEMA, BOBAN N Ot 733.90 10/13/2014 CHEMA, BOBAN N Ot V15.3 10/13/2014 CHEMA, BOBAN N Ot V58.66 10/13/2014 CHEMA BOBAN N Ot V58.69 10/13/2014 CHEMA BOBBRITTNEY N Ot V86.0 10/13/2014 CHEMA BOBAN N Ot V87.41 11/27/2014 CHEMA, BOBAN N Ot 174.9 MALIGN NEOPL BREAST NOS 11/27/2014 CHEMA, BOBAN N Ot 585.3 CHRONIC KIDNEY DISEASE, STAGE III (MODER 11/27/2014 CHEMA, BOBAN N Ot 733.90 BONE CARTILAGE DIS NOS 11/27/2014 CHEMA BOBAN N Ot V15.3 HX OF IRRADIATION 11/27/2014 CHEMA BOBAN N Ot V58.66 LONG-TERM (CURRENT) USE OF ASPIRIN 11/27/2014 CHEMA BOBAN N Ot V58.69 OTH MED,LT,CURRENT USE 11/27/2014 CHEMA BOBAN N Ot V86.0 ESTROGEN RECEPTOR POSITIVE STATUS [ER+] 11/27/2014 ASHLIE BEAR N Ot V87.41 PERSONAL HISTORY OF ANTINEOPLASTIC CHEMO 12/29/2014 YAW ACOSTA DIETITIAN HELPER-C Ot 263.9 12/29/2014 YAW ACOSTA DIETITIAN HELPER-C Ot 272.4 12/29/2014 YAW ACOSTA NP-C Ot 275.4 2 12/29/2014 YAW ACOSTA DIETITIAN HELPER-C Ot 285.2 1 12/29/2014 NEW, YAW Pederson DIETITIAN HELPER-C Ot 404.1 0 12/29/2014 NEW, YAW Pederson DIETITIAN HELPER-C Ot 585.3 12/29/2014 NEW, YAW Pederson DIETITIAN HELPER-C Ot 791.0 01/16/2015 NEW, YAW Pederson DIETITIAN HELPER-C Ot 263.9 01/16/2015 NEW, YAW Pederson DIETITIAN HELPER-C Ot 268.9 01/16/2015 NEW, YAW Pederson DIETITIAN HELPER-C Ot 272.2 01/16/2015 NEW, YAW Pederson DIETITIAN HELPER-C Ot 275.4 2 01/16/2015 NEW, YAW Pederson DIETITIAN HELPER-C Ot 285.2 1 01/16/2015 NEW, YAW Pederson DIETITIAN HELPER-C Ot 404.1 0 01/16/2015 NEW, YAW Pederson DIETITIAN HELPER-C Ot 585.3 01/16/2015 NEW, YAW Pederson DIETITIAN HELPER-C Ot 788.1 01/16/2015 NEW, YAW Pederson DIETITIAN HELPER-C Ot 791.0 01/27/2015 DUNG PERALTA, WELLINGTON Feliciano Ot 401.9 01/27/2015 DUNG PERALTA, WELLINGTON Feliciano Ot V58.69 01/27/2015 DUNG PERALTA, WELLINGTON Feliciano Ot V72.62 01/27/2015 DUNG PERALTA, WELL[place] Feliciano Ot V87.41 05/03/2015 DONNY RIVAS SPICE MILLER Ot 287.5 06/19/2015 ASHLIE BEAR Ot C50.919 06/19/2015 ASHLIE BEAR Ot Z12.31 09/15/2015 Ot M54.2 09/20/2015 LIBERTY FELICIANO SPICE MILLER Ot C50.912 10/04/2015 ARI PERALTA, NADINE Hamlin [...] PERALTA, SANTY Norton Ot 287.5 10/04/2015 FELICIANO, BHUMIKAKRYSTAL S SPICE MILLER Ot 174.9 10/04/2015 FELICIANO, HILAH S SPICE MILLER Ot 585.3 10/04/2015 FELICIANO BHUMIKAAH S SPICE MILLER Ot 733.90 10/04/2015 FELICIANO HILAH S SPICE MILLER Ot V15.3 10/04/2015 FELICIANO HILAH S SPICE MILLER Ot V58.66 10/04/2015 FELICIANO HILAH S SPICE MILLER Ot V58.69 10/04/2015 FELICIANO HILAH S SPICE MILLER Ot V86.0 10/04/2015 FELICIANO HILAH S SPICE MILLER Ot V87.41 10/04/2015 FELICIANO BHUMIKAAH S SPICE MILLER Ot 174.9 10/04/2015 FELICIANO, BHUMIKAAH S SPICE MILLER Ot 733.90 10/04/2015 DAVE YAW G. DIETITIAN HELPER-C Ot 272.2 10/04/2015 DAVE YAW G. DIETITIAN HELPER-C Ot 275.4 2 10/04/2015 YAW ACOSTA DIETITIAN HELPER-C Ot 285.2 1 10/04/2015 YAW ACOSTA DIETITIAN HELPER-C Ot 404.1 0 10/04/2015 YAW ACOSTA DIETITIAN HELPER-C Ot 585.3 10/04/2015 YAW ACOSTA DIETITIAN HELPER-C Ot 791.0 10/04/2015 ROYA PERALTA, ROBERT Hamlin Ot V72. 84 10/04/2015 LIBERTY FELICIANO SPICE MILLER Ot 174.9 10/04/2015 LIBERTY FELICIANO SPICE MILLER Ot 585.3 10/04/2015 LIBERTY FELICIANO SPICE MILLER Ot 733.90 10/04/2015 LIBERTY FELICIANO SPICE MILLER Ot V15.3 10/04/2015 LIBERTY FELICIANO SPICE MILLER Ot V58.66 10/04/2015 LIBERTY FELICIANO SPICE MILLER Ot V58.69 10/04/2015 LIBERTY FELICIANO S SPICE MILLER Ot V86.0 10/04/2015 LIBERTY FELICIANO SPICE MILLER Ot V87.41 10/04/2015 LIBERTY FELICIANO SPICE MILLER Ot 733.90 10/04/2015 LIBERTY FELICIANO SPICE MILLER Ot V76.12 10/04/2015 YAW ACOSTA DIETITIAN HELPER-C Ot 272.2 10/04/2015 YAW ACOSTA NP-C Ot 275.4 2 10/04/2015 YAW ACOSTA NP-C Ot 285.2 1 10/04/2015 YAW ACOSTA DIETITIAN HELPER-C Ot 404.1 0 10/04/2015 YAW ACOSTA DIETITIAN HELPER-C Ot 585.3 10/04/2015 YAW ACOSTA NP-C Ot 791.0 10/04/2015 CUCO PERALTA, SANTY M [...] BEAR Ot Z12.31 10/04/2015 NEW, YAW G. DIETITIAN HELPER-C Ot 263.9 10/04/2015 NEW, YAW G. DIETITIAN HELPER-C Ot 272.2 10/04/2015 NEW, YAW G. DIETITIAN HELPER-C Ot 275.4 2 10/04/2015 NEW, YAW Hartman. DIETITIAN HELPER-C Ot 285.2 1 10/04/2015 NEW, YAW Hartman. DIETITIAN HELPER-C Ot 404.1 0 10/04/2015 NEW, YAW Hartman. DIETITIAN HELPER-C Ot 585.3 10/04/2015 NEW, YAW Hartman. DIETITIAN HELPER-C Ot 791.0 10/04/2015 CHEMA, BOBAN N Ot 174.9 10/04/2015 CHEMA, BOBAN N Ot 585.3 10/04/2015 CHEMA, BOBAN N Ot 733.90 10/04/2015 CHEMA, BOBAN N Ot V15.3 10/04/2015 CHEMA, BOBAN N Ot V58.66 10/04/2015 CHEMA, BOBAN N Ot V58.69 10/04/2015 CHEMA, BOBAN N Ot V86.0 10/04/2015 CHEMA, BOBAN N Ot V87.41 10/04/2015 NEW, YAW Hartman. DIETITIAN HELPER-C Ot 263.9 10/04/2015 NEW, YAW HartmanSaul DIETITIAN HELPER-C Ot 272.4 10/04/2015 NEW, YAW G. DIETITIAN HELPER-C Ot 275.4 2 10/04/2015 NEW, YAW HartmanSaul DIETITIAN HELPER-C Ot 285.2 1 10/04/2015 NEW, YAW DevanSaul DIETITIAN HELPER-C Ot 404.1 0 10/04/2015 NEW, YAW Devan. DIETITIAN HELPER-C Ot 585.3 10/04/2015 NEW, YAW Devan. DIETITIAN HELPER-C Ot 791.0 10/04/2015 NEW, YAW G. DIETITIAN HELPER-C Ot 263.9 10/04/2015 NEW, YAW G. DIETITIAN HELPER-C Ot 268.9 10/04/2015 NEW, YAW G. DIETITIAN HELPER-C Ot 272.2 10/04/2015 NEW, YAW G. DIETITIAN HELPER-C Ot 275.4 2 10/04/2015 NEW, YAW G. DIETITIAN HELPER-C Ot 285.2 1 10/04/2015 NEW, YAW G. DIETITIAN HELPER-C Ot 404.1 0 10/04/2015 NEWYAW DIETITIAN HELPER-C Ot 585.3 10/04/2015 NEW, YAW Pederson DIETITIAN HELPER-C Ot 788.1 10/04/2015 NEW, YAW Pederson DIETITIAN HELPER-C Ot 791.0 10/04/2015 DUNG PERALTA, WELLINGTON A Ot 401.9 10/04/2015 DUNG PERALTA, WELLINGTON A Ot V58.69 10/04/2015 DUNG PERALTA, WELLINGTON A Ot V72.62 10/04/2015 DUNG PERALTA, WELLINGTON A Ot V87.41 10/04/2015 ROB DONNY M SPICE MILLER Ot 287.5 10/04/2015 BRADENLIBERTY SPICE MILLER Ot C50.912 10/04/2015 Ot M54.2 10/04/2015 ARI PERALTA, NADINE Hamlin Ot T78.3XXA 02/23/2016 MICHELLE CINTRON R Ot I20.9 ANGINA PECTORIS, UNSPECIFIED 02/23/2016 MICHELLE CINTRON R Ot R53.82 CHRONIC FATIGUE, UNSPECIFIED 02/23/2016 MICHELLE CINTRON R Ot R 55 SYNCOPE AND COLLAPSE 03/15/2016 MICHELLE CINTRON R Ot I20.9 ANGINA PECTORIS, UNSPECIFIED 03/15/2016 MICHELLE CINTRON R Ot R53.82 CHRONIC FATIGUE, UNSPECIFIED 03/15/2016 MICHLELE CINTRON R Ot R 55 SYNCOPE AND COLLAPSE 03/20/2016 Ot V10.3 HX O F BREAST MALIGNANCY 03/20/2016 Ot V76.11 SCR N MAMMO-HIGH RISK PT, MALIGNANT NEOPL 03/20/2016 Ot 396.3 MITR AL/AORTIC KAMARI INSUFF 03/20/2016 Ot 397.0 TRIC USPID VALVE DISEASE 03/20/2016 Ot 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 03/20/2016 Ot 272.4 HYPE RLIPIDEMIA NEC/NOS 03/20/2016 Ot 585.3 E 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 BERT KIDNEY DISEASE, STAGE III (MODER 03/20/2016 Ot 272.2 MIXE D HYPERLIPIDEMIA 03/20/2016 Ot 275.42 HYP ERCALCEMIA 03/20/2016 Ot 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, BENIGN, 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 03/20/2016 Ot 585.3 E 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 BERT KIDNEY DISEASE, STAGE III (MODER 03/20/2016 Ot 791.0 PROT EINURIA 03/20/2016 Ot 174.9 VIRIDIANA GN NEOPL BREAST NOS 03/20/2016 Ot 585.3 E 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 BERT KIDNEY DISEASE, STAGE III (MODER 03/20/2016 Ot 733.90 BON E CARTILAGE DIS NOS 03/20/2016 Ot V15.3 HX O F IRRADIATION 03/20/2016 Ot V58.66 ANETA G-TERM (CURRENT) USE OF ASPIRIN 03/20/2016 Ot V58.69 OTH MED,LT,CURRENT USE 03/20/2016 Ot V86.0 ESTR OGEN RECEPTOR POSITIVE STATUS [ER+] 03/20/2016 Ot V87.41 PER LOLITA HISTORY OF ANTINEOPLASTIC CHEMO 03/20/2016 Ot 272.2 MIXE D HYPERLIPIDEMIA 03/20/2016 Ot 275.42 HYP ERCALCEMIA 03/20/2016 Ot 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, BENIGN, 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 03/20/2016 Ot 585.3 E 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 BERT KIDNEY DISEASE, STAGE III (MODER 03/20/2016 Ot 791.0 PROT EINURIA 03/20/2016 SANTY NORWOOD MD Ot 272.0 PURE HYPERCHOLESTEROLEM 03/20/2016 SANTY NORWOOD MD Ot 287.5 THROMBOCYTOPENIA NOS 03/20/2016 LIBERTY FELICIANO SPICE MILLER Ot 174.9 MALIGN NEOPL BREAST NOS 03/20/2016 LIBERTY FELICIANO SPICE MILLER Ot 585.3 CHRONIC KIDNEY DISEASE, STAGE III (MODER 03/20/2016 LIBERTY FELICIANO Ot 733.90 BONE CARTILAGE DIS NOS 03/20/2016 LIBERTY FELICIANO Ot V15.3 HX OF IRRADIATION 03/20/2016 LIBERTY FELICIANOP Ot V58.66 LONG-TERM (CURRENT) USE OF ASPIRIN 03/20/2016 LIBERTY FELICIANO Ot V58.69 OTH MED,LT,CURRENT USE 03/20/2016 LIBERTY FELICIANOP Ot V86.0 ESTROGEN RECEPTOR POSITIVE STATUS [ER+] 03/20/2016 LIBERTY FELICIANOP Ot V87.41 PERSONAL HISTORY OF ANTINEOPLASTIC CHEMO 03/20/2016 LIBERTY FELICIANO SPICE MILLER Ot 174.9 MALIGN NEOPL BREAST NOS 03/20/2016 LIBERTY FELICIANO SPICE MILLER Ot 733.90 BONE CARTILAGE DIS NOS 03/20/2016 YAW ACOSTA DIETITIAN HELPER-C Ot 272.2 MIXED HYPERLIPIDEMIA 03/20/2016 YAW ACOSTA DIETITIAN HELPER-C Ot 275.4 2 HYPERCALCEMIA 03/20/2016 YAW ACOSTA DIETITIAN HELPER-C Ot 285.2 1 ANEMIA IN CHRONIC KIDNEY DISEASE 03/20/2016 YAW ACOSTA DIETITIAN HELPER-C Ot 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 84 EXAM PRE-OPERATIVE NOS 03/20/2016 LIBERTY FELICIANO SPICE MILLER Ot 174.9 MALIGN NEOPL BREAST NOS 03/20/2016 LIBERTY FELICIANO SPICE MILLER Ot 585.3 CHRONIC KIDNEY DISEASE, STAGE III (MODER 03/20/2016 LIBERTY FELICIANO SPICE MILLER Ot 733.90 BONE CARTILAGE DIS NOS 03/20/2016 LIBERTY FELICIANO SPICE MILLER Ot V15.3 HX OF IRRADIATION 03/20/2016 LIBERTY FELICIANO SPICE MILLER Ot V58.66 LONG-TERM (CURRENT) USE OF ASPIRIN 03/20/2016 LIBERTY FELICIANO SPICE MILLER Ot V58.69 OTH MED,LT,CURRENT USE 03/20/2016 LIBERTY FELICIANO SPICE MILLER Ot V86.0 ESTROGEN RECEPTOR POSITIVE STATUS [ER+] 03/20/2016 LIBERTY FELICIANO SPICE MILLER Ot V87.41 PERSONAL HISTORY OF ANTINEOPLASTIC CHEMO 03/20/2016 LIBERTY FELICIANO SPICE MILLER Ot 733.90 BONE CARTILAGE DIS NOS 03/20/2016 LIBERTY FELICIANO SPICE MILLER Ot V76.12 OTH SCREEN MAMMO-MALIGN NEOPLASM OF [place] 03/20/2016 YAW ACOSTA DIETITIAN HELPER-C Ot 272.2 MIXED HYPERLIPIDEMIA 03/20/2016 YAW ACOSTA DIETITIAN HELPER-C Ot 275.4 2 HYPERCALCEMIA 03/20/2016 YAW ACOSTA DIETITIAN HELPER-C Ot 285.2 1 ANEMIA IN CHRONIC KIDNEY DISEASE 03/20/2016 YAW ACOSTA NP-C Ot 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, BENIGN, 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 03/20/2016 YAW ACOSTA NP-C Ot 585.3 CHRONIC KIDNEY DISEASE, STAGE III (MODER 03/20/2016 YAW ACOSTA NP-C Ot 791.0 PROTEINURIA 03/20/2016 CUCO PERALTA, SANTY Norton Ot 397.0 TRICUSPID VALVE DISEASE 03/20/2016 CUCO PERALTA, SANTY Norton Ot 424.0 MITRAL VALVE DISORDER 03/20/2016 CUCO PERALTA, SANTY M Ot 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 03/20/2016 CUCO PERALTA, SANTY Norton Ot 244.8 ACQUIRED HYPOTHYROID NEC 03/20/2016 CUCO PERALTA, SANTY Norton Ot 241.0 NONTOX UNINODULAR GOITER 03/20/2016 CUCO PERALTA, SANTY Norton Ot 388.30 TINNITUS NOS 03/20/2016 CUCO PERALTA, SANTY Norton Ot 721.0 CERVICAL SPONDYLOSIS 03/20/2016 Ot 272.2 MIXE D HYPERLIPIDEMIA 03/20/2016 Ot 275.42 HYP ERCALCEMIA 03/20/2016 Ot 285.21 ANE CHERRI IN CHRONIC KIDNEY DISEASE 03/20/2016 Ot 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, BENIGN, 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 03/20/2016 Ot 585.3 E 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 BERT KIDNEY DISEASE, STAGE III (MODER 03/20/2016 Ot 791.0 PROT EINURIA 03/20/2016 ASHLIE BEAR Ot C50.919 MALIGNANT NEOPLASM OF [facility] SITE OF UNSPE 03/20/2016 ASHLIE BEAR Ot Z12.31 ENCNTR SCREEN MAMMOGRAM FOR MALIGNANT NE 03/20/2016 YAW ACOSTA NP-C Ot 263.9 PROTEIN-ERLINDA MALNUTR NOS 03/20/2016 YAW ACOSTA DIETITIAN HELPER-C Ot 272.2 MIXED HYPERLIPIDEMIA 03/20/2016 YAW ACOSTA DIETITIAN HELPER-C Ot 275.4 2 HYPERCALCEMIA 03/20/2016 YAW ACOSTA DIETITIAN HELPER-C Ot 285.2 1 ANEMIA IN CHRONIC KIDNEY DISEASE 03/20/2016 YAW ACOSTA DIETITIAN HELPER-C Ot 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, BENIGN, 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 03/20/2016 YAW ACOSTA DIETITIAN HELPER-C Ot 585.3 CHRONIC KIDNEY DISEASE, STAGE III (MODER 03/20/2016 YAW ACOSTA DIETITIAN HELPER-C Ot 791.0 PROTEINURIA 03/20/2016 ASHLIE BEAR Saw Ot 174.9 MALIGN NEOPL BREAST NOS 03/20/2016 CHEMA ASHLIE Spring Ot 585.3 CHRONIC KIDNEY DISEASE, STAGE III (MODER 03/20/2016 CHEMAASHLIE Ot 733.90 BONE CARTILAGE DIS NOS 03/20/2016 CHEMAASHLIE Ot V15.3 HX OF IRRADIATION 03/20/2016 CHEMA ASHLIE Spring Ot V58.66 LONG-TERM (CURRENT) USE OF ASPIRIN 03/20/2016 CHEMAASHLIE Ot V58.69 OTH MED,LT,CURRENT USE 03/20/2016 AZEEM BEARBRITTNEY Spring Ot V86.0 ESTROGEN RECEPTOR POSITIVE STATUS [ER+] 03/20/2016 CHEMA AZEEMBRITTNEY Spring Ot V87.41 PERSONAL HISTORY OF ANTINEOPLASTIC CHEMO 03/20/2016 YAW ACOSTA DIETITIAN HELPER-C Ot 263.9 PROTEIN-ERLINDA MALNUTR NOS 03/20/2016 YAW ACOSTA DIETITIAN HELPER-C Ot 272.4 HYPERLIPIDEMIA NEC/NOS 03/20/2016 YAW ACOSTA DIETITIAN HELPER-C Ot 275.4 2 HYPERCALCEMIA 03/20/2016 YAW ACOSTA DIETITIAN HELPER-C Ot 285.2 1 ANEMIA IN CHRONIC KIDNEY DISEASE 03/20/2016 YAW ACOSTA DIETITIAN HELPER-C Ot 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, BENIGN, 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 03/20/2016 YAW ACOSTA DIETITIAN HELPER-C Ot 585.3 CHRONIC KIDNEY DISEASE, STAGE III (MODER 03/20/2016 YAW ACOSTA DIETITIAN HELPER-C Ot 791.0 PROTEINURIA 03/20/2016 YAW ACOSTA DIETITIAN HELPER-C Ot 263.9 PROTEIN-ERLINDA MALNUTR NOS 03/20/2016 YAW ACOSTA DIETITIAN HELPER-C Ot 268.9 VITAMIN D DEFICIENCY NOS 03/20/2016 YAW ACOSTA DIETITIAN HELPER-C Ot 272.2 MIXED HYPERLIPIDEMIA 03/20/2016 YAW ACOSTA DIETITIAN HELPER-C Ot 275.4 2 HYPERCALCEMIA 03/20/2016 YAW ACOSTA DIETITIAN HELPER-C Ot 285.2 1 ANEMIA IN CHRONIC KIDNEY DISEASE 03/20/2016 YAW ACOSTA AGATA-C Ot 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, BENIGN, 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 03/20/2016 DAVEYAWSaul PARMAR-C Ot 585.3 CHRONIC KIDNEY DISEASE, STAGE III (MODER 03/20/2016 YAW ACOSTA DIETITIAN HELPER-C Ot 788.1 DYSURIA 03/20/2016 DAVEYAWSaul DIETITIAN HELPER-C Ot 791.0 PROTEINURIA 03/20/2016 WELLINGTON RAZO MD Ot 401.9 HYPERTENSION NOS 03/20/2016 WELLINGTON RAZO MD Ot V58.69 OTH MED,LT,CURRENT USE 03/20/2016 WELLINGTON RAZO MD Ot V72.62 LAB EXAM ORDERED PART OF A ROUTINE GE 03/20/2016 WELLINGTON RAZO MD Ot V87.41 PERSONAL HISTORY OF ANTINEOPLASTIC CHEMO 03/20/2016 DONNY RIVAS SPICE MILLER Ot 287.5 THROMBOCYTOPENIA NOS 03/20/2016 LIBERTY FELICIANO SPICE MILLER Ot C50.912 MALIGNANT NEOPLASM OF UNSPECIFIED SITE O 03/20/2016 Ot M54.2 CERV ICALGIA 03/20/2016 MICHELLE CINTRON Ot I20.9 ANGINA PECTORIS, UNSPECIFIED 03/20/2016 MICHELLE CINTRON Ot R53.82 CHRONIC FATIGUE, UNSPECIFIED 03/20/2016 MICHELLE CINTRON Ot R 55 SYNCOPE AND COLLAPSE 03/21/2016 MICHELLE CINTRON Ot I20.9 ANGINA PECTORIS, UNSPECIFIED 03/21/2016 MICHELLE CINTRON Ot R 55 SYNCOPE AND COLLAPSE 03/22/2016 RADHA ADAMS DO Ot R22.0 LOCALIZED SWELLING, MASS AND LUMP, HEAD 03/22/2016 Ot V10.3 HX O F BREAST MALIGNANCY 03/22/2016 Ot V76.11 SCR N MAMMO-HIGH RISK PT, MALIGNANT NEOPL 03/22/2016 Ot 396.3 MITR AL/AORTIC KMAARI INSUFF 03/22/2016 Ot 397.0 TRIC USPID VALVE DISEASE 03/22/2016 Ot 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 03/22/2016 Ot 272.4 HYPE RLIPIDEMIA NEC/NOS 03/22/2016 Ot 585.3 E 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 BETR KIDNEY DISEASE, STAGE III (MODER 03/22/2016 Ot 272.2 MIXE D HYPERLIPIDEMIA 03/22/2016 Ot 275.42 HYP ERCALCEMIA 03/22/2016 Ot 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, BENIGN, 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 03/22/2016 Ot 585.3 E 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 BERT KIDNEY DISEASE, STAGE III (MODER 03/22/2016 Ot 791.0 PROT EINURIA 03/22/2016 Ot 174.9 VIRIDIANA GN NEOPL BREAST NOS 03/22/2016 Ot 585.3 E 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 BERT KIDNEY DISEASE, STAGE III (MODER 03/22/2016 Ot 733.90 BON E CARTILAGE DIS NOS 03/22/2016 Ot V15.3 HX O F IRRADIATION 03/22/2016 Ot V58.66 ANETA G-TERM (CURRENT) USE OF ASPIRIN 03/22/2016 Ot V58.69 OTH MED,LT,CURRENT USE 03/22/2016 Ot V86.0 ESTR OGEN RECEPTOR POSITIVE STATUS [ER+] 03/22/2016 Ot V87.41 PER LOLITA HISTORY OF ANTINEOPLASTIC CHEMO 03/22/2016 Ot 272.2 MIXE D HYPERLIPIDEMIA 03/22/2016 Ot 275.42 HYP ERCALCEMIA 03/22/2016 Ot 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, BENIGN, 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 03/22/2016 Ot 585.3 E 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 BERT KIDNEY DISEASE, STAGE III (MODER 03/22/2016 Ot 791.0 PROT EINURIA 03/22/2016 CUCO PERALTA, SANTY Norton Ot 272.0 PURE HYPERCHOLESTEROLEM 03/22/2016 CUCO PERALTA, SANTY Norton Ot 287.5 THROMBOCYTOPENIA NOS 03/22/2016 LIBERTY FELICIANO SPICE MILLER Ot 174.9 MALIGN NEOPL BREAST NOS 03/22/2016 LIBERTY FELICIANO S SPICE MILLER Ot 585.3 CHRONIC KIDNEY DISEASE, STAGE III (MODER 03/22/2016 LIBERTY FELICIANO SPICE MILLER Ot 733.90 BONE CARTILAGE DIS NOS 03/22/2016 LIBERTY FELICIANO SPICE MILLER Ot V15.3 HX OF IRRADIATION 03/22/2016 LIBERTY FELICIANO SPICE MILLER Ot V58.66 LONG-TERM (CURRENT) USE OF ASPIRIN 03/22/2016 LIBERTY FELICIANO SPICE MILLER Ot V58.69 OTH MED,LT,CURRENT USE 03/22/2016 LIBERTY FELICIANO SPICE MILLER Ot V86.0 ESTROGEN RECEPTOR POSITIVE STATUS [ER+] 03/22/2016 LIBERTY FELICIANO SPICE MILLER Ot V87.41 PERSONAL HISTORY OF ANTINEOPLASTIC CHEMO 03/22/2016 LIBERTY FELICIANO SPICE MILLER Ot 174.9 MALIGN NEOPL BREAST NOS 03/22/2016 LIBERTY FELICIANO SPICE MILLER Ot 733.90 BONE CARTILAGE DIS NOS 03/22/2016 YAW ACOSTA DIETITIAN HELPER-C Ot 272.2 MIXED HYPERLIPIDEMIA 03/22/2016 YAW ACOSTA DIETITIAN HELPER-C Ot 275.4 2 HYPERCALCEMIA 03/22/2016 YAW ACOSTA DIETITIAN HELPER-C Ot 285.2 1 ANEMIA IN CHRONIC KIDNEY DISEASE 03/22/2016 YAW ACOSTA DIETITIAN HELPER-C Ot 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 84 EXAM PRE-OPERATIVE NOS 03/22/2016 LIBERTY FELICIANOP Ot 174.9 MALIGN NEOPL BREAST NOS 03/22/2016 LIBERTY FELICIANO SPICE MILLER Ot 585.3 CHRONIC KIDNEY DISEASE, STAGE III (MODER 03/22/2016 LIBERTY FELICIANO SPICE MILLER Ot 733.90 BONE CARTILAGE DIS NOS 03/22/2016 LIBERTY FELICIANO SPICE MILLER Ot V15.3 HX OF IRRADIATION 03/22/2016 LIBERTY FELICIANO SPICE MILLER Ot V58.66 LONG-TERM (CURRENT) USE OF ASPIRIN 03/22/2016 LIBERTY FELICIANO SPICE MILLER Ot V58.69 OTH MED,LT,CURRENT USE 03/22/2016 LIBERTY FELICIANO SPICE MILLER Ot V86.0 ESTROGEN RECEPTOR POSITIVE STATUS [ER+] 03/22/2016 LIBERTY FELICIANO SPICE MILLER Ot V87.41 PERSONAL HISTORY OF ANTINEOPLASTIC CHEMO 03/22/2016 LIBERTY FELICIANO SPICE MILLER Ot 733.90 BONE CARTILAGE DIS NOS 03/22/2016 LIBERTY FELICIANO SPICE MILLER Ot V76.12 OTH SCREEN MAMMO-MALIGN NEOPLASM OF HUSSAIN 03/22/2016 YAW ACOSTA DIETITIAN HELPER-C Ot 272.2 MIXED HYPERLIPIDEMIA 03/22/2016 YAW ACOSTA DIETITIAN HELPER-C Ot 275.4 2 HYPERCALCEMIA 03/22/2016 YAW ACOSTA DIETITIAN HELPER-C Ot 285.2 1 ANEMIA IN CHRONIC KIDNEY DISEASE 03/22/2016 YAW ACOSTA DIETITIAN HELPER-C Ot 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, BENIGN, 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 03/22/2016 YAW ACOSTA NP-C Ot 585.3 CHRONIC KIDNEY DISEASE, STAGE III (MODER 03/22/2016 YAW ACOSTA DIETITIAN HELPER-C Ot 791.0 PROTEINURIA 03/22/2016 SANTY NORWOOD MD Ot 397.0 TRICUSPID VALVE DISEASE 03/22/2016 SANTY NORWOOD MD Ot 424.0 MITRAL VALVE DISORDER 03/22/2016 SANTY NORWOOD MD Ot 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 03/22/2016 SANTY NORWOOD MD Ot 244.8 ACQUIRED HYPOTHYROID NEC 03/22/2016 SANTY NORWOOD MD Ot 241.0 NONTOX UNINODULAR GOITER 03/22/2016 SANTY NORWOOD MD Ot 388.30 TINNITUS NOS 03/22/2016 SANTY NORWOOD MD Ot 721.0 CERVICAL SPONDYLOSIS 03/22/2016 Ot 272.2 MIXE D HYPERLIPIDEMIA 03/22/2016 Ot 275.42 HYP ERCALCEMIA 03/22/2016 Ot 285.21 ANE CHERRI IN CHRONIC KIDNEY DISEASE 03/22/2016 Ot 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, BENIGN, W/O HRT FA 03/22/2016 Ot 585.3 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 BERT KIDNEY DISEASE, STAGE III (MODER 03/22/2016 Ot 791.0 PROT EINURIA 03/22/2016 ASHLIE BEAR Ot C50.919 MALIGNANT NEOPLASM OF UNSP SITE OF UNSPE 03/22/2016 ASHLIE BEAR Ot Z12.31 ENCNTR SCREEN MAMMOGRAM FOR MALIGNANT NE 03/22/2016 YAW ACOSTA DIETITIAN HELPER-C Ot 263.9 PROTEIN-ERLINDA MALNUTR NOS 03/22/2016 YAW ACOSTA DIETITIAN HELPER-C Ot 272.2 MIXED HYPERLIPIDEMIA 03/22/2016 YAW ACOSTA DIETITIAN HELPER-C Ot 275.4 2 HYPERCALCEMIA 03/22/2016 YAW ACOSTA DIETITIAN HELPER-C Ot 285.2 1 ANEMIA IN CHRONIC KIDNEY DISEASE 03/22/2016 YAW ACOSTA DIETITIAN HELPER-C Ot 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, BENIGN, 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 03/22/2016 YAW ACOSTA NP-C Ot 585.3 CHRONIC KIDNEY DISEASE, STAGE III (MODER 03/22/2016 YAW ACOSTA NP-C Ot 791.0 PROTEINURIA 03/22/2016 ASHLIE BEAR N Ot 174.9 MALIGN NEOPL BREAST NOS 03/22/2016 ASHLIE BEAR N Ot 585.3 CHRONIC KIDNEY DISEASE, STAGE III (MODER 03/22/2016 ASHLIE BEAR N Ot 733.90 BONE CARTILAGE DIS NOS 03/22/2016 ASHLIE BEAR Ot V15.3 HX OF IRRADIATION 03/22/2016 ASHLIE BEAR Ot V58.66 LONG-TERM (CURRENT) USE OF ASPIRIN 03/22/2016 ASHLIE BEAR Ot V58.69 OTH MED,LT,CURRENT USE 03/22/2016 ASHLIE BEAR Ot V86.0 ESTROGEN RECEPTOR POSITIVE STATUS [ER+] 03/22/2016 ASHLIE BEAR Ot V87.41 PERSONAL HISTORY OF ANTINEOPLASTIC CHEMO 03/22/2016 YAW ACOSTA NP-C Ot 263.9 PROTEIN-ERLINDA MALNUTR NOS 03/22/2016 YAW ACOSTA NP-C Ot 272.4 HYPERLIPIDEMIA NEC/NOS 03/22/2016 YAW ACOSTA NP-C Ot 275.4 2 HYPERCALCEMIA 03/22/2016 YAW ACOSTA NP-C Ot 285.2 1 ANEMIA IN CHRONIC KIDNEY DISEASE 03/22/2016 YAW ACOSTA NP-C Ot 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, BENIGN, 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 03/22/2016 YAW ACOSTA DIETITIAN HELPER-C Ot 585.3 CHRONIC KIDNEY DISEASE, STAGE III (MODER 03/22/2016 YAW ACOSTA DIETITIAN HELPER-C Ot 791.0 PROTEINURIA 03/22/2016 YAW ACOSTA DIETITIAN HELPER-C Ot 263.9 PROTEIN-ERLINDA MALNUTR NOS 03/22/2016 DAVE YAW Pederson DIETITIAN HELPER-C Ot 268.9 VITAMIN D DEFICIENCY NOS 03/22/2016 DAVE YAW Pederson DIETITIAN HELPER-C Ot 272.2 MIXED HYPERLIPIDEMIA 03/22/2016 DAVE YAW HartmanSaul DIETITIAN HELPER-C Ot 275.4 2 HYPERCALCEMIA 03/22/2016 DAVE YAW HartmanSaul DIETITIAN HELPER-C Ot 285.2 1 ANEMIA IN CHRONIC KIDNEY DISEASE 03/22/2016 DAVE YAW HartmanSaul DIETITIAN HELPER-C Ot 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, BENIGN, 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 03/22/2016 DAVE YAW HartmanSaul DIETITIAN HELPER-C Ot 585.3 CHRONIC KIDNEY DISEASE, STAGE III (MODER 03/22/2016 DAVE YAW HartmanSaul DIETITIAN HELPER-C Ot 788.1 DYSURIA 03/22/2016 DAVE YAW HartmanSaul DIETITIAN HELPER-C Ot 791.0 PROTEINURIA 03/22/2016 DUNG PERALTA, [place] Feliciano Ot 401.9 HYPERTENSION NOS 03/22/2016 DUNG PERALTA, WELLINGTON Feliciano Ot V58.69 OT MED,LT,CURRENT USE 03/22/2016 WELL[place] RZAO MD Ot V72.62 LAB EXAM ORDERED PART OF A ROUTINE GE 03/22/2016 DUNG PERALTA, WELLINGTON Feliciano Ot V87.41 PERSONAL HISTORY OF ANTINEOPLASTIC CHEMO 03/22/2016 DONNY RIVAS SPICE MILLER Ot 287.5 THROMBOCYTOPENIA NOS 03/22/2016 LIBERTY FELICIANO SPICE MILLER Ot C50.912 MALIGNANT NEOPLASM OF UNSPECIFIED SITE O 03/22/2016 Ot M54.2 CERV ICALGIA 03/22/2016 MICHELLE CINTRON Ot I20.9 ANGINA PECTORIS, UNSPECIFIED 03/22/2016 MICHELLE CINTRON Ot R53.82 CHRONIC FATIGUE, UNSPECIFIED 03/22/2016 MICHELLE CINTRON Ot R 55 SYNCOPE AND COLLAPSE 03/22/2016 MICHELLE CINTRON Ot I20.9 ANGINA PECTORIS, UNSPECIFIED 03/22/2016 MICHELLE CINTRON Ot R 55 SYNCOPE AND COLLAPSE 03/22/2016 MICHELLE CINTRON Ot I20.9 ANGINA PECTORIS, UNSPECIFIED 03/22/2016 MICHELLE CINTRON Ot R 55 SYNCOPE AND COLLAPSE 03/26/2016 MICHELLE CINTRON Ot I20.9 ANGINA PECTORIS, UNSPECIFIED 03/26/2016 ROSA HAMPTON MICHELLE Cooper Ot R 55 SYNCOPE AND COLLAPSE 03/26/2016 RADHA ADAMS DO Ot R22.0 LOCALIZED SWELLING, MASS AND LUMP, HEAD 04/10/2016 ROSA HAMPTONMICHELLE Ot I20.9 ANGINA PECTORIS, UNSPECIFIED 04/10/2016 ROSA HAMPTON MICHELLE Cooper Ot R 55 SYNCOPE AND COLLAPSE 04/29/2016 RADHA ADAMS DO Ot R22.0 LOCALIZED SWELLING, MASS AND LUMP, HEAD 04/30/2016 RADHA ADAMS DO Ot R22.0 LOCALIZED SWELLING, MASS AND LUMP, HEAD 05/05/2016 RADHA ADAMS DO Ot R22.0 LOCALIZED SWELLING, MASS AND LUMP, HEAD 05/23/2016 Ot V10.3 HX O F BREAST MALIGNANCY 05/23/2016 Ot V76.11 SCR N MAMMO-HIGH RISK PT, MALIGNANT NEOPL 05/23/2016 Ot 396.3 MITR AL/AORTIC KAMARI INSUFF 05/23/2016 Ot 397.0 TRIC USPID VALVE DISEASE 05/23/2016 Ot 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 05/23/2016 Ot 272.4 HYPE RLIPIDEMIA NEC/NOS 05/23/2016 Ot 585.3 E 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 BERT KIDNEY DISEASE, STAGE III (MODER 05/23/2016 Ot 272.2 MIXE D HYPERLIPIDEMIA 05/23/2016 Ot 275.42 HYP ERCALCEMIA 05/23/2016 Ot 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, BENIGN, 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 05/23/2016 Ot 585.3 E 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 BERT KIDNEY DISEASE, STAGE III (MODER 05/23/2016 Ot 791.0 PROT EINURIA 05/23/2016 Ot 174.9 VIRIDIANA GN NEOPL BREAST NOS 05/23/2016 Ot 585.3 E 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 BERT KIDNEY DISEASE, STAGE III (MODER 05/23/2016 Ot 733.90 BON E CARTILAGE DIS NOS 05/23/2016 Ot V15.3 HX O F IRRADIATION 05/23/2016 Ot V58.66 ANETA G-TERM (CURRENT) USE OF ASPIRIN 05/23/2016 Ot V58.69 OTH MED,LT,CURRENT USE 05/23/2016 Ot V86.0 ESTR OGEN RECEPTOR POSITIVE STATUS [ER+] 05/23/2016 Ot V87.41 PER LOLITA HISTORY OF ANTINEOPLASTIC CHEMO 05/23/2016 Ot 272.2 MIXE D HYPERLIPIDEMIA 05/23/2016 Ot 275.42 HYP ERCALCEMIA 05/23/2016 Ot 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, BENIGN, 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 05/23/2016 Ot 585.3 E 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 BERT KIDNEY DISEASE, STAGE III (MODER 05/23/2016 Ot 791.0 PROT EINURIA 05/23/2016 SANTY NORWOOD MD Ot 272.0 PURE HYPERCHOLESTEROLEM 05/23/2016 SANTY NORWOOD MD Ot 287.5 THROMBOCYTOPENIA NOS 05/23/2016 LIBERTY FELICIANO SPICE MILLER Ot 174.9 MALIGN NEOPL BREAST NOS 05/23/2016 LIBERTY FELICIANO SPICE MILLER Ot 585.3 CHRONIC KIDNEY DISEASE, STAGE III (MODER 05/23/2016 LIBERTY FELICIANO SPICE MILLER Ot 733.90 BONE CARTILAGE DIS NOS 05/23/2016 LIBERTY FELICIANO SPICE MILLER Ot V15.3 HX OF IRRADIATION 05/23/2016 LIBERTY FELICIANO SPICE MILLER Ot V58.66 LONG-TERM (CURRENT) USE OF ASPIRIN 05/23/2016 LIBERTY FELICIANO SPICE MILLER Ot V58.69 OTH MED,LT,CURRENT USE 05/23/2016 LIBERTY FELICIANO SPICE MILLER Ot V86.0 ESTROGEN RECEPTOR POSITIVE STATUS [ER+] 05/23/2016 LIBERTY FELICIANO SPICE MILLER Ot V87.41 PERSONAL HISTORY OF ANTINEOPLASTIC CHEMO 05/23/2016 LIBERTY FELICIANO SPICE MILLER Ot 174.9 MALIGN NEOPL BREAST NOS 05/23/2016 LIBERTY FELICIANO SPICE MILLER Ot 733.90 BONE CARTILAGE DIS NOS 05/23/2016 YAW ACOSTA NP-C Ot 272.2 MIXED HYPERLIPIDEMIA 05/23/2016 YAW ACOSTA NP-C Ot 275.4 2 HYPERCALCEMIA 05/23/2016 YAW ACOSTA NP-C Ot 285.2 1 ANEMIA IN CHRONIC KIDNEY DISEASE 05/23/2016 YAW ACOSTA NP-C Ot 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, BENIGN, W/O HRT FA 05/23/2016 YAW ACOSTA NP-C Ot 585.3 CHRONIC KIDNEY DISEASE, STAGE III (MODER 05/23/2016 YAW ACOSTA NP-C Ot 791.0 PROTEINURIA 05/23/2016 ROYA PERALTA, ROBERT Hamlin Ot V72. 84 EXAM PRE-OPERATIVE NOS 05/23/2016 LIBERTY FELICIANO SPICE MILLER Ot 174.9 MALIGN NEOPL BREAST NOS 05/23/2016 LIBERTY FELICIANO SPICE MILLER Ot 585.3 CHRONIC KIDNEY DISEASE, STAGE III (MODER 05/23/2016 LIBERTY FELICIANO SPICE MILLER Ot 733.90 BONE CARTILAGE DIS NOS 05/23/2016 LIBERTY FELICIANO SPICE MILLER Ot V15.3 HX OF IRRADIATION 05/23/2016 LIBERTY FELICIANO SPICE MILLER Ot V58.66 LONG-TERM (CURRENT) USE OF ASPIRIN 05/23/2016 LIBERTY FELICIANO SPICE MILLER Ot V58.69 OTH MED,LT,CURRENT USE 05/23/2016 LIBERTY FELICIANO SPICE MILLER Ot V86.0 ESTROGEN RECEPTOR POSITIVE STATUS [ER+] 05/23/2016 LIBERTY FELICIANO SPICE MILLER Ot V87.41 PERSONAL HISTORY OF ANTINEOPLASTIC CHEMO 05/23/2016 LIBERTY FELICIANO SPICE MILLER Ot 733.90 BONE CARTILAGE DIS NOS 05/23/2016 LIBERTY FELICIANO SPICE MILLER Ot V76.12 OTH SCREEN MAMMO-MALIGN NEOPLASM OF HUSSAIN 05/23/2016 YAW ACOSTA DIETITIAN HELPER-C Ot 272.2 MIXED HYPERLIPIDEMIA 05/23/2016 YAW ACOSTA NP-C Ot 275.4 2 HYPERCALCEMIA 05/23/2016 YAW ACOSTA NP-C Ot 285.2 1 ANEMIA IN CHRONIC KIDNEY DISEASE 05/23/2016 YAW ACOSTA NP-C Ot 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, BENIGN, 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 05/23/2016 YAW ACOSTA NP-C Ot 585.3 CHRONIC KIDNEY DISEASE, STAGE III (MODER 05/23/2016 YAW ACOSTA NP-C Ot 791.0 PROTEINURIA 05/23/2016 CUCO PERALTA, SANTY Norton Ot 397.0 TRICUSPID VALVE DISEASE 05/23/2016 CUCO PERALTA, SANTY Norton Ot 424.0 MITRAL VALVE DISORDER 05/23/2016 CUCO PERALTA, SANTY Norton Ot 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 05/23/2016 CUCO PERALTA, SANTY Norton Ot 244.8 ACQUIRED HYPOTHYROID NEC 05/23/2016 CUCO PERALTA, SANTY Norton Ot 241.0 NONTOX UNINODULAR GOITER 05/23/2016 CUCO PERALTA, SANTY Norton Ot 388.30 TINNITUS NOS 05/23/2016 CUCO PERALTA, SANTY Norton Ot 721.0 CERVICAL SPONDYLOSIS 05/23/2016 Ot 272.2 MIXE D HYPERLIPIDEMIA 05/23/2016 Ot 275.42 HYP ERCALCEMIA 05/23/2016 Ot 285.21 ANE CHERRI IN CHRONIC KIDNEY DISEASE 05/23/2016 Ot 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 DIETITIAN HELPER-C Ot 263.9 PROTEIN-ERLINDA MALNUTR NOS 05/23/2016 NEGRA ACOSTAA G. DIETITIAN HELPER-C Ot 272.2 MIXED HYPERLIPIDEMIA 05/23/2016 DAVE YAW G. DIETITIAN HELPER-C Ot 275.4 2 HYPERCALCEMIA 05/23/2016 DAVE YAW G. 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 DIETITIAN HELPER-C Ot 263.9 PROTEIN-ERLINDA MALNUTR NOS 05/23/2016 NEWYAW G. DIETITIAN HELPER-C Ot 272.4 HYPERLIPIDEMIA NEC/NOS 05/23/2016 NEW YAW G. DIETITIAN HELPER-C Ot 275.4 2 HYPERCALCEMIA 05/23/2016 NEW YAW G. DIETITIAN HELPER-C Ot 285.2 1 ANEMIA IN CHRONIC KIDNEY DISEASE 05/23/2016 NEW YAW G. 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 DIETITIAN HELPER-C Ot 585.3 CHRONIC KIDNEY DISEASE, STAGE III (MODER 05/23/2016 NEW YAW G. DIETITIAN HELPER-C Ot 791.0 PROTEINURIA 05/23/2016 NEW YAW G. DIETITIAN HELPER-C Ot 263.9 PROTEIN-ERLINDA MALNUTR NOS 05/23/2016 DAVE YAW G. DIETITIAN HELPER-C Ot 268.9 VITAMIN D DEFICIENCY NOS 05/23/2016 NEW YAW G. DIETITIAN HELPER-C Ot 272.2 MIXED HYPERLIPIDEMIA 05/23/2016 NEW YAW G. DIETITIAN HELPER-C Ot 275.4 2 HYPERCALCEMIA 05/23/2016 YAW ACOSTA G. DIETITIAN HELPER-C Ot 285.2 1 ANEMIA IN CHRONIC KIDNEY DISEASE 05/23/2016 NEWYAW G. 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 DIETITIAN HELPER-C Ot 585.3 CHRONIC KIDNEY DISEASE, STAGE III (MODER 05/23/2016 NEWYAW G. DIETITIAN HELPER-C Ot 788.1 DYSURIA 05/23/2016 NEWYAW G. DIETITIAN HELPER-C Ot 791.0 PROTEINURIA 05/23/2016 DUNG PERALTA, WELLINGTON Feliciano Ot 401.9 HYPERTENSION NOS 05/23/2016 DUNG PERALTA, WELL[place] Feliciano Ot V58.69 [facility] MED,LT,CURRENT USE 05/23/2016 WELLINGTON RAZO MD Ot V72.62 LAB EXAM ORDERED PART OF A ROUTINE GE 05/23/2016 WELLINGTON RAZO MD Ot V87.41 PERSONAL HISTORY OF ANTINEOPLASTIC CHEMO 05/23/2016 ROBDONNY SPICE MILLER Ot 287.5 THROMBOCYTOPENIA NOS 05/23/2016 LIBERTY FELICIANO SPICE MILLER Ot C50.912 MALIGNANT NEOPLASM OF UNSPECIFIED SITE O 05/23/2016 Ot M54.2 CERV ICALGIA 05/23/2016 MICHELLE CINTRON R Ot I20.9 ANGINA PECTORIS, UNSPECIFIED 05/23/2016 MICHELLE CINTRON Ot R53.82 CHRONIC FATIGUE, UNSPECIFIED 05/23/2016 MICHELLE CINTRON R Ot R 55 SYNCOPE AND COLLAPSE 05/23/2016 MICHELLE CINTRON Ot I20.9 ANGINA PECTORIS, UNSPECIFIED 05/23/2016 MICHELLE CINTRON R Ot R 55 SYNCOPE AND COLLAPSE 05/24/2016 Ot V10.3 HX O F BREAST MALIGNANCY 05/24/2016 Ot V76.11 SCR N MAMMO-HIGH RISK PT, MALIGNANT NEOPL 05/24/2016 Ot 396.3 MITR AL/AORTIC KAMARI INSUFF 05/24/2016 Ot 397.0 TRIC USPID VALVE DISEASE 05/24/2016 Ot 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 05/24/2016 Ot 272.4 HYPE RLIPIDEMIA NEC/NOS 05/24/2016 Ot 585.3 E 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 BERT KIDNEY DISEASE, STAGE III (MODER 05/24/2016 Ot 272.2 MIXE D HYPERLIPIDEMIA 05/24/2016 Ot 275.42 HYP ERCALCEMIA 05/24/2016 Ot 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, BENIGN, 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 05/24/2016 Ot 585.3 E 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 BERT KIDNEY DISEASE, STAGE III (MODER 05/24/2016 Ot 791.0 PROT EINURIA 05/24/2016 Ot 174.9 VIRIDIANA GN NEOPL BREAST NOS 05/24/2016 Ot 585.3 E 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 BERT KIDNEY DISEASE, STAGE III (MODER 05/24/2016 Ot 733.90 BON E CARTILAGE DIS NOS 05/24/2016 Ot V15.3 HX O F IRRADIATION 05/24/2016 Ot V58.66 ANETA G-TERM (CURRENT) USE OF ASPIRIN 05/24/2016 Ot V58.69 OTH MED,LT,CURRENT USE 05/24/2016 Ot V86.0 ESTR OGEN RECEPTOR POSITIVE STATUS [ER+] 05/24/2016 Ot V87.41 PER LOLITA HISTORY OF ANTINEOPLASTIC CHEMO 05/24/2016 Ot 272.2 MIXE D HYPERLIPIDEMIA 05/24/2016 Ot 275.42 HYP ERCALCEMIA 05/24/2016 Ot 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, BENIGN, 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 05/24/2016 Ot 585.3 E 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 BERT KIDNEY DISEASE, STAGE III (MODER 05/24/2016 Ot 791.0 PROT EINURIA 05/24/2016 CUCO PERALTA, SANTY Norton Ot 272.0 PURE HYPERCHOLESTEROLEM 05/24/2016 CUCO PERALTA, SANTY Norton Ot 287.5 THROMBOCYTOPENIA NOS 05/24/2016 LIBERTY FELICIANO SPICE MILLER Ot 174.9 MALIGN NEOPL BREAST NOS 05/24/2016 LIBERTY FELICIANO SPICE MILLER Ot 585.3 CHRONIC KIDNEY DISEASE, STAGE III (MODER 05/24/2016 LIBERTY FELICIANO SPICE MILLER Ot 733.90 BONE CARTILAGE DIS NOS 05/24/2016 LIBERTY FELICIANO SPICE MILLER Ot V15.3 HX OF IRRADIATION 05/24/2016 LIBERTY FELICIANO SPICE MILLER Ot V58.66 LONG-TERM (CURRENT) USE OF ASPIRIN 05/24/2016 LIBERTY FELICIANO SPICE MILLER Ot V58.69 OT MED,LT,CURRENT USE 05/24/2016 LIBERTY FELICIANO SPICE MILLER Ot V86.0 ESTROGEN RECEPTOR POSITIVE STATUS [ER+] 05/24/2016 LIBERTY FELICIANO SPICE MILLER Ot V87.41 PERSONAL HISTORY OF ANTINEOPLASTIC CHEMO 05/24/2016 LIBERTY FELICIANO SPICE MILLER Ot 174.9 MALIGN NEOPL BREAST NOS 05/24/2016 LIBERTY FELICIANO SPICE MILLER Ot 733.90 BONE CARTILAGE DIS NOS 05/24/2016 YAW ACOSTA DIETITIAN HELPER-C Ot 272.2 MIXED HYPERLIPIDEMIA 05/24/2016 YAW ACOSTA DIETITIAN HELPER-C Ot 275.4 2 HYPERCALCEMIA 05/24/2016 YAW ACOSTA DIETITIAN HELPER-C Ot 285.2 1 ANEMIA IN CHRONIC KIDNEY DISEASE 05/24/2016 YAW ACOSTA DIETITIAN HELPER-C Ot 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, BENIGN, 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 84 EXAM PRE-OPERATIVE NOS 05/24/2016 LIBERTY FELICIANO SPICE MILLER Ot 174.9 MALIGN NEOPL BREAST NOS 05/24/2016 LIBERTY FELICIANO SPICE MILLER Ot 585.3 CHRONIC KIDNEY DISEASE, STAGE III (MODER 05/24/2016 LIBERTY FELICIANO SPICE MILLER Ot 733.90 BONE CARTILAGE DIS NOS 05/24/2016 LIBERTY FELICIANO SPICE MILLER Ot V15.3 HX OF IRRADIATION 05/24/2016 LIBERTY FELICIANO SPICE MILLER Ot V58.66 LONG-TERM (CURRENT) USE OF ASPIRIN 05/24/2016 LIBERTY FELICIANO SPICE MILLER Ot V58.69 OTH MED,LT,CURRENT USE 05/24/2016 LIBERTY FELICIANO SPICE MILLER Ot V86.0 ESTROGEN RECEPTOR POSITIVE STATUS [ER+] 05/24/2016 LIBERTY FELICIANO SPICE MILLER Ot V87.41 PERSONAL HISTORY OF ANTINEOPLASTIC CHEMO 05/24/2016 LIBERTY FELICIANO SPICE MILLER Ot 733.90 BONE CARTILAGE DIS NOS 05/24/2016 LIBERTY FELICIANO SPICE MILLER Ot V76.12 OTH SCREEN MAMMO-MALIGN NEOPLASM OF HUSSAIN 05/24/2016 YAW ACOSTA DIETITIAN HELPER-C Ot 272.2 MIXED HYPERLIPIDEMIA 05/24/2016 YAW ACOSTA DIETITIAN HELPER-C Ot 275.4 2 HYPERCALCEMIA 05/24/2016 YAW ACOSTA DIETITIAN HELPER-C Ot 285.2 1 ANEMIA IN CHRONIC KIDNEY DISEASE 05/24/2016 YAW ACOSTA DIETITIAN HELPER-C Ot 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, BENIGN, 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 05/24/2016 YAW ACOSTA DIETITIAN HELPER-C Ot 585.3 CHRONIC KIDNEY DISEASE, STAGE III (MODER 05/24/2016 YAW ACOSTA DIETITIAN HELPER-C Ot 791.0 PROTEINURIA 05/24/2016 SANTY NORWOOD MD [...] Ot 721.0 CERVICAL SPONDYLOSIS 05/24/2016 Ot 272.2 MIXE D HYPERLIPIDEMIA 05/24/2016 Ot 275.42 HYP ERCALCEMIA 05/24/2016 Ot 285.21 ANE CHERRI IN CHRONIC KIDNEY DISEASE 05/24/2016 Ot 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, BENIGN, 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 05/24/2016 Ot 585.3 E 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 BERT KIDNEY DISEASE, STAGE III (MODER 05/24/2016 Ot 791.0 PROT EINURIA 05/24/2016 ASHLIE BEAR Ot C50.919 MALIGNANT NEOPLASM OF UNSP SITE OF UNSPE 05/24/2016 ASHLIE BEAR Ot Z12.31 ENCNTR SCREEN MAMMOGRAM FOR MALIGNANT NE 05/24/2016 YAW ACOSTA NP-C Ot 263.9 PROTEIN-ERLINDA MALNUTR NOS 05/24/2016 YAW ACOSTA DIETITIAN HELPER-C Ot 272.2 MIXED HYPERLIPIDEMIA 05/24/2016 YAW ACOSTA DIETITIAN HELPER-C Ot 275.4 2 HYPERCALCEMIA 05/24/2016 YAW ACOSTA DIETITIAN HELPER-C Ot 285.2 1 ANEMIA IN CHRONIC KIDNEY DISEASE 05/24/2016 YAW ACOSTA DIETITIAN HELPER-C Ot 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, BENIGN, 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 05/24/2016 YAW ACOSTA DIETITIAN HELPER-C Ot 585.3 CHRONIC KIDNEY DISEASE, STAGE III (MODER 05/24/2016 YAW ACOSTA DIETITIAN HELPER-C Ot 791.0 PROTEINURIA 05/24/2016 ASHLIE BEAR Ot [...] HISTORY OF ANTINEOPLASTIC CHEMO 05/24/2016 YAW ACOSTA DIETITIAN HELPER-C Ot 263.9 PROTEIN-ERLINDA MALNUTR NOS 05/24/2016 YAW ACOSTA DIETITIAN HELPER-C Ot 272.4 HYPERLIPIDEMIA NEC/NOS 05/24/2016 YAW ACOSTA DIETITIAN HELPER-C Ot 275.4 2 HYPERCALCEMIA 05/24/2016 YAW ACOSTA DIETITIAN HELPER-C Ot 285.2 1 ANEMIA IN CHRONIC KIDNEY DISEASE 05/24/2016 YAW ACOSTA DIETITIAN HELPER-C Ot 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, BENIGN, 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 05/24/2016 YAW ACOSTA DIETITIAN HELPER-C Ot 585.3 CHRONIC KIDNEY DISEASE, STAGE III (MODER 05/24/2016 YAW ACOSTA DIETITIAN HELPER-C Ot 791.0 PROTEINURIA 05/24/2016 YAW ACOSTA DIETITIAN HELPER-C Ot 263.9 PROTEIN-ERLINDA MALNUTR NOS 05/24/2016 YAW ACOSTA DIETITIAN HELPER-C Ot 268.9 VITAMIN D DEFICIENCY NOS 05/24/2016 YAW ACOSTA DIETITIAN HELPER-C Ot 272.2 MIXED HYPERLIPIDEMIA 05/24/2016 YAW ACOSTA DIETITIAN HELPER-C Ot 275.4 2 HYPERCALCEMIA 05/24/2016 YAW ACOSTA DIETITIAN HELPER-C Ot 285.2 1 ANEMIA IN CHRONIC KIDNEY DISEASE 05/24/2016 YAW ACOSTA DIETITIAN HELPER-C Ot 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, BENIGN, 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 DIETITIAN HELPER-C Ot 788.1 DYSURIA 05/24/2016 YAW ACOSTA DIETITIAN HELPER-C Ot 791.0 PROTEINURIA 05/24/2016 WELLINGTON RAZO MD Ot 401.9 HYPERTENSION NOS 05/24/2016 WELLINGTON RAZO MD Ot V58.69 OT MED,LT,CURRENT USE 05/24/2016 WELLINGTON RAZO MD Ot V72.62 LAB EXAM ORDERED PART OF A ROUTINE GE 05/24/2016 WELLINGTON RAZO MD Ot V87.41 PERSONAL HISTORY OF ANTINEOPLASTIC CHEMO 05/24/2016 DONNY RIVAS SPICE MILLER Ot 287.5 THROMBOCYTOPENIA NOS 05/24/2016 LIBERTY FELICIANO SPICE MILLER Ot C50.912 MALIGNANT NEOPLASM OF UNSPECIFIED SITE O 05/24/2016 Ot M54.2 CERV ICALGIA 05/24/2016 LIBERTY FELICIANO SPICE MILLER Ot M89.9 DISORDER OF BONE, UNSPECIFIED 05/24/2016 LIBERTY FELICIANO SPICE MILLER Ot N64.9 DISORDER OF BREAST, UNSPECIFIED 05/24/2016 MICHELLE CINTRON R Ot I20.9 ANGINA PECTORIS, UNSPECIFIED 05/24/2016 MICHELLE CINTRON R Ot R53.82 CHRONIC FATIGUE, UNSPECIFIED 05/24/2016 MICHELLE CINTRON Ot R 55 SYNCOPE AND COLLAPSE 05/24/2016 MICHELLE CINTRON Ot I20.9 ANGINA PECTORIS, UNSPECIFIED 05/24/2016 MICHELLE CINTRON Ot R 55 SYNCOPE AND COLLAPSE 05/24/2016 LIBERTY FELICIANOP Ot C50.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 OF UPPER-OUTER QUADRANT O 05/24/2016 LIBERTY FELICIANO SPICE MILLER Ot M85.80 OT DISRD OF BONE DENSITY AND STRUCTURE, 05/24/2016 LIBERTY FELICIANO SPICE MILLER Ot N64.4 MASTODYNIA 05/25/2016 KWAKU PERALTA, ROBERT Astudillo Ot G20 PARKINSON'S DISEASE 05/25/2016 ROBERT AMES MD Ot G35 MULTIPLE SCLEROSIS 05/25/2016 ROBERT AMES MD Ot I10 ESSENTIAL (PRIMARY) HYPERTENSION 05/25/2016 ROBERT AMES MD Ot T78.3XXA ANGIONEUROTIC EDEMA, INITIAL ENCOUNTER 05/25/2016 ROBERT AMES MD Ot Z79. 82 WELDER SETTER ELECTRON BEAM MACHINE (CURRENT) USE OF ASPIRIN 05/25/2016 ROBERT AMES MD Ot Z79.899 OTHER RESIDENTIAL (CURRENT) DRUG THERAPY 05/27/2016 ROBERT AMES MD Ot G20 PARKINSON'S DISEASE 05/27/2016 ROBERT AMES MD Ot G35 MULTIPLE SCLEROSIS 05/27/2016 ROBERT AEMS MD Ot I10 ESSENTIAL (PRIMARY) HYPERTENSION 05/27/2016 ROBERT AMES MD Ot T78.3XXA ANGIONEUROTIC EDEMA, INITIAL ENCOUNTER 05/27/2016 ROBERT AMES MD Ot Z79. 82 RESIDENTIAL (CURRENT) USE OF ASPIRIN 05/27/2016 ROBERT AMES MD Ot Z79.899 OTHER WELDER SETTER ELECTRON BEAM MACHINE (CURRENT) DRUG THERAPY 06/01/2016 ROBERT AMES MD Ot G20 PARKINSON'S DISEASE 06/01/2016 ROBERT AMES MD Ot G35 MULTIPLE SCLEROSIS 06/01/2016 ROBERT AMES MD Ot I10 ESSENTIAL (PRIMARY) HYPERTENSION 06/01/2016 ROBERT AMES MD Ot T78.3XXA ANGIONEUROTIC EDEMA, INITIAL ENCOUNTER 06/01/2016 ROBERT AMES MD Ot Z79. 82 WELDER SETTER ELECTRON BEAM MACHINE (CURRENT) USE OF ASPIRIN 06/01/2016 ROBERT AMES MD Ot Z79.899 OTHER WELDER SETTER ELECTRON BEAM MACHINE (CURRENT) DRUG THERAPY 06/03/2016 LIBERTY FELICIANO Ot C50.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 OF UPPER-OUTER QUADRANT O 06/03/2016 LIBERTY FELICIANO SPICE MILLER Ot M85.80 OTH DISRD OF BONE DENSITY AND STRUCTURE, 06/03/2016 LIBETRY FELICIANO SPICE MILLER Ot N64.4 MASTODYNIA 08/08/2016 MARK CHEN WATER TESTER Ot R0 5 COUGH 08/08/2016 MARK CHEN WATER TESTER Ot R06.02 SHORTNESS OF BREATH 08/20/2016 MARK CHEN WATER TESTER Ot R07.81 PLEURODYNIA 08/27/2016 MARK CHEN WATER TESTER Ot R0 5 COUGH 08/27/2016 MARK CHEN WATER TESTER Ot R06.02 SHORTNESS OF BREATH 08/28/2016 MARK CHEN WATER TESTER Ot R10.11 RIGHT UPPER QUADRANT PAIN 08/28/2016 CHEMA, BOBAN N Ot G20 PARKINSON'S DISEASE 08/28/2016 CHEMA, BOBAN N Ot G35 MULTIPLE SCLEROSIS 08/28/2016 CHEMA, BOBAN N Ot I12.9 HYPERTENSIVE CHRONIC KIDNEY DISEASE W ST 08/28/2016 CHEMA, BOBAN N Ot M85.9 DISORDER OF BONE DENSITY AND STRUCTURE, 08/28/2016 CHEMA, BOBAN N Ot N18.3 CHRONIC KIDNEY DISEASE, STAGE 3 (MODERAT 08/28/2016 CHEMA, BOBAN N Ot Z09 ENCNTR FOR F/U EXAM AFT TRTMT FOR COND O 08/28/2016 CHEMA, BOBAN N Ot Z85.3 PERSONAL HISTORY OF MALIGNANT NEOPLASM O 09/11/2016 MARK CHEN APRN Ot R07.81 PLEURODYNIA 09/16/2016 MARK CHEN APRN Ot R07.81 PLEURODYNIA 09/17/2016 CHEMA, BOBAN N Ot G20 PARKINSON'S DISEASE 09/17/2016 CHEMA, BOBAN N Ot G35 MULTIPLE SCLEROSIS 09/17/2016 CHEMA, BOBAN N Ot I12.9 HYPERTENSIVE CHRONIC KIDNEY DISEASE W ST 09/17/2016 CHEMA, BOBAN N Ot M85.9 DISORDER OF BONE DENSITY AND STRUCTURE, 09/17/2016 CHEMA, BOBAN N Ot N18.3 CHRONIC KIDNEY DISEASE, STAGE 3 (MODERAT 09/17/2016 CHEMA, BOBAN N Ot Z09 ENCNTR FOR F/U EXAM AFT TRTMT FOR COND O 09/17/2016 CHEMA, BOBAN N Ot Z85.3 PERSONAL HISTORY OF MALIGNANT NEOPLASM O 10/12/2016 MARK CHEN APRN Ot R10.11 RIGHT UPPER QUADRANT PAIN 10/19/2016 CHEMA, BOBAN N Ot R07.81 PLEURODYNIA 10/19/2016 CHEMA, BOBAN N Ot Z85.3 PERSONAL HISTORY OF MALIGNANT NEOPLASM O 10/23/2016 CHEMA, BOBAN N Ot R07.81 PLEURODYNIA 10/23/2016 CHEMA, BOBAN N Ot Z85.3 PERSONAL HISTORY OF MALIGNANT NEOPLASM O 10/23/2016 MARK CHEN APRN Ot R10.11 RIGHT UPPER QUADRANT PAIN 11/05/2016 CHEMAAZEEMAN N Ot C50.912 MALIGNANT NEOPLASM OF UNSPECIFIED [...] DISRD OF BONE DENSITY AND STRUCTURE, 12/24/2016 CHEMAASHLIE HUERTA N Ot Z85.3 PERSONAL HISTORY OF MALIGNANT NEOPLASM O 01/14/2017 CHEMAASHLIE HUERTA N Ot M85.80 OTH DISRD OF BONE DENSITY AND STRUCTURE, 01/14/2017 CHEMAASHLIE HUERTA N Ot Z85.3 PERSONAL HISTORY OF MALIGNANT NEOPLASM O 02/02/2017 CHEMAASHLIE HUERTA N Ot C50.912 MALIGNANT NEOPLASM OF UNSPECIFIED SITE O 02/02/2017 ASHLIE BEAR N Ot M85.88 OTH DISRD OF BONE DENSITY AND STRUCTURE, 02/02/2017 ASHLIE BEAR N Ot N18.3 CHRONIC KIDNEY DISEASE, STAGE 3 (MODERAT 04/23/2017 DUNG PERALTA, [place] Feliciano Ot M25.562 PAIN IN LEFT KNEE 04/30/2017 DHARA POWER PA-C Ot R00.1 BRADYCARDIA, UNSPECIFIED 05/15/2017 [place] RAZO MD Ot M25.562 PAIN IN LEFT KNEE 05/16/2017 DHARA POWER PA-C Ot R00.1 BRADYCARDIA, UNSPECIFIED 06/17/2017 CHEMAASHLIE HUERTA N Ot Z12.31 ENCNTR SCREEN MAMMOGRAM FOR MALIGNANT NE 06/20/2017 BELLE CANTU MD Ot G20 PARKINSON'S DISEASE 06/20/2017 BELLE CANTU MD, Ot I10 ESSENTIAL (PRIMARY) HYPERTENSION 06/20/2017 BELLE CANTU MD Ot K14. 8 OTHER DISEASES OF TONGUE 06/20/2017 BELLE CANTU MD Ot T78.3XXA ANGIONEUROTIC EDEMA, INITIAL ENCOUNTER 06/20/2017 BELLE CANTU MD Ot Z79. 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 8 OTHER DISEASES OF TONGUE 06/27/2017 BELLE CANTU MD Ot T78.3XXA ANGIONEUROTIC EDEMA, INITIAL ENCOUNTER 06/27/2017 BELLE CANTU MD, Ot Z79. 82 WELDER SETTER ELECTRON [employer] MACHINE (CURRENT) USE OF ASPIRIN 09/02/2017 ASHLIE BEAR Ot C50.912 MALIGNANT NEOPLASM OF UNSPECIFIED SITE O 09/02/2017 ASHLIE BEAR Ot M85.88 OTH DISRD OF BONE DENSITY AND STRUCTURE, 09/02/2017 ASHLIE BEAR Ot N18.3 CHRONIC KIDNEY DISEASE, STAGE 3 (MODERAT 09/03/2017 LIBERTY FELICIANOP Ot Z12.31 ENCNTR SCREEN MAMMOGRAM FOR MALIGNANT NE 09/03/2017 LIBERTY FELICIANO SPICE MILLER Ot Z12.31 ENCNTR SCREEN MAMMOGRAM FOR MALIGNANT NE 09/04/2017 ASHLIE BEAR Ot G20 PARKINSON'S DISEASE 09/04/2017 ASHLIE BEAR Ot G35 MULTIPLE SCLEROSIS 09/04/2017 ASHLIE BEAR Ot I12.9 HYPERTENSIVE CHRONIC KIDNEY DISEASE W ST 09/04/2017 ASHLIE BEAR Ot I45.6 PRE- EXCITATION SYNDROME 09/04/2017 ASHLIE BEAR Ot M85.88 OTH DISRD OF BONE DENSITY AND STRUCTURE, 09/04/2017 ASHLIE BEAR Ot N18.3 CHRONIC KIDNEY DISEASE, STAGE 3 (MODERAT 09/04/2017 ASHLIE BEAR Ot R07.81 PLEURODYNIA 09/04/2017 ASHLIE BEAR Ot Z08 ENCNTR FOR FOLLOW-UP EXAM AFTER TRTMT FO 09/04/2017 ASHLIE BEAR Ot Z79.82 WELDER SETTER ELECTRON [employer] MACHINE (CURRENT) USE OF ASPIRIN 09/04/2017 ASHLIE BEAR Ot Z79.899 OTHER WELDER SETTER ELECTRON [employer] MACHINE (CURRENT) DRUG THERAPY 09/04/2017 ASHLIE BEAR Ot Z85.3 PERSONAL HISTORY OF MALIGNANT NEOPLASM O 09/04/2017 ASHLIE BEAR N Ot Z92.21 PERSONAL HISTORY OF ANTINEOPLASTIC CHEMO 09/04/2017 ASHLIE BEAR N Ot Z92.3 PERSONAL HISTORY OF IRRADIATION 09/08/2017 CHEMA AZEEMBRITTNEY N Ot G20 PARKINSON'S DISEASE 09/08/2017 CHEMA AZEEMBRITTNEY N Ot G35 MULTIPLE SCLEROSIS 09/08/2017 CHEMA AZEEMBRITTNEY N Ot I12.9 HYPERTENSIVE CHRONIC KIDNEY DISEASE W ST 09/08/2017 CHEMA AZEEMBRITTNEY N Ot I45.6 PRE- EXCITATION SYNDROME 09/08/2017 CHEMA AZEEMBRITTNEY N Ot M85.88 OTH DISRD OF BONE DENSITY AND STRUCTURE, 09/08/2017 CHEMA AZEEMBRITTNEY Saw Ot N18.3 CHRONIC KIDNEY DISEASE, STAGE 3 (MODERAT 09/08/2017 CHEMA ASHLIE N Ot R07.81 PLEURODYNIA 09/08/2017 CHEMA ASHLIE Spring Ot Z08 ENCNTR FOR FOLLOW-UP EXAM AFTER TRTMT FO 09/08/2017 ASHLIE BEAR Saw Ot Z79.82 RESIDENTIAL (CURRENT) USE OF ASPIRIN 09/08/2017 ASHLIE BEAR N Ot Z79.899 OTHER RESIDENTIAL (CURRENT) DRUG THERAPY 09/08/2017 ASHLIE BEAR N Ot Z85.3 PERSONAL HISTORY OF MALIGNANT NEOPLASM O 09/08/2017 ASHLIE BEAR N Ot Z92.21 PERSONAL HISTORY OF ANTINEOPLASTIC CHEMO 09/08/2017 ASHLIE BEAR N Ot Z92.3 PERSONAL HISTORY OF IRRADIATION 09/23/2017 CHEMA AZEEMBRITTNEY N Ot G20 PARKINSON'S DISEASE 09/23/2017 CHEMA ASHLIE Spring Ot G35 MULTIPLE SCLEROSIS 09/23/2017 CHEMA AZEEMBRITTNEY N Ot I12.9 HYPERTENSIVE CHRONIC KIDNEY DISEASE W ST 09/23/2017 CHEMA AZEEMBRITTNEY N Ot I45.6 PRE- EXCITATION SYNDROME 09/23/2017 CHEMA ASHLIE N Ot M85.88 OTH DISRD OF BONE DENSITY AND STRUCTURE, 09/23/2017 CHEMA AZEEMBRITTNEY N Ot N18.3 CHRONIC KIDNEY DISEASE, STAGE 3 (MODERAT 09/23/2017 CHEMAASHLIE N Ot R07.81 PLEURODYNIA 09/23/2017 CHEMAASHLIE N Ot Z08 ENCNTR FOR FOLLOW-UP EXAM AFTER TRTMT FO 09/23/2017 ASHLIE BEAR Ot Z79.82 RESIDENTIAL (CURRENT) USE OF ASPIRIN 09/23/2017 ASHLIE BEAR Ot Z79.899 OTHER WELDER SETTER ELECTRON BEAM MACHINE (CURRENT) DRUG THERAPY 09/23/2017 ASHLIE BEAR Ot Z85.3 PERSONAL HISTORY OF MALIGNANT NEOPLASM O 09/23/2017 ASHLIE BEAR Ot Z92.21 PERSONAL HISTORY OF ANTINEOPLASTIC CHEMO 09/23/2017 ASHLIE BEAR Ot Z92.3 PERSONAL HISTORY OF IRRADIATION 10/20/2017 BELLE CANTU MD Ot G20 PARKINSON'S DISEASE 10/20/2017 BELLE CANTU MD Ot G35 MULTIPLE SCLEROSIS 10/20/2017 BELLE CANTU MD, Ot I10 ESSENTIAL (PRIMARY) HYPERTENSION 10/20/2017 BELLE CANTU MD Ot R11. 0 NAUSEA 10/20/2017 BELLE CANTU MD Ot T78.3XXA ANGIONEUROTIC EDEMA, INITIAL ENCOUNTER 10/20/2017 BELLE CANTU MD Ot Z79. 52 RESIDENTIAL (CURRENT) USE OF SYSTEMIC STER 10/20/2017 BELLE CANTU MD Ot Z79. 82 RESIDENTIAL (CURRENT) USE OF ASPIRIN 10/20/2017 BELLE CANTU MD Ot Z90.710 ACQUIRED ABSENCE OF BOTH CERVIX AND UTER 10/22/2017 BELLE CANTU MD Ot G20 PARKINSON'S DISEASE 10/22/2017 BELLE CANTU MD Ot G35 MULTIPLE SCLEROSIS 10/22/2017 BELLE CANTU MD Ot I10 ESSENTIAL (PRIMARY) HYPERTENSION 10/22/2017 BELLE CANTU MD Ot R11. 0 NAUSEA 10/22/2017 BELLE CANTU MD Ot T78.3XXA ANGIONEUROTIC EDEMA, INITIAL ENCOUNTER 10/22/2017 BELLE CANTU MD Ot Z79. 52 WELDER SETTER ELECTRON BEAM MACHINE (CURRENT) USE OF SYSTEMIC STER 10/22/2017 BELLE CANTU MD Ot Z79. 82 WELDER SETTER ELECTRON BEAM MACHINE (CURRENT) USE OF ASPIRIN 10/22/2017 BELLE CANTU MD Ot Z90.710 ACQUIRED ABSENCE OF BOTH CERVIX AND UTER 02/10/2018 Ot 174.9 VIRIDIANA GN NEOPL BREAST NOS 02/10/2018 Ot 585.3 E 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 BERT KIDNEY DISEASE, STAGE III (MODER 02/10/2018 Ot 733.90 BON E CARTILAGE DIS NOS 02/10/2018 Ot V15.3 HX O F IRRADIATION 02/10/2018 Ot V58.66 ANETA G-TERM (CURRENT) USE OF ASPIRIN 02/10/2018 Ot V58.69 OTH MED,LT,CURRENT USE 02/10/2018 Ot V86.0 ESTR OGEN RECEPTOR POSITIVE STATUS [ER+] 02/10/2018 Ot V87.41 PER LOLITA HISTORY OF ANTINEOPLASTIC CHEMO 02/10/2018 Ot 272.2 MIXE D HYPERLIPIDEMIA 02/10/2018 Ot 275.42 HYP ERCALCEMIA 02/10/2018 Ot 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, BENIGN, 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 02/10/2018 Ot 585.3 E 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 BERT KIDNEY DISEASE, STAGE III (MODER 02/10/2018 Ot 791.0 PROT EINURIA 02/10/2018 CUCO PERALTA, SANTY Norton Ot 272.0 PURE HYPERCHOLESTEROLEM 02/10/2018 CUCO PERALTA, SANTY Norton Ot 287.5 THROMBOCYTOPENIA NOS 02/10/2018 LIBERTY FELICIANO SPICE MILLER Ot 174.9 MALIGN NEOPL BREAST NOS 02/10/2018 LIBERTY FELICIANO S SPICE MILLER Ot 585.3 CHRONIC KIDNEY DISEASE, STAGE III (MODER 02/10/2018 LIBERTY FELICIANO SPICE MILLER Ot 733.90 BONE CARTILAGE DIS NOS 02/10/2018 LIBERTY FELICIANO SPICE MILLER Ot V15.3 HX OF IRRADIATION 02/10/2018 LIBERTY FELICIANO SPICE MILLER Ot V58.66 LONG-TERM (CURRENT) USE OF ASPIRIN 02/10/2018 LIBERTY FELICIANO SPICE MILLER Ot V58.69 OT MED,LT,CURRENT USE 02/10/2018 LIBERTY FELICIANO SPICE MILLER Ot V86.0 ESTROGEN RECEPTOR POSITIVE STATUS [ER+] 02/10/2018 LIBERTY FELICIANO SPICE MILLER Ot V87.41 PERSONAL HISTORY OF ANTINEOPLASTIC CHEMO 02/10/2018 LIBERTY FELICIANO SPICE MILLER Ot 174.9 MALIGN NEOPL BREAST NOS 02/10/2018 LIBERTY FELICIANO S SPICE MILLER Ot 733.90 BONE CARTILAGE DIS NOS 02/10/2018 YAW ACOSTA NP-C Ot 272.2 MIXED HYPERLIPIDEMIA 02/10/2018 NEW, YAW G. DIETITIAN HELPER-C Ot 275.4 2 HYPERCALCEMIA 02/10/2018 YAW ACOSTA DIETITIAN HELPER-C Ot 285.2 1 ANEMIA IN CHRONIC KIDNEY DISEASE 02/10/2018 YAW ACOSTA DIETITIAN HELPER-C Ot 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, BENIGN, W/O HRT FA 02/10/2018 YAW ACOSTA DIETITIAN HELPER-C Ot 585.3 CHRONIC KIDNEY DISEASE, STAGE III (MODER 02/10/2018 YAW ACOSTA DIETITIAN HELPER-C Ot 791.0 PROTEINURIA 02/10/2018 ROYA PERALTA, ROBERT Hamlin Ot V72. 84 EXAM PRE-OPERATIVE NOS 02/10/2018 LIBERTY FELICIANO SPICE MILLER Ot 174.9 MALIGN NEOPL BREAST NOS 02/10/2018 LIBERTY FELICIANO SPICE MILLER Ot 585.3 CHRONIC KIDNEY DISEASE, STAGE III (MODER 02/10/2018 LIBERTY FELICIANO SPICE MILLER Ot 733.90 BONE CARTILAGE DIS NOS 02/10/2018 LIBERTY FELICIANO SPICE MILLER Ot V15.3 HX OF IRRADIATION 02/10/2018 LIBERTY FELICIANO SPICE MILLER Ot V58.66 LONG-TERM (CURRENT) USE OF ASPIRIN 02/10/2018 LIBERTY FELICIANO SPICE MILLER Ot V58.69 OTH MED,LT,CURRENT USE 02/10/2018 LIBERTY FELICIANO SPICE MILLER Ot V86.0 ESTROGEN RECEPTOR POSITIVE STATUS [ER+] 02/10/2018 LIBERTY FELICIANO SPICE MILLER Ot V87.41 PERSONAL HISTORY OF ANTINEOPLASTIC CHEMO 02/10/2018 LIBERTY FELICIANO SPICE MILLER Ot 733.90 BONE CARTILAGE DIS NOS 02/10/2018 LIBERTY FELICIANO SPICE MILLER Ot V76.12 OTH SCREEN MAMMO-MALIGN NEOPLASM OF [place]IN 02/10/2018 YAW ACOSTA DIETITIAN HELPER-C Ot 272.2 MIXED HYPERLIPIDEMIA 02/10/2018 YAW ACOSTA DIETITIAN HELPER-C Ot 275.4 2 HYPERCALCEMIA 02/10/2018 YAW ACOSTA DIETITIAN HELPER-C Ot 285.2 1 ANEMIA IN CHRONIC KIDNEY DISEASE 02/10/2018 YAW ACOSTA DIETITIAN HELPER-C Ot 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, BENIGN, 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 02/10/2018 YAW ACOSTA DIETITIAN HELPER-C Ot 585.3 CHRONIC KIDNEY DISEASE, STAGE III (MODER 02/10/2018 YAW ACOSTA DIETITIAN HELPER-C Ot 791.0 PROTEINURIA 02/10/2018 CUCO PERALTA, SANTY Norton Ot 397.0 TRICUSPID VALVE DISEASE 02/10/2018 CUCO PERALTA, SANTY Norton Ot 424.0 MITRAL VALVE DISORDER 02/10/2018 CUCO PERALTA, SANTY Norton Ot 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 02/10/2018 CUCO PERALTA, SANTY Norton Ot 244.8 ACQUIRED HYPOTHYROID NEC 02/10/2018 CUCO PERALTA, SANTY Norton Ot 241.0 NONTOX UNINODULAR GOITER 02/10/2018 CUCO PERALTA, SANTY Norton Ot 388.30 TINNITUS NOS 02/10/2018 CUCO PERALTA, SANTY Norton Ot 721.0 CERVICAL SPONDYLOSIS 02/10/2018 Ot 272.2 MIXE D HYPERLIPIDEMIA 02/10/2018 Ot 275.42 HYP ERCALCEMIA 02/10/2018 Ot 285.21 ANE CHERRI IN CHRONIC KIDNEY DISEASE 02/10/2018 Ot 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, BENIGN, 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 02/10/2018 Ot 585.3 E 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 BERT KIDNEY DISEASE, STAGE III (MODER 02/10/2018 Ot 791.0 PROT EINURIA 02/10/2018 ASHLIE BEAR Ot C50.919 MALIGNANT NEOPLASM OF [facility] SITE OF UNSPE 02/10/2018 ASHLIE BEAR Ot Z12.31 ENCNTR SCREEN MAMMOGRAM FOR MALIGNANT NE 02/10/2018 YAW ACOSTA DIETITIAN HELPER-C Ot 263.9 PROTEIN-ERLINDA MALNUTR NOS 02/10/2018 YAW ACOSTA DIETITIAN HELPER-C Ot 272.2 MIXED HYPERLIPIDEMIA 02/10/2018 YAW ACOSTA DIETITIAN HELPER-C Ot 275.4 2 HYPERCALCEMIA 02/10/2018 YAW ACOSTA DIETITIAN HELPER-C Ot 285.2 1 ANEMIA IN CHRONIC KIDNEY DISEASE 02/10/2018 YAW ACOSTA DIETITIAN HELPER-C Ot 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, BENIGN, 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 02/10/2018 YAW ACOSTA DIETITIAN HELPER-C Ot 585.3 CHRONIC KIDNEY DISEASE, STAGE III (MODER 02/10/2018 AYW ACOSTA DIETITIAN HELPER-C Ot 791.0 PROTEINURIA 02/10/2018 ASHLIE BEAR Saw Ot 174.9 MALIGN NEOPL BREAST NOS 02/10/2018 ASHLIE BEAR N Ot 585.3 CHRONIC KIDNEY DISEASE, STAGE III (MODER 02/10/2018 ASHLIE BEAR Saw Ot 733.90 BONE CARTILAGE DIS NOS 02/10/2018 ASHLIE BEAR Saw Ot V15.3 HX OF IRRADIATION 02/10/2018 ASHLIE BEAR Saw Ot V58.66 LONG-TERM (CURRENT) USE OF ASPIRIN 02/10/2018 ASHLIE BEAR Saw Ot V58.69 OTH MED,LT,CURRENT USE 02/10/2018 ASHLIE BEAR Saw Ot V86.0 ESTROGEN RECEPTOR POSITIVE STATUS [ER+] 02/10/2018 ASHLIE BEAR Saw Ot V87.41 PERSONAL HISTORY OF ANTINEOPLASTIC CHEMO 02/10/2018 YAW ACOSTA DIETITIAN HELPER-C Ot 263.9 PROTEIN-ERLINDA MALNUTR NOS 02/10/2018 YAW ACOSTA DIETITIAN HELPER-C Ot 272.4 HYPERLIPIDEMIA NEC/NOS 02/10/2018 YAW ACOSTA DIETITIAN HELPER-C Ot 275.4 2 HYPERCALCEMIA 02/10/2018 YAW ACOSTA DIETITIAN HELPER-C Ot 285.2 1 ANEMIA IN CHRONIC KIDNEY DISEASE 02/10/2018 YAW ACOSTA DIETITIAN HELPER-C Ot 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, BENIGN, 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 02/10/2018 YAW ACOSTA DIETITIAN HELPER-C Ot 585.3 CHRONIC KIDNEY DISEASE, STAGE III (MODER 02/10/2018 YAW ACOSTA DIETITIAN HELPER-C Ot 791.0 PROTEINURIA 02/10/2018 YAW ACOSTA DIETITIAN HELPER-C Ot 263.9 PROTEIN-ERLINDA MALNUTR NOS 02/10/2018 YAW ACOSTA DIETITIAN HELPER-C Ot 268.9 VITAMIN D DEFICIENCY NOS 02/10/2018 YAW ACOSTA DIETITIAN HELPER-C Ot 272.2 MIXED HYPERLIPIDEMIA 02/10/2018 YAW ACOSTA DIETITIAN HELPER-C Ot 275.4 2 HYPERCALCEMIA 02/10/2018 YAW ACOSTA DIETITIAN HELPER-C Ot 285.2 1 ANEMIA IN CHRONIC KIDNEY DISEASE 02/10/2018 YAW ACOSTA DIETITIAN HELPER-C Ot 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, BENIGN, 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 02/10/2018 YAW ACOSTA NP-C Ot 585.3 CHRONIC KIDNEY DISEASE, STAGE III (MODER 02/10/2018 YAW ACOSTA NP-C Ot 788.1 DYSURIA 02/10/2018 YAW ACOSTA NP-C Ot 791.0 PROTEINURIA 02/10/2018 WELLINGTON RAZO MD Ot 401.9 HYPERTENSION NOS 02/10/2018 WELLINGTON RAZO MD Ot V58.69 OTH MED,LT,CURRENT USE 02/10/2018 WELLINGTON RAZO MD Ot V72.62 LAB EXAM ORDERED PART OF A ROUTINE GE 02/10/2018 WELLINGTON RAZO MD Ot V87.41 PERSONAL HISTORY OF ANTINEOPLASTIC CHEMO 02/10/2018 DONNY RIVAS SPICE MILLER Ot 287.5 THROMBOCYTOPENIA NOS 02/10/2018 LIBERTY FELICIANO SPICE MILLER Ot C50.912 MALIGNANT NEOPLASM OF UNSPECIFIED SITE O 02/10/2018 Ot M54.2 CERV ICALGIA 02/10/2018 LIBERTY FELICIANO SPICE MILLER Ot C50.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 OF UPPER-OUTER QUADRANT O 02/10/2018 LIEBRTY FELICIANOP Ot M85.80 OTH DISRD OF BONE DENSITY AND STRUCTURE, 02/10/2018 LIBERTY FELICIANO SPICE MILLER Ot N64.4 MASTODYNIA 02/10/2018 MICHELLE CINTRON Ot I20.9 ANGINA PECTORIS, UNSPECIFIED 02/10/2018 MICHELLE CINTRON Ot R53.82 CHRONIC FATIGUE, UNSPECIFIED 02/10/2018 MICHELLE CINTRON Ot R 55 SYNCOPE AND COLLAPSE 02/10/2018 MICHELLE CINTRON Ot I20.9 ANGINA PECTORIS, UNSPECIFIED 02/10/2018 MICHELLE CINTRON Ot R 55 SYNCOPE AND COLLAPSE 02/10/2018 MARK CHEN APRN Ot R0 5 COUGH 02/10/2018 MARK CHEN APRN Ot R06.02 SHORTNESS OF BREATH 02/10/2018 MARK CHEN APRN Ot R07.81 PLEURODYNIA 02/10/2018 ASHLIE BEAR Ot G20 PARKINSON'S DISEASE 02/10/2018 ASHLIE BEAR Ot G35 MULTIPLE SCLEROSIS 02/10/2018 CHEMA, BOBAN N Ot I12.9 HYPERTENSIVE CHRONIC KIDNEY DISEASE W ST 02/10/2018 CHEMA, ASHLIE N Ot M85.9 DISORDER OF BONE DENSITY AND STRUCTURE, 02/10/2018 CHEMA, ASHLIE Spring Ot N18.3 CHRONIC KIDNEY DISEASE, STAGE 3 (MODERAT 02/10/2018 ASHLIE BEAR N Ot Z09 ENCNTR FOR F/U EXAM AFT TRTMT FOR COND O 02/10/2018 ASHLIE BEAR N Ot Z85.3 PERSONAL HISTORY OF MALIGNANT NEOPLASM O 02/10/2018 MARK CHEN WATER TESTER Ot R07.81 PLEURODYNIA 02/10/2018 MARK CHEN WATER TESTER Ot R10.11 RIGHT UPPER QUADRANT PAIN 02/10/2018 ASHLIE BEAR Ot R07.81 PLEURODYNIA 02/10/2018 ASHLIE BEAR Ot Z85.3 PERSONAL HISTORY OF MALIGNANT NEOPLASM O 02/10/2018 ASHLIE BEAR Ot M85.80 OTH DISRD OF BONE DENSITY AND STRUCTURE, 02/10/2018 ASHLIE BEAR Ot Z85.3 PERSONAL HISTORY OF MALIGNANT NEOPLASM O 02/10/2018 ASHLIE BEAR N Ot G20 PARKINSON'S DISEASE 02/10/2018 CHEMAASHLIE N Ot G35 MULTIPLE SCLEROSIS 02/10/2018 ASHLIE BEAR Ot I12.9 HYPERTENSIVE CHRONIC KIDNEY DISEASE W ST 02/10/2018 CHEMAASHLIE N Ot I45.6 PRE- EXCITATION SYNDROME 02/10/2018 ASHILE BEAR N Ot M85.88 OTH DISRD OF BONE DENSITY AND STRUCTURE, 02/10/2018 ASHLIE BEAR Ot N18.3 CHRONIC KIDNEY DISEASE, STAGE 3 (MODERAT 02/10/2018 ASHLIE BEAR N Ot R07.81 PLEURODYNIA 02/10/2018 ASHLIE BEAR N Ot Z08 ENCNTR FOR FOLLOW-UP EXAM AFTER TRTMT FO 02/10/2018 ASHLIE BEAR Ot Z79.82 RESIDENTIAL (CURRENT) USE OF ASPIRIN 02/10/2018 ASHLIE BEAR N Ot Z79.899 OTHER RESIDENTIAL (CURRENT) DRUG THERAPY 02/10/2018 ASHLIE BEAR N Ot Z85.3 PERSONAL HISTORY OF MALIGNANT NEOPLASM O 02/10/2018 ASHLIE BEAR N Ot Z92.21 PERSONAL HISTORY OF ANTINEOPLASTIC CHEMO 02/10/2018 ASHLIE BEAR N Ot Z92.3 PERSONAL HISTORY OF IRRADIATION 02/10/2018 DUNG PERALTA, EWLLINGTON Feliciano Ot M25.562 PAIN IN LEFT KNEE 02/10/2018 DHARA POWER PA-C Ot R00.1 BRADYCARDIA, UNSPECIFIED 02/10/2018 ASHLIE BEAR N Ot Z12.31 ENCNTR SCREEN MAMMOGRAM FOR MALIGNANT NE 02/10/2018 LIBERTY FELICIANO Ot M85.9 DISORDER OF BONE DENSITY AND STRUCTURE, 02/10/2018 LIBERTY FELICIANO Ot Z12.31 ENCNTR SCREEN MAMMOGRAM FOR MALIGNANT NE 02/11/2018 DUNG PERALTA, WELLINGTON Feliciano Ot M25.551 PAIN IN RIGHT HIP 02/11/2018 DUNG PERALTA, WELLINGTON Feliciano Ot W19.XXXA UNSPECIFIED FALL, INITIAL ENCOUNTER 02/11/2018 DUNG PERALTA, WELLINGTON Feliciano Ot M25.551 PAIN IN RIGHT HIP 02/11/2018 DUNG PERALTA, WELLINGTON Feliciano Ot W19.XXXA UNSPECIFIED FALL, INITIAL ENCOUNTER 05/22/2018 LIBERTY FELICIANO Ot M85.9 DISORDER OF BONE DENSITY AND STRUCTURE, 05/22/2018 LIBERTY FELICIANO Ot Z12.31 ENCNTR SCREEN MAMMOGRAM FOR MALIGNANT NE 06/18/2018 RITA RENTERIA APRN Ot G20 PARKINSON'S DISEASE 06/18/2018 RITA RENTERIA APRN Ot G35 MULTIPLE SCLEROSIS 06/18/2018 RITA RENTERIA APRN Ot I10 ESSENTIAL (PRIMARY) HYPERTENSION 06/18/2018 RIAT RENTERIA APRN Ot T78.3XXA ANGIONEUROTIC EDEMA, INITIAL ENCOUNTER 06/18/2018 RITA RENTERIA APRN Ot T78.40XA ALLERGY, UNSPECIFIED, INITIAL ENCOUNTER 06/18/2018 RITA RENTERIA APRN Ot Z79.52 RESIDENTIAL (CURRENT) USE OF SYSTEMIC STER 06/18/2018 RITA RENTERIA APRN Ot Z79.82 RESIDENTIAL (CURRENT) USE OF ASPIRIN 06/18/2018 RITA RENTERIA APRN Ot Z85 .3 PERSONAL HISTORY OF MALIGNANT NEOPLASM O 06/18/2018 RITA RENTERIA APRN Ot Z90.710 ACQUIRED ABSENCE OF BOTH CERVIX AND UTER 06/18/2018 BRADENBHUMIKAKRYSTAL Wilda SPICE MILLER Ot C50.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 OF UPPER-OUTER QUADRANT O 06/18/2018 FELICIANOLIBERTY Astudillo SPICE MILLER Ot M85.88 OTH DISRD OF BONE DENSITY AND STRUCTURE, 06/18/2018 FELICIANOLIBERTY Astudillo SPICE MILLER Ot Z12.31 ENCNTR SCREEN MAMMOGRAM FOR MALIGNANT NE 06/18/2018 BRADENLIBERTY SPICE MILLER Ot Z13.820 ENCOUNTER FOR SCREENING FOR OSTEOPOROSIS 06/19/2018 RITA RENTERIA APRN Ot G20 PARKINSON'S DISEASE 06/19/2018 RITA RENTERIA APRN Ot G35 MULTIPLE SCLEROSIS 06/19/2018 RITA RENTERIA APRN Ot I10 ESSENTIAL (PRIMARY) HYPERTENSION 06/19/2018 RITA RENTERIA APRN Ot T78.3XXA ANGIONEUROTIC EDEMA, INITIAL ENCOUNTER 06/19/2018 RITA RENTERIA APRN Ot T78.40XA ALLERGY, UNSPECIFIED, INITIAL ENCOUNTER 06/19/2018 RITA RENTERIA APRN Ot Z79.52 WELDER SETTER ELECTRON BEAM MACHINE (CURRENT) USE OF SYSTEMIC STER 06/19/2018 RITA RENTERIA APRN Ot Z79.82 WELDER SETTER ELECTRON BEAM MACHINE (CURRENT) USE OF ASPIRIN 06/19/2018 RITA RENTERIA APRN Ot Z85 .3 PERSONAL HISTORY OF MALIGNANT NEOPLASM O 06/19/2018 RITA RENTERIA APRN Ot Z90.710 ACQUIRED ABSENCE OF BOTH CERVIX AND UTER 07/29/2018 DUNG PERALTA, WELLINGTON Feliciano Ot E87.6 HYPOKALEMIA 07/29/2018 WELLINGTON RAZO MD Ot I1 0 ESSENTIAL (PRIMARY) HYPERTENSION 08/20/2018 WELLINGTON RAZO MD Ot E87.6 HYPOKALEMIA 08/20/2018 WELLINGTON RAZO MD Ot I1 0 ESSENTIAL (PRIMARY) HYPERTENSION 09/02/2018 RITA RENTERIA APRN Ot E87 .6 HYPOKALEMIA 09/02/2018 RITA RENTERIA APRN Ot G20 PARKINSON'S DISEASE 09/02/2018 RITA RENTERIA APRN Ot G35 MULTIPLE SCLEROSIS 09/02/2018 RITA RENTERIA APRN Ot I10 ESSENTIAL (PRIMARY) HYPERTENSION 09/02/2018 RITA RENTERIA APRN Ot R07 .9 CHEST PAIN, UNSPECIFIED 09/02/2018 RITA RENTERIA APRN Ot R22 .0 LOCALIZED SWELLING, MASS AND LUMP, HEAD 09/02/2018 RITA RENTERIA APRN Ot T78.3XXA ANGIONEUROTIC EDEMA, INITIAL ENCOUNTER 09/02/2018 RITA RENTERIA APRN Ot Z79.52 WELDER SETTER ELECTRON BEAM MACHINE (CURRENT) USE OF SYSTEMIC STER 09/02/2018 RITA RENTERIA APRN Ot Z79.82 RESIDENTIAL (CURRENT) USE OF ASPIRIN 09/02/2018 RITA RENTERIA APRN Ot Z85 .3 PERSONAL HISTORY OF MALIGNANT NEOPLASM O 09/02/2018 RITA RENTERIA APRN Ot Z90.710 ACQUIRED ABSENCE OF BOTH CERVIX AND UTER 09/02/2018 RITA RENTERIA APRN Ot Z98.890 OTHER SPECIFIED POSTPROCEDURAL STATES 09/07/2018 RITA RENTERIA APRN Ot E87 .6 HYPOKALEMIA 09/07/2018 RITA RENTERIA APRN Ot G20 PARKINSON'S DISEASE 09/07/2018 RITA RENTERIA APRN Ot G35 MULTIPLE SCLEROSIS 09/07/2018 RITA RENTERIA APRN Ot I10 ESSENTIAL (PRIMARY) HYPERTENSION 09/07/2018 RITA RENTERIA APRN Ot R07 .9 CHEST PAIN, UNSPECIFIED 09/07/2018 RITA RENTERIA APRN Ot R22 .0 LOCALIZED SWELLING, MASS AND LUMP, HEAD 09/07/2018 RITA RENTEIRA APRN Ot T78.3XXA ANGIONEUROTIC EDEMA, INITIAL ENCOUNTER 09/07/2018 RITA RENTERIA APRN Ot Z79.52 RESIDENTIAL (CURRENT) USE OF SYSTEMIC STER 09/07/2018 RITA RENTERIA APRN Ot Z79.82 RESIDENTIAL (CURRENT) USE OF ASPIRIN 09/07/2018 RITA RENTERIA APRN Ot Z85 .3 PERSONAL HISTORY OF MALIGNANT NEOPLASM O 09/07/2018 RITA RENTERIA APRN Ot Z90.710 ACQUIRED ABSENCE OF BOTH CERVIX AND UTER 09/07/2018 RITA RENTERIA APRN Ot Z98.890 OTHER SPECIFIED POSTPROCEDURAL STATES 09/09/2018 ASHLIE BEAR Ot G20 PARKINSON'S DISEASE 09/09/2018 ASHLIE BEAR Ot G35 MULTIPLE SCLEROSIS 09/09/2018 ASHLIE BEAR Ot I12.9 HYPERTENSIVE CHRONIC KIDNEY DISEASE W ST 09/09/2018 ASHLIE BEAR N Ot I45.6 PRE- EXCITATION SYNDROME 09/09/2018 CHEMA ASHLIE N Ot M85.88 OTH DISRD OF BONE DENSITY AND STRUCTURE, 09/09/2018 CHEMA ASHLIE N Ot N18.3 CHRONIC KIDNEY DISEASE, STAGE 3 (MODERAT 09/09/2018 CHEMAASHLIE N Ot R07.81 PLEURODYNIA 09/09/2018 CHEMAASHLIE Ot Z08 ENCNTR FOR FOLLOW-UP EXAM AFTER TRTMT FO 09/09/2018 CHEMAASHLIE N Ot Z79.82 WELDER SETTER ELECTRON BEAM MACHINE (CURRENT) USE OF ASPIRIN 09/09/2018 ASHLIE BEAR N Ot Z79.899 OTHER WELDER SETTER ELECTRON BEAM MACHINE (CURRENT) DRUG THERAPY 09/09/2018 ASHLIE BEAR N Ot Z85.3 PERSONAL HISTORY OF MALIGNANT NEOPLASM O 09/09/2018 ASHLIE BEAR N Ot Z92.21 PERSONAL HISTORY OF ANTINEOPLASTIC CHEMO 09/09/2018 ASHLIE BEAR N Ot Z92.3 PERSONAL HISTORY OF IRRADIATION 09/09/2018 ASHLIE BEAR N Ot G20 PARKINSON'S DISEASE 09/09/2018 ASHLIE BEAR N Ot G35 MULTIPLE SCLEROSIS 09/09/2018 CHEMAASHLIE N Ot I12.9 HYPERTENSIVE CHRONIC KIDNEY DISEASE W ST 09/09/2018 CHEMAASHLIE Ot I45.6 PRE- EXCITATION SYNDROME 09/09/2018 CHEMAASHLIE N Ot M85.88 OTH DISRD OF BONE DENSITY AND STRUCTURE, 09/09/2018 CHEMA, ASHLIE Spring Ot N18.3 CHRONIC KIDNEY DISEASE, STAGE 3 (MODERAT 09/09/2018 ASHLIE BEAR N Ot R07.81 PLEURODYNIA 09/09/2018 ASHLIE BEAR N Ot Z08 ENCNTR FOR FOLLOW-UP EXAM AFTER TRTMT FO 09/09/2018 ASHLIE BEAR N Ot Z79.82 WELDER SETTER ELECTRON BEAM MACHINE (CURRENT) USE OF ASPIRIN 09/09/2018 ASHLIE BEAR N Ot Z79.899 OTHER RESIDENTIAL (CURRENT) DRUG THERAPY 09/09/2018 ASHLIE BEAR N Ot Z85.3 PERSONAL HISTORY OF MALIGNANT NEOPLASM O 09/09/2018 ASHLIE BEAR N Ot Z92.21 PERSONAL HISTORY OF ANTINEOPLASTIC CHEMO 09/09/2018 ASHLIE BEAR N Ot Z92.3 PERSONAL HISTORY OF IRRADIATION 10/02/2018 CHEMA, ASHLIE Spring Ot G20 PARKINSON'S DISEASE 10/02/2018 CHEMA, ASHLIE Spring Ot G35 MULTIPLE SCLEROSIS 10/02/2018 CHEMA ASHLIE Spring Ot I12.9 HYPERTENSIVE CHRONIC KIDNEY DISEASE W ST 10/02/2018 CHEMA ASHLIE Spring Ot I45.6 PRE- EXCITATION SYNDROME 10/02/2018 CHEMA, ASHLIE Spring Ot M85.88 OTH DISRD OF BONE DENSITY AND STRUCTURE, 10/02/2018 CHEMA ASHLIE Spring Ot N18.3 CHRONIC KIDNEY DISEASE, STAGE 3 (MODERAT 10/02/2018 CHEMA ASHLIE Spring Ot R07.81 PLEURODYNIA 10/02/2018 CHEMAASHLIE Ot Z08 ENCNTR FOR FOLLOW-UP EXAM AFTER TRTMT FO 10/02/2018 CHEMAASHLIE Ot Z79.82 WELDER SETTER ELECTRON BEAM MACHINE (CURRENT) USE OF ASPIRIN 10/02/2018 CHEMAASHLIE Ot Z79.899 OTHER RESIDENTIAL (CURRENT) DRUG THERAPY 10/02/2018 CHEMAASHLIE Ot Z85.3 PERSONAL HISTORY OF MALIGNANT NEOPLASM O 10/02/2018 CHEMA, ASHLIE Spring Ot Z92.21 PERSONAL HISTORY OF ANTINEOPLASTIC CHEMO 10/02/2018 CHEMAASHLIE Ot Z92.3 PERSONAL HISTORY OF IRRADIATION 06/02/2019 CHEMAASHLIE Ot C50.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 OF UPPER-OUTER QUADRANT O 06/02/2019 CHEMAASHLIE Ot Z12.31 ENCNTR SCREEN MAMMOGRAM FOR MALIGNANT NE 06/02/2019 CHEMAASHLIE Ot Z98.890 OTHER SPECIFIED POSTPROCEDURAL STATES 06/15/2019 CHEMAASHLIE Ot C50.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 OF UPPER-OUTER QUADRANT O 06/15/2019 CHEMAASHLIE Ot Z12.31 ENCNTR SCREEN MAMMOGRAM FOR MALIGNANT NE 06/15/2019 CHEMAASHLIE Ot Z98.890 OTHER SPECIFIED POSTPROCEDURAL STATES 09/21/2019 ASHLIE BEAR Ot C50.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 OF UPPER-OUTER QUADRANT O 09/21/2019 ASHLIE BEAR Ot 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 09/21/2019 ASHLIE BEAR Ot M85.89 OTH DISRD OF BONE DENSITY AND STRUCTURE, 09/21/2019 ASHLIE BEAR N Ot N18.3 CHRONIC KIDNEY DISEASE, STAGE 3 (MODERAT 09/21/2019 ASHLIE BEAR N Ot Z17.0 ESTROGEN RECEPTOR POSITIVE STATUS [ER+] 09/21/2019 ASHLIE BEAR N Ot Z86.19 PERSONAL HISTORY OF OTHER INFECTIOUS AND 09/21/2019 ASHLIE BEAR N Ot Z86.61 PERSONAL HISTORY OF INFECTIONS OF THE CE 09/21/2019 ASHLIE BEAR N Ot Z92.21 PERSONAL HISTORY OF ANTINEOPLASTIC CHEMO 09/21/2019 ASHLIE BEAR N Ot Z98.890 OTHER SPECIFIED POSTPROCEDURAL STATES 10/05/2019 ASHLIE BEAR Saw Ot C50.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 OF UPPER-OUTER QUADRANT O 10/05/2019 ASHLIE BEAR Saw Ot 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 Results Test Result Range Automated blood complete blood count (he mogram) panel - 02/22/16 10:57 Blood leukocytes automated count (number/volume) 5.6 10*3/uL 4.3-11.0 Blood erythrocytes automated count (number/volume) 4.91 10*6/uL 4.35-5.85 Venous blood hemoglobin measurement (mass/volume) 14.3 g/dL 11.5-16.0 Blood hematocrit (volume fraction) 42 % 35-52 Automated erythrocyte mean corpuscular volume 86 [ foz_us] 80-99 Automated erythrocyte mean corpuscular h emoglobin (mass per erythrocyte) 29 pg 25-34 Automated erythrocyte mean corpuscular h emoglobin concentration measurement (mass/volume) 34 g/dL 32-36 Automated erythrocyte distribution width ratio 13. 1 % 10.0- 14.5 Automated blood platelet count (count/volume) 161 10*3/uL [...] 5-14 Serum or plasma urea nitrogen measurement (mass/volume ) 22 mg/dL 7-18 Serum or plasma creatinine measurement (mass/volume) 1.13 mg/dL 0.60-1.30 Serum or plasma urea nitrogen/creatinine mass ratio 19 NRG Serum or plasma creatinine measurement w ith calculation of estimated glomerular filtration rate 48 NRG Serum or plasma glucose measurement (mass/volume) 111 mg/dL 70-105 Serum or plasma calcium measurement (mass/volume) 9.8 mg/dL 8.5-10.1 Serum or plasma total bilirubin measurement (mass/volu me) 0.8 mg/dL 0.1-1.0 Serum or plasma alkaline phosphatase trevor surement (enzymatic activity/volume) 68 U/L 40-136 Serum or plasma aspartate aminotransfera se measurement (enzymatic activity/volume) 17 U/L 5-34 Serum or plasma alanine aminotransferase measurement (enzymatic activity/volume) 15 U/L 0-55 Serum or plasma protein measurement (mass/volume) 7.7 g/dL 6.4-8.2 Serum or plasma albumin measurement (mass/volume) 4.8 g/dL 3.2-4.5 Magnesium - 02/22/16 10:57 Magnesium 2.1 mg/dL 1.8-2.4 THYROID STIMULATING HORMONE - 02/22/16 1 0:57 THYROID STIMULATING HORMONE 1.15 u[iU]/mL 0.35-4.94 Serum or plasma thyroxine (T4) free memo urement (mass/volume) - 02/22/16 10:57 Serum or plasma thyroxine (T4) free measurement (mass/ volume) 1.60 ng/dL 0.70-1.48 Serum iron and total iron binding capaci ty panel - 02/22/16 10:57 Serum or plasma iron measurement (mass/volume) 125 % 35-180 Total iron binding capacity and transferrin saturation measurement 34 % 15-50 Iron binding capacity [mass/volume] in serum or plasma 365 % 280-380 UIBC (unsaturated iron binding capacity) 240 % 55-450 Serum or plasma ferritin measurement (mass/volume) 64 % 15- 150 Free triiodothyronine (T3) measurement - 02/22/16 10:57 T3 free 3.1 pg/mL 2.4-4.5 Automated blood complete blood count (he mogram) panel - 04/24/17 14:20 Blood leukocytes automated count (number/volume) 5.2 10*3/uL 4.3-11.0 Blood erythrocytes automated count (number/volume) 4.87 10*6/uL 4.35-5.85 Venous blood hemoglobin measurement (mass/volume) 13.9 g/dL 11.5-16.0 Blood hematocrit (volume fraction) 43 % 35-52 Automated erythrocyte mean corpuscular volume 88 [ foz_us] 80-99 Automated erythrocyte mean corpuscular h emoglobin (mass per erythrocyte) 29 pg 25-34 Automated erythrocyte mean corpuscular h emoglobin concentration measurement (mass/volume) 33 g/dL 32-36 Automated erythrocyte distribution width ratio 13. 6 % 10.0- 14.5 Automated blood platelet count (count/volume) 175 10*3/uL 130-400 Automated blood platelet mean volume measurement 10.7 [foz_us] 7.4-10.4 Whole blood basic metabolic panel - 12/04 14:20 Serum or plasma sodium measurement (moles/volume) 143 mmol/L 135-145 Serum or plasma potassium measurement (moles/volume) 3.8 mmol/L 3.6-5.0 Serum or plasma chloride measurement (moles/volume) 105 mmol/L 98-107 Carbon dioxide 31 mmol/L 21-32 Serum or plasma anion gap determination (moles/volume) 7 mmol/L 5-14 Serum or plasma urea nitrogen measurement (mass/volume ) 25 mg/dL 7-18 Serum or plasma creatinine measurement (mass/volume) 1.21 mg/dL 0.60-1.30 Serum or plasma urea nitrogen/creatinine mass ratio 21 NRG Serum or plasma creatinine measurement w ith calculation of estimated glomerular filtration rate 44 NRG Serum or plasma glucose measurement (mass/volume) 81 mg/dL 70-105 Serum or plasma calcium measurement (mass/volume) 9.8 mg/dL 8.5-10.1 THYROID STIMULATING HORMONE - 04/24/17 1 4:20 THYROID STIMULATING HORMONE 1.49 u[iU]/mL 0.35-4.94 Total triiodothyronine (T3) measurement - 04/24/17 14:20 Total triiodothyronine (T3) measurement 0.8 % 0.6-1.8 Thyroxine (T4) measurement - 04/24/17 14 :20 T4 (thyroxine) 6.6 % 5.5-12.0 Complete blood count (CBC) with automate d white blood cell (WBC) differential - 10/20/17 22:13 Blood leukocytes automated count (number/volume) 6.0 10*3/uL 4.3-11.0 Blood erythrocytes automated count (number/volume) 4.59 10*6/uL 4.35-5.85 Venous blood hemoglobin measurement (mass/volume) 13.4 g/dL 11.5-16.0 Blood hematocrit (volume fraction) 40 % 35-52 Automated erythrocyte mean corpuscular volume 86 [ foz_us] 80-99 Automated erythrocyte mean corpuscular h emoglobin (mass per erythrocyte) 29 pg 25-34 Automated erythrocyte mean corpuscular h emoglobin concentration measurement (mass/volume) 34 g/dL 32-36 Automated erythrocyte distribution width ratio 13. 5 % 10.0- 14.5 Automated blood platelet count (count/volume) 176 10*3/uL 130-400 Automated blood platelet mean volume measurement 11.5 [foz_us] 7.4-10.4 Automated blood neutrophils/100 leukocytes 44 % 42-75 Automated blood lymphocytes/100 leukocytes 36 % 12-44 Blood monocytes/100 leukocytes 15 % 0-12 Automated blood eosinophils/100 leukocytes 4 % 0-10 Automated blood basophils/100 leukocytes 2 % 0-10 Blood neutrophils automated count (number/volume) 2.6 10*3 1.8-7.8 Blood lymphocytes automated count (number/volume) 2.2 10*3 1.0-4.0 Blood monocytes automated count (number/volume) 0. 9 10*3 0.0-1.0 Automated eosinophil count 0.2 10*3/uL 0 .0-0.3 Automated blood basophil count (count/volume) 0.1 10*3/uL 0.0-0.1 Comprehensive metabolic panel - 10/20/17 22:13 Serum or plasma sodium measurement (moles/volume) 139 mmol/L 135-145 Serum or plasma potassium measurement (moles/volume) 3.6 mmol/L 3.6-5.0 Serum or plasma chloride measurement (moles/volume) 101 mmol/L 98-107 Carbon dioxide 24 mmol/L 21-32 Serum or plasma anion gap determination (moles/volume) 14 mmol/L 5-14 Serum or plasma urea nitrogen measurement (mass/volume ) 23 mg/dL 7-18 Serum or plasma creatinine measurement (mass/volume) 1.06 mg/dL 0.60-1.30 Serum or plasma urea nitrogen/creatinine mass ratio 22 NRG Serum or plasma creatinine measurement w ith calculation of estimated glomerular filtration rate 51 NRG Serum or plasma glucose measurement (mass/volume) 93 mg/dL 70-105 Serum or plasma calcium measurement (mass/volume) 9.4 mg/dL 8.5-10.1 Serum or plasma total bilirubin measurement (mass/volu me) 0.3 mg/dL 0.1-1.0 Serum or plasma alkaline phosphatase trevor surement (enzymatic activity/volume) 81 U/L 40-136 Serum or plasma aspartate aminotransfera se measurement (enzymatic activity/volume) 37 U/L 5-34 Serum or plasma alanine aminotransferase measurement (enzymatic activity/volume) 15 U/L 0-55 Serum or plasma protein measurement (mass/volume) 7.6 g/dL 6.4-8.2 Serum or plasma albumin measurement (mass/volume) 4.3 g/dL 3.2-4.5 Magnesium - 10/20/17 22:13 Magnesium 3.1 mg/dL 1.8-2.4 Serum or plasma C reactive protein measu rement (mass/volume) - 10/20/17 22:13 Serum or plasma C reactive protein measurement (mass/v olume) 0.31 mg/dL 0.00-0.50 Complete blood count (CBC) with automate d white blood cell (WBC) differential - 06/17/18 21:38 Blood leukocytes automated count (number/volume) 5.4 10*3/uL 4.3-11.0 Blood erythrocytes automated count (number/volume) 4.78 10*6/uL 4.35-5.85 Venous blood hemoglobin measurement (mass/volume) 14.0 g/dL 11.5-16.0 Blood hematocrit (volume fraction) 41 % 35-52 Automated erythrocyte mean corpuscular volume 86 [ foz_us] 80-99 Automated erythrocyte mean corpuscular h emoglobin (mass per erythrocyte) 29 pg 25-34 Automated erythrocyte mean corpuscular h emoglobin concentration measurement (mass/volume) 34 g/dL 32-36 Automated erythrocyte distribution width ratio 14. 3 % 10.0- 14.5 Automated blood platelet count (count/volume) 190 10*3/uL 130-400 Automated blood platelet mean volume measurement 11.1 [foz_us] 7.4-10.4 Automated blood neutrophils/100 leukocytes 59 % 42-75 Automated blood lymphocytes/100 leukocytes 27 % 12-44 Blood monocytes/100 leukocytes 10 % 0-12 Automated blood eosinophils/100 leukocytes 3 % 0-10 Automated blood basophils/100 leukocytes 1 % 0-10 Blood neutrophils automated count (number/volume) 3.2 10*3 1.8-7.8 Blood lymphocytes automated count (number/volume) 1.5 10*3 1.0-4.0 Blood monocytes automated count (number/volume) 0. 6 10*3 0.0-1.0 Automated eosinophil count 0.2 10*3/uL 0 .0-0.3 Automated blood basophil count (count/volume) 0.1 10*3/uL 0.0-0.1 Whole blood basic metabolic panel - 05/22 03/07 22:06 Serum or plasma sodium measurement (moles/volume) 141 mmol/L 135-145 Serum or plasma potassium measurement (moles/volume) 2.6 mmol/L 3.6-5.0 Serum or plasma chloride measurement (moles/volume) 103 mmol/L 98-107 Carbon dioxide 21 mmol/L 21-32 Serum or plasma anion gap determination (moles/volume) 17 mmol/L 5-14 Serum or plasma urea nitrogen measurement (mass/volume ) 31 mg/dL 7-18 Serum or plasma creatinine measurement (mass/volume) 1.06 mg/dL 0.60-1.30 Serum or plasma urea nitrogen/creatinine mass ratio 29 NRG Serum or plasma creatinine measurement w ith calculation of estimated glomerular filtration rate 51 NRG Serum or plasma glucose measurement (mass/volume) 112 mg/dL 70-105 Serum or plasma calcium measurement (mass/volume) 10.0 mg/dL 8.5-10.1 Comprehensive metabolic panel - 07/28/18 14:38 Serum or plasma sodium measurement (moles/volume) 140 mmol/L 135-145 Serum or plasma potassium measurement (moles/volume) 3.1 mmol/L 3.6-5.0 Serum or plasma chloride measurement (moles/volume) 103 mmol/L 98-107 Carbon dioxide 26 mmol/L 21-32 Serum or plasma anion gap determination (moles/volume) 11 mmol/L 5-14 Serum or plasma urea nitrogen measurement (mass/volume ) 25 mg/dL 7-18 Serum or plasma creatinine measurement (mass/volume) 1.08 mg/dL 0.60-1.30 Serum or plasma urea nitrogen/creatinine mass ratio 23 NRG Serum or plasma creatinine measurement w ith calculation of estimated glomerular filtration rate 50 NRG Serum or plasma glucose measurement (mass/volume) 110 mg/dL 70-105 Serum or plasma calcium measurement (mass/volume) 9.6 mg/dL 8.5-10.1 Serum or plasma total bilirubin measurement (mass/volu me) 0.4 mg/dL 0.1-1.0 Serum or plasma alkaline phosphatase trevor surement (enzymatic activity/volume) 54 U/L 40-136 Serum or plasma aspartate aminotransfera se measurement (enzymatic activity/volume) 15 U/L 5-34 Serum or plasma alanine aminotransferase measurement (enzymatic activity/volume) 13 U/L 0-55 Serum or plasma protein measurement (mass/volume) 7.1 g/dL 6.4-8.2 Serum or plasma albumin measurement (mass/volume) 4.5 g/dL 3.2-4.5 CALCIUM CORRECTED 9.2 mg/dL 8.5-10.1 Complete blood count (CBC) with automate d white blood cell (WBC) differential - 09/02/18 18:30 Blood leukocytes automated count (number/volume) 7.5 10*3/uL 4.3-11.0 Blood erythrocytes automated count (number/volume) 4.14 10*6/uL 4.35-5.85 Venous blood hemoglobin measurement (mass/volume) 12.0 g/dL 11.5-16.0 Blood hematocrit (volume fraction) 36 % 35-52 Automated erythrocyte mean corpuscular volume 87 [ foz_us] 80-99 Automated erythrocyte mean corpuscular h emoglobin (mass per erythrocyte) 29 pg 25-34 Automated erythrocyte mean corpuscular h emoglobin concentration measurement (mass/volume) 33 g/dL 32-36 Automated erythrocyte distribution width ratio 13. 7 % 10.0- 14.5 Automated blood platelet count (count/volume) 176 10*3/uL 130-400 Automated blood platelet mean volume measurement 10.9 [foz_us] 7.4-10.4 Automated blood neutrophils/100 leukocytes 69 % 42-75 Automated blood lymphocytes/100 leukocytes 23 % 12-44 Blood monocytes/100 leukocytes 6 % 0-12 Automated blood eosinophils/100 leukocytes 2 % 0-10 Automated blood basophils/100 leukocytes 1 % 0-10 Blood neutrophils automated count (number/volume) 5.2 10*3 1.8-7.8 Blood lymphocytes automated count (number/volume) 1.7 10*3 1.0-4.0 Blood monocytes automated count (number/volume) 0. 5 10*3 0.0-1.0 Automated eosinophil count 0.1 10*3/uL 0 .0-0.3 Automated blood basophil count (count/volume) 0.0 10*3/uL 0.0-0.1 Comprehensive metabolic panel - 09/02/18 18:30 Serum or plasma sodium measurement (moles/volume) 139 mmol/L 135-145 Serum or plasma potassium measurement (moles/volume) 2.5 mmol/L 3.6-5.0 Serum or plasma chloride measurement (moles/volume) 103 mmol/L 98-107 Carbon dioxide 23 mmol/L 21-32 Serum or plasma anion gap determination (moles/volume) 13 mmol/L 5-14 Serum or plasma urea nitrogen measurement (mass/volume ) 33 mg/dL 7-18 Serum or plasma creatinine measurement (mass/volume) 1.12 mg/dL 0.60-1.30 Serum or plasma urea nitrogen/creatinine mass ratio 29 NRG Serum or plasma creatinine measurement w ith calculation of estimated glomerular filtration rate 48 NRG Serum or plasma glucose measurement (mass/volume) 168 mg/dL 70-105 Serum or plasma calcium measurement (mass/volume) 8.4 mg/dL 8.5-10.1 Serum or plasma total bilirubin measurement (mass/volu me) 0.3 mg/dL 0.1-1.0 Serum or plasma alkaline phosphatase trevor surement (enzymatic activity/volume) 55 U/L 40-136 Serum or plasma aspartate aminotransfera se measurement (enzymatic activity/volume) 17 U/L 5-34 Serum or plasma alanine aminotransferase measurement (enzymatic activity/volume) 12 U/L 0-55 Serum or plasma protein measurement (mass/volume) 5.8 g/dL 6.4-8.2 Serum or plasma albumin measurement (mass/volume) 3.7 g/dL 3.2-4.5 CALCIUM CORRECTED 8.6 mg/dL 8.5-10.1 Magnesium - 09/02/18 18:30 Magnesium 2.0 mg/dL 1.8-2.4 Serum or plasma troponin i.cardiac measu rement (mass/volume) - 09/02/18 18:30 Serum or plasma troponin i.cardiac measurement (mass/v olume) < ng/mL <0.028 Magnesium - 09/02/18 18:30 Magnesium 2.0 mg/dL 1.8-2.4 Serum or plasma lithium measurement (mol es/volume) - 09/02/18 18:30 BNP level 151.4 pg/mL <100.0 Serum or plasma complement C1 esterase i nhibitor measurement (mass/volume) - 09/02/18 18:38 C1 ESTERASE INHIBITOR C 24 % 21-39 Complement C4 [mass/volume] in serum or plasma - 09/02/18 18:38 Complement C4 [mass/volume] in serum or plasma 17 % 15-59 Functional complement C1 esterase inhibi tor measurement - 09/02/18 18:38 C1 esterase inhibitor functional 109 % >=41 Encounters ACCT No. Visit Date/Time Discharge Status Pt. Type Provider Facility Loc./Unit Complaint [id number] 02/09/2019 10:44:00 02/09/2019 23:59: 00 DIS Outpatient NIKITA, CONSUELO [id number] 02/09/2019 10:20:00 02/09/2019 23:59: 00 DIS Outpatient NIKITA, CONSUELO [id number] 03/11/2018 10:24:00 03/11/2018 23:59: 00 DIS Outpatient NIKITA, CONSUELO [id number] 02/25/2018 09:58:00 02/25/2018 23:59: 00 DIS Outpatient NIKITA, CONSUELO [id number] 02/25/2018 09:40:00 02/25/2018 23:59: 00 DIS Outpatient NIKITA, CONSUELO [id number] 02/13/2018 10:59:00 02/13/2018 23:59: 00 DIS Outpatient NIKITACONSUELO DOE [id number] 09/15/2019 10:01:00 23:59:59 CLS Outpatient ASHLIE BEAR [facility] ONC [id number] 05/31/2019 10:10:00 23:59:59 CLS Outpatient ASHLIE BEAR V [facility] RAD SCREENING [id number] 09/08/2018 13:35:00 23:59:59 CLS Outpatient ASHLIE BEAR V [facility] ONC [id number] 09/02/2018 17:18:00 20:40:00 DIS Emergency RITA RENTERIA APRN [facility] ER MOUTH SWELLING, POSSIBL E ALLERGIC REACTION [id number] 07/28/2018 14:21:00 23:59:59 CLS Outpatient WELLINGTON RAZO MD [facility] LAB HYPERTENSION/HYPOKACLE CHERRI [id number] 06/17/2018 21:32:00 00:06:00 DIS Emergency RITA RENTERIA APRN [facility] ER ALLERGIC REACTION [id number] 05/28/2018 09:16:00 23:59:59 CLS Outpatient LIBERTY FELICIANO [facility] RAD SCREENING [id number] 02/10/2018 15:10:00 07/24/2 018 23:59:59 CLS Outpatient DUNG PERALTA, WELLINGTON Feliciano [facility] RAD RIGHT PAIN PAIN POST F ALL [id number] 10/20/2017 21:47:00 018 23:45:00 DIS Emergency ALONDRA PERALTA, BELLE Gilliland [facility] ER TONGUE SWELLING/SOB [id number] 09/03/2017 08:25:00 018 23:59:59 CLS Preadmit LIBERTY FELICIANO [facility] RAD OSTEOPENIA [id number] 09/02/2017 14:16:00 018 23:59:59 CLS Outpatient ASHLIE BEAR V [facility] ONC [id number] 06/19/2017 23:44:00 017 02:17:00 DIS Emergency ALONDRA PERALTA, BELLE Gilliland [facility] ER TONGUE SWELLING,ALLERGI C RXN [id number] 05/26/2017 10:00:00 017 23:59:59 CLS Outpatient ASHLIE BEAR V [facility] RAD SCREENING Z12.31 [id number] 04/24/2017 14:07:00 017 23:59:59 CLS Outpatient DHARA POWER PA-C [facility] LAB FATIGUE,BRADYCA RDIA [id number] 04/22/2017 12:07:00 017 23:59:59 CLS Outpatient WELLINGTON RAZO MD [facility] RAD L KNEE PAIN [id number] 12/25/2016 13:21:00 017 00:01:00 DIS Outpatient ASHLIE BEAR V [facility] ONC [id number] 12/23/2016 11:14:00 017 23:59:59 CLS Outpatient ASHLIE BEAR V [facility] CARD OSTEOPENIA,HX BREAST CA [id number] 08/27/2016 10:40:00 017 23:59:59 CLS Outpatient ASHLIE BEAR V [facility] CARD RIB PAIN, HX OF BREAST CA [id number] 08/27/2016 06:46:00 017 23:59:59 CLS Outpatient MARK CHEN APRN [facility] RAD RUQ PAIN [id number] 08/26/2016 13:17:00 017 23:59:59 CLS Outpatient ASHLIE BEAR Saw [facility] ONC [id number] 08/23/2016 15:12:00 017 23:59:59 CLS Outpatient MARK CHEN APRN [facility] RAD CHEST/RIB PAIN RT,PERS ISTENT COUGH [id number] 08/19/2016 09:24:00 017 23:59:59 CLS Outpatient MARK CHEN APRN [facility] RAD RIGHT SIDE PAIN [id number] 08/05/2016 15:47:00 017 23:59:59 CLS Outpatient MARK CHEN APRN [facility] RAD ONGOING COUGH,SHORTNES S OF BREATH [id number] 05/25/2016 03:51:00 016 07:11:00 DIS Emergency ROBERT AMES MD [facility] ER TONGUE SWOLLEN [id number] 05/23/2016 08:23:00 016 23:59:59 CLS Outpatient LIBERTY FELICIANO SPICE MILLER [facility] RAD OSTEOPENIA,HUSSAIN ST CA [id number] 04/29/2016 08:47:00 016 12:11:00 DIS Emergency RADHA ADAMS DO [facility] ER TONGUE SWELLING [id number] 03/22/2016 02:03:00 016 05:38:00 DIS Emergency RADHA ADAMS DO [facility] ER TONGUE SWELLING [id number] 03/20/2016 11:48:00 016 23:59:59 CLS Outpatient MICHELLE CINTRON [facility] CARD ANTINA,FATIGUE, PRE SYNCOPE [id number] 02/22/2016 10:54:00 016 23:59:59 CLS Outpatient MICHELLE CINTRON [facility] LAB ANGINA, FATIGUE , PRESYNCOPE [id number] 10/03/2015 22:05:00 016 01:18:00 DIS Emergency ARI PERALTA, NADINE Hamlin [facility] ER TONGUE SWELLING [id number] 08/28/2015 14:16:00 016 23:59:59 CLS Outpatient LIBERTY FELICIANO SPICE [employer]ER [facility] ONC [id number] 05/22/2015 10:25:00 23:59:59 CLS Outpatient ASHLIE BEAR [facility] RAD SCREENING [id number] 04/10/2015 10:02:00 23:59:59 CLS Outpatient DONNY RIVASP [facility] LAB LOW PLATELETS [id number] 01/05/2015 12:22:00 23:59:59 CLS Outpatient WELLINGTON RAZO MD [facility] LAB HTN,ROUTINE EXAM,RESIDENTIAL MED USE, HX CHEMOTHERAP [id number] 12/27/2014 09:48:00 23:59:59 CLS Outpatient YAW ACOSTA DIETITIAN HELPER-C [facility] LAB VITAMIN D DEFICIENCY [id number] 12/07/2014 09:46:00 23:59:59 CLS Outpatient YAW ACOSTA DIETITIAN HELPER-C [facility] LAB ANEMIA,CKD,HYPERCALMEIA [id number] 11/28/2014 00:09:00 015 23:59:59 CLS Preadmit ASHLIE BEAR [facility] ONC [id number] 08/29/2014 10:56:00 00:01:00 DIS Outpatient ASHLIE BEAR [facility] ONC [id number] 10/11/2014 00:12:00 015 23:59:59 CLS Preadmit YAW ACOSTA NP-C [facility] LAB ANEMIA,CKD,HYPERCALCEMIA,HYPERLPADEMA [id number] 07/12/2014 14:52:00 015 00:01:00 DIS Outpatient YAW ACOSTA [facility] LAB ANEMIA,CKD,HYPERCALCEMIA,HYPERLPADEMA [id number] 05/19/2014 08:58:00 23:59:59 CLS Outpatient LIBERTY FELICIANO [facility] RAD SCREENING,OSTEO PORSIS [id number] 04/27/2014 14:10:00 23:59:59 CLS Outpatient SANTY NORWOOD MD [facility] RAD SDFS [id number] 03/02/2014 12:54:00 23:59:59 CLS Outpatient SANTY NORWOOD MD [facility] CARD BICUSPID AORTIC VALVE AORTIC ROOT DILATION [id number] 02/17/2014 09:47:00 23:59:59 CLS Outpatient SANTY NORWOOD MD [facility] LAB HYPOTHYROIDISM [id number] 11/29/2013 09:48:00 23:59:59 CLS Outpatient YAW ACOSTA NP-C [facility] LAB ANEMIA,CKD III,ANH HTN,HLP,HYPERCALCEMIA ,PROTENUR [id number] 08/31/2013 08:22:00 014 12:15:00 DIS Outpatient ROBERT PRYOR MD [facility] SDC SCREENING [id number] 08/30/2013 10:24:00 014 23:59:59 CLS Outpatient LIBERTY FELICIANO [facility] ONC [id number] 08/26/2013 12:30:00 014 23:59:59 CLS Outpatient ROBERT PRYOR MD [facility] PREOP SCREENING [id number] 06/07/2013 10:26:00 013 23:59:59 CLS Outpatient YAW ACOSTA NP-C [facility] LAB ANEMIA,CHRONIC KIDNEY DISEASE,HYPERLIPIDEMIA, [id number] 03/01/2013 13:56:00 00:01:00 DIS Outpatient ASHLIE BEAR V [facility] ONC [id number] 05/14/2013 09:53:00 23:59:59 CLS Outpatient LIBERTY FELICIANO SPICE M[employer]ER [facility] RAD SCREENING,OSTEO PENIA [id number] 03/01/2013 12:53:00 23:59:59 CLS Outpatient LIBERTY FELICIANO SP[employer]ER [facility] ONC [id number] 11/17/2012 11:15:00 23:59:59 CLS Outpatient SANTY NORWOOD MD [facility] LAB LOW PLATELETS C OUNT [id number] 06/13/2020 08:00:00 P EN Preadmit LIBERTY FELICIANO SPICE M[employer]ER [facility] RAD SCREENING,OSTEOPENIA [id number] 08/22/2015 13:52:00 Document Registration [id number] 06/28/2014 09:54:00 Document Registration [id number] 10/19/2012 10:39:00 Document Registration [id number] 08/31/2012 09:58:00 Document Registration [id number] 06/16/2012 09:52:00 Document Registration [id number] 05/27/2012 00:00:00 Document Registration [id number] 05/15/2012 09:51:00 Document Registration [id number] 05/01/2012 09:56:00 Document Registration [id number] 04/23/2010 12:25:00 Document Registration
--- NOTE | 2019-11-04 10:00 | NUR ---
PT STATES HER TONGUE MIGHT BE A LITTLE BETTER. DENIES SOA.
--- NOTE | 2019-11-04 10:28 | NUR ---
PT STATES SHE IS NOT BETTER. DR CHAPMAN NOTIFIED.
--- NOTE | 2019-11-04 10:57 | NUR ---
IN TALKING TO PT AT THIS TIME.
[2019-11-04] MEDS ORDERED: PRD20T PO (11:06)
--- NOTE | 2019-11-04 11:28 | NUR ---
RITA IN ROOM AT THIS TIME TALKING TO THE PT.
[2019-11-04 11:38] VITALS: BP 155/78
== END 2019-11-04 11:38 | disposition home or self-care (01) ==
LOC: EDUNIT# 09:02 → ER 09:04
DX: T78.3XXA Angioneurotic edema, initial encounter (principal); I10 Essential (primary) hypertension; Z79.82 Long term (current) use of aspirin; Z79.52 Long term (current) use of systemic steroids; Z85.3 Personal history of malignant neoplasm of breast
CPT/HCPCS: 36415; 80053; 85025; 96372; 96374; 96375

== ENCOUNTER 2020-02-28 19:42 | Emergency (ER) | payer MEDICARE, OTHER ==
[~2020-02-28] VITALS: Ht 164 cm; Wt 75.0 kg
[2020-02-28] MEDS ORDERED: EPINEPHrine INJECTION 1 MG/ML AMP ONE (19:55)
[2020-02-28] MEDS ORDERED: diphenhydrAMINE 50 MG/ML INJ (BENADRYL) IVP ONE (20:00)
[2020-02-28] MEDS ORDERED: EPINEPHrine INJECTION 1 MG/ML AMP IM ONE (20:00)
[2020-02-28] MEDS ORDERED: FAMOTIDINE 20MG/2ML IV (PEPCID) IVP ONE (20:00)
[2020-02-28] MEDS ORDERED: LORATADINE (CLARITIN) 10 MG TAB PO ONE (20:00)
--- NOTE | 2020-02-28 20:00 | ED EENT ---
History of Present Illness General Stated Complaint: ALLERGIC REACTION Source: patient Exam Limitations: no limitations History of Present Illness Date Seen by Provider: Feb 28, 2020 Time Seen by Provider: 19:49 Initial Comments Patient presents ER by private conveyance from home with chief complaint she started developing angioedema. She has strong history of multiple times in the past having angioedema without ever discovering the source of her triggers. She does not take JUANJOSE inhibitor's or ARBs. She has a history of Parkinson's disease. She is having difficulty swallowing her secretions and has thick protruding tongue. She has not having difficulty breathing or shortness of air. No wheezing cough fever or chills. Allergies and Home Medications Allergies Coded Allergies: No Known Drug Allergies (Verified , 04/20/08) Home Medications Amlodipine Besylate 5 Mg Tablet, 5 MG PO DAILY, (Reported) Aspirin 81 Mg Tablet.dr, 81 MG PO DAILY, (Reported) Epinephrine 0.3 Mg/0.3 Ml Auto.injct, 0.3 MG IJ PRN PRN for tongue swelling Prescribed by: RITA RENTERIA on 09/02/182025 Epinephrine 0.3 Mg/0.3 Ml Auto.injct, 0.3 MG IJ PRN PRN for tongue swelling Prescribed by: RITA RENTERIA on 09/02/182029 Escitalopram Oxalate 10 Mg Tablet, 1 TAB PO DAILY, (Reported) Metoprolol Succinate 25 Mg Tab.er.24h, 25 MG PO DAILY, (Reported) Potassium Chloride 20 Meq Tablet.er, 40 MEQ PO DAILY Prescribed by: RITA RENTERIA on 09/02/181933 Prednisone 50 Mg Tab, 50 MG PO DAILY Prescribed by: ROBERT AMES MD on 05/25/16 0659 Prednisone 20 Mg Tab, 40 MG PO DAILY Prescribed by: BELLE CANTU on 06/20/17 0210 Prednisone 20 Mg Tab, 40 MG PO DAILY Prescribed by: BELLE CANTU on 10/20/17 2334 Prednisone 20 Mg Tab, 40 MG PO DAILY Prescribed by: RITA RENTERIA on 06/17/18 2212 Prednisone 20 Mg Tab, 40 MG PO DAILY Prescribed by: RITA RENTERIA on 09/02/181933 Prednisone 20 Mg Tab, 40 MG PO DAILY Prescribed by: NADINE CHAPMAN on 11/04/19 1106 Patient Home Medication List Home Medication List Reviewed: Yes Review of Systems Review of Systems Constitutional: No chills, No diaphoresis Eyes: Denies Blindness, Denies Blurred Vision Ears: Denies Dizziness, Denies Pain Nose: denies clots, denies congestion Mouth: see HPI Throat: see HPI, swelling, hoarse, muffled, difficulty with fluids (able to swallow secretions) Respiratory: No cough, No short of breath Cardiovascular: No chest pain, No edema All Other Systems Reviewed Negative Unless Noted: Yes Past Rnrjzla-Asvrao-Joogsl Hx Patient Social History Alcohol Use: Denies Use Recreational Drug Use: No Smoking Status: Never a Smoker 2nd Hand Smoke Exposure: No Recent Foreign Travel: No Contact w/Someone Who Travel: No Recent Hopitalizations: No Immunizations Up To Date Tetanus Booster (TDap): Unknown Date of Pneumonia Vaccine: May 01, 2009 Date of Influenza Vaccine: Apr 20, 2017 Seasonal Allergies Seasonal Allergies: No Past Medical History Surgeries: Yes (HYSTERECTOMY) Breast, Lumpectomy Respiratory: No Cardiac: Yes (WPW) Hypertension, Irregular Heartbeat Neurological: Yes Multiple Sclerosis, Parkinson's Disease 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 0.0oz. 58.997127vd; 25.00 BMI Method:Stated General Appearance: WD/WN, moderate distress Eyes: bilateral eye normal inspection, bilateral eye PERRL, bilateral eye EOMI Ears: bilateral ear auricle normal, bilateral ear canal normal, bilateral ear TM normal Nose: normal inspection, active bleeding Mouth/Throat: other (prominent, edematous tongue/angioedema. Able to swallow secretions no stridor or wheezing.) Neck: full range of motion, normal inspection Cardiovascular: normal peripheral pulses, regular rate, rhythm Respiratory: lungs clear, normal breath sounds, no respiratory distress, no accessory muscle use Neurologic/Psychiatric: alert, normal mood/affect, oriented x 3 Skin: normal color, warm/dry Progress/Results/Core Measures Results/Orders Lab Results Laboratory Tests Test 02/28/20 19:58 02/28/20 22:02 Range/Units White Blood Count 5.3 4.3-11.0 10^3/uL Red Blood Count 4.85 4.35-5.85 10^6/uL Hemoglobin 13.8 11.5-16.0 G/DL Hematocrit 42 35-52 % Mean Corpuscular Volume 86 80-99 FL Mean Corpuscular Hemoglobin 29 25-34 PG Mean Corpuscular Hemoglobin Concent 33 32-36 G/DL Red Cell Distribution Width 13.8 10.0-14.5 % Platelet Count 192 130-400 10^3/uL Mean Platelet Volume 11.4 H 7.4-10.4 FL Neutrophils (%) (Auto) 65 42-75 % Lymphocytes (%) (Auto) 25 12-44 % Monocytes (%) (Auto) 7 0-12 % Eosinophils (%) (Auto) 2 0-10 % Basophils (%) (Auto) 0 0-10 % Neutrophils # (Auto) 3.5 1.8-7.8 X 10^3 Lymphocytes # (Auto) 1.3 1.0-4.0 X 10^3 Monocytes # (Auto) 0.4 0.0-1.0 X 10^3 Eosinophils # (Auto) 0.1 0.0-0.3 10^3/uL Basophils # (Auto) 0.0 0.0-0.1 10^3/uL Sodium Level 138 135-145 MMOL/L Potassium Level 3.3 L 3.6-5.0 MMOL/L Chloride Level 99 98-107 MMOL/L Carbon Dioxide Level 25 21-32 MMOL/L Anion Gap 14 5-14 MMOL/L Blood Urea Nitrogen 33 H 7-18 MG/DL Creatinine 1.63 H 0.60-1.30 MG/DL Estimat Glomerular Filtration Rate 31 BUN/Creatinine Ratio 20 Glucose Level 114 H 70-105 MG/DL Calcium Level 10.1 8.5-10.1 MG/DL Corrected Calcium 8.5-10.1 MG/DL Total Bilirubin 0.2 0.1-1.0 MG/DL Aspartate Amino Transf (AST/SGOT) 23 5-34 U/L Alanine Aminotransferase (ALT/SGPT) 15 0-55 U/L Alkaline Phosphatase 60 40-136 U/L Total Protein 8.0 6.4-8.2 GM/DL Albumin 4.6 H 3.2-4.5 GM/DL Urine Color YELLOW Urine Clarity CLEAR Urine pH 6.0 5-9 Urine Specific [place] 1.010 L 1.016-1.022 Urine Protein NEGATIVE NEGATIVE Urine Glucose (UA) 1+ H NEGATIVE Urine Ketones NEGATIVE NEGATIVE Urine Nitrite NEGATIVE NEGATIVE Urine Bilirubin NEGATIVE NEGATIVE Urine Urobilinogen 0.2 < = 1.0 MG/DL Urine Leukocyte Esterase NEGATIVE NEGATIVE Urine RBC (Auto) NEGATIVE NEGATIVE Urine RBC NONE /HPF Urine WBC NONE /HPF Urine Crystals PRESENT H /LPF Urine Amorphous Sediment RARE JACOB URATES H /LPF Urine Bacteria NEGATIVE /HPF Urine Casts NONE /LPF Urine Mucus NEGATIVE /LPF Urine Culture Indicated NO My Orders Orders - BELLE CANTU Epinephrine 1 Mg Injection (Adrenalin I (02/28/20 20:00) Diphenhydramine Injection (Benadryl Inje (02/28/20 20:00) Loratadine Tablet (Claritin Tablet) (02/28/20 20:00) Famotidine Injection (Pepcid Injection) (02/28/20 20:00) Epinephrine 1 Mg Injection (Adrenalin I (02/28/20 19:55) Ed Iv/Invasive Line Start (02/28/20 19:58) Ns Iv 1000 Ml (Sodium Chloride 0.9%) (02/28/20 19:58) Cbc With Automated Diff (02/28/20 19:58) Comprehensive Metabolic Panel (02/28/20 19:58) Urinalysis (02/28/20 19:58) Continuous Ekg Monitoring (02/28/20 19:58) Ekg Tracing (02/28/20 19:58) Methylprednisolone Sod Succ (Solu-Medrol (02/28/20 20:15) Medications Given in ED Current Medications Medications Dose Ordered Sig/Dane Route Start Time Stop Time Status Last Admin Dose Admin Diphenhydramine HCl 50 mg ONCE ONCE IVP 02/28/20 20:00 02/28/20 20:01 DC 02/28/20 20:18 50 MG Epinephrine HCl 1 mg STK-MED ONCE .ROUTE 02/28/20 19:55 02/28/20 19:59 DC 02/28/20 20:00 0.3 MG Famotidine 20 mg ONCE ONCE IVP 02/28/20 20:00 02/28/20 20:01 DC 02/28/20 20:18 20 MG Methylprednisolone Sodium Succinate 125 mg ONCE ONCE IVP 02/28/20 20:15 02/28/20 20:16 DC 02/28/20 20:18 125 MG Vital Signs/I&O 02/28/20 19:50 Temp 36.9 Pulse 59 Resp 18 B/P (MAP) 143/89 (107) Pulse Ox 94 O2 Delivery Room Air Progress Progress Note #1: Time: 20:51 Progress Note 0.3 mg epinephrine were given and on re-examination patient's significant improving unable to talk now without as much muffling. She's having some mild nausea however it is resolving. We did go ahead and give her a bolus of steroids, and antihistamines. We'll continue to monitor her here in the ER. Progress Note #2: Time: 21:24 Progress Note Patient continues to have some improvement. No more epinephrine is indicated at this time. We will continue her observation period in the emergency room. Progress Note #3: Time: 22:58 Progress Note Patient's continuing to improve. She is able to talk clearly swallow fluids and has no difficulty breathing. She is ready to go home. [place] 1 [address] from the hospital and this is not new to her. Her spouse is with her and after discussing return precautions we will allow her to discharge home. Initial ECG Impression Date: Feb 28, 2020 Initial ECG Impression Time: 20:25 Initial ECG Rate: 72 Initial ECG Rhythm: Normal Sinus Initial ECG Intervals: Normal Initial ECG Impression: Normal Initial ECG Comparisson: Unchanged Comment Normal sinus rhythm without ST elevation or depression. Departure Impression Primary Impression: Angioedema Qualified Codes: T78.3XXA - Angioneurotic edema, initial encounter Disposition: 01 HOME, SELF-CARE Condition: Improved Departure-Patient Inst. Decision time for Depature: 22:59 Referrals: WELLINGTON RAZO MD (PCP/Family) Primary Care Physician Patient Instructions: Angioedema (DC) Add. Discharge Instructions: Please return to the ER for worsening symptoms of difficulty breathing swallowing etc. Continue taking loratadine or Zyrtec 10 mg daily. Benadryl 1-2 tablets every 6 hours as needed for swelling. Famotidine 20 mg twice a day for the next week. Prednisone 2 tablets daily for the next 5 days. Scripts Prednisone (Prednisone) 20 Mg Tab 40 MG PO DAILY for 5 Days, #10 TAB 0 Refills Prov: BELLE CANTU 02/28/20 BELLE CANTU Feb 28, 2020 20:00
[2020-02-28 20:05] LABS: BASOPHILS % (AUTO) 0 % (0-10); EOSINOPHILS # (AUTO) 0.1 10^3/uL (0.0-0.3); EOSINOPHILS % (AUTO) 2 % (0-10); HEMATOCRIT 42 % (35-52); HEMOGLOBIN 13.8 G/DL (11.5-16.0); LYMPHOCYTES # (AUTO) 1.3 X 10^3 (1.0-4.0); LYMPHOCYTES % (AUTO) 25 % (12-44); MEAN CORPUSCULAR HEMOGLOBIN 29 PG (25-34); MEAN CORPUSCULAR HGB CONC 33 G/DL (32-36); MEAN CORPUSCULAR VOLUME 86 FL (80-99); MEAN PLATELET VOLUME 11.4 FL (7.4-10.4); MONOCYTES # (AUTO) 0.4 X 10^3 (0.0-1.0); MONOCYTES % (AUTO) 7 % (0-12); NEUTROPHILS # (AUTO) 3.5 X 10^3 (1.8-7.8); NEUTROPHILS % (AUTO) 65 % (42-75); PLATELET COUNT 192 10^3/uL (130-400); RED CELL DISTRIBUTION WIDTH 13.8 % (10.0-14.5); WHITE BLOOD COUNT 5.3 10^3/uL (4.3-11.0)
[2020-02-28] MEDS: NS IV 1000 ML 1,000 ML IV SCH ×2 (20:08→20:22)
[2020-02-28] MEDS ORDERED: methylPREDNISolone 125 MG (Solu-MEDROL) VIAL IVP ONE (20:15)
[2020-02-28 20:24] LABS: ALANINE AMINOTRANSFERASE 15 U/L (0-55); ALBUMIN 4.6 GM/DL (3.2-4.5); ALKALINE PHOSPHATASE 60 U/L (40-136); BILIRUBIN,TOTAL 0.2 MG/DL (0.1-1.0); BUN/CREATININE RATIO 20; CALCIUM 10.1 MG/DL (8.5-10.1); CARBON DIOXIDE 25 MMOL/L (21-32); CHLORIDE 99 MMOL/L (98-107); CREATININE SERUM 1.63 MG/DL (0.60-1.30); GFR ESTIMATED 31; GLUCOSE 114 MG/DL (70-105); POTASSIUM 3.3 MMOL/L (3.6-5.0); SODIUM 138 MMOL/L (135-145)
[2020-02-28 22:12] LABS: BILIRUBIN,URINE NEGATIVE (NEGATIVE); CLARITY,URINE CLEAR; COLOR,URINE YELLOW; GLUCOSE, URINE (UA) 1+ (NEGATIVE); KETONES,URINE NEGATIVE (NEGATIVE); LEUKOCYTE ESTERASE ,URINE NEGATIVE (NEGATIVE); NITRITE,URINE NEGATIVE (NEGATIVE); PROTEIN,URINE NEGATIVE (NEGATIVE)
[2020-02-28 22:46] LABS: AMORPHOUS SEDIMENT,UR RARE AMOR URATES /LPF; BACTERIA,URINE NEGATIVE /HPF
[2020-02-28] MEDS ORDERED: PRD20T PO (23:00)
[2020-02-28 23:14] VITALS: BP 154/89
== END 2020-02-28 23:21 | disposition home or self-care (01) ==
LOC: EDUNIT# 19:42 → ER 19:43
DX: T78.3XXA Angioneurotic edema, initial encounter (principal); I10 Essential (primary) hypertension; Z79.82 Long term (current) use of aspirin; Z79.52 Long term (current) use of systemic steroids; Z85.3 Personal history of malignant neoplasm of breast
CPT/HCPCS: 36415; 36430; 80053; 81000; 85025; 93005

== ENCOUNTER → 2020-05-11 | Outpatient (CLI) | payer MEDICARE, OTHER ==
--- NOTE | 2020-05-11 12:58 | Diagnostic Imaging Report ---
INDICATION: Palpable lump right breast. CORRELATION is made with prior mammogram 05/31/2019 and 05/28/2018. 2-D and 3-D unilateral right diagnostic mammography was performed with CAD. BB marker was placed at the area of palpable abnormality in the upper outer right breast. Right breast remains heterogeneous dense, limiting the sensitivity of mammography. No mass or malignant appearing microcalcifications are seen. Right axilla is unremarkable. IMPRESSION: BI-RADS 0 No mammographic features suspicious for malignancy are identified. Even so, directed sonographic interrogation of the area of palpable abnormality in the upper-outer right breast is recommended and will be performed today. ACR BI-RADS Category 0: Incomplete. (Needs additional imaging evaluation). Result letter will be mailed to the patient. Note: At least 10% of breast cancer is not imaged by mammography. Dictated by: Dictated on workstation # [id number]
--- NOTE | 2020-05-11 14:07 | Diagnostic Imaging Report ---
INDICATION: Palpable lump upper outer right breast. Correlation is made with diagnostic mammogram earlier same day. Sonographic interrogation of the area of lump upper outer right breast was performed. This corresponds to the 10:00 location, 7 cm from the nipple. There is an area of heterogeneity at this location measuring 3.5 x 1.6 x 1.7 cm. No internal vascularity is seen. No discrete fluid collection is identified. IMPRESSION: BI-RADS Category 3 Parenchymal heterogeneity at the area of palpable abnormality in the upper outer right breast 10:00 location. Patient reports having an injury to the right breast approximately 6 weeks earlier. This could represent an area of resolving hematoma. A follow-up right breast ultrasound in approximately 6-8 weeks would be useful to confirm stability/clearing. ACR BI-RADS Category 3: Probably benign findings. Dictated by: Dictated on workstation # [id number]
== END ==
LOC: RAD 12:21
PROVIDERS: ATTEND Family Medicine
DX: N63.11 Unspecified lump in the right breast, upper outer quadrant (principal)
CPT/HCPCS: 76642; 77065; G0279

== ENCOUNTER → 2020-06-13 | Outpatient (CLI) | payer MEDICARE, OTHER ==
[~2020-06-13] MED LIST changes: +AMLO-250 PO; -AMLO5TAB9 PO
--- NOTE | 2020-06-13 10:34 | Diagnostic Imaging Report ---
INDICATION: Postmenopausal screening for osteoporosis COMPARISON: 05/28/2018 FINDINGS: AP Spine L1-L4: [BMD (g/cm2): 1.043] [T-Score: -1.3] [Z-Score: 0.7] [BMD Previous: 1.115] [BMD % Change: -6.5] LT Hip Neck: [BMD (g/cm2): 0.849] [T-Score: -1.4] [Z-Score: 0.6] LT Hip Total: [BMD (g/cm2):0.894] [T-Score:-0.9] [Z-Score: 0.9] [BMD Previous: 0.888] [BMD % Change: 0.7] RT Hip Neck: [BMD (g/cm2):0.862] [T-Score:-1.3] [Z-Score:0.7] RT Hip Total: [BMD (g/cm2):0.869] [T-score:-1.1] [Z-Score:0.7] [BMD Previous:0.853] [BMD % Change:1.9] *Indicates significant change from prior examination based on 95% confidence level. World Health Organization criteria for BMD interpretation classify patients as Normal (T-score at or above -1.0), Osteopenic (T-score between -1.0 and -2.5) or Osteoporotic (T-score at or below -2.5). LIMITATIONS AND MODIFICATION: None. FRACTURE RISK (FRAX SCORE): The ten year probability of (%): Major Osteoporotic Fracture: [15.7] Hip Fracture: [2.3] IMPRESSION: 1. Osteopenia (Low bone mass). 2. No significant change in bone mineral density since prior examination. 3. See below National Osteoporosis Foundation guidelines on when to potentially initiate pharmacologic therapy. Based on the National Osteoporosis Foundation Guidelines, pharmacologic treatment should be initiated in any of the following, unless clinical conditions suggest otherwise: * Any patient with prior fragility fracture of the hip or vertebrae. A spine fracture indicates 5X risk for subsequent spine fracture and 2X risk for subsequent hip fracture. * Osteoporosis (T-score <-2.5). * Postmenopausal women and men age 50 and older with low bone mass/osteopenia (T-score between -1.0 and -2.5) by DXA and 10-year major osteoporotic fracture greater than 20% or a 10-year probability of hip fracture greater than 3%. These fracture risks are supplied above in the FRAX score, if applicable. * Clinician judgement and/or patient preferences may indicate treatment for people with 10-year fracture probabilities above or below these levels. Dictated by: Dictated on workstation # [id number]
== END ==
LOC: RAD 08:30
PROVIDERS: ATTEND Nurse Practitioner Adult Health
DX: Z12.31 Encounter for screening mammogram for malignant neoplasm of breast (principal); M85.9 Disorder of bone density and structure, unspecified; Z78.0 Asymptomatic menopausal state
CPT/HCPCS: 77080

== ENCOUNTER → 2020-06-21 | Outpatient (CLI) | payer MEDICARE, OTHER ==
--- NOTE | 2020-06-21 10:34 | Diagnostic Imaging Report ---
INDICATION: Left breast carcinoma. Patient sustained trauma to the right breast in April. The study is performed for follow-up. Correlation is made with prior mammogram from 05/11/2020 and 05/28/2018. 2-D and 3-D bilateral diagnostic mammography was performed with CAD. Both breasts remain heterogeneously dense, limiting the sensitivity of mammography. Post lumpectomy changes in the upper outer left breast are again noted. Overall parenchymal pattern to be fairly stable. No mass is identified. No malignant appearing microcalcifications are seen. Axillae are unremarkable apart from surgical clips in the left axilla. There are benign calcifications. IMPRESSION: BI-RADS 0 No mammographic features suspicious for malignancy are identified. Even so, follow-up right breast ultrasound is recommended to follow-up area of questionable hematoma noted on ultrasound from April. Ultrasound will be performed today. ACR BI-RADS Category 0: Incomplete. (Needs additional imaging evaluation). Result letter will be mailed to the patient. Note: At least 10% of breast cancer is not imaged by mammography. Dictated by: Dictated on workstation # [id number]
--- NOTE | 2020-06-21 10:38 | Diagnostic Imaging Report ---
INDICATION: Right breast trauma with right breast hematoma. Study is performed for follow-up. Correlation is made with prior exam from 05/11/2020. Sonographic interrogation 10:00 location, 7 cm from the nipple was performed. Area of parenchymal heterogeneity and probable hematoma appears to be much improved and decreased in size when compared with examination from 05/11/2020. This measures approximately 1.5 x 0.9 cm compared with 3.5 x 1.7 cm. The features remain most consistent with a resolving hematoma. No new abnormality is detected. IMPRESSION: BI-RADS Category 2 Resolving hematoma right breast 10:00 location, 7 cm from the nipple. Patient may return to routine annual screening mammography. ACR BI-RADS Category 2: Benign findings. Dictated by: Dictated on workstation # [id number]
== END ==
LOC: RAD 10:15
PROVIDERS: ATTEND Family Medicine
DX: S20.01XA Contusion of right breast, initial encounter (principal); X58.XXXA Exposure to other specified factors, initial encounter
CPT/HCPCS: 76642; 77066; G0279; 77062

== ENCOUNTER → 2020-07-25 | Outpatient (CLI) | payer MEDICARE, OTHER ==
[~2020-07-25] VITALS: Ht 152.4 cm; Wt 54.0 kg
[~2020-07-25] MED LIST changes: +BAMLANIVIMAB 700 MG in NS 200 ML IV ONE; +EPINEPHrine INJECTION 1 MG/ML AMP IM PRN; +diphenhydrAMINE 50 MG/ML INJ (BENADRYL) IV PRN
[2020-07-25 12:00] VITALS: BP 141/72
[2020-07-25 14:22] VITALS: BP 142/85
== END ==
LOC: INFUSION 12:02
PROVIDERS: ATTEND Nurse Practitioner Family
DX: U07.1 COVID-19 (principal)

== ENCOUNTER → 2020-09-14 | Outpatient (CLI) | payer MEDICARE, OTHER ==
[~2020-09-14] MED LIST changes: -BAMLANIVIMAB 700 MG in NS 200 ML IV ONE; -EPINEPHrine INJECTION 1 MG/ML AMP IM PRN; +ESCI-2 PO; -ESCI10TA55 PO; -diphenhydrAMINE 50 MG/ML INJ (BENADRYL) IV PRN
[2020-09-14 10:09] LABS: BASOPHILS # (AUTO) 0.1 10^3/uL (0.0-0.1); BASOPHILS % (AUTO) 2 % (0-10); EOSINOPHILS # (AUTO) 0.1 10^3/uL (0.0-0.3); EOSINOPHILS % (AUTO) 3 % (0-10); HEMATOCRIT 41 % (35-52); HEMOGLOBIN 13.5 g/dL (11.5-16.0); LYMPHOCYTES # (AUTO) 0.9 10^3/uL (1.0-4.0); LYMPHOCYTES % (AUTO) 21 % (12-44); MEAN CORPUSCULAR HEMOGLOBIN 29 pg (25-34); MEAN CORPUSCULAR HGB CONC 33 g/dL (32-36); MEAN CORPUSCULAR VOLUME 90 fL (80-99); MEAN PLATELET VOLUME 11.1 fL (9.0-12.2); MONOCYTES # (AUTO) 0.4 10^3/uL (0.0-1.0); MONOCYTES % (AUTO) 8 % (0-12); NEUTROPHILS # (AUTO) 2.8 10^3/uL (1.8-7.8); NEUTROPHILS % (AUTO) 66 % (42-75); PLATELET COUNT 186 10^3/uL (130-400); WHITE BLOOD COUNT 4.3 10^3/uL (4.3-11.0)
[2020-09-14 10:27] LABS: ALBUMIN 4.1 GM/DL (3.2-4.5); BILIRUBIN,TOTAL 0.4 MG/DL (0.1-1.0); CALCIUM 9.4 MG/DL (8.5-10.1); CREATININE SERUM 1.06 MG/DL (0.60-1.30); POTASSIUM 3.6 MMOL/L (3.6-5.0)
== END ==
LOC: ONC 09:48
PROVIDERS: ATTEND Internal Medicine Hematology & Oncology
DX: C50.912 Malignant neoplasm of unspecified site of left female breast (principal); D84.1 Defects in the complement system; M85.89 Other specified disorders of bone density and structure, multiple sites; I12.9 Hypertensive chronic kidney disease with stage 1 through stage 4 chronic kidney disease, or unspecified chronic kidney disease; N18.30 Chronic kidney disease, stage 3 unspecified; Z86.19 Personal history of other infectious and parasitic diseases; Z92.3 Personal history of irradiation; Z92.21 Personal history of antineoplastic chemotherapy; Z90.12 Acquired absence of left breast and nipple; Z98.890 Other specified postprocedural states
CPT/HCPCS: 80053; 85025; G0463; 99213

== ENCOUNTER → 2020-11-29 | Outpatient (CLI) | payer MEDICARE, OTHER ==
--- NOTE | 2020-11-29 16:31 | Diagnostic Imaging Report ---
INDICATION: Left hip pain AP and frog-leg views of left hip are obtained. FINDINGS: There may be a bone island near the left anterior superior iliac spine. No acute fracture or dislocation is identified. No abnormal lytic or sclerotic focus is seen, and there is no radiopaque foreign body. IMPRESSION: No acute abnormality. Dictated by: Dictated on workstation # [id number]
--- NOTE | 2020-11-29 16:33 | Diagnostic Imaging Report ---
Indication: Left knee pain AP, oblique and lateral views of the left knee are obtained. FINDINGS: No acute fracture or dislocation is identified. No abnormal lytic or sclerotic focus is seen, and there is no radiopaque foreign body. IMPRESSION: No acute abnormality. Dictated by: Dictated on workstation # [id number]
--- NOTE | 2020-11-29 16:56 | Diagnostic Imaging Report ---
INDICATION: Low back pain AP and lateral views of the lumbar spine are obtained. Lumbar spinal curvature and alignment are unremarkable. There is mild endplate spurring in the upper lumbar region. There is mild sclerosis at the L5-S1 facet joints. IMPRESSION: Degenerative facet arthropathy at L5-S1 without acute lumbar spinal abnormality identified. Dictated by: Dictated on workstation # [id number]
== END ==
LOC: RAD 15:30
PROVIDERS: ATTEND Family Medicine
DX: M47.817 Spondylosis without myelopathy or radiculopathy, lumbosacral region (principal); M25.562 Pain in left knee; M25.552 Pain in left hip
CPT/HCPCS: 72100; 73502; 73562

== ENCOUNTER 2021-03-11 01:33 | Emergency (ER) | payer MEDICARE, OTHER ==
[~2021-03-11] VITALS: Ht 152.4 cm; Wt 52.0 kg
[2021-03-11] MEDS ORDERED: methylPREDNISolone 125 MG (Solu-MEDROL) VIAL IV STA (02:33)
[2021-03-11] MEDS ORDERED: diphenhydrAMINE 50 MG/ML INJ (BENADRYL) IV STA (02:33)
[2021-03-11] MEDS ORDERED: FAMOTIDINE 20MG/2ML IV (PEPCID) IV STA (02:33)
[2021-03-11] MEDS ORDERED: EPINEPHrine INJECTION 1 MG/ML AMP IM ONE (02:45)
[2021-03-11] MEDS ORDERED: PRD20T PO (03:57)
--- NOTE | 2021-03-11 03:57 | ED General ---
General Chief Complaint: Oral/Throat Problems Stated Complaint: THROAT SWELLING Allergies and Home Medications Allergies Coded Allergies: No Known Drug Allergies (Verified , 04/20/08) Home Medications Amlodipine Besylate 5 Mg Tablet, 5 MG PO DAILY, (Reported) Aspirin 81 Mg Tablet.dr, 81 MG PO DAILY, (Reported) Epinephrine 0.3 Mg/0.3 Ml Auto.injct, 0.3 MG IJ PRN PRN for tongue swelling Prescribed by: RITA RENTERIA on 09/02/182025 Epinephrine 0.3 Mg/0.3 Ml Auto.injct, 0.3 MG IJ PRN PRN for tongue swelling Prescribed by: RITA RENTERIA on 09/02/18 2030 Escitalopram Oxalate 10 Mg Tablet, 1 TAB PO DAILY, (Reported) Metoprolol Succinate 25 Mg Tab.er.24h, 25 MG PO DAILY, (Reported) Potassium Chloride 20 Meq Tablet.er, 40 MEQ PO DAILY Prescribed by: RITA RENTERIA on 09/02/18 193 Prednisone 50 Mg Tab, 50 MG PO DAILY Prescribed by: ROBERT AMES MD on 05/25/16 0659 Prednisone 20 Mg Tab, 40 MG PO DAILY Prescribed by: BELLE CANTU on 06/20/17 0210 Prednisone 20 Mg Tab, 40 MG PO DAILY Prescribed by: BELLE CANTU on 10/20/17 2334 Prednisone 20 Mg Tab, 40 MG PO DAILY Prescribed by: RITA RENTERIA on 06/17/18 2212 Prednisone 20 Mg Tab, 40 MG PO DAILY Prescribed by: RITA RENTERIA on 09/02/18 1934 Prednisone 20 Mg Tab, 40 MG PO DAILY Prescribed by: NADINE CHAPMAN on 11/04/19 1106 Prednisone 20 Mg Tab, 40 MG PO DAILY Prescribed by: BELLE CANTU on 02/28/20 2300 Past Lsmahjm-Kzqkyj-Unasgz Hx Immunizations Up To Date Tetanus Booster (TDap): Unknown PED Vaccines UTD: Yes Seasonal Allergies Seasonal Allergies: No Past Medical History Surgeries: Yes (HYSTERECTOMY) Breast, Lumpectomy Respiratory: No Cardiac: Yes (WPW) Hypertension, Irregular Heartbeat Neurological: Yes Multiple Sclerosis, Parkinson's Disease 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 0.0oz. 58.710565xy; 25.00 BMI Method:Stated Progress/Results/Core Measures Suspected Sepsis SIRS Temperature: Pulse: Respiratory Rate: Blood Pressure / Mean: Results/Orders My Orders Orders - YAW ARIZMENDI DO Ed Iv/Invasive Line Start (03/11/21 02:33) Monitor-Rhythm Ecg Trace Only (03/11/21 02:33) Diphenhydramine Injection (Benadryl Inje (03/11/21 02:33) Methylprednisolone Sod Succ (Solu-Medrol (03/11/21 02:33) Famotidine Injection (Pepcid Injection) (03/11/21 02:33) Epinephrine 1 Mg Injection (Adrenalin I (03/11/21 02:45) Medications Given in ED Current Medications Medications Dose Ordered Sig/Dane Route Start Time Stop Time Status Last Admin Dose Admin Epinephrine HCl 0.3 mg ONCE ONCE IM 03/11/21 02:45 03/11/21 02:46 DC 03/11/21 02:57 0.3 MG Vital Signs/I&O Capillary Refill : Departure Impression Primary Impression: Angioedema Additional Impression: Parkinsons disease Disposition: HOME, SELF-CARE Condition: Improved Departure-Patient Inst. Referrals: WELLINGTON RAZO MD (PCP/Family) Primary Care Physician Patient Instructions: Angioedema (DC) Add. Discharge Instructions: CONTINUE YOUR REGULAR MEDICATIONS PRESCRIBED USE YOUR EPI PEN IF YOUR SYMPTOMS RETURN AND THEN RETURN TO ER TAKE BENADRYL 50 MG EVERY 4 HOURS NEEDED TAKE PEPCID 40 MG IF SYMPTOMS RETURN All discharge instructions reviewed with patient and/or family. Voiced understanding. Scripts Prednisone (Prednisone) 20 Mg Tab 40 MG PO DAILY, #6 TAB 0 Refills Prov: YAW ARIZMENDI DO 03/11/21 YAW ARIZMENDI DO Mar 11, 2021 03:57
[2021-03-11 04:20] VITALS: BP 161/81
== END 2021-03-11 04:20 | disposition home or self-care (01) ==
LOC: EDUNIT# 01:33 → ER 01:34
DX: T78.3XXA Angioneurotic edema, initial encounter (principal); G20 Parkinson's disease; I10 Essential (primary) hypertension; Z79.82 Long term (current) use of aspirin; Z79.52 Long term (current) use of systemic steroids; Z79.899 Other long term (current) drug therapy
CPT/HCPCS: 93041

== ENCOUNTER → 2021-06-12 | Outpatient (CLI) | payer MEDICARE, OTHER ==
--- NOTE | 2021-06-12 14:26 | Diagnostic Imaging Report ---
EXAMINATION: Magnetic resonance imaging of the left knee without intravenous contrast DATE: June 12, 2021. COMPARISON: Left knee radiographs November 29, 2020. INDICATION: 70-year-old female, fall. Left knee pain. TECHNIQUE: Multiplanar, multisequence non contrast enhanced MR imaging was accomplished. FINDINGS: MENISCI: There is signal in the body and posterior horn of the medial meniscus consistent with an oblique tear. There is extension of medial meniscal tissue into the superior gutter on coronal PD sequence image 15. This measures approximately 4 x 3 mm in size. The lateral meniscus is intact. LIGAMENTS AND TENDONS: The anterior and posterior cruciate ligaments are intact. The medial collateral ligament is intact. The iliotibial band, mid third lateral capsular ligament, fibular collateral ligament, biceps femoris tendon and conjoined tendon are intact. The quadriceps tendon and patella ligament are intact. JOINT: The articular cartilage surfaces are intact. There is no knee joint effusion, prominent synovitis, or intra-articular body. BONE: There is unremarkable bone marrow signal. Specifically, negative for fracture, osteomyelitis, osteonecrosis, or marrow replacing process. BURSAE AND SOFT TISSUES: No Bakers cyst. IMPRESSION: 1. Oblique tear involving the body and posterior horn of the medial meniscus with extension of medial meniscal tissue into the superior gutter. 2. Intact anterior and posterior cruciate ligaments. Additional ligaments and tendons are intact. 3. No discretely identified cartilage defect. No knee joint effusion. 4. No acute fracture, bone contusion, or evidence of osteonecrosis. Dictated by: Dictated on workstation # [id number]
== END ==
LOC: RAD 13:15
PROVIDERS: ATTEND Family Medicine
DX: S83.242A Other tear of medial meniscus, current injury, left knee, initial encounter (principal); W19.XXXA Unspecified fall, initial encounter
CPT/HCPCS: 73721

== ENCOUNTER → 2021-06-26 | Outpatient (CLI) | payer MEDICARE, OTHER ==
--- NOTE | 2021-06-26 12:53 | Diagnostic Imaging Report ---
INDICATION: Routine screening. Comparison is made with prior mammogram from 06/21/2020 and 05/31/2019. 2-D and 3-D bilateral screening mammography was performed with CAD. Both breasts are heterogeneously dense, limiting the sensitivity of mammography. A postoperative changes of multiple surgical clips in region of the upper outer left breast are noted. No mass or malignant-appearing microcalcifications are seen. IMPRESSION: BI-RADS Category 2 No mammographic features suspicious for malignancy are identified. ACR BI-RADS Category 2: Benign findings. Result letter will be mailed to the patient. Note: At least 10% of breast cancer is not imaged by mammography. Dictated by: Dictated on workstation # [id number]
== END ==
LOC: RAD 10:33
PROVIDERS: ATTEND Nurse Practitioner Family
DX: Z12.31 Encounter for screening mammogram for malignant neoplasm of breast (principal); Z78.0 Asymptomatic menopausal state
CPT/HCPCS: 77063; 77067

== ENCOUNTER 2022-01-22 22:00 | Emergency (ER) | payer MEDICARE, OTHER ==
[~2022-01-22] VITALS: Ht 152.4 cm; Wt 60.0 kg
[2022-01-22] MEDS ORDERED: diphenhydrAMINE 50 MG/ML INJ (BENADRYL) IV STA (22:05)
[2022-01-22] MEDS ORDERED: methylPREDNISolone 125 MG (Solu-MEDROL) VIAL IV STA (22:05)
[2022-01-22 22:07] VITALS: BP 144/99
[2022-01-22] MEDS ORDERED: FAMOTIDINE 20MG/2ML IV (PEPCID) IVP ONE ×2 (22:15→23:45)
[2022-01-22] MEDS ORDERED: EPINEPHrine INJECTION 1 MG/ML AMP IM ONE ×2 (22:15→23:45)
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
[2022-01-22 22:20] LABS: BASOPHILS # (AUTO) 0.1 10^3/uL (0.0-0.1); BASOPHILS % (AUTO) 1 % (0-10); EOSINOPHILS # (AUTO) 0.2 10^3/uL (0.0-0.3); EOSINOPHILS % (AUTO) 3 % (0-10); HEMATOCRIT 39 % (35-52); HEMOGLOBIN 12.7 g/dL (11.5-16.0); LYMPHOCYTES # (AUTO) 1.3 10^3/uL (1.0-4.0); LYMPHOCYTES % (AUTO) 24 % (12-44); MEAN CORPUSCULAR HEMOGLOBIN 28 pg (25-34); MEAN CORPUSCULAR HGB CONC 33 g/dL (32-36); MEAN CORPUSCULAR VOLUME 86 fL (80-99); MEAN PLATELET VOLUME 11.2 fL (9.0-12.2); MONOCYTES # (AUTO) 0.6 10^3/uL (0.0-1.0); MONOCYTES % (AUTO) 12 % (0-12); NEUTROPHILS # (AUTO) 3.1 10^3/uL (1.8-7.8); NEUTROPHILS % (AUTO) 60 % (42-75); PLATELET COUNT 176 10^3/uL (130-400); WHITE BLOOD COUNT 5.3 10^3/uL (4.3-11.0)
[2022-01-22] MEDS ORDERED: ONDANSETRON 4 MG/2 ML (SDV) Z0FRAN IVP ONE ×2 (22:30→23:45)
[2022-01-22 22:33] LABS: ALBUMIN 4.3 GM/DL (3.2-4.5); POTASSIUM 3.2 MMOL/L (3.6-5.0)
[2022-01-22 22:34] LABS: CALCIUM 9.8 MG/DL (8.5-10.1)
[2022-01-22 22:37] LABS: BILIRUBIN,TOTAL 0.3 MG/DL (0.1-1.0)
[2022-01-22 22:39] LABS: CREATININE SERUM 1.18 MG/DL (0.60-1.30)
[2022-01-22] MEDS ORDERED: LACTATED RINGERS 1,000 ML IV ONE (23:00)
[2022-01-22] MEDS ORDERED: methylPREDNISolone 125 MG (Solu-MEDROL) VIAL IVP ONE (23:45)
== END 2022-01-23 01:19 | disposition home or self-care (01) ==
LOC: EDUNIT# 22:00 → ER 22:02
DX: T78.3XXA Angioneurotic edema, initial encounter (principal); K14.8 Other diseases of tongue; Z79.52 Long term (current) use of systemic steroids; Z79.899 Other long term (current) drug therapy
CPT/HCPCS: 36415; 80053; 85025; 93041

== ENCOUNTER → 2022-01-24 | Outpatient (CLI) | payer OTHER, MEDICARE ==
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
== END ==
LOC: RAD 15:24
PROVIDERS: ATTEND Family Medicine
DX: M54.2 Cervicalgia (principal)
CPT/HCPCS: 70450; 70490

== ENCOUNTER → 2022-01-24 | Outpatient (CLI) | payer OTHER, MEDICARE ==
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
== END ==
LOC: RAD 12:42
PROVIDERS: ATTEND Family Medicine
DX: M47.814 Spondylosis without myelopathy or radiculopathy, thoracic region (principal); M41.9 Scoliosis, unspecified; M43.12 Spondylolisthesis, cervical region; M25.512 Pain in left shoulder
CPT/HCPCS: 71046; 72040; 72072; 73010; 73030

== ENCOUNTER → 2022-04-15 | Outpatient (CLI) | payer MEDICARE, OTHER ==
--- NOTE | 2022-04-15 17:06 | Diagnostic Imaging Report ---
INDICATION: Pain. COMPARISON: Imaging from same date TECHNIQUE: 2 radiographs of the right scapula dated 04/15/2022. FINDINGS: Mild degenerative changes of the acromioclavicular joint. Glenohumeral joint relationship is well-maintained. No acute fracture or dislocation. No destructive osseous process. Surgical clips are noted overlying the left chest. IMPRESSION: No acute osseous abnormality with mild degenerative changes present. Dictated by: Dictated on workstation # [id number]
--- NOTE | 2022-04-15 17:25 | Diagnostic Imaging Report ---
INDICATION: Pain COMPARISON: 01/24/2022 TECHNIQUE: 3 radiographs of the right shoulder dated 04/15/2022 FINDINGS: Mild degenerative changes of the acromioclavicular joint. Glenohumeral joint relationship is well maintained. No acute fracture or dislocation. No destructive osseous process. Minimal degenerative changes in the glenohumeral joint. Surgical clips are seen overlying left chest. IMPRESSION: No acute osseous abnormality with mild degenerative changes of the right shoulder. Dictated by: Dictated on workstation # [id number]
--- NOTE | 2022-04-15 17:27 | Diagnostic Imaging Report ---
INDICATION: Pain COMPARISON: 01/24/2022 TECHNIQUE: 3 radiographs of the thoracic spine dated 04/15/2022. FINDINGS: Surgical clips are noted overlying the left chest, similar to prior exam. Minimal apex left curvature of the thoracic spine, appearing similar to the prior examination. Alignment of the thoracic spine is well maintained. Vertebral body heights are well maintained. No severe disc space height loss. No acute fracture or dislocation. No large volume pleural effusion or pneumothorax. IMPRESSION: No acute osseous abnormality with low-grade degenerative changes present and minimal apex left curvature of the thoracic spine. Dictated by: Dictated on workstation # [id number]
== END ==
LOC: RAD 11:58
PROVIDERS: ATTEND Nurse Practitioner Family
DX: M19.011 Primary osteoarthritis, right shoulder (principal); M54.6 Pain in thoracic spine
CPT/HCPCS: 72072; 73010; 73030

== ENCOUNTER 2022-06-18 15:00 | Outpatient (RCR) | payer MEDICARE, OTHER | END 2022-06-19 | disposition still patient (30) | PROVIDERS: ATTEND Family Medicine | DX: G20 Parkinson's disease (principal) ==

== ENCOUNTER → 2022-07-16 | Outpatient (CLI) | payer MEDICARE, OTHER ==
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
--- NOTE | 2022-07-16 18:37 | Diagnostic Imaging Report ---
INDICATION: Routine screening. COMPARISON is made with prior mammograms 06/26/2021 and 06/21/2020. 2-D and 3-D bilateral screening mammography was performed with CAD. Both breasts are heterogeneously dense, limiting the sensitivity of mammography. The overall parenchymal pattern appears to be stable. There are multiple surgical clips in the upper outer left breast. There are scattered benign calcifications. No mass or malignant-appearing microcalcifications are seen. Right axilla is unremarkable. IMPRESSION: BI-RADS Category 2 No mammographic features suspicious for malignancy are identified. ACR BI-RADS Category 2: Benign findings. Result letter will be mailed to the patient. Note: At least 10% of breast cancer is not imaged by mammography. Dictated by: Dictated on workstation # [id number]
== END ==
LOC: RAD 12:13
PROVIDERS: ATTEND Family Medicine
DX: Z12.31 Encounter for screening mammogram for malignant neoplasm of breast (principal); M81.0 Age-related osteoporosis without current pathological fracture; Z78.0 Asymptomatic menopausal state
CPT/HCPCS: 77063; 77067; 77080

== ENCOUNTER 2022-07-18 14:54 | Outpatient (RCR) | payer MEDICARE, OTHER | END 2022-07-18 16:03 | disposition home or self-care (01) | PROVIDERS: ATTEND Family Medicine | DX: G20 Parkinson's disease (principal) ==

== ENCOUNTER 2022-08-16 13:03 | Outpatient (RCR) | payer MEDICARE, OTHER | END 2022-08-16 16:00 | disposition home or self-care (01) | PROVIDERS: ATTEND Family Medicine | DX: G20 Parkinson's disease (principal); I10 Essential (primary) hypertension ==

== ENCOUNTER → 2022-08-26 | Outpatient (CLI) | payer MEDICARE, OTHER ==
[~2022-08-26] VITALS: Ht 152.4 cm; Wt 51.0 kg
[~2022-08-26] MED LIST changes: +DENOSUMAB 60 MG/1 ML (PROLIA) SQ SCH
[2022-08-26 11:10] VITALS: BP 134/80
== END ==
LOC: SDC 10:51
PROVIDERS: ATTEND Nurse Practitioner Family
DX: M81.0 Age-related osteoporosis without current pathological fracture (principal)
CPT/HCPCS: 96372

== ENCOUNTER 2022-10-21 18:45 | Emergency (ER) | payer MEDICARE, OTHER ==
[~2022-10-21] VITALS: Ht 152.4 cm; Wt 49.8 kg
[~2022-10-21 18:45] MED LIST changes: -DENOSUMAB 60 MG/1 ML (PROLIA) SQ SCH
[2022-10-21] MEDS ORDERED: TRANEXAMIC ACID 100 MG/ML 10 ML INJECTION ONE (19:00)
[2022-10-21] MEDS ORDERED: PHENYLEPHRINE 0.5% NASAL SPR (NEO-SYNEPHRINE) REG ONE (19:00)
[2022-10-21 19:41] LABS: BASOPHILS % (AUTO) 1 % (0-10); EOSINOPHILS # (AUTO) 0.1 10^3/uL (0.0-0.3); EOSINOPHILS % (AUTO) 2 % (0-10); HEMATOCRIT 38 % (35-52); HEMOGLOBIN 12.9 g/dL (11.5-16.0); LYMPHOCYTES % (AUTO) 16 % (12-44); MEAN CORPUSCULAR HEMOGLOBIN 30 pg (25-34); MEAN CORPUSCULAR HGB CONC 34 g/dL (32-36); MEAN CORPUSCULAR VOLUME 88 fL (80-99); MEAN PLATELET VOLUME 10.7 fL (9.0-12.2); MONOCYTES # (AUTO) 0.5 10^3/uL (0.0-1.0); MONOCYTES % (AUTO) 8 % (0-12); NEUTROPHILS # (AUTO) 4.8 10^3/uL (1.8-7.8); NEUTROPHILS % (AUTO) 73 % (42-75); PLATELET COUNT 231 10^3/uL (130-400); WHITE BLOOD COUNT 6.6 10^3/uL (4.3-11.0)
[2022-10-21 19:51] LABS: POTASSIUM 3.6 MMOL/L (3.6-5.0)
[2022-10-21 19:52] LABS: CALCIUM 10.1 MG/DL (8.5-10.1)
[2022-10-21 19:57] LABS: CREATININE SERUM 1.13 MG/DL (0.60-1.30)
--- NOTE | 2022-10-21 19:57 | ED EENT ---
History of Present Illness General Chief Complaint: Nasal Problems Stated Complaint: NOSE BLEAD Nursing Triage Note: PT AMB TO [facility] 3 WITH COMPLAINT OF NOSE BLEED. STATES SHE HAS BEEN HAVING BLEEDING ON AND OFF FOR THE LAST 2 WEEKS BUT WAS UNABLE TO GET TONIGHTS STOPPED. 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 Source: patient History of Present Illness Date Seen by Provider: Oct 21, 2022 Time Seen by Provider: 18:48 Initial Comments PT ARRIVES VIA POV FROM HOME C/O NOSEBLEED THAT STARTED ABOUT 45 MINUTES AGO--BOTH NARES HAS BEEN HAVING NOSEBLEEDS OFF AND ON FOR THE LAST COUPLE OF WEEKS--WAS ABLE TO STOP THEM AT HOME, BUT NOT TODAY NO RECENT ILLNESS OR TRAUMA PT IS ON ASPIRIN BUT NO OTHER BLOOD THINNERS NO EXCESSIVE BRUISING, PETECHIAE OR BLEEDING FROM OTHER SITES. SHE STATES SHE GETS THIS EVERY SPRING, AND HAS HAD TO HAVE NOSE CAUTERIZED IN THE PAST. LAST YEAR WAS THE LAST TIME. PCP: DR. RAZO Allergies and Home Medications Allergies Coded Allergies: No Known Drug Allergies (Verified , 04/20/08) Patient Home Medication List Home Medication List Reviewed: Yes Amlodipine Besylate (Amlodipine Besylate) 5 Mg Tablet, 5 MG PO DAILY, (Reported) Entered as Reported by: NICKY BALTAZAR on 04/29/16928 Aspirin (Aspir 81) 81 Mg Tablet.dr, 81 MG PO DAILY, (Reported) Entered as Reported by: SHELLIE VAZ on 05/25/16399 Cefuroxime Axetil (Cefuroxime) 500 Mg Tablet, 500 MG PO BID Prescribed by: YAW ARIZMENDI on 10/21/222041 Epinephrine (Epipen) 0.3 Mg/0.3 Ml Auto.injct, 0.3 MG IJ PRN PRN for tongue swelling Prescribed by: RITA RENTERIA on 09/02/182025 Epinephrine (Epipen) 0.3 Mg/0.3 Ml Auto.injct, 0.3 MG IJ PRN PRN for tongue swelling Prescribed by: RITA RENTERIA on 09/02/182029 Escitalopram Oxalate (Escitalopram Oxalate) 10 Mg Tablet, 1 TAB PO DAILY, (Reported) Entered as Reported by: SHELLIE VAZ on 05/25/16399 Metoprolol Succinate (Metoprolol Succinate) 25 Mg Tab.er.24h, 25 MG PO DAILY, (Reported) Entered as Reported by: NICKY BALTAZAR on 10/10/16 0929 Potassium Chloride (Potassium Chloride) 20 Meq Tablet.er, 40 MEQ PO DAILY Prescribed by: RITA RENTERIA on 09/02/181933 Prednisone (Prednisone) 50 Mg Tab, 50 MG PO DAILY Prescribed by: ROBERT AMES MD on 05/25/16 0659 Prednisone (Prednisone) 20 Mg Tab, 40 MG PO DAILY Prescribed by: BELLE CANTU on 06/20/17 0210 Prednisone (Prednisone) 20 Mg Tab, 40 MG PO DAILY Prescribed by: BELLE CANTU on 10/20/17 2334 Prednisone (Prednisone) 20 Mg Tab, 40 MG PO DAILY Prescribed by: RITA RENTERIA on 06/17/18 2212 Prednisone (Prednisone) 20 Mg Tab, 40 MG PO DAILY Prescribed by: RITA RENTERIA on 09/02/18 193 Prednisone (Prednisone) 20 Mg Tab, 40 MG PO DAILY Prescribed by: NADINE CHAPMAN on 11/04/19 1106 Prednisone (Prednisone) 20 Mg Tab, 40 MG PO DAILY Prescribed by: BELLE CANTU on 02/28/20 2300 Prednisone (Prednisone) 20 Mg Tab, 40 MG PO DAILY Prescribed by: YAW ARIZMENDI on 03/11/21 0357 Review of Systems Review of Systems Constitutional: no symptoms reported Nose: see HPI Respiratory: no symptoms reported Cardiovascular: no symptoms reported Gastrointestinal: no symptoms reported Neurological: Anxiety Past Fheplot-Blmlyw-Lkzdeu Hx Patient Social History Tobacco Use?: No Use of E-Cig and/or Vaping dev: No Substance use?: No Alcohol Use?: No Pt feels they are or have been: No Immunizations Up To Date Tetanus Booster (TDap): Unknown PED Vaccines UTD: Yes First/Initial COVID19 Vaccinat: 2020 Second COVID19 Vaccination Je: 2020 Seasonal Allergies Seasonal Allergies: No Past Medical History Surgery/Hospitalization HX: HYSTERECTOMY LEFT LUMPECTOMY APPENDECTOMY Surgeries: Yes (HYSTERECTOMY) Appendectomy, Breast, Hysterectomy, Lumpectomy Respiratory: No Cardiac: Yes (WPW) Hypertension, Irregular Heartbeat Neurological: Yes Multiple Sclerosis, Parkinson's Disease 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 Disorders: 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 Sexually Transmitted Disease: No Genitourinary: No Gastrointestinal: No Musculoskeletal: No Endocrine: No HEENT: Yes (FREQUENT EPISTAXIS) Cancer: Yes Breast Did You Recieve Any Treatments: Yes What Type of Treatment Did You: Surgical Intervention Psychosocial: No Integumentary: No Blood Disorders: No Adverse Reaction/Blood Tranf: No Family Medical History No Pertinent Family Hx HEREDITARY ANGIOEDEMA Physical Exam Vital Signs Vital Signs - First Documented 10/21/22 18:47 Temp 36.7 Pulse 81 Resp 16 B/P (MAP) 147/97 (114) Pulse Ox 97 O2 Delivery Room Air Height, Weight, BMI Height: 5'0" Weight: 130lbs. 0.0oz. 58.732230td; 21.00 BMI Method:Stated General Appearance: WD/WN, other (VERY ANXIOUS, TREMULOUS. CONSTANT GAGGING AND SPITTING UP COPIOUS AMOUNTS OF BLOOD, WITH PROFUSE BLEEDING FROM BOTH NARES) Eyes: bilateral eye normal inspection, bilateral eye PERRL, bilateral eye EOMI Nose: active bleeding (PROFUSE BLEEDING FROM BOTH NARES, WITH LARGE AMOUNT OF BLOOD IN MOUTH AND POSTERIOR PHARYNX. ) Mouth/Throat: other (BLOOD IN MOUTH AND POSTERIOR PHARYNX) Neck: normal inspection Cardiovascular: regular rate, rhythm Respiratory: normal breath sounds, no respiratory distress Neurologic/Psychiatric: no motor/sensory deficits, alert, oriented x 3, other (ANXIOUS, TREMULOUS--HX OF PARKINSON'S) Skin: normal color, warm/dry; No ecchymosis; other (NO BRUISING OR PETECHIAE NOTED) Procedures/Interventions Nasal : Nasal Location: Both Clots Cleared from Nasal: Patient Blowing Nasal Drops Instilled: Mynor-Synephrine Inspection with: Otoscope Nasal Procedures: Rapid Rhino Progress PT WITH PROFUSE BILATERAL NOSE BLEEDING WELL DOWN BACK OF THROAT CLOTS CLEARED WITH NASAL BLOWING MYNOR-SYNEPHRINE INSTILLED INTO EACH NOSTRIL EACH NOSTRIL PACKED WITH 4.5 CM RAPID RHINO SATURATED WITH TXA. PT OBSERVED IN ER FOR AN HOUR, NO FURTHER BLEEDING. POSTERIOR PHARYNX IS CLEAR PT FEELS MUCH BETTER Progress/Results/Core Measures Results/Orders Lab Results Laboratory Tests Test 10/21/22 19:35 10/21/22 19:55 Range/Units White Blood Count 6.6 4.3-11.0 10^3/uL Red Blood Count 4.29 3.80-5.11 10^6/uL Hemoglobin 12.9 11.5-16.0 g/dL Hematocrit 38 35-52 % Mean Corpuscular Volume 88 80-99 fL Mean Corpuscular Hemoglobin 30 25-34 pg Mean Corpuscular Hemoglobin Concent 34 32-36 g/dL Red Cell Distribution Width 13.8 10.0-14.5 % Platelet Count 231 130-400 10^3/uL Mean Platelet Volume 10.7 9.0-12.2 fL Immature Granulocyte % (Auto) 1 % Neutrophils (%) (Auto) 73 42-75 % Lymphocytes (%) (Auto) 16 12-44 % Monocytes (%) (Auto) 8 0-12 % Eosinophils (%) (Auto) 2 0-10 % Basophils (%) (Auto) 1 0-10 % Neutrophils # (Auto) 4.8 1.8-7.8 10^3/uL Lymphocytes # (Auto) 1.0 1.0-4.0 10^3/uL Monocytes # (Auto) 0.5 0.0-1.0 10^3/uL Eosinophils # (Auto) 0.1 0.0-0.3 10^3/uL Basophils # (Auto) 0.0 0.0-0.1 10^3/uL Immature Granulocyte # (Auto) 0.0 0.0-0.1 10^3/uL Sodium Level 138 135-145 MMOL/L Potassium Level 3.6 3.6-5.0 MMOL/L Chloride Level 102 98-107 MMOL/L Carbon Dioxide Level 21 21-32 MMOL/L Anion Gap 15 H 5-14 MMOL/L Blood Urea Nitrogen 45 H 7-18 MG/DL Creatinine 1.13 0.60-1.30 MG/DL Estimat Glomerular Filtration Rate 51 BUN/Creatinine Ratio 40 Glucose Level 147 H 70-105 MG/DL Calcium Level 10.1 8.5-10.1 MG/DL Prothrombin Time 12.6 12.2-14.7 SEC INR Comment 0.9 0.8-1.4 Activated Partial Thromboplast Time 22 L 24-35 SEC My Orders Orders - UGOYAW K DO Phenylephrine 0.5% Nasal [place] (Mynor-Syne (10/21/22 19:00) Tranexamic Acid Injection (Cyklokapron I (10/21/22 19:00) Basic Metabolic Panel (10/21/22 19:13) Cbc With Automated Diff (10/21/22 19:13) Protime With Inr (10/21/22 19:13) Partial Thromboplastin Time (10/21/22 19:13) Medications Given in ED Current Medications Medications Dose Ordered Sig/Dane Route Start Time Stop Time Status Last Admin Dose Admin Phenylephrine HCl 1 SPRAY EACH NOSTRIL ONCE ONCE NA 10/21/22 19:00 10/21/22 19:01 DC 10/21/22 19:13 1 ML Tranexamic Acid ONCE ONCE NA 10/21/22 19:00 10/21/22 19:01 DC 10/21/22 19:12 1,000 MG Vital Signs/I&O 10/21/22 18:47 Temp 36.7 Pulse 81 Resp 16 B/P (MAP) 147/97 (114) Pulse Ox 97 O2 Delivery Room Air Blood Pressure Mean: 114 Progress Progress Note : Progress Note NO DETERIORATION IN PT'S CONDITION DURING ER STAY REVIEWED PRIOR RECORDS--ALL ARE ER VISITS, NEARLY ALL FOR CHRONIC ANGIOEDEMA. DISCUSSED ANTICIPATED COURSE, CARE OF PACKING, MEDICATIONS, NEED FOR FOLLOW UP WITH DR. LEE AND RETURN PRECAUTIONS Departure Communication (Admissions) 1949--SPOKE WITH DR. LEE, WILL SEE IN OFFICE Impression Primary Impression: Epistaxis Disposition: HOME, SELF-CARE Condition: Improved Departure-Patient Inst. Decision time for Depature: 20:35 Referrals: WELLINGTON RAZO MD (PCP) Primary Care Physician ALLIE LEE MD Patient Instructions: Nosebleeds (DC) Add. Discharge Instructions: LEAVE PACKING IN PLACE DO NOT BLOW OR RUB NOSE CONTINUE YOUR REGULAR MEDICATIONS PRESCRIBED, BUT HOLD ASPIRIN. FOLLOW UP WITH DR. LEE--CALL IN THE MORNING TO MAKE AN APPOINTMENT RETURN TO ER IF SYMPTOMS RETURN All discharge instructions reviewed with patient and/or family. Voiced understanding. Scripts Cefuroxime Axetil (Cefuroxime) 500 Mg Tablet 500 MG PO BID, #20 TAB Prov: YAW ARIZMENDI DO 10/21/22 YAW ARIZMENDI DO Oct 21, 2022 19:57
[2022-10-21 20:15] LABS: INR 0.9 (0.8-1.4); PROTHROMBIN TIME PATIENT 12.6 SEC (12.2-14.7)
[2022-10-21] MEDS ORDERED: CEFU500T63 PO (20:42)
[2022-10-21 20:44] VITALS: BP 117/80
== END 2022-10-21 20:43 | disposition home or self-care (01) ==
LOC: EDUNIT# 18:45 → ER 18:49
DX: R04.0 Epistaxis (principal); Z79.82 Long term (current) use of aspirin
CPT/HCPCS: 30903; 36415; 80048; 85025; 85610; 85730

== ENCOUNTER → 2023-03-13 | Day surgery (SDC) | payer MEDICARE, OTHER ==
[~2023-03-13] MED LIST changes: +CEFU500T63 PO; +DENOSUMAB 60 MG/1 ML (PROLIA) SQ SCH; +POTA-330 PO; -POTA-51 PO
[2023-03-13 10:10] VITALS: BP 119/72
== END | disposition home or self-care (01) ==
LOC: SDC 09:51
PROVIDERS: ATTEND Nurse Practitioner Family
DX: M81.0 Age-related osteoporosis without current pathological fracture (principal)
CPT/HCPCS: 96372